=== PATIENT | female | born 1950 | race Caucasian/White ===

== ENCOUNTER → 2017-06-22 | Outpatient (CLI) | payer OTHER, BC ==
[~2017-06-22] MED LIST: ANT25 PO; ASPCH81X PO; ASPI81TA28 PO; ATOR10TA88 PO; KETO10TA PO; MAGN500T4 PO; MELA1TAB3 PO; NAPR1TAB9 PO; ONDA4TAB7 SL; OXYC-57 PO
[2017-06-22 16:55] LABS: BASO % 0.8 %; BASO ABS # 0.07 K/uL (0-0.2); COMPLETE YES; EOS % 3.4 %; HEMATOCRIT 37.1 % (37-47); IG% 0.1 %; LYMPH % 28.2 %; LYMPH ABS # 2.44 K/uL (1.2-3.4); MEAN CELL VOLUME 88.8 fL (80-100); MEAN CORPUSCULAR HEMOGLOBIN 30.6 pg (25-34); MEAN CORPUSCULAR HGB CONC 34.5 g/dl (32-36); MEAN PLATELET VOLUME 9.3 fL (7.4-10.4); MONO % 6.3 %; NEUT % 61.2 %; PLATELET COUNT 327 K/uL (130-400); RED BLOOD COUNT 4.18 M/uL (4.2-5.4); WHITE BLOOD COUNT 8.64 K/uL (4.8-10.8)
[2017-06-22 17:23] LABS: BLOOD UREA NITROGEN 11 mg/dl (7-18); BUN/CREATININE RATIO 17.1 (10-20); CALCIUM 9.5 mg/dl (8.5-10.1); CARBON DIOXIDE 26 mmol/L (21-32); CHLORIDE 107 mmol/L (98-107); CREATININE 0.62 mg/dl (0.60-1.20); GLUCOSE 87 mg/dl (70-99); POTASSIUM 3.4 mmol/L (3.5-5.1); SODIUM 141 mmol/L (136-145)
== END | disposition home or self-care (01) ==
LOC: C.LAB 15:42
PROVIDERS: ATTEND Orthopaedic Surgery
DX: M75.121 Complete rotator cuff tear or rupture of right shoulder, not specified as traumatic (principal); Z01.812 Encounter for preprocedural laboratory examination; Z01.810 Encounter for preprocedural cardiovascular examination

== ENCOUNTER → 2017-07-02 | Day surgery (SDC) | payer OTHER, BC ==
[2017-06-23 13:37] VITALS: Ht 160 cm; Wt 67.7 kg
[~2017-07-02] VITALS: Ht 160 cm; Wt 67.7 kg
[~2017-07-02] MED LIST changes: -ANT25 PO; -ASPCH81X PO; +ATROPINE SULFATE 0.1 MG/ML 5ML SYR IV PRN; +BUPIVACAINE/EPINEPHRINE 0.25% 1:200,000 30 ML VIAL ONE; +BUPIVACAINE/EPINEPHRINE 0.5% MPF 1:200,000 10 ML VIAL ONE; +CEFAZOLIN 2000 MG/60 ML D5W IV SCH; +DEXAMETHASONE SOD INJ 4 MG/ML VIAL ONE; +EpHEDrine SULFATE INJ 50 MG/ML AMP IV PRN; +EpINEphrine INJ 1MG/ML AMP 1 MG/ML AMP ONE; +FENTANYL CITRATE INJ 50 MCG/1 ML 2 ML VIAL IV PRN; +FENTANYL CITRATE INJ 50 MCG/1 ML 2 ML VIAL ONE; +LACTATED RINGER'S 1000ML 1,000 ML IV SCH; +LIDOCAINE HCL 2% 2 ML VIAL (20MG/ML) ONE; -MAGN500T4 PO; -MELA1TAB3 PO; +MIDAZOLAM HCL 1 MG/ML 2ML VIAL ONE; -ONDA4TAB7 SL; +ONDANSETRON INJ 2 MG/ML 2 ML VIAL IV PRN; +OXYCODONE/ACETAMINOPHEN 5-325 TAB PO PRN; +PROMETHAZINE HCL INJ 6.25 MG in SODIUM CHLORIDE 0.9% 50ML 50 ML IV PRN; +PROPOFOL IV EMULSION 10 MG/ML 20 ML VIAL IV ONE; +SODIUM CHLORIDE 0.9% 1000ML 1,000 ML IV SCH
--- NOTE | 2017-07-02 06:51 | History & Physical Bridge Note ---
H&P Re-Evaluation Bridge Note: I have examined the patient, reviewed the History & Physical and in the interval since the performance of the History & Physical I have noted the following changes of clinical significance: No changes noted
[2017-07-02 12:25] VITALS: BP 126/54; PULSE 86; TEMP 36.9; O2SAT 97
--- NOTE | 2017-07-02 12:29 | Discharge Instructions-SurgCtr ---
Discharge Instructions Date of Service Jul 02, 2017. Visit Reason for Visit: Full Thickness Rotator Cuff Tear Discharge Discharge Diagnosis / Problem: SAME ABOVE Discharge Goals Goal(s): Decrease discomfort, Improve function Medications Stopped Medications Name(s): aleve and asa stopped. last dose last thu on 06/24 Restart Stopped Medication(s): MAY RESTART ASA 07/03/2017 DO NOT TAKE ANY ANTI INFLAMMATORIES WHILE TAKING TORADOL TAKE TORADOL EVERY 8 HOURS WITH FOOD Activity Recommendations Activity Limitations: as noted below Lifting Limitations: until after follow-up appointment Exercise/Sports Limitations: until after follow-up appointment Shower/Bathe: tomorrow Anesthesia . Post Anesthesia Instructions: If you have had General Anesthesia or IV Sedation: * Do not drive today. * Resume driving when surgeon permits. * Do not make important decisions or sign legal documents today. * Call surgeon for: 1. Temperature elevations greater than 101 degrees F. 2. Uncontrollable pain. 3. Excessive bleeding. 4. Persistent nausea and vomiting. 5. Medication intolerance (nausea, vomiting or rash). * For nausea and vomiting use only clear liquids such as: tea, soda, bouillon until nausea subsides, then gradually increase diet as tolerated. * If you have any concerns or questions, call your surgeon's office. If physician is unavailable and it is an emergency, call 911 or go to the nearest emergency room. . Instructions / Follow-Up Instructions / Follow-Up MEDICATIONS: * Resume previous medications unless instructed otherwise by your surgeon. * Always take pain medication on a full stomach or with food to avoid upset stomach. * Do not drink alcohol or drive while taking narcotics. * Ibuprofen or Tylenol may be taken if narcotic not needed. SPECIAL CARE INSTRUCTIONS: __ None _X_ Keep extremity elevated and iced x 48 hours; apply ice 20-30 minutes 8-10 times/day. May remove at night. __ Sling __24 hrs/day __ Remove at night _X_ Shoulder Immobilizer _X_ 24 hrs/day __ Remove at night _X_ Dressing __ Maintain until seen in office, may shower with plastic over site _X_ Remove dressings in 24-48 hours and then may shower _X_ Cover incisions with band-aids after showering __ Do not remove steri-strips Call physician if chills or temperature rises above 102 degrees or pain unrelieved by prescribed pain medications at . . Diet Recommendations Home Diet: no limitations Fluid Restriction: None Procedures Procedures Performed: Right Shoulder Arthroscopy, Small Rotator Cuff Repair, Acromioplasty, Biceps Tenodesis, Removal Loose Body Pending Studies Studies pending at discharge: no Work Instructions Return To Work: after follow-up Lifting Limitations: NO LIFTING WITH RIGHT ARM Medical Emergencies . Who to Call and When: Medical Emergencies: If at any time you feel your situation is an emergency, please call 911 immediately. . Non-Emergent Contact Non-Emergency issues call your: Primary Care Provider Call Non-Emergent contact if: you have a fever, temperature is above 101.5 . . "Provider Documentation" section prepared by Otto Dunlap. .
--- NOTE | 2017-07-02 12:31 | OPERATIVE REPORT ---
DATE OF OPERATION: 07/02/2017 PREOPERATIVE DIAGNOSES: Severe external impingement, small rotator cuff tear and biceps tendinopathy of the right shoulder. 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 PROCEDURES: Right shoulder diagnostic arthroscopy with removal of loose body, limited debridement, acromioplasty, small rotator cuff repair and arthroscopic biceps tenodesis. SURGEON: Dr. Demarcus Harris. SOLAR SALES CONSULTANT: Min Dunlap PA-C, whose assistance was necessary for positioning the arm and helping with instrumentation. ANESTHESIA: Sedation with a right interscalene nerve block. COMPLICATIONS: None. CONDITION: Stable to PACU. INDICATIONS: Nena is a pleasant 67-year-old female who has been complaining of chronic right shoulder pain. MRI and clinical examination were diagnostic for severe external impingement and small rotator cuff tear. After failing extensive conservative treatment, she elected to undergo arthroscopy. DESCRIPTION OF PROCEDURE: On 07/02/2017, she arrived at [facility] for the above procedure. She was seen in the preoperative holding area and the operative extremity was identified and signed. She was given a preoperative antibiotic and a right interscalene nerve block. She was taken back to the operating room, laid on the table in supine position and put under basic sedation. The right shoulder was then prepped and draped in the sterile fashion. Time-out was done and the patient and operative extremity was properly identified. A scope was introduced in the posterior portal. Diagnostic arthroscopy showed no cartilage damage on the glenoid, but there was about a 2-cm circular area of complete chondral loss in the middle of the humeral head. There was also a large chondral loose body within the joint. There was a lot of fraying of the anterior labrum. There was significant fraying of the biceps tendon. There was a tear of the far anterior supraspinatus. The infraspinatus, teres minor and subscapularis were all checked and intact. An anterior portal was made. A shaver was used to do a limited debridement of the intraarticular structures. The biceps tendon was arthroscopically tenotomized for later tenodesis and loose body was removed. The scope was then put into the subacromial space. A lateral portal was made. A shaver was used to do a complete subacromial and subdeltoid bursectomy. An ablator was used to tease the coracoacromial ligament off the undersurface of the acromion and a 5-0 bruna was used to complete an acromioplasty of a very large Bigliani type 3 acromion. A shaver was used to remove any excess debris and attention was turned to the rotator cuff. There was a small far anterior rotator cuff tear. An additional anterolateral portal was made and Izabella cannula was placed in the lateral portal. The greater tuberosity was prepared with a ring curette. The rotator cuff was then fixed with an Arthrex modified SpeedBridge configuration with a single medial-sided 4.75 mm BioComposite SwiveLock suture anchor and FiberTape was passed through the tendon separately and brought down to a single lateral row SwiveLock suture anchor. This gave a nice knotless SpeedBridge repair. An Arthrex FiberLink was used to capture the biceps tendon and it was incorporated into the lateral anchor. This gave good fixation. Multiple pictures were taken. The scope was placed back into the glenohumeral joint and the articular margin of the rotator cuff had been restored. Pictures were taken. Arthroscopic instruments were removed from the shoulder. Portal sites were closed with 3-0 nylon. She was then placed in a soft dressing and abduction arm sling. She was then extubated, transferred to a litter and taken to the postanesthesia care unit in stable condition. She tolerated the procedure well. I attest to the content of the Intraoperative Record and any orders documented therein. Any exception s are noted below.
--- NOTE | 2017-07-02 12:46 | [facility] Post Operative Brief Note ---
Immediate Operative Summary Operative Date Jul 02, 2017. Pre-Operative Diagnosis Small Rotator Cuff tear, Right Shoulder Post-Operative Diagnosis same as preop Procedure(s) Performed Right Shoulder Arthroscopy, Small Rotator Cuff Repair, Acromioplasty, Biceps Tenodesis, Removal Loose Body Surgeon Dr. Harris Forder Operator Surgeon(s) AILYN Babcock Estimated Blood Loss 5CC Findings as above Specimens none per surgeon. Complication(s) None Disposition Recovery Room / PACU
--- NOTE | 2017-07-02 13:22 | Anesthesia Progress Nt - [facility] ---
Anesthesia Post Op Note Date & Time Jul 02, 2017 at 13:22 Vital Signs Pain Intensity: 5 Vital Signs Past 12 Hours Date Time Temp Pulse Resp B/P (MAP) Pulse Ox O2 Delivery O2 Flow Rate FiO2 07/02/17 12:25 36.9 86 16 126/54 (78) 97 Room Air 07/02/17 11:17 96 27 99 07/02/17 11:17 98 07/02/17 11:16 100 07/02/17 11:16 98 20 99 07/02/17 11:15 139/85 07/02/17 11:11 96 35 100 07/02/17 11:11 99 07/02/17 11:10 146/79 07/02/17 11:06 88 07/02/17 11:06 87 22 99 07/02/17 11:05 141/81 07/02/17 11:04 79 07/02/17 11:04 78 21 99 07/02/17 11:00 135/78 07/02/17 10:59 76 07/02/17 10:59 76 0 99 07/02/17 10:56 161/98 07/02/17 10:54 90 0 174/95 07/02/17 10:49 87 0 07/02/17 10:44 87 0 07/02/17 10:39 89 0 07/02/17 10:34 88 0 07/02/17 10:29 90 0 07/02/17 10:24 85 0 07/02/17 10:19 86 0 07/02/17 10:14 82 0 07/02/17 10:09 86 0 07/02/17 09:45 37.0 91 22 165/88 (113) 97 Room Air 181/103 (129) Notes Mental Status: alert / awake / arousable, participated in evaluation Pt Amnestic to Procedure: Yes Nausea / Vomiting: adequately controlled Pain: adequately controlled Airway Patency, RR, SpO2: stable & adequate BP & HR: stable & adequate Hydration State: stable & adequate Anesthetic Complications: no major complications apparent Block working well in pacu
== END | disposition home or self-care (01) ==
LOC: X.SURG 09:36
PROVIDERS: ATTEND Orthopaedic Surgery
DX: M25.811 Other specified joint disorders, right shoulder (principal); M75.101 Unspecified rotator cuff tear or rupture of right shoulder, not specified as traumatic; M75.91 Shoulder lesion, unspecified, right shoulder; E78.00 Pure hypercholesterolemia, unspecified; I34.1 Nonrheumatic mitral (valve) prolapse; Z79.899 Other long term (current) drug therapy

== ENCOUNTER 2019-06-24 04:42 | Inpatient (IN) ==
[2019-06-24] MEDS ORDERED: fentaNYL citrate 100 MCG/2 ML VIAL IV STA (04:51)
[2019-06-24] MEDS ORDERED: ONDANSETRON INJ 2 MG/ML 2 ML VIAL IV STA (04:51)
[2019-06-24] MEDS ORDERED: SODIUM CHLORIDE 0.9% 1000ML 500 ML IV ONE (04:51)
[2019-06-24 05:09] LABS: Basophils # (auto) 0.07 K/uL (0-0.2); Basophils % (auto) 0.5 %; Eosinophils # (auto) 0.44 K/uL (0-0.5); Eosinophils % (auto) 3.3 %; Hematocrit (blood only) 33.5 % (37-47); Immature Granulocytes # (auto) 0.02 K/uL (0.00-0.02); Immature Granulocytes % (auto) 0.2 %; Lymphocytes # (auto) 3.46 K/uL (1.2-3.4); Lymphocytes % (auto) 26.3 %; Mean Corpuscular Hgb Conc 35.8 g/dL (32-36); Mean Corpuscular Volume 86.6 fL (80-100); Monocytes # (auto) 1.23 K/uL (0.11-0.59); Monocytes % (auto) 9.3 %; Neutrophils # (auto) 7.96 K/uL (1.4-6.5); Neutrophils % (auto) 60.4 %; Platelet Count 320 K/uL (130-400); RDW Coefficient of Variation 13.2 % (11.5-14.5); RDW Standard Deviation 42.1 fL (36.4-46.3); Red Blood Count 3.87 M/uL (4.2-5.4); White Blood Count 13.18 K/uL (4.8-10.8)
[2019-06-24 05:13] LABS: iSTAT Creatinine 0.7 mg/dl (0.6-1.3); iSTAT Hemoglobin 11.6 g/dl (12.0-16.0); iSTAT Ionized Calcium 1.18 mmol/l (1.12-1.32); iSTAT Potassium 3.2 mEq/L (3.3-5.0)
[2019-06-24] MEDS ORDERED: SODIUM CHLORIDE 0.9% 1000ML 1,000 ML IV ONE (05:20)
[2019-06-24] MEDS ORDERED: OPTIRAY 320 125ml IV PRN (05:21)
[2019-06-24 05:26] LABS: Alanine Aminotransferase 18 U/L (12-78); Albumin Level 3.7 gm/dl (3.4-5.0); Aspartate Aminotransferase 26 U/L (15-37); BUN Creatinine Ratio 14.8 (10-20); Blood Urea Nitrogen 12 mg/dl (7-18); Calcium 8.7 mg/dl (8.5-10.1); Carbon Dioxide 22 mmol/L (21-32); Chloride 108 mmol/L (98-107); Est GFR (African American) 82.8; Est GFR (Non-African American) 71.4; Glucose 141 mg/dl (70-99); Potassium 3.3 mmol/L (3.5-5.1); Sodium 141 mmol/L (136-145)
[2019-06-24 05:31] LABS: Albumin Globulin Ratio 1.2 (0.9-2); Alkaline Phosphatase 74 U/L (45-117); Bilirubin,Total 0.6 mg/dl (0.2-1); Globulin 3.2 gm/dl (2.5-4.0); Total Protein 6.9 gm/dl (6.4-8.2); Troponin I < 0.015 ng/ml (0-0.045)
[2019-06-24] MEDS ORDERED: SODIUM CHLORIDE 0.9% 250 ML IV PRN ×4 (05:36→22:12)
[2019-06-24] MEDS ORDERED: NOREPINEPHRINE (Adult STAT Only) 4 MG in D5W 250 ML IV STA (05:45)
[2019-06-24] MEDS ORDERED: NOREPINEPHRINE BIT INJ 8 MG in DEXTROSE 5% 500 ML IV SCH (05:45)
--- NOTE | 2019-06-24 05:45 | CT Scan Report ---
CT ANGIOGRAPHY OF THE CHEST WITHOUT AND WITH CONTRAST CLINICAL HISTORY: Severe chest pain radiating to the back. Possible aortic dissection. COMPARISON STUDY: No previous studies for comparison. TECHNIQUE: Unenhanced images were obtained through the chest. Following the IV administration of 118 mL of Optiray-320, CT angiography of the thorax was performed from the thoracic inlet to the lung bas es. MIP images were acquired. Images are reviewed in the axial, sagittal, and coronal planes. IV cont rast was administered without complication. A dose lowering technique was utilized adhering to the p rinciples of ALARA. CT DOSE: FINDINGS: Thyroid: Imaged portions of the thyroid gland are normal in appearance. Thoracic aorta: Noncontrast images reveal no evidence of acute aortic hematoma. Postcontrast images r eveal no evidence of acute aortic dissection. The ascending thoracic aorta measures 31 mm. Pulmonary vasculature: The pulmonary trunk is normal in caliber. There are no central filling defects identified to suggest pulmonary embolus. Note that this examination was not protocoled for the evalu ation of pulmonary emboli. HEART: The heart is normal in size and configuration, without pericardial effusion. Lungs and pleural spaces: There are no pleural effusions. There is mild dependent atelectasis. There are no areas of focal pulmonary consolidation to indicate pneumonia. There is a 3 mm right upper lobe calcified granuloma Mediastinum: There is no mediastinal lymphadenopathy. Becky: There is no evidence pathologic hilar lymphadenopathy Axilla: There is no evidence of pathologic axillary lymphadenopathy Upper abdomen: There is acute hemorrhage into a 10 cm upper pole left renal mass, likely representin g an angiomyolipoma. There is evidence for active hemorrhagic extravasation. With a 10 cm perinephric hematoma. Skeletal structures: There are no lytic or blastic osseous lesions. IMPRESSION: 1. No evidence of thoracic aortic aneurysm or dissection 2. Acute hemorrhage into a 10 cm upper pole left renal mass, likely representing an angiomyolipoma. T here is evidence for active hemorrhage, with a large perinephric hematoma. Electronically signed by: Corky Hurt M.D. 06/24/2019 5:43 AM
[2019-06-24] MEDS ORDERED: fentaNYL citrate 100 MCG/2 ML VIAL IV PRN (05:48)
--- NOTE | 2019-06-24 05:59 | CT Scan Report ---
CT angio abd pelvis wo/w con CT DOSE: 1011.66 mGy.cm CLINICAL HISTORY: Severe chest and abdominal pain. Possible dissection. TECHNIQUE: Unenhanced images were obtained through the abdomen. CT angiography of the abdomen and pel vis was then performed a dynamic helical fashion during intravenous administration of 118 cc of Optir ay 320. MIP imaging was acquired. A dose lowering technique was utilized adhering to the principles of ALARA. COMPARISON STUDY: None. FINDINGS: Visualized portions of the lung bases are unremarkable. There is a 4 mm left lobe hepatic hypodensity, likely representing a cyst. No gallbladder abnormalities are visualized. No splenic masses are visualized. No intrinsic pancreatic masses are visualized. The pancreas is anterior displaced due to a large retr operitoneal hemorrhage. No abnormalities of the right adrenal gland are visualized. The left adrenal gland is obscured due to the large retroperitoneal hemorrhage. There is a 10.5 cm upper pole left renal mass. This contains areas of fat and therefore likely repres ents an angiomyolipoma. The mass appears to have ruptured, and there is evidence for active hemorrhag e with active bleeding extending superior to the left kidney into the retroperitoneum. There is a lar ge retroperitoneal hemorrhage. The component superior to the kidney measures 11.7 cm. The craniocauda d extent of the hemorrhage measures 21 cm. No right renal masses are visualized. No renal, ureteral, or bladder calculi are visualized. There are no transition zones indicate bowel obstruction. There is no evidence of acute diverticuliti s. There is no evidence of acute appendicitis. There is no evidence for abdominal aortic aneurysm or dissection. 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 There is a slight J-shaped configuration. While this could be secondary to median arcuate ligament syndrome, it is possible the stenosis is accentuated due to the retroperit sim hemorrhage. There is no evidence for pathologic adenopathy. There is no free air. There is no ascites. No destructive skeletal lesions are visualized. IMPRESSION: 1. Large left-sided retroperitoneal hemorrhage measuring in excess of 20 cm in craniocaudad dimension . There is evidence for active hemorrhage, with visualized contrast extravasation. 2. The etiology of the hemorrhage, is likely secondary to a ruptured 10.5 cm upper pole left renal an giomyolipoma 3. No evidence of aortic aneurysm or dissection 4. 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 This cou ld indicate median arcuate ligament syndrome. It is also possible the stenosis is exaggerated due to the retroperitoneal hemorrhage. If indicated, reevaluation following resolution of the current acute process might be considered. 5. The pertinent scan findings were discussed with the emergency room attending. Electronically signed by: Corky Hurt M.D. 06/24/2019 5:56 AM
[2019-06-24 06:04] LABS: Hematocrit (blood only) 14.5 % (37-47); Hemoglobin 5.1 g/dL (12.0-16.0)
[2019-06-24 06:14] LABS: Partial Thromboplastin Ratio 0.8; Prothrombin Time 10.3 Seconds (9.0-12.0)
[2019-06-24] MEDS ORDERED: LIDOCAINE HCL 2% 2 ML VIAL/AMP(20MG/ML) INFIL ONE (06:19)
[2019-06-24] MEDS ORDERED: fentaNYL citrate 100 MCG/2 ML VIAL ONE (06:19)
[2019-06-24] MEDS ORDERED: ETOMIDATE 2 MG/ML 20 ML VIAL IV ONE (06:19)
--- NOTE | 2019-06-24 06:30 | Anesthesiology Consultation ---
Date of Service June 24, 2019 Assessment & Plan (1) Encounter for pre-operative examination: Chart Review Chart Review: Acceptable Risk for Surgery Consults Requested none ASA [id number] Proposed Anesthesia Anesthesia Type: General Anesthesia Line Insertion: Arterial line Risk / Benefits Reviewed With: PT / POA / Parent / Guardian, Accepts Plan and Informed Consent Obtained History Surgery Operation Date: 06/24/19 07:00 Proposed Procedures p Exploratory Laparotomy - Fran Goff MD Height/Weight Height: 5 ft 3 in Weight: 70.6 kg Allergies Allergy/AdvReac Type Severity Reaction Status Date / Time No Known Allergies Allergy Unverified 06/24/19 05:38 Medications Home Medications Medication Instructions Recorded Confirmed Last Taken aspirin 81 mg PO DAILY 06/24/19 06/24/19 Unknown atorvastatin 20 mg PO DAILY 06/24/19 06/24/19 Unknown calcium carbonate-vitamin D3 2 tab PO DAILY 06/24/19 06/24/19 Unknown [Calcium 500 With D] cholecalciferol (vitamin D3) 2,000 unit PO DAILY 06/24/19 06/24/19 Unknown [Vitamin D3] cyanocobalamin (vitamin B-12) 1,000 mcg PO DAILY 06/24/19 06/24/19 Unknown magnesium oxide 500 mg PO DAILY 06/24/19 06/24/19 Unknown naproxen sodium 440 mg PO DAILY 06/24/19 06/24/19 Unknown Active Medications Generic Name Dose Route Start Last Admin Trade Name Freq PRN Reason Stop Dose Admin Fentanyl Citrate 50 mcg 06/24/19 05:48 06/24/19 06:05 Fentanyl Citrate IV 07/08/19 05:47 50 mcg Q15M PRN Administration Pain Norepinephrine Bitartrate 8 mg 508 mls @ 0 mls/hr 06/24/19 05:45 06/24/19 06:10 / Dextrose IV 07/24/19 05:44 0.02 mcg/kg/min .Q0M CHRIS 5.4 mls/hr Administration Per Protocol Ioversol 125 ml 06/24/19 05:21 06/24/19 05:21 Optiray 320 125ml IV 06/28/19 05:20 118 ml ONCE PRN Administration Interaction Checking Past Medical History Medical History Hypercholesteremia Exercise / Class Metabolic Activity II 4-5 Yardwork/Stairs/Walk up hill Past Surgical History Surgical History S/P hernia repair Past Anesthesia History No Hx of Anesthesia Complications and No Family Hx of Anesthesia Complications History of PONV No Hx of PONV and No Hx of Motion Sickness Social History Smoking Status: Never smoker Physical Exam Vital Signs Last Vital Signs Temp 96.3 F L 06/24/19 05:28 Pulse 62 06/24/19 06:10 Resp 20 06/24/19 06:10 BP 115/56 L 06/24/19 06:10 Pulse Ox 100 06/24/19 06:10 ENMT Mouth: no dentition abnormality Thyromental Distance: > or= 3.5 Finger Breadths Mallampati Class: II Neck normal visual inspection Respiratory normal respiratory effort Auscultation: lungs clear to auscultation bilaterally Cardiovascular Rate/Rhythm: regular rate and regular rhythm Testing Laboratory Results 06/24/19 05:55 06/24/19 04:59 PT 10.3 Seconds (9.0-12.0) 06/24/19 04:59 INR 1.0 (0.9-1.1) 06/24/19 04:59 APTT 22.0 Seconds (21.0-31.0) 06/24/19 04:59 Blood Type Cancelled 06/24/19 05:31 Antibody Screen Cancelled 06/24/19 05:31 06/24/19 05:00 POC Glucose (other) 144 H Electrocardiogram Date: 06/24/19 Normal sinus rhythm, rate 69 bpm Prolonged QT Abnormal ECG When compared with ECG of 22-JUN-2017 16:12, QT has lengthened Other Testing CT abd 06/24/19 IMPRESSION: 1. Large left-sided retroperitoneal hemorrhage measuring in excess of 20 cm in craniocaudad dimension. There is evidence for active hemorrhage, with visualized contrast extravasation. 2. 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 No evidence of aortic aneurysm or dissection 4. 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 This could indicate median arcuate ligament syndrome. It is also possible the stenosis is exaggerated due to the retroperitoneal hemorrhage. If indicated, reevaluation following resolution of the current acute process might be considered. 5. The pertinent scan findings were discussed with the emergency room attending.
--- NOTE | 2019-06-24 07:01 | Emergency Department Note ---
History of Present Illness General Chief complaint: Abdominal Pain Stated complaint: L SIDE ABD PAIN Time Seen by Provider: 06/24/19 04:50 History of Present Illness Maximum Pain Intensity: 10 This 69-year-old presents to the ER complaining of severe left upper abdominal pain Location: Left upper abdomen Quality: Severe Severity: Severe Duration: This morning at 2 AM Timing: Patient woke up like normal and developed severe abdominal pain Context: Pain persisted and patient came in Modifying factors: better with nothing; worse with activity Patient states she felt fine when she went to bed last night. She states she normally wakes up early had a couple sips of coffee and developed severe abdominal pain. The pain persisted and patient came in. Patient complains of feeling nauseous with vomiting diaphoresis and feeling weak. Patient states she is healthy with no real active medical problems. Patient had a colonoscopy last year that was negative. She has had a hernia surgery when she was young. Patient denies chest pain, dyspnea, fever, chills. She had a normal bowel movement yesterday. No injury to the area. Home Medications Home Medications Medication Instructions Recorded Confirmed Type aspirin 81 mg PO DAILY 06/24/19 06/24/19 History atorvastatin 20 mg PO DAILY 06/24/19 06/24/19 History calcium carbonate-vitamin D3 2 tab PO DAILY 06/24/19 06/24/19 History [Calcium 500 With D] cholecalciferol (vitamin D3) 2,000 unit PO DAILY 06/24/19 06/24/19 History [Vitamin D3] cyanocobalamin (vitamin B-12) 1,000 mcg PO DAILY 06/24/19 06/24/19 History magnesium oxide 500 mg PO DAILY 06/24/19 06/24/19 History naproxen sodium 440 mg PO DAILY 06/24/19 06/24/19 History Allergies Allergy/AdvReac Type Severity Reaction Status Date / Time No Known Allergies Allergy Unverified 06/24/19 05:38 Past Med/Surg History Medical History Mitral valve prolapse Hypercholesteremia Surgical History S/P hernia repair Social History Communication Ability Comment: Intubated/sedated Current Living Situation Comment: unknown Feels Safe at Home: Yes Smoking Status: Unknown if ever smoked Review of Systems All systems reviewed & are unremarkable except as noted in HPI & below Physical Exam Vital Signs Vital Signs - 24 hr 06/24/19 04:48 06/24/19 05:00 06/24/19 05:20 Temperature Temperature Source Rectal Temperature - Source 2 Sepsis Recent Fever Within 48 Hours Sepsis Action Taken by Nursing Arterial BP Systolic Arterial BP Diastolic Arterial BP Mean Arterial Pulse Rate End-Tidal CO2 Pulse Oximetry Post Tiitration Pulse Rate 76 72 66 Pulse Rate [Left Finger] Pulse Rate from SpO2 Sensor 76 72 66 Pulse Rhythm [Left Finger] Pulse Strength [Left Finger] Respiratory Rate 18 23 20 Respiratory Effort / Characteristics Respiratory Depth Respiratory Pattern Blood Pressure 101/50 L 113/69 166/79 H Blood Pressure [Right Arm] Blood Pressure Mean 67 83 108 Blood Pressure Mean [Right Arm] Blood Pressure Position [Right Arm] Pulse Oximetry 98 97 93 Oxygen Delivery Method Oxygen Flow Rate Fraction of Inspired Oxygen 06/24/19 05:28 06/24/19 05:31 06/24/19 05:35 Temperature 35.7 C L Temperature Source Rectal Rectal Temperature - Source 2 Sepsis Recent Fever Within 48 Hours No Sepsis Action Taken by Nursing No Action Required Arterial BP Systolic Arterial BP Diastolic Arterial BP Mean Arterial Pulse Rate End-Tidal CO2 Pulse Oximetry Post Tiitration 99 Pulse Rate 64 63 61 Pulse Rate [Left Finger] Pulse Rate from SpO2 Sensor 63 61 Pulse Rhythm [Left Finger] Pulse Strength [Left Finger] Respiratory Rate 18 21 19 Respiratory Effort / Characteristics Respiratory Depth Respiratory Pattern Blood Pressure 90/46 L 90/46 L 89/52 L Blood Pressure [Right Arm] Blood Pressure Mean 60 60 64 Blood Pressure Mean [Right Arm] Blood Pressure Position [Right Arm] Pulse Oximetry 99 96 96 Oxygen Delivery Method Room Air Oxygen Flow Rate Fraction of Inspired Oxygen 06/24/19 05:44 06/24/19 05:45 06/24/19 05:50 Temperature Temperature Source Rectal Temperature - Source 2 Sepsis Recent Fever Within 48 Hours Sepsis Action Taken by Nursing Arterial BP Systolic Arterial BP Diastolic Arterial BP Mean Arterial Pulse Rate End-Tidal CO2 Pulse Oximetry Post Tiitration Pulse Rate 69 64 64 Pulse Rate [Left Finger] Pulse Rate from SpO2 Sensor 69 64 65 Pulse Rhythm [Left Finger] Pulse Strength [Left Finger] Respiratory Rate 18 22 23 Respiratory Effort / Characteristics Respiratory Depth Respiratory Pattern Blood Pressure 119/50 L 105/50 L 99/53 L Blood Pressure [Right Arm] Blood Pressure Mean 73 68 68 Blood Pressure Mean [Right Arm] Blood Pressure Position [Right Arm] Pulse Oximetry 100 98 98 Oxygen Delivery Method Oxygen Flow Rate Fraction of Inspired Oxygen 06/24/19 05:51 06/24/19 05:52 06/24/19 05:55 Temperature Temperature Source Rectal Temperature - Source 2 Sepsis Recent Fever Within 48 Hours Sepsis Action Taken by Nursing Arterial BP Systolic Arterial BP Diastolic Arterial BP Mean Arterial Pulse Rate End-Tidal CO2 Pulse Oximetry Post Tiitration Pulse Rate 63 63 62 Pulse Rate [Left Finger] Pulse Rate from SpO2 Sensor 64 Pulse Rhythm [Left Finger] Pulse Strength [Left Finger] Respiratory Rate 22 18 27 H Respiratory Effort / Characteristics Respiratory Depth Respiratory Pattern Blood Pressure 106/51 L 107/49 L Blood Pressure [Right Arm] Blood Pressure Mean 69 68 Blood Pressure Mean [Right Arm] Blood Pressure Position [Right Arm] Pulse Oximetry 99 98 96 Oxygen Delivery Method Oxygen Flow Rate Fraction of Inspired Oxygen 06/24/19 05:59 06/24/19 06:00 06/24/19 06:05 Temperature Temperature Source Rectal Temperature - Source 2 34.9 C L Sepsis Recent Fever Within 48 Hours Sepsis Action Taken by Nursing Arterial BP Systolic Arterial BP Diastolic Arterial BP Mean Arterial Pulse Rate End-Tidal CO2 Pulse Oximetry Post Tiitration Pulse Rate 65 67 62 Pulse Rate [Left Finger] Pulse Rate from SpO2 Sensor 64 Pulse Rhythm [Left Finger] Pulse Strength [Left Finger] Respiratory Rate 18 22 19 Respiratory Effort / Characteristics Respiratory Depth Respiratory Pattern Blood Pressure 118/66 121/63 86/48 L Blood Pressure [Right Arm] Blood Pressure Mean 83 82 60 Blood Pressure Mean [Right Arm] Blood Pressure Position [Right Arm] Pulse Oximetry 98 100 Oxygen Delivery Method Oxygen Flow Rate Fraction of Inspired Oxygen 06/24/19 06:08 06/24/19 06:10 06/24/19 07:47 Temperature 35.9 C L Temperature Source Axillary Rectal Temperature - Source 2 34.9 C L 34.9 C L Sepsis Recent Fever Within 48 Hours Sepsis Action Taken by Nursing Arterial BP Systolic Arterial BP Diastolic Arterial BP Mean Arterial Pulse Rate End-Tidal CO2 Pulse Oximetry Post Tiitration Pulse Rate 62 62 Pulse Rate [Left Finger] 64 Pulse Rate from SpO2 Sensor 61 62 Pulse Rhythm [Left Finger] Regular Pulse Strength [Left Finger] Normal Respiratory Rate 19 20 20 Respiratory Effort / Characteristics Non-Labored Spontaneous Respiratory Depth Normal Respiratory Pattern Regular Blood Pressure 113/55 L 115/56 L Blood Pressure [Right Arm] 115/74 Blood Pressure Mean 74 75 Blood Pressure Mean [Right Arm] 87 Blood Pressure Position [Right Arm] Sitting Pulse Oximetry 100 100 100 Oxygen Delivery Method Non-rebreather Oxygen Flow Rate 15 Fraction of Inspired Oxygen 06/24/19 09:07 06/24/19 09:30 06/24/19 09:33 Temperature 33.4 C L 33.4 C L Temperature Source Rectal Rectal Rectal Temperature - Source 2 Sepsis Recent Fever Within 48 Hours Sepsis Action Taken by Nursing Arterial BP Systolic Arterial BP Diastolic Arterial BP Mean Arterial Pulse Rate End-Tidal CO2 26 Pulse Oximetry Post Tiitration Pulse Rate 96 H Pulse Rate [Left Finger] 61 105 H Pulse Rate from SpO2 Sensor 99 H Pulse Rhythm [Left Finger] Pulse Strength [Left Finger] Respiratory Rate 16 Respiratory Effort / Characteristics Mechanically Ventilated Mechanically Ventilated Respiratory Depth Normal Respiratory Pattern Blood Pressure 215/170 H Blood Pressure [Right Arm] 241/144 H Blood Pressure Mean 185 Blood Pressure Mean [Right Arm] 176 Blood Pressure Position [Right Arm] Lying Pulse Oximetry 100 100 Oxygen Delivery Method Mechanical Vent Mechanical Vent Oxygen Flow Rate 40 Fraction of Inspired Oxygen 40 06/24/19 09:35 06/24/19 09:40 06/24/19 09:44 Temperature Temperature Source Rectal Temperature - Source 2 Sepsis Recent Fever Within 48 Hours Sepsis Action Taken by Nursing Arterial BP Systolic 253 207 Arterial BP Diastolic 131 95 Arterial BP Mean 187 143 Arterial Pulse Rate 105 H 98 H End-Tidal CO2 23 25 23 Pulse Oximetry Post Tiitration Pulse Rate 106 H 86 66 Pulse Rate [Left Finger] Pulse Rate from SpO2 Sensor 106 H 86 Pulse Rhythm [Left Finger] Pulse Strength [Left Finger] Respiratory Rate 16 Respiratory Effort / Characteristics Respiratory Depth Respiratory Pattern Blood Pressure 241/144 H Blood Pressure [Right Arm] Blood Pressure Mean 176 Blood Pressure Mean [Right Arm] Blood Pressure Position [Right Arm] Pulse Oximetry 100 100 100 Oxygen Delivery Method Oxygen Flow Rate Fraction of Inspired Oxygen 40 06/24/19 09:45 06/24/19 09:46 06/24/19 09:50 Temperature Temperature Source Rectal Temperature - Source 2 33.4 C L 33.4 C L 33.4 C L Sepsis Recent Fever Within 48 Hours Sepsis Action Taken by Nursing Arterial BP Systolic 189 176 169 Arterial BP Diastolic 101 93 74 Arterial BP Mean 136 126 115 Arterial Pulse Rate 78 76 134 H End-Tidal CO2 24 24 23 Pulse Oximetry Post Tiitration Pulse Rate 77 77 73 Pulse Rate [Left Finger] Pulse Rate from SpO2 Sensor 77 76 72 Pulse Rhythm [Left Finger] Pulse Strength [Left Finger] Respiratory Rate Respiratory Effort / Characteristics Respiratory Depth Respiratory Pattern Blood Pressure 162/105 H Blood Pressure [Right Arm] Blood Pressure Mean 124 Blood Pressure Mean [Right Arm] Blood Pressure Position [Right Arm] Pulse Oximetry 100 100 100 Oxygen Delivery Method Oxygen Flow Rate Fraction of Inspired Oxygen VITALS: Vitals are noted on the nurse's note and reviewed by myself. Vital sig ns hypotensive. GENERAL: White female diaphoretic pale in acute distress. SKIN: Patient is extremely diaphoretic, the skin was without rashes, erythema, edema, or bruising. There is no tenting of the skin. Capillary reflex less than 2 seconds. HEAD: Normocephalic atraumatic. EARS: External auditory canals clear, tympanic membranes pearly colvin without erythema or effusion bilaterally. EYES: Pupils equal round and reactive to light and accommodation. Conjunctivae without injection, sclerae without icterus. Extraocular movements intact. NOSE: Patent, turbinates without inflammation or discharge. MOUTH: Mucous membranes mildly dry. Pharynx without erythema or exudate. Uvula midline. Airway patent. Tongue does not deviate. NECK: Supple without nuchal rigidity. No lymphadenopathy. No thyromegaly. Cervical spine is nontender. No JVD. HEART: Regular rate and rhythm LUNGS: Clear to auscultation bilaterally without wheezes, rales or rhonchi. No retractions or accessory muscle use. ABDOMEN: Positive bowel sounds x 4. Normal tympanic percussion. Rigid, diffusely tender,+ guarding + rebound tenderness. Patient has an acute abdomen. + B CVA tenderness MUSCULOSKELETAL: No muscle atrophy, erythema, or edema noted. NEURO: Patient was alert and oriented to person place and time. Normal sensation to light and sharp touch. No focal neurological deficits. Course Administered Medications Fentanyl Citrate (Fentanyl Citrate) 100 mcg IV Q2H PRN PRN Reason: Severe Pain (7,8,9,10) Stop: 07/08/19 09:48 Last Admin: 06/25/19 00:12 Dose: 100 mcg Documented by: [id number] Admin: 06/24/19 17:45 Dose: 100 mcg Documented by: [id number] Admin: 06/24/19 14:50 Dose: 100 mcg Documented by: [id number] Admin: 06/24/19 12:44 Dose: 100 mcg Documented by: [id number] Parenteral Electrolytes (Normosol-R) 1,000 mls @ 75 mls/hr IV .[id number] CHRIS Stop: 07/24/19 09:48 Last Admin: 06/24/19 19:42 Dose: 75 mls/hr Documented by: [id number] Infusion: 06/24/19 19:42 Dose: 100 mls/hr Documented by: [id number] Admin: 06/24/19 11:37 Dose: 100 mls/hr Documented by: [id number] Oxycodone HCl (Roxicodone Immediate Rel) 10 mg PO Q6H PRN PRN Reason: Severe Pain (7,8,9,10) Stop: 07/08/19 18:59 Last Admin: 06/25/19 01:53 Dose: 10 mg Documented by: [id number] Admin: 06/24/19 19:42 Dose: 10 mg Documented by: [id number] Discontinued Medications Fentanyl Citrate (Fentanyl Citrate) 50 mcg IV NOW STA Stop: 06/24/19 04:52 Last Admin: 06/24/19 04:58 Dose: 50 mcg Documented by: [id number] Fentanyl Citrate (Fentanyl Citrate) 50 mcg IV Q15M PRN PRN Reason: Pain Stop: 07/08/19 05:47 Last Admin: 06/24/19 06:05 Dose: 50 mcg Documented by: [id number] Heparin Sodium (Porcine) (Heparin Iv Bolus (Director Of Reimbursement Use Only)) Confirm Administered Dose 30,000 units .ROUTE .STK-MED ONE Stop: 06/24/19 07:25 Last Admin: 06/24/19 11:44 Dose: Not Given Documented by: [id number] Heparin Sodium/Sodium Chloride (Heparin/Nss 1000 Unit/500ml Flush Bag) Confirm Administered Dose 2,000 units IV .STK-MED ONE Stop: 06/24/19 07:33 Last Admin: 06/24/19 09:19 Dose: Not Given Documented by: [id number] Heparin Sodium/Sodium Chloride (Heparin/Nss 1000 Unit/500ml Flush Bag) Confirm Administered Dose 2,000 units IV .STK-MED ONE Stop: 06/24/19 07:52 Last Admin: 06/24/19 09:12 Dose: 2,000 units Documented by: [id number] Sodium Chloride (Nss 1000ml) 500 mls @ 999 mls/hr IV .Q31M ONE Stop: 06/24/19 05:21 Last Admin: 06/24/19 05:14 Dose: 999 mls/hr Documented by: [id number] Sodium Chloride (Nss 1000ml) 1,000 mls @ 999 mls/hr IV .Q1H1M ONE Stop: 06/24/19 06:20 Last Admin: 06/24/19 05:27 Dose: 999 mls/hr Documented by: [id number] Norepinephrine Bitartrate 8 mg (/ Dextrose) 508 mls @ 0 mls/hr IV .Q0M CHRIS Stop: 07/24/19 05:44 Last Admin: 06/24/19 06:10 Dose: 0.02 mcg/kg/min, 5.4 mls/hr Documented by: [id number] Cosigned by: [id number] Tranexamic Acid 1,000 mg/ (Sodium Chloride) 510 mls @ 63.75 mls/hr IV ONE ONE Stop: 06/24/19 15:59 Last Admin: 06/24/19 11:45 Dose: Not Given Documented by: [id number] Tranexamic Acid 1,000 mg/ (Sodium Chloride) 110 mls @ 660 mls/hr IV NOW STA Stop: 06/24/19 07:45 Last Admin: 06/24/19 11:45 Dose: Not Given Documented by: [id number] Cefazolin Sodium (Ancef 2000mg) 2,000 mg in 15 mls @ 3.75 mls/min IV ONCE ONE Stop: 06/24/19 07:52 Last Admin: 06/24/19 07:48 Dose: 3.75 mls/min Documented by: [id number] Propofol (Diprivan) 1,000 mg in 100 mls @ 2.118 mls/hr IV .Q24H CHRIS; Protocol Stop: 06/27/19 09:48 Last Titration: 06/24/19 13:00 Dose: 0 mcg/kg/min, 0 mls/hr Documented by: [id number] Admin: 06/24/19 11:36 Dose: 39.66 mcg/kg/min, 16.8 mls/hr Documented by: [id number] Cosigned by: [id number] Famotidine 20 mg/ Syringe 5 mls @ 2.5 mls/min IV Q12H CHRIS Stop: 07/24/19 10:59 Last Admin: 06/24/19 11:37 Dose: 2.5 mls/min Documented by: [id number] Magnesium Sulfate/Dextrose (Magnesium Sulfate / D5w) 1 gm in 100 mls @ 100 mls/ hr IV ONE ONE Stop: 06/24/19 14:00 Last Infusion: 06/24/19 14:45 Dose: 0 mls/hr Documented by: [id number] Admin: 06/24/19 13:42 Dose: 100 mls/hr Documented by: [id number] Acetaminophen (Ofirmev) 1,000 mg in 100 mls @ 400 mls/hr IV NOW STA Stop: 06/24/19 14:05 Last Infusion: 06/24/19 14:25 Dose: 0 mls/hr Documented by: [id number] Admin: 06/24/19 14:10 Dose: 400 mls/hr Documented by: [id number] Lorazepam (Ativan) 0.25 mg in 0.5 mls @ 0.25 mls/min IV Q4H ONE Stop: 06/24/19 14:56 Last Admin: 06/24/19 16:14 Dose: 0.25 mls/min Documented by: [id number] Iodixanol (Visipaque) 300 ml IV ONCE PRN PRN Reason: Radiology Use Stop: 06/28/19 08:09 Last Admin: 06/24/19 09:11 Dose: 47 ml Documented by: [id number] Ioversol (Optiray 320 125ml) 125 ml IV ONCE PRN PRN Reason: Interaction Checking Stop: 06/28/19 05:20 Last Admin: 06/24/19 05:21 Dose: 118 ml Documented by: [id number] Ondansetron HCl (Zofran) 4 mg IV NOW STA Stop: 06/24/19 04:52 Last Admin: 06/24/19 04:58 Dose: 4 mg Documented by: [id number] Propofol (Diprivan) Confirm Administered Dose 1,000 mg IV .STK-MED ONE Stop: 06/24/19 09:38 Last Admin: 06/24/19 11:43 Dose: Not Given Documented by: [id number] Medical Decision Making Medical Records Attestation: I reviewed the patient's medical records. Home Medications Current Medication List: was personally reviewed by me Laboratory Data Attestation: I reviewed the patient's lab results. Result diagrams: 06/24/19 21:43 06/24/19 16:07 Lab Results 06/24/19 06/24/19 06/24/19 Range/Units 04:56 04:59 04:59 WBC 13.18 H (4.8-10.8) K/uL RBC 3.87 L (4.2-5.4) M/uL Hgb 12.0 (12.0-16.0) g/dL POC Hgb (12.0-16.0) g/dl Hct 33.5 L (37-47) % POC Hct (37-47) % MCV 86.6 (80-100) fL MCH 31.0 (25-34) pg MCHC 35.8 (32-36) g/dL RDW Std Deviation 42.1 (36.4-46.3) fL RDW Coeff of Fifi 13.2 (11.5-14.5) % Plt Count 320 (130-400) K/uL MPV 9.0 (7.4-10.4) fL Immature Gran % (Auto) 0.2 % Neut % (Auto) 60.4 % Lymph % (Auto) 26.3 % [place] % (Auto) 9.3 % Eos % (Auto) 3.3 % Baso % (Auto) 0.5 % Immature Gran # (Auto) 0.02 (0.00-0.02) K/uL Neut # (Auto) 7.96 H (1.4-6.5) K/uL Lymph # (Auto) 3.46 H (1.2-3.4) K/uL [place] # (Auto) 1.23 H (0.11-0.59) K/uL Eos # (Auto) 0.44 (0-0.5) K/uL Baso # (Auto) 0.07 (0-0.2) K/uL PT (9.0-12.0) Seconds INR (0.9-1.1) APTT (21.0-31.0) Seconds PTT Ratio POC pH (7.35-7.45) POC pCO2 (35-46) mmHg POC pO2 (80-95) mmHg POC HCO3 (19-24) cathy/L POC Base Excess (-9-1.8) cathy/L POC ABG O2 Sat (90-95) % POC Sodium (135-144) mEq/L Sodium 141 (136-145) mmol/L POC Potassium (3.3-5.0) mEq/L Potassium 3.3 L (3.5-5.1) mmol/L POC Chloride (101-112) mEq/L Chloride 108 H (98-107) mmol/L Carbon Dioxide 22 (21-32) mmol/L POC Total CO2 (24-31) mEq/l Anion Gap 11.0 (3-11) POC Anion Gap (16-25) mmol/L POC BUN (7-18) mg/dl BUN 12 (7-18) mg/dl Creatinine 0.83 (0.6-1.2) mg/dl POC Creatinine (0.6-1.3) mg/dl Est Cr Clr Drug Dosing Not Reportable Est GFR ( Amer) 82.8 Est GFR (Non-Af Amer) 71.4 BUN/Creatinine Ratio 14.8 (10-20) Glucose 141 H (70-99) mg/dl POC Glucose (other) (70-99) mg/dl POC Lactic Acid Tae 3.21 H (0.90-1.70) mmol/L Calcium 8.7 (8.5-10.1) mg/dl POC Ioniz Calcium [place] (1.12-1.32) mmol/l Total Bilirubin 0.6 (0.2-1) mg/dl AST 26 (15-37) U/L ALT 18 (12-78) U/L Alkaline Phosphatase 74 (45-117) U/L POC Troponin I (0-0.045) ng/ml Troponin I < 0.015 (0-0.045) ng/ml Total Protein 6.9 (6.4-8.2) gm/dl Albumin 3.7 (3.4-5.0) gm/dl Globulin 3.2 (2.5-4.0) gm/dl Albumin/Globulin Ratio 1.2 (0.9-2) Lipase 180 (73-393) U/L Nasal Screen MRSA (PCR) (Negative) Blood Type Blood Type Recheck Antibody Screen Crossmatch [id number] 06/24/19 Range/Units 04:59 05:00 05:31 WBC (4.8-10.8) K/uL RBC (4.2-5.4) M/uL Hgb (12.0-16.0) g/dL POC Hgb 11.6 L (12.0-16.0) g/dl Hct (37-47) % POC Hct 34 L (37-47) % MCV (80-100) fL MCH (25-34) pg MCHC (32-36) g/dL RDW Std Deviation (36.4-46.3) fL RDW Coeff of Fifi (11.5-14.5) % Plt Count (130-400) K/uL MPV (7.4-10.4) fL Immature Gran % (Auto) % Neut % (Auto) % Lymph % (Auto) % [place] % (Auto) % Eos % (Auto) % Baso % (Auto) % Immature Gran # (Auto) (0.00-0.02) K/uL Neut # (Auto) (1.4-6.5) K/uL Lymph # (Auto) (1.2-3.4) K/uL [place] # (Auto) (0.11-0.59) K/uL Eos # (Auto) (0-0.5) K/uL Baso # (Auto) (0-0.2) K/uL PT 10.3 (9.0-12.0) Seconds INR 1.0 (0.9-1.1) APTT 22.0 (21.0-31.0) Seconds PTT Ratio 0.8 POC pH (7.35-7.45) POC pCO2 (35-46) mmHg POC pO2 (80-95) mmHg POC HCO3 (19-24) cathy/L POC Base Excess (-9-1.8) cathy/L POC ABG O2 Sat (90-95) % POC Sodium 140 (135-144) mEq/L Sodium (136-145) mmol/L POC Potassium 3.2 L (3.3-5.0) mEq/L Potassium (3.5-5.1) mmol/L POC Chloride 105 (101-112) mEq/L Chloride (98-107) mmol/L Carbon Dioxide (21-32) mmol/L POC Total CO2 21 L (24-31) mEq/l Anion Gap (3-11) POC Anion Gap 19.0 (16-25) mmol/L POC BUN 10 (7-18) mg/dl BUN (7-18) mg/dl Creatinine (0.6-1.2) mg/dl POC Creatinine 0.7 (0.6-1.3) mg/dl Est Cr Clr Drug Dosing Est GFR ( Amer) Est GFR (Non-Af Amer) BUN/Creatinine Ratio (10-20) Glucose (70-99) mg/dl POC Glucose (other) 144 H (70-99) mg/dl POC Lactic Acid Tae (0.90-1.70) mmol/L Calcium (8.5-10.1) mg/dl POC Ioniz Calcium [place] 1.18 (1.12-1.32) mmol/l Total Bilirubin (0.2-1) mg/dl AST (15-37) U/L ALT (12-78) U/L Alkaline Phosphatase (45-117) U/L POC Troponin I (0-0.045) ng/ml Troponin I (0-0.045) ng/ml Total Protein (6.4-8.2) gm/dl Albumin (3.4-5.0) gm/dl Globulin (2.5-4.0) gm/dl Albumin/Globulin Ratio (0.9-2) Lipase (73-393) U/L Nasal Screen MRSA (PCR) (Negative) Blood Type Cancelled Blood Type Recheck Antibody Screen Cancelled Crossmatch 06/24/19 06/24/19 06/24/19 Range/Units 05:32 05:37 05:37 WBC (4.8-10.8) K/uL RBC (4.2-5.4) M/uL Hgb (12.0-16.0) g/dL POC Hgb (12.0-16.0) g/dl Hct (37-47) % POC Hct (37-47) % MCV (80-100) fL MCH (25-34) pg MCHC (32-36) g/dL RDW Std Deviation (36.4-46.3) fL RDW Coeff of Fifi (11.5-14.5) % Plt Count (130-400) K/uL MPV (7.4-10.4) fL Immature Gran % (Auto) % Neut % (Auto) % Lymph % (Auto) % [place] % (Auto) % Eos % (Auto) % Baso % (Auto) % Immature Gran # (Auto) (0.00-0.02) K/uL Neut # (Auto) (1.4-6.5) K/uL Lymph # (Auto) (1.2-3.4) K/uL [place] # (Auto) (0.11-0.59) K/uL Eos # (Auto) (0-0.5) K/uL Baso # (Auto) (0-0.2) K/uL PT (9.0-12.0) Seconds INR (0.9-1.1) APTT (21.0-31.0) Seconds PTT Ratio POC pH (7.35-7.45) POC pCO2 (35-46) mmHg POC pO2 (80-95) mmHg POC HCO3 (19-24) cathy/L POC Base Excess (-9-1.8) cathy/L POC ABG O2 Sat (90-95) % POC Sodium (135-144) mEq/L Sodium (136-145) mmol/L POC Potassium (3.3-5.0) mEq/L Potassium (3.5-5.1) mmol/L POC Chloride (101-112) mEq/L Chloride (98-107) mmol/L Carbon Dioxide (21-32) mmol/L POC Total CO2 (24-31) mEq/l Anion Gap (3-11) POC Anion Gap (16-25) mmol/L POC BUN (7-18) mg/dl BUN (7-18) mg/dl Creatinine (0.6-1.2) mg/dl POC Creatinine (0.6-1.3) mg/dl Est Cr Clr Drug Dosing Est GFR ( Amer) Est GFR (Non-Af Amer) BUN/Creatinine Ratio (10-20) Glucose (70-99) mg/dl POC Glucose (other) (70-99) mg/dl POC Lactic Acid Tae (0.90-1.70) mmol/L Calcium (8.5-10.1) mg/dl POC Ioniz Calcium [place] (1.12-1.32) mmol/l Total Bilirubin (0.2-1) mg/dl AST (15-37) U/L ALT (12-78) U/L Alkaline Phosphatase (45-117) U/L POC Troponin I < 0.03 (0-0.045) ng/ml Troponin I (0-0.045) ng/ml Total Protein (6.4-8.2) gm/dl Albumin (3.4-5.0) gm/dl Globulin (2.5-4.0) gm/dl Albumin/Globulin Ratio (0.9-2) Lipase (73-393) U/L Nasal Screen MRSA (PCR) (Negative) Blood Type A Positive Blood Type Recheck A Positive Antibody Screen NEGATIVE Crossmatch See Detail 06/24/19 06/24/19 06/24/19 Range/Units 05:49 05:55 07:29 WBC (4.8-10.8) K/uL RBC (4.2-5.4) M/uL Hgb 5.1 L* D (12.0-16.0) g/dL POC Hgb TNP (12.0-16.0) g/dl Hct 14.5 L* (37-47) % POC Hct < 15 L* (37-47) % MCV (80-100) fL MCH (25-34) pg MCHC (32-36) g/dL RDW Std Deviation (36.4-46.3) fL RDW Coeff of Fifi (11.5-14.5) % Plt Count (130-400) K/uL MPV (7.4-10.4) fL Immature Gran % (Auto) % Neut % (Auto) % Lymph % (Auto) % [place] % (Auto) % Eos % (Auto) % Baso % (Auto) % Immature Gran # (Auto) (0.00-0.02) K/uL Neut # (Auto) (1.4-6.5) K/uL Lymph # (Auto) (1.2-3.4) K/uL [place] # (Auto) (0.11-0.59) K/uL Eos # (Auto) (0-0.5) K/uL Baso # (Auto) (0-0.2) K/uL PT (9.0-12.0) Seconds INR (0.9-1.1) APTT (21.0-31.0) Seconds PTT Ratio POC pH 7.23 L (7.35-7.45) POC pCO2 41 (35-46) mmHg POC pO2 592 H (80-95) mmHg POC HCO3 17 L (19-24) cathy/L POC Base Excess -10.0 L (-9-1.8) cathy/L POC ABG O2 Sat 100.0 H (90-95) % POC Sodium 141 (135-144) mEq/L Sodium (136-145) mmol/L POC Potassium 4.7 (3.3-5.0) mEq/L Potassium (3.5-5.1) mmol/L POC Chloride 112 (101-112) mEq/L Chloride (98-107) mmol/L Carbon Dioxide (21-32) mmol/L POC Total CO2 19 L 19 L (24-31) mEq/l Anion Gap (3-11) POC Anion Gap 16.0 (16-25) mmol/L POC BUN 10 (7-18) mg/dl BUN (7-18) mg/dl Creatinine (0.6-1.2) mg/dl POC Creatinine 0.4 L (0.6-1.3) mg/dl Est Cr Clr Drug Dosing Est GFR ( Amer) Est GFR (Non-Af Amer) BUN/Creatinine Ratio (10-20) Glucose (70-99) mg/dl POC Glucose (other) 128 H (70-99) mg/dl POC Lactic Acid Tae (0.90-1.70) mmol/L Calcium (8.5-10.1) mg/dl POC Ioniz Calcium [place] 0.94 L (1.12-1.32) mmol/l Total Bilirubin (0.2-1) mg/dl AST (15-37) U/L ALT (12-78) U/L Alkaline Phosphatase (45-117) U/L POC Troponin I (0-0.045) ng/ml Troponin I (0-0.045) ng/ml Total Protein (6.4-8.2) gm/dl Albumin (3.4-5.0) gm/dl Globulin (2.5-4.0) gm/dl Albumin/Globulin Ratio (0.9-2) Lipase (73-393) U/L Nasal Screen MRSA (PCR) (Negative) Blood Type Blood Type Recheck Antibody Screen Crossmatch 06/24/19 06/24/19 06/24/19 Range/Units 07:35 08:17 08:22 WBC (4.8-10.8) K/uL RBC (4.2-5.4) M/uL Hgb (12.0-16.0) g/dL POC Hgb 8.8 L 7.1 L (12.0-16.0) g/dl Hct (37-47) % POC Hct 26 L 21 L (37-47) % MCV (80-100) fL MCH (25-34) pg MCHC (32-36) g/dL RDW Std Deviation (36.4-46.3) fL RDW Coeff of Fifi (11.5-14.5) % Plt Count (130-400) K/uL MPV (7.4-10.4) fL Immature Gran % (Auto) % Neut % (Auto) % Lymph % (Auto) % [place] % (Auto) % Eos % (Auto) % Baso % (Auto) % Immature Gran # (Auto) (0.00-0.02) K/uL Neut # (Auto) (1.4-6.5) K/uL Lymph # (Auto) (1.2-3.4) K/uL Alexandria # (Auto) (0.11-0.59) K/uL Eos # (Auto) (0-0.5) K/uL Baso # (Auto) (0-0.2) K/uL PT (9.0-12.0) Seconds INR (0.9-1.1) APTT (21.0-31.0) Seconds PTT Ratio POC pH 7.34 L (7.35-7.45) POC pCO2 38 (35-46) mmHg POC pO2 > 420 H (80-95) mmHg POC HCO3 21 (19-24) cathy/L POC Base Excess -5.0 (-9-1.8) cathy/L POC ABG O2 Sat 100.0 H (90-95) % POC Sodium 142 143 (135-144) mEq/L Sodium (136-145) mmol/L POC Potassium 3.9 3.6 (3.3-5.0) mEq/L Potassium (3.5-5.1) mmol/L POC Chloride 112 111 (101-112) mEq/L Chloride (98-107) mmol/L Carbon Dioxide (21-32) mmol/L POC Total CO2 18 L 22 L 22 L (24-31) mEq/l Anion Gap (3-11) POC Anion Gap 16.0 15.0 L (16-25) mmol/L POC BUN 9 8 (7-18) mg/dl BUN (7-18) mg/dl Creatinine (0.6-1.2) mg/dl POC Creatinine < 0.2 L 0.2 L (0.6-1.3) mg/dl Est Cr Clr Drug Dosing Est GFR ( Amer) Est GFR (Non-Af Amer) BUN/Creatinine Ratio (10-20) Glucose (70-99) mg/dl POC Glucose (other) 238 H 220 H (70-99) mg/dl POC Lactic Acid Tae (0.90-1.70) mmol/L Calcium (8.5-10.1) mg/dl POC Ioniz Calcium Sowmya 0.84 L 1.49 H (1.12-1.32) mmol/l Total Bilirubin (0.2-1) mg/dl AST (15-37) U/L ALT (12-78) U/L Alkaline Phosphatase (45-117) U/L POC Troponin I (0-0.045) ng/ml Troponin I (0-0.045) ng/ml Total Protein (6.4-8.2) gm/dl Albumin (3.4-5.0) gm/dl Globulin (2.5-4.0) gm/dl Albumin/Globulin Ratio (0.9-2) Lipase (73-393) U/L Nasal Screen MRSA (PCR) (Negative) Blood Type Blood Type Recheck Antibody Screen Crossmatch 06/24/19 06/24/19 Range/Units 08:25 09:35 WBC (4.8-10.8) K/uL RBC (4.2-5.4) M/uL Hgb 8.5 L D (12.0-16.0) g/dL POC Hgb (12.0-16.0) g/dl Hct 24.6 L (37-47) % POC Hct (37-47) % MCV (80-100) fL MCH (25-34) pg MCHC (32-36) g/dL RDW Std Deviation (36.4-46.3) fL RDW Coeff of Fifi (11.5-14.5) % Plt Count (130-400) K/uL MPV (7.4-10.4) fL Immature Gran % (Auto) % Neut % (Auto) % Lymph % (Auto) % [place] % (Auto) % Eos % (Auto) % Baso % (Auto) % Immature Gran # (Auto) (0.00-0.02) K/uL Neut # (Auto) (1.4-6.5) K/uL Lymph # (Auto) (1.2-3.4) K/uL [place] # (Auto) (0.11-0.59) K/uL Eos # (Auto) (0-0.5) K/uL Baso # (Auto) (0-0.2) K/uL PT (9.0-12.0) Seconds INR (0.9-1.1) APTT (21.0-31.0) Seconds PTT Ratio POC pH (7.35-7.45) POC pCO2 (35-46) mmHg POC pO2 (80-95) mmHg POC HCO3 (19-24) cathy/L POC Base Excess (-9-1.8) cathy/L POC ABG O2 Sat (90-95) % POC Sodium (135-144) mEq/L Sodium (136-145) mmol/L POC Potassium (3.3-5.0) mEq/L Potassium (3.5-5.1) mmol/L POC Chloride (101-112) mEq/L Chloride (98-107) mmol/L Carbon Dioxide (21-32) mmol/L POC Total CO2 (24-31) mEq/l Anion Gap (3-11) POC Anion Gap (16-25) mmol/L POC BUN (7-18) mg/dl BUN (7-18) mg/dl Creatinine (0.6-1.2) mg/dl POC Creatinine (0.6-1.3) mg/dl Est Cr Clr Drug Dosing Est GFR ( Amer) Est GFR (Non-Af Amer) BUN/Creatinine Ratio (10-20) Glucose (70-99) mg/dl POC Glucose (other) (70-99) mg/dl POC Lactic Acid Tae (0.90-1.70) mmol/L Calcium (8.5-10.1) mg/dl POC Ioniz Calcium Sowmya (1.12-1.32) mmol/l Total Bilirubin (0.2-1) mg/dl AST (15-37) U/L ALT (12-78) U/L Alkaline Phosphatase (45-117) U/L POC Troponin I (0-0.045) ng/ml Troponin I (0-0.045) ng/ml Total Protein (6.4-8.2) gm/dl Albumin (3.4-5.0) gm/dl Globulin (2.5-4.0) gm/dl Albumin/Globulin Ratio (0.9-2) Lipase (73-393) U/L Nasal Screen MRSA (PCR) Negative (Negative) Blood Type Blood Type Recheck Antibody Screen Crossmatch Imaging Data Attestation: I personally reviewed and interpreted this imaging study as follows: MDM Narrative Prior records/ancillary studies reviewed. Triage Nursing notes reviewed. Additional history obtained from family. The patient's history was concerning for abdominal pain who is pale diaphoretic and unstable. Differential diagnosis: Etiologies such as aortic rupture/dissection, intra-abdominal, cardiac, appendicitis, diverticulitis, PUD, biliary pathology, UTI, pancreatitis, obstruction, mesenteric ischemia, aortic pathology, infections, inflammatory bowel disease, renal colic, as well as others were entertained. Physical examination findings: As above. ER treatment provided: 3 lines were immediately placed, patient was typed and transfused immediately as she was unstable, she was given uncrossed blood, IV fluids were infused, Levophed was hung I did a bedside fast and patient was positive. My attending was in a code. When she returned she immediately was at the bedside. She was well aware of this patient. She contacted surgery and urology immediately. She called [facility] as there is a possible concern for aortic rupture/dissection as patient had a positive fast scan. Patient was consented to blood. The daughter did sign. On reassessment the patient felt no better. Diagnostics interpreted by me: EKG ordered for severe epigastric pain and an unstable patient ECG: Normal sinus, normal intervals, no acute ST-T wave changes. Impression normal sinus rhythm interpreted by myself I think arrhythmia is unlikely. EKG shows normal sinus rhythm with no interval abnormalities such as QT prolongation or WPW. There are no findings to suggest Brugada syndrome. Cardiac monitoring in the emergency department reveals no tachycardic or bradycardic dysrhythmia. Hypertrophic cardiomyopathy was considered but there are no clear historical elements pointing toward this. EKG is not suggestive. The QRS voltage is not extremely large and there are no suggestive Q waves. The labs revealed i-STAT H&H was reviewed and first set of labs had an H&H of 11 and 30 4 repeat 1 hour later was 5 and 14 Patient had an elevated lactic acid. Imaging studies: Chest x-ray with no acute consolidation, pneumothorax or free air per my interpretation Our radiologist was contacted immediately to emergently read the CTA. Surgery was consulted prior as patient had free fluid. CT angio abd pelvis wo/w con CT DOSE: 1011.66 mGy.cm CLINICAL HISTORY: Severe chest and abdominal pain. Possible dissection. TECHNIQUE: Unenhanced images were obtained through the abdomen. CT angiography of the abdomen and pelvis was then performed a dynamic helical fashion during intravenous administration of 118 cc of Optiray 320. MIP imaging was acquired. A dose lowering technique was utilized adhering to the principles of ALARA. COMPARISON STUDY: None. FINDINGS: Visualized portions of the lung bases are unremarkable. There is a 4 mm left lobe hepatic hypodensity, likely representing a cyst. No gallbladder abnormalities are visualized. No splenic masses are visualized. No intrinsic pancreatic masses are visualized. The pancreas is anterior displaced due to a large retroperitoneal hemorrhage. No abnormalities of the right adrenal gland are visualized. The left adrenal gland is obscured due to the large retroperitoneal hemorrhage. There is a 10.5 cm upper pole left renal mass. This contains areas of fat and therefore likely represents an angiomyolipoma. The mass appears to have ruptured, and there is evidence for active hemorrhage with active bleeding extending superior to the left kidney into the retroperitoneum. There is a large retroperitoneal hemorrhage. The component superior to the kidney measures 11.7 cm. The craniocaudad extent of the hemorrhage measures 21 cm. No right renal masses are visualized. No renal, ureteral, or bladder calculi are visualized. There are no transition zones indicate bowel obstruction. There is no evidence of acute diverticulitis. There is no evidence of acute appendicitis. There is no evidence for abdominal aortic aneurysm or dissection. 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 There is a slight J-shaped configuration. While this could be secondary to median arcuate ligament syndrome, it is possible the stenosis is accentuated due to the retroperitoneal hemorrhage. There is no evidence for pathologic adenopathy. There is no free air. There is no ascites. No destructive skeletal lesions are visualized. IMPRESSION: 1. Large left-sided retroperitoneal hemorrhage measuring in excess of 20 cm in craniocaudad dimension. There is evidence for active hemorrhage, with visualized contrast extravasation. 2. The etiology of the hemorrhage, is likely secondary to a ruptured 10.5 cm upp er pole left renal angiomyolipoma 3. No evidence of aortic aneurysm or dissection 4. 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 This could indicate median arcuate ligament syndrome. It is also possible the stenosis is exaggerated due to the retroperitoneal hemorrhage. If indicated, reevaluation following resolution of the current acute process might be considered. 5. The pertinent scan findings were discussed with the emergency room attending. Electronically signed by: Corky Hurt M.D. 06/24/2019 5:56 AM Dictated: 06/24/19 0543 Transcribed: 06/24/[address] ANGIOGRAPHY OF THE CHEST WITHOUT AND WITH CONTRAST CLINICAL HISTORY: Severe chest pain radiating to the back. Possible aortic dissection. COMPARISON STUDY: No previous studies for comparison. TECHNIQUE: Unenhanced images were obtained through the chest. Following the IV administration of 118 mL of Optiray-320, CT angiography of the thorax was performed from the thoracic inlet to the lung bases. MIP images were acquired. Images are reviewed in the axial, sagittal, and coronal planes. IV contrast was administered without complication. A dose lowering technique was utilized adhering to the principles of ALARA. CT DOSE: FINDINGS: Thyroid: Imaged portions of the thyroid gland are normal in appearance. Thoracic aorta: Noncontrast images reveal no evidence of acute aortic hematoma. Postcontrast images reveal no evidence of acute aortic dissection. The ascending thoracic aorta measures 31 mm. Pulmonary vasculature: The pulmonary trunk is normal in caliber. There are no central filling defects identified to suggest pulmonary embolus. Note that this examination was not protocoled for the evaluation of pulmonary emboli. HEART: The heart is normal in size and configuration, without pericardial effusion. Lungs and pleural spaces: There are no pleural effusions. There is mild dependent atelectasis. There are no areas of focal pulmonary consolidation to indicate pneumonia. There is a 3 mm right upper lobe calcified granuloma Mediastinum: There is no mediastinal lymphadenopathy. Becky: There is no evidence pathologic hilar lymphadenopathy Axilla: There is no evidence of pathologic axillary lymphadenopathy Upper abdomen: There is acute hemorrhage into a 10 cm upper pole left renal mass, likely representing an angiomyolipoma. There is evidence for active hemorrhagic extravasation. With a 10 cm perinephric hematoma. Skeletal structures: There are no lytic or blastic osseous lesions. IMPRESSION: 1. No evidence of thoracic aortic aneurysm or dissection 2. Acute hemorrhage into a 10 cm upper pole left renal mass, likely representing an angiomyolipoma. There is evidence for active hemorrhage, with a large perinephric hematoma. Electronically signed by: Corky Hurt M.D. 06/24/2019 5:43 AM Consultation: A consultation was placed with the radiologist who emergently read the CAT scans. Dr. Goff and Dr. Nguyen were then consulted by my attending as I was bedside with the patient. They were informed of the CAT scan findings by my attending and emergently came into the ER. The case was discussed and diagnostics were reviewed. The patient was evaluated in the ER for further treatment. Exam and history seem consistent with large left-sided retroperitoneal hemorrhage most likely from a ruptured angiomyolipoma. The mass transition protocol was implemented. Patient was given 4 units of uncrossed blood pending the mass transfusion protocol being delivered. Rojas was placed. Patient became hypotensive and Levophed was hung. Patient's temperature dropped and a bear hugger was placed. A rectal probe temperature was placed. Patient had 3 lines and IV fluids were being infused in. Repeat vital signs did improve. Patient also had a pericardial effusion noted on my bedside ultrasound. There appeared to be no constriction of her heart. Repeat ultrasound showed increasing amounts of fluid in the patient's abdomen. Repeat H&H was extremely low. [facility] was unable to fly the patient. They were contacted twice. Dr. Goff and Dr. Nguyen took the patient to the OR. The patient and family were made aware of how critical the situation was. The patient is a full code. By the evaluation outlined above emergent etiologies such as appendicitis, diverticulitis, PUD, biliary pathology, UTI, pancreatitis, obstruction, mesenteric ischemia, aortic pathology, inflammatory bowel disease, renal colic, as well as others were deemed relatively unlikely. The pt informed about the findings as listed above. All questions were answered and pleased with the treatment. Case reviewed with my attending The chart was completed utilizing [employer] Speech voice recognition software. Grammatical errors, random word insertions, pronoun errors, and incomplete sentences are an occassional consequence of this system due to software limitations, ambient noise, and hardware issues. Any formal questions or concerns about the content, text, or information contained within the body of this dictation should be directly addressed to the physician neurology physician assistant for clarification. Impression & Plan Retroperitoneal bleed, Angiomyolipoma of left kidney, Shock, Anemia Discharge Plan Visit Data *Final* Discharge Date/Time: 06/24/19 06:31 Chief Complaint: Abdominal Pain Stated Complaint: L SIDE ABD PAIN ED Provider: Agatha Ponce ED Midlevel Provider: Leigh Ann El Discharge Problem: Retroperitoneal bleed, Angiomyolipoma of left kidney, Shock, Anemia Patient Disposition: Admitted As Inpatient Condition: Critical Discharge Instructions Interventions: ED Discharge Assessment Last Done: 06/24/19 06:31
--- NOTE | 2019-06-24 07:04 | Emergency Department Note ---
ED Visit Note This is a 69-year-old female patient who presents to the emergency department with a sudden onset of acute abdominal pain. Upon presentation to the emergency department, the patient was pale and diaphoretic. The patient was immediately evaluated and IV locks are established. Patient was extremely pale and diaphoretic and there was concern for aortic dissection or aortic rupture as a cause of her abdominal pain. FAST exam was done at the bedside which showed free fluid in the abdomen. [facility] was contacted to check whether for possible aeromedical evacuation to [place]. The patient went emergently for CT scanning of the chest, abdomen/pelvis to rule out dissection. This revealed a significant amount of intra-abdominal blood with pathology around the left kidney. The radiologist was consulted immediately for formal interpretation. Dr. Goff was contacted immediately and made aware of this patient and the fact that she was in extremis. The patient had a total of 3 IV lines initiated and received crystalloid, packed red blood cells, and the massive transfusion protocol. The patient was started on levophed for pressure support. I received the formal read from Dr. Hurt as an Angiomyolipoma of the left kidney which appears to have ruptured.. I immediately consulted Dr. Nguyen who said he would come to the hospital to assist Dr. Goff. The OR team was immediately called. The anesthesiologist presented to the bedside for preop evaluation. I kept the patient's significant other and daughter abreast of the situation. Dr. Goff arrived at the bedside and we discussed the case. He spoke with Dr. Nguyen by phone. They suggested that I call Dr. Shelby. I spoke with Dr. Jamaal Shelby from urology and he too agreed to come to care for this patient. The patient's abdomen was expanding on physical exam. She did receive multiple doses of IV fentanyl for pain when her blood pressure would allow it. Please see Pam Prasad PA-C note for further details. The patient went to the OR with Dr. Goff. I have personally spent greater than 120 minutes of critical care time in the direct management of this patient. This includes bedside care, interpretation of diagnostic studies, and testing, discussion with consultants, patient, and family members, and other required patient management activities. This 120 minutes is in excess of all separately billable procedures. .
--- NOTE | 2019-06-24 07:08 | XRay Report ---
SINGLE VIEW CHEST CLINICAL HISTORY: Atypical chest pain. FINDINGS: An AP, portable, upright chest radiograph is obtained. No prior studies are available for c omparison at the time of dictation. The examination is degraded by portable technique, apical lordoti c positioning, and patient rotation. The cardiomediastinal silhouette is unremarkable. There is biba silar atelectasis. The lungs and pleural spaces are otherwise clear. No pneumothorax is seen. The ske letal structures are osteopenic. The bony thorax is grossly intact. IMPRESSION: No active disease in the chest. Electronically signed by: Frank Erazo M.D. 06/24/2019 7:06 AM
[2019-06-24] MEDS ORDERED: HEPARIN (PORCINE) 1000 UNIT/ML 10 ML (CATH LAB USE ONLY) ONE (07:24)
[2019-06-24] MEDS ORDERED: ROCURONIUM BROMIDE 10 MG/ML 5 ML VIAL ONE ×2 (07:34→08:34)
[2019-06-24] MEDS ORDERED: MIDAZOLAM HCL 1 MG/ML 2ML VIAL ONE (07:35)
[2019-06-24] MEDS ORDERED: TRANEXAMIC ACID 1,000 MG in 0.9 % SODIUM CHLORIDE 100 ML IV STA (07:36)
[2019-06-24] MEDS ORDERED: CEFAZOLIN 250 MG/ML 1 GM VIAL ONE (07:48)
[2019-06-24] MEDS ORDERED: CEFAZOLIN 2000MG 2,000 MG/15 ML SYR IV ONE (07:49)
[2019-06-24] MEDS ORDERED: SODIUM BICARB 8.4% INJ 50 MEQ/50 ML SYR ONE (07:52)
[2019-06-24] MEDS ORDERED: TRANEXAMIC ACID 1,000 MG in 0.9 % SODIUM CHLORIDE 500 ML IV ONE (08:00)
[2019-06-24] MEDS ORDERED: VISIPAQUE IV PRN (08:10)
--- NOTE | 2019-06-24 08:53 | Urology Consultation ---
Date of Consultation June 24, 2019 Assessment & Plan (1) Retroperitoneal bleed: ABLA and critically ill. Transferred to OR for emergent endovascular intervention vs open exploratory lap with likely nephrectomy. Endovascular intervention was successful with embolization of left renal artery and apparent control of retroperitoneal bleed. Patient is transferring to ICU on vent. Will continue critical monitoring with frequent monitoring of H&H and coagulation and chemistry. Will monitor closely with potential need for further intervention or emergent transfer if other issue develop. I was present and actively participating in the critical care starting at approx 6:30am until 9:13am Will monitor for pain and discomfort with large retroperitoneal hematoma and postembolization. Discussion with family throughout case with assistance of Dr. Goff, South, and Patrick as well as critical care and anesthesia team. Patient once stable will need workup for likely kidney mass. This will be completed as outpatient with time for resolution of retroperitoneal hematoma. (2) Acute blood loss anemia: As above. Will monitor closely. History of Present Illness Attending Physician: Fran Goff MD History of Present Illness Emergency consultation for ABLA secondary to large bleeding mass at superior pole of left kidney with large blood in retroperitoneum. Patient was in critical condition with hypotension and tachycardia. Actively having mass transfusion protocol. Mechanism unknown. Patient acutely ill with family at bedside. Seen in concert with General Surgery. Due to weather, flight out for endovascular embolization was not available. Due to emergent nature and possible impending collapse, patient was emergently transferred to the OR where they had an Arterial line and central line. Large volume resuscitated. Refuse Collector also consulted and involved in care. Vascular surgery was able to assess and it was decided to proceed with attempt to selective vs total embolization of the left kidney. A total embolization of the left kidney was completed and bleed appeared to be c ontrolled. Patient is actively transferring to ICU for critical management and monitoring. Allergies Allergy/AdvReac Type Severity Reaction Status Date / Time No Known Allergies Allergy Unverified 06/24/19 05:38 Home Medications Home Medications Medication Instructions Recorded Confirmed Type aspirin 81 mg PO DAILY 06/24/19 06/24/19 History atorvastatin 20 mg PO DAILY 06/24/19 06/24/19 History calcium carbonate-vitamin D3 2 tab PO DAILY 06/24/19 06/24/19 History [Calcium 500 With D] cholecalciferol (vitamin D3) 2,000 unit PO DAILY 06/24/19 06/24/19 History [Vitamin D3] cyanocobalamin (vitamin B-12) 1,000 mcg PO DAILY 06/24/19 06/24/19 History magnesium oxide 500 mg PO DAILY 06/24/19 06/24/19 History naproxen sodium 440 mg PO DAILY 06/24/19 06/24/19 History Patient History Medical History Hypercholesteremia Surgical History S/P hernia repair Social History Feels Safe at Home: Yes Smoking Status: Never smoker Review of Systems Review of Systems: Unobtainable due to cognitive status, Unobtainable due to endotracheal tube, Unobtainable due to reduced consciousness and Other Critically ill and emergently under anesthesia for intervention. Physical Exam Constitutional: + acute distress, + ill appearing and + obese Eyes: no eyelid abnormality, no conjunctival abnormality and no corneal abnormality ENMT: Mouth: no dentition abnormality Mallampati Class: II Neck: normal visual inspection and trachea midline; no tracheal deviation Respiratory: normal respiratory effort; no respiratory distress and no labored breathing Cardiovascular: Rate/Rhythm: + tachycardic Gastrointestinal (Abdomen): Inspection/Auscultation: + abdomen distended Percussion/Palpation: + abdomen tender and + abdomen firm; no guarding Musculoskeletal: Head/Neck/Chest: full ROM of neck Skin: no rashes and no lesions Neurologic: CN's II-XI intact bilaterally; + not awake Motor/Sensory: no tremor Psychiatric: Orientation: alert Genitourinary: Rojas draining clear yellow. Results & Data Vital Signs (Past 12 Hours) Vital Signs Temp Pulse Pulse Resp BP BP Pulse Ox 06/24/19 07:47 35.9 C L 64 20 115/74 100 06/24/19 06:10 62 20 115/56 L 100 06/24/19 06:08 62 19 113/55 L 100 06/24/19 06:05 62 19 86/48 L 100 06/24/19 06:00 67 22 121/63 98 06/24/19 05:59 65 18 118/66 06/24/19 05:55 62 27 H 107/49 L 96 06/24/19 05:52 63 18 106/51 L 98 06/24/19 05:51 63 22 99 06/24/19 05:50 64 23 99/53 L 98 06/24/19 05:45 64 22 105/50 L 98 06/24/19 05:44 69 18 119/50 L 100 06/24/19 05:35 61 19 89/52 L 96 06/24/19 05:31 63 21 90/46 L 96 06/24/19 05:28 35.7 C L 64 18 90/46 L 99 06/24/19 05:20 66 20 166/79 H 93 06/24/19 05:00 72 23 113/69 97 06/24/19 04:48 76 18 101/50 L 98 PG Care Time/CCT Total # of Minutes Spent Total Time Spent with Patient: Total time spent is greater than 50% in coordination of care (as documented) at patient's floor/unit and/or counseling patient:
[2019-06-24 08:57] LABS: Hematocrit (blood only) 24.6 % (37-47); Hemoglobin 8.5 g/dL (12.0-16.0)
--- NOTE | 2019-06-24 09:16 | Critical Care Consultation ---
Date of Consultation June 24, 2019 Assessment & Plan (1) Retroperitoneal bleed: Reason Critically Ill: Acute blood loss anemia secondary to retroperitoneal hemorrhaging PLAN: Neuro: Pain control -Judicious opiates with bowel regimen Resp: Extubated this afternoon Fluids/Renal: Lactic acidosis resolving Renal mass -Urology aware, per discussions there is no additional intervention needed at the present moment ID: Anticipate patient having febrile reaction GI/Nutrition: Clear liquids this evening Heme: Acute blood loss anemia -Massive transfusion protocol completed -Every 6 hours H&H DVT prophylaxis: SCDs Endocrine: ICU hyperglycemia protocol Vascular access: Peripheral IV, arterial line Code Status: Full code I have personally spent 95 minutes of critical care time in the direct management of this patient. This is a life/limb threatening event. This includes time spent evaluating patient, direct bedside care, chart review, placing orders, interpretation of diagnostic studies, discussion with consultants, patient, and/or family members regarding treatment decisions, as well as other required patient management activities. This time is exclusive of all separately billable procedures, and teaching time and separate from and in addition to any other critical care service time. Present on Admission?: Yes (2) Acute blood loss anemia: Present on Admission?: Yes (3) Renal mass, left: Present on Admission?: Yes History of Present Illness Reason for Consultation: Acute blood loss anemia Requesting Physician: Kris Attending Physician: Kris History of Present Illness History is obtained from prior records as well as the emergency department provider. Patient presented to [facility] ED for left lower quadrant abdominal pain, fast scan was obtained which revealed a large amount of fluid in the abdomen. General surgery was consulted immediately and the patient was sent to CAT scan for further clarification of the bleeding, it was found that she had a retroperitoneal/renal mass of unclear etiology. Urology was emergently consulted and the patient was prepped for the operating room. I initially saw the patient in the operating room, during the work-up Dr. Meyer was consulted for possible embolization of the bleeding mass. This was felt to be more appropriate as open nephrectomy could lead to uncontrollable bleeding. Patient was started on a massive transfusion protocol, I started the patient on TXA. Patient's left kidney was ultimately embolized and she was transferred to the ICU for further evaluation and stabilization. While in the ICU she has maintained adequate urine output, her mental status improved she is able to follow complex commands on minimal vent settings and successfully extubated. Allergies Allergy/AdvReac Type Severity Reaction Status Date / Time No Known Allergies Allergy Unverified 06/24/19 05:38 Home Medications Home Medications Medication Instructions Recorded Confirmed Type aspirin 81 mg PO DAILY 06/24/19 06/24/19 History atorvastatin 20 mg PO DAILY 06/24/19 06/24/19 History calcium carbonate-vitamin D3 2 tab PO DAILY 06/24/19 06/24/19 History [Calcium 500 With D] cholecalciferol (vitamin D3) 2,000 unit PO DAILY 06/24/19 06/24/19 History [Vitamin D3] cyanocobalamin (vitamin B-12) 1,000 mcg PO DAILY 06/24/19 06/24/19 History magnesium oxide 500 mg PO DAILY 06/24/19 06/24/19 History naproxen sodium 440 mg PO DAILY 06/24/19 06/24/19 History Patient History Medical History Mitral valve prolapse Hypercholesteremia Surgical History S/P hernia repair Social History Communication Ability Comment: Intubated/sedated Current Living Situation Comment: unknown Feels Safe at Home: Yes Smoking Status: Unknown if ever smoked Review of Systems Review of Systems: Unobtainable due to endotracheal tube Physical Exam Physical Exam: General: Well-nourished female who appears younger than stated age I have reviewed the recorded vital signs Neurological: RASS score: -4, under the influence of neuromuscular blockade Psychological: 3 TP Eyes: Pupils are equal. Symmetrical lids. HENT: Oropharynx is obscured by endotracheal tube Cardiovascular: Normal peripheral perfusion. Distal pulses and capillary refill intact. No JVD. Gastrointestinal: Soft. Non-distended. Lymphatic: No cervical lymphadenopathy. Musculoskeletal: No deformity Skin: Pallor Exam was limited by urgency of medical condition Results & Data Vital Signs (Past 12 Hours) Vital Signs Temp Pulse Pulse Resp BP BP Pulse Ox 06/24/19 07:47 35.9 C L 64 20 115/74 100 06/24/19 06:10 62 20 115/56 L 100 06/24/19 06:08 62 19 113/55 L 100 06/24/19 06:05 62 19 86/48 L 100 06/24/19 06:00 67 22 121/63 98 06/24/19 05:59 65 18 118/66 06/24/19 05:55 62 27 H 107/49 L 96 06/24/19 05:52 63 18 106/51 L 98 06/24/19 05:51 63 22 99 06/24/19 05:50 64 23 99/53 L 98 06/24/19 05:45 64 22 105/50 L 98 06/24/19 05:44 69 18 119/50 L 100 06/24/19 05:35 61 19 89/52 L 96 06/24/19 05:31 63 21 90/46 L 96 06/24/19 05:28 35.7 C L 64 18 90/46 L 99 06/24/19 05:20 66 20 166/79 H 93 06/24/19 05:00 72 23 113/69 97 06/24/19 04:48 76 18 101/50 L 98 Laboratory Results 06/24/19 06/24/19 06/24/19 Range/Units 16:07 15:22 15:22 WBC (4.8-10.8) K/uL RBC (4.2-5.4) M/uL Hgb 9.4 L (12.0-16.0) g/dL POC Hgb (12.0-16.0) g/dl Hct 26.2 L (37-47) % POC Hct (37-47) % MCV (80-100) fL MCH (25-34) pg MCHC (32-36) g/dL RDW Std Deviation (36.4-46.3) fL RDW Coeff of Fifi (11.5-14.5) % Plt Count (130-400) K/uL MPV (7.4-10.4) fL Immature Gran % (Auto) % Neut % (Auto) % Lymph % (Auto) % [place] % (Auto) % Eos % (Auto) % Baso % (Auto) % Immature Gran # (Auto) (0.00-0.02) K/uL Neut # (Auto) (1.4-6.5) K/uL Lymph # (Auto) (1.2-3.4) K/uL [place] # (Auto) (0.11-0.59) K/uL Eos # (Auto) (0-0.5) K/uL Baso # (Auto) (0-0.2) K/uL Platelet Estimate (Normal) Echinocytes PT (9.0-12.0) Seconds INR (0.9-1.1) APTT (21.0-31.0) Seconds PTT Ratio Fibrinogen (184-400) mg/dl POC pH (7.35-7.45) POC pCO2 (35-46) mmHg POC pO2 (80-95) mmHg POC HCO3 (19-24) cathy/L POC Base Excess (-9-1.8) cathy/L ABG pH (7.35-7.45) ABG pCO2 (35-46) mmHg ABG pO2 (80-95) mm/Hg ABG HCO3 (19-24) mmol/L POC ABG O2 Sat (90-95) % ABG O2 Saturation (90-95) % ABG Base Excess (-9-1.8) mEq/L Yg Test (Pos) Barometric Pressure mm/Hg Oxygen Given POC Sodium (135-144) mEq/L Sodium 145 (136-145) mmol/L POC Potassium (3.3-5.0) mEq/L Potassium 3.9 (3.5-5.1) mmol/L POC Chloride (101-112) mEq/L Chloride 116 H (98-107) mmol/L Carbon Dioxide 21 (21-32) mmol/L POC Total CO2 (24-31) mEq/l Anion Gap 8.0 (3-11) POC Anion Gap (16-25) mmol/L POC BUN (7-18) mg/dl BUN 13 (7-18) mg/dl Creatinine 0.80 (0.6-1.2) mg/dl POC Creatinine (0.6-1.3) mg/dl Est Cr Clr Drug Dosing 64.3 Est GFR ( Amer) 86.6 Est GFR (Non-Af Amer) 74.7 BUN/Creatinine Ratio 16.3 (10-20) Glucose 112 H (70-99) mg/dl POC Glucose (other) (70-99) mg/dl POC Lactic Acid Tae (0.90-1.70) mmol/L Lactate (0.4-2.0) mmol/L Calcium 7.9 L (8.5-10.1) mg/dl POC Ioniz Calcium [place] (1.12-1.32) mmol/l Ionized Calcium (1.12-1.32) mmol/L Phosphorus (2.5-4.9) mg/dl Magnesium (1.8-2.4) mg/dl Total Bilirubin (0.2-1) mg/dl Direct Bilirubin (0-0.2) mg/dl AST (15-37) U/L ALT (12-78) U/L Alkaline Phosphatase (45-117) U/L POC Troponin I (0-0.045) ng/ml Troponin I (0-0.045) ng/ml Total Protein (6.4-8.2) gm/dl Albumin (3.4-5.0) gm/dl Globulin (2.5-4.0) gm/dl Albumin/Globulin Ratio (0.9-2) Lipase (73-393) U/L Nasal Screen MRSA (PCR) (Negative) Blood Type Blood Type Recheck Antibody Screen Crossmatch 06/24/19 06/24/19 06/24/19 Range/Units 10:11 10:11 10:11 WBC (4.8-10.8) K/uL RBC (4.2-5.4) M/uL Hgb (12.0-16.0) g/dL POC Hgb (12.0-16.0) g/dl Hct (37-47) % POC Hct (37-47) % MCV (80-100) fL MCH (25-34) pg MCHC (32-36) g/dL RDW Std Deviation (36.4-46.3) fL RDW Coeff of Fifi (11.5-14.5) % Plt Count (130-400) K/uL MPV (7.4-10.4) fL Immature Gran % (Auto) % Neut % (Auto) % Lymph % (Auto) % [place] % (Auto) % Eos % (Auto) % Baso % (Auto) % Immature Gran # (Auto) (0.00-0.02) K/uL Neut # (Auto) (1.4-6.5) K/uL Lymph # (Auto) (1.2-3.4) K/uL [place] # (Auto) (0.11-0.59) K/uL Eos # (Auto) (0-0.5) K/uL Baso # (Auto) (0-0.2) K/uL Platelet Estimate (Normal) Echinocytes PT (9.0-12.0) Seconds INR (0.9-1.1) APTT 27.9 (21.0-31.0) Seconds PTT Ratio 1.0 Fibrinogen 140 L (184-400) mg/dl POC pH (7.35-7.45) POC pCO2 (35-46) mmHg POC pO2 (80-95) mmHg POC HCO3 (19-24) cathy/L POC Base Excess (-9-1.8) cathy/L ABG pH (7.35-7.45) ABG pCO2 (35-46) mmHg ABG pO2 (80-95) mm/Hg ABG HCO3 (19-24) mmol/L POC ABG O2 Sat (90-95) % ABG O2 Saturation (90-95) % ABG Base Excess (-9-1.8) mEq/L Yg Test (Pos) Barometric Pressure mm/Hg Oxygen Given POC Sodium (135-144) mEq/L Sodium 146 H (136-145) mmol/L POC Potassium (3.3-5.0) mEq/L Potassium 3.8 D (3.5-5.1) mmol/L POC Chloride (101-112) mEq/L Chloride 119 H (98-107) mmol/L Carbon Dioxide 16 L (21-32) mmol/L POC Total CO2 (24-31) mEq/l Anion Gap 12.0 H (3-11) POC Anion Gap (16-25) mmol/L POC BUN (7-18) mg/dl BUN 11 (7-18) mg/dl Creatinine 0.81 (0.6-1.2) mg/dl POC Creatinine (0.6-1.3) mg/dl Est Cr Clr Drug Dosing 63.5 Est GFR ( Amer) 85.3 Est GFR (Non-Af Amer) 73.6 BUN/Creatinine Ratio 14.1 (10-20) Glucose 186 H (70-99) mg/dl POC Glucose (other) (70-99) mg/dl POC Lactic Acid Tae (0.90-1.70) mmol/L Lactate (0.4-2.0) mmol/L Calcium 8.3 L (8.5-10.1) mg/dl POC Ioniz Calcium [place] (1.12-1.32) mmol/l Ionized Calcium 1.22 (1.12-1.32) mmol/L Phosphorus 4.1 (2.5-4.9) mg/dl Magnesium 1.7 L (1.8-2.4) mg/dl Total Bilirubin 0.9 (0.2-1) mg/dl Direct Bilirubin 0.2 (0-0.2) mg/dl AST 33 (15-37) U/L ALT 21 (12-78) U/L Alkaline Phosphatase 50 (45-117) U/L POC Troponin I (0-0.045) ng/ml Troponin I (0-0.045) ng/ml Total Protein 5.2 L D (6.4-8.2) gm/dl Albumin 2.8 L (3.4-5.0) gm/dl Globulin (2.5-4.0) gm/dl Albumin/Globulin Ratio (0.9-2) Lipase (73-393) U/L Nasal Screen MRSA (PCR) (Negative) Blood Type Blood Type Recheck Antibody Screen Crossmatch 06/24/19 06/24/19 06/24/19 Range/Units 10:10 10:10 10:10 WBC 11.33 H (4.8-10.8) K/uL RBC 3.61 L (4.2-5.4) M/uL Hgb 11.0 L (12.0-16.0) g/dL POC Hgb (12.0-16.0) g/dl Hct 30.9 L (37-47) % POC Hct (37-47) % MCV 85.6 (80-100) fL MCH 30.5 (25-34) pg MCHC 35.6 (32-36) g/dL RDW Std Deviation 41.7 (36.4-46.3) fL RDW Coeff of Fifi 13.3 (11.5-14.5) % Plt Count 87 L D (130-400) K/uL MPV 9.2 (7.4-10.4) fL Immature Gran % (Auto) 0.4 % Neut % (Auto) 83.3 % Lymph % (Auto) 10.5 % [place] % (Auto) 5.3 % Eos % (Auto) 0.3 % Baso % (Auto) 0.2 % Immature Gran # (Auto) 0.04 H (0.00-0.02) K/uL Neut # (Auto) 9.45 H (1.4-6.5) K/uL Lymph # (Auto) 1.19 L (1.2-3.4) K/uL [place] # (Auto) 0.60 H (0.11-0.59) K/uL Eos # (Auto) 0.03 (0-0.5) K/uL Baso # (Auto) 0.02 (0-0.2) K/uL Platelet Estimate Decreased L (Normal) Echinocytes 1+ PT (9.0-12.0) Seconds INR (0.9-1.1) APTT (21.0-31.0) Seconds PTT Ratio Fibrinogen (184-400) mg/dl POC pH (7.35-7.45) POC pCO2 (35-46) mmHg POC pO2 (80-95) mmHg POC HCO3 (19-24) cathy/L POC Base Excess (-9-1.8) cathy/L ABG pH 7.39 (7.35-7.45) ABG pCO2 26 L (35-46) mmHg ABG pO2 201 H (80-95) mm/Hg ABG HCO3 15 L (19-24) mmol/L POC ABG O2 Sat (90-95) % ABG O2 Saturation 99.6 H (90-95) % ABG Base Excess -8.6 (-9-1.8) mEq/L Yg Test Pos (Pos) Barometric Pressure 732.2 mm/Hg Oxygen Given 40% FiO2 POC Sodium (135-144) mEq/L Sodium (136-145) mmol/L POC Potassium (3.3-5.0) mEq/L Potassium (3.5-5.1) mmol/L POC Chloride (101-112) mEq/L Chloride (98-107) mmol/L Carbon Dioxide (21-32) mmol/L POC Total CO2 (24-31) mEq/l Anion Gap (3-11) POC Anion Gap (16-25) mmol/L POC BUN (7-18) mg/dl BUN (7-18) mg/dl Creatinine (0.6-1.2) mg/dl POC Creatinine (0.6-1.3) mg/dl Est Cr Clr Drug Dosing Est GFR ( Amer) Est GFR (Non-Af Amer) BUN/Creatinine Ratio (10-20) Glucose (70-99) mg/dl POC Glucose (other) (70-99) mg/dl POC Lactic Acid Tae (0.90-1.70) mmol/L Lactate 5.3 H* (0.4-2.0) mmol/L Calcium (8.5-10.1) mg/dl POC Ioniz Calcium [place] (1.12-1.32) mmol/l Ionized Calcium (1.12-1.32) mmol/L Phosphorus (2.5-4.9) mg/dl Magnesium (1.8-2.4) mg/dl Total Bilirubin (0.2-1) mg/dl Direct Bilirubin (0-0.2) mg/dl AST (15-37) U/L ALT (12-78) U/L Alkaline Phosphatase (45-117) U/L POC Troponin I (0-0.045) ng/ml Troponin I (0-0.045) ng/ml Total Protein (6.4-8.2) gm/dl Albumin (3.4-5.0) gm/dl Globulin (2.5-4.0) gm/dl Albumin/Globulin Ratio (0.9-2) Lipase (73-393) U/L Nasal Screen MRSA (PCR) (Negative) Blood Type Blood Type Recheck Antibody Screen Crossmatch 06/24/19 06/24/19 06/24/19 Range/Units 09:35 08:25 08:22 WBC (4.8-10.8) K/uL RBC (4.2-5.4) M/uL Hgb 8.5 L D (12.0-16.0) g/dL POC Hgb 7.1 L (12.0-16.0) g/dl Hct 24.6 L (37-47) % POC Hct 21 L (37-47) % MCV (80-100) fL MCH (25-34) pg MCHC (32-36) g/dL RDW Std Deviation (36.4-46.3) fL RDW Coeff of Fifi (11.5-14.5) % Plt Count (130-400) K/uL MPV (7.4-10.4) fL Immature Gran % (Auto) % Neut % (Auto) % Lymph % (Auto) % [place] % (Auto) % Eos % (Auto) % Baso % (Auto) % Immature Gran # (Auto) (0.00-0.02) K/uL Neut # (Auto) (1.4-6.5) K/uL Lymph # (Auto) (1.2-3.4) K/uL [place] # (Auto) (0.11-0.59) K/uL Eos # (Auto) (0-0.5) K/uL Baso # (Auto) (0-0.2) K/uL Platelet Estimate (Normal) Echinocytes PT (9.0-12.0) Seconds INR (0.9-1.1) APTT (21.0-31.0) Seconds PTT Ratio Fibrinogen (184-400) mg/dl POC pH (7.35-7.45) POC pCO2 (35-46) mmHg POC pO2 (80-95) mmHg POC HCO3 (19-24) cathy/L POC Base Excess (-9-1.8) cathy/L ABG pH (7.35-7.45) ABG pCO2 (35-46) mmHg ABG pO2 (80-95) mm/Hg ABG HCO3 (19-24) mmol/L POC ABG O2 Sat (90-95) % ABG O2 Saturation (90-95) % ABG Base Excess (-9-1.8) mEq/L Yg Test (Pos) Barometric Pressure mm/Hg Oxygen Given POC Sodium 143 (135-144) mEq/L Sodium (136-145) mmol/L POC Potassium 3.6 (3.3-5.0) mEq/L Potassium (3.5-5.1) mmol/L POC Chloride 111 (101-112) mEq/L Chloride (98-107) mmol/L Carbon Dioxide (21-32) mmol/L POC Total CO2 22 L (24-31) mEq/l Anion Gap (3-11) POC Anion Gap 15.0 L (16-25) mmol/L POC BUN 8 (7-18) mg/dl BUN (7-18) mg/dl Creatinine (0.6-1.2) mg/dl POC Creatinine 0.2 L (0.6-1.3) mg/dl Est Cr Clr Drug Dosing Est GFR ( Amer) Est GFR (Non-Af Amer) BUN/Creatinine Ratio (10-20) Glucose (70-99) mg/dl POC Glucose (other) 220 H (70-99) mg/dl POC Lactic Acid Tae (0.90-1.70) mmol/L Lactate (0.4-2.0) mmol/L Calcium (8.5-10.1) mg/dl POC Ioniz Calcium [place] 1.49 H (1.12-1.32) mmol/l Ionized Calcium (1.12-1.32) mmol/L Phosphorus (2.5-4.9) mg/dl Magnesium (1.8-2.4) mg/dl Total Bilirubin (0.2-1) mg/dl Direct Bilirubin (0-0.2) mg/dl AST (15-37) U/L ALT (12-78) U/L Alkaline Phosphatase (45-117) U/L POC Troponin I (0-0.045) ng/ml Troponin I (0-0.045) ng/ml Total Protein (6.4-8.2) gm/dl Albumin (3.4-5.0) gm/dl Globulin (2.5-4.0) gm/dl Albumin/Globulin Ratio (0.9-2) Lipase (73-393) U/L Nasal Screen MRSA (PCR) Negative (Negative) Blood Type Blood Type Recheck Antibody Screen Crossmatch 06/24/19 06/24/19 06/24/19 Range/Units 08:17 07:35 07:29 WBC (4.8-10.8) K/uL RBC (4.2-5.4) M/uL Hgb (12.0-16.0) g/dL POC Hgb 8.8 L (12.0-16.0) g/dl Hct (37-47) % POC Hct 26 L (37-47) % MCV (80-100) fL MCH (25-34) pg MCHC (32-36) g/dL RDW Std Deviation (36.4-46.3) fL RDW Coeff of Fifi (11.5-14.5) % Plt Count (130-400) K/uL MPV (7.4-10.4) fL Immature Gran % (Auto) % Neut % (Auto) % Lymph % (Auto) % [place] % (Auto) % Eos % (Auto) % Baso % (Auto) % Immature Gran # (Auto) (0.00-0.02) K/uL Neut # (Auto) (1.4-6.5) K/uL Lymph # (Auto) (1.2-3.4) K/uL [place] # (Auto) (0.11-0.59) K/uL Eos # (Auto) (0-0.5) K/uL Baso # (Auto) (0-0.2) K/uL Platelet Estimate (Normal) Echinocytes PT (9.0-12.0) Seconds INR (0.9-1.1) APTT (21.0-31.0) Seconds PTT Ratio Fibrinogen (184-400) mg/dl POC pH 7.34 L 7.23 L (7.35-7.45) POC pCO2 38 41 (35-46) mmHg POC pO2 > 420 H 592 H (80-95) mmHg POC HCO3 21 17 L (19-24) cathy/L POC Base Excess -5.0 -10.0 L (-9-1.8) cathy/L ABG pH (7.35-7.45) ABG pCO2 (35-46) mmHg ABG pO2 (80-95) mm/Hg ABG HCO3 (19-24) mmol/L POC ABG O2 Sat 100.0 H 100.0 H (90-95) % ABG O2 Saturation (90-95) % ABG Base Excess (-9-1.8) mEq/L Yg Test (Pos) Barometric Pressure mm/Hg Oxygen Given POC Sodium 142 (135-144) mEq/L Sodium (136-145) mmol/L POC Potassium 3.9 (3.3-5.0) mEq/L Potassium (3.5-5.1) mmol/L POC Chloride 112 (101-112) mEq/L Chloride (98-107) mmol/L Carbon Dioxide (21-32) mmol/L POC Total CO2 22 L 18 L 19 L (24-31) mEq/l Anion Gap (3-11) POC Anion Gap 16.0 (16-25) mmol/L POC BUN 9 (7-18) mg/dl BUN (7-18) mg/dl Creatinine (0.6-1.2) mg/dl POC Creatinine < 0.2 L (0.6-1.3) mg/dl Est Cr Clr Drug Dosing Est GFR ( Amer) Est GFR (Non-Af Amer) BUN/Creatinine Ratio (10-20) Glucose (70-99) mg/dl POC Glucose (other) 238 H (70-99) mg/dl POC Lactic Acid Tae (0.90-1.70) mmol/L Lactate (0.4-2.0) mmol/L Calcium (8.5-10.1) mg/dl POC Ioniz Calcium [place] 0.84 L (1.12-1.32) mmol/l Ionized Calcium (1.12-1.32) mmol/L Phosphorus (2.5-4.9) mg/dl Magnesium (1.8-2.4) mg/dl Total Bilirubin (0.2-1) mg/dl Direct Bilirubin (0-0.2) mg/dl AST (15-37) U/L ALT (12-78) U/L Alkaline Phosphatase (45-117) U/L POC Troponin I (0-0.045) ng/ml Troponin I (0-0.045) ng/ml Total Protein (6.4-8.2) gm/dl Albumin (3.4-5.0) gm/dl Globulin (2.5-4.0) gm/dl Albumin/Globulin Ratio (0.9-2) Lipase (73-393) U/L Nasal Screen MRSA (PCR) (Negative) Blood Type Blood Type Recheck Antibody Screen Crossmatch 06/24/19 06/24/19 06/24/19 Range/Units 05:55 05:49 05:37 WBC (4.8-10.8) K/uL RBC (4.2-5.4) M/uL Hgb 5.1 L* D (12.0-16.0) g/dL POC Hgb TNP (12.0-16.0) g/dl Hct 14.5 L* (37-47) % POC Hct < 15 L* (37-47) % MCV (80-100) fL MCH (25-34) pg MCHC (32-36) g/dL RDW Std Deviation (36.4-46.3) fL RDW Coeff of Fifi (11.5-14.5) % Plt Count (130-400) K/uL MPV (7.4-10.4) fL Immature Gran % (Auto) % Neut % (Auto) % Lymph % (Auto) % [place] % (Auto) % Eos % (Auto) % Baso % (Auto) % Immature Gran # (Auto) (0.00-0.02) K/uL Neut # (Auto) (1.4-6.5) K/uL Lymph # (Auto) (1.2-3.4) K/uL [place] # (Auto) (0.11-0.59) K/uL Eos # (Auto) (0-0.5) K/uL Baso # (Auto) (0-0.2) K/uL Platelet Estimate (Normal) Echinocytes PT (9.0-12.0) Seconds INR (0.9-1.1) APTT (21.0-31.0) Seconds PTT Ratio Fibrinogen (184-400) mg/dl POC pH (7.35-7.45) POC pCO2 (35-46) mmHg POC pO2 (80-95) mmHg POC HCO3 (19-24) cathy/L POC Base Excess (-9-1.8) cathy/L ABG pH (7.35-7.45) ABG pCO2 (35-46) mmHg ABG pO2 (80-95) mm/Hg ABG HCO3 (19-24) mmol/L POC ABG O2 Sat (90-95) % ABG O2 Saturation (90-95) % ABG Base Excess (-9-1.8) mEq/L Yg Test (Pos) Barometric Pressure mm/Hg Oxygen Given POC Sodium 141 (135-144) mEq/L Sodium (136-145) mmol/L POC Potassium 4.7 (3.3-5.0) mEq/L Potassium (3.5-5.1) mmol/L POC Chloride 112 (101-112) mEq/L Chloride (98-107) mmol/L Carbon Dioxide (21-32) mmol/L POC Total CO2 19 L (24-31) mEq/l Anion Gap (3-11) POC Anion Gap 16.0 (16-25) mmol/L POC BUN 10 (7-18) mg/dl BUN (7-18) mg/dl Creatinine (0.6-1.2) mg/dl POC Creatinine 0.4 L (0.6-1.3) mg/dl Est Cr Clr Drug Dosing Est GFR ( Amer) Est GFR (Non-Af Amer) BUN/Creatinine Ratio (10-20) Glucose (70-99) mg/dl POC Glucose (other) 128 H (70-99) mg/dl POC Lactic Acid Tae (0.90-1.70) mmol/L Lactate (0.4-2.0) mmol/L Calcium (8.5-10.1) mg/dl POC Ioniz Calcium [place] 0.94 L (1.12-1.32) mmol/l Ionized Calcium (1.12-1.32) mmol/L Phosphorus (2.5-4.9) mg/dl Magnesium (1.8-2.4) mg/dl Total Bilirubin (0.2-1) mg/dl Direct Bilirubin (0-0.2) mg/dl AST (15-37) U/L ALT (12-78) U/L Alkaline Phosphatase (45-117) U/L POC Troponin I (0-0.045) ng/ml Troponin I (0-0.045) ng/ml Total Protein (6.4-8.2) gm/dl Albumin (3.4-5.0) gm/dl Globulin (2.5-4.0) gm/dl Albumin/Globulin Ratio (0.9-2) Lipase (73-393) U/L Nasal Screen MRSA (PCR) (Negative) Blood Type Blood Type Recheck A Positive Antibody Screen Crossmatch 06/24/19 06/24/19 06/24/19 Range/Units 05:37 05:32 05:31 WBC (4.8-10.8) K/uL RBC (4.2-5.4) M/uL Hgb (12.0-16.0) g/dL POC Hgb (12.0-16.0) g/dl Hct (37-47) % POC Hct (37-47) % MCV (80-100) fL MCH (25-34) pg MCHC (32-36) g/dL RDW Std Deviation (36.4-46.3) fL RDW Coeff of Fifi (11.5-14.5) % Plt Count (130-400) K/uL MPV (7.4-10.4) fL Immature Gran % (Auto) % Neut % (Auto) % Lymph % (Auto) % [place] % (Auto) % Eos % (Auto) % Baso % (Auto) % Immature Gran # (Auto) (0.00-0.02) K/uL Neut # (Auto) (1.4-6.5) K/uL Lymph # (Auto) (1.2-3.4) K/uL [place] # (Auto) (0.11-0.59) K/uL Eos # (Auto) (0-0.5) K/uL Baso # (Auto) (0-0.2) K/uL Platelet Estimate (Normal) Echinocytes PT (9.0-12.0) Seconds INR (0.9-1.1) APTT (21.0-31.0) Seconds PTT Ratio Fibrinogen (184-400) mg/dl POC pH (7.35-7.45) POC pCO2 (35-46) mmHg POC pO2 (80-95) mmHg POC HCO3 (19-24) cathy/L POC Base Excess (-9-1.8) cathy/L ABG pH (7.35-7.45) ABG pCO2 (35-46) mmHg ABG pO2 (80-95) mm/Hg ABG HCO3 (19-24) mmol/L POC ABG O2 Sat (90-95) % ABG O2 Saturation (90-95) % ABG Base Excess (-9-1.8) mEq/L Yg Test (Pos) Barometric Pressure mm/Hg Oxygen Given POC Sodium (135-144) mEq/L Sodium (136-145) mmol/L POC Potassium (3.3-5.0) mEq/L Potassium (3.5-5.1) mmol/L POC Chloride (101-112) mEq/L Chloride (98-107) mmol/L Carbon Dioxide (21-32) mmol/L POC Total CO2 (24-31) mEq/l Anion Gap (3-11) POC Anion Gap (16-25) mmol/L POC BUN (7-18) mg/dl BUN (7-18) mg/dl Creatinine (0.6-1.2) mg/dl POC Creatinine (0.6-1.3) mg/dl Est Cr Clr Drug Dosing Est GFR ( Amer) Est GFR (Non-Af Amer) BUN/Creatinine Ratio (10-20) Glucose (70-99) mg/dl POC Glucose (other) (70-99) mg/dl POC Lactic Acid Tae (0.90-1.70) mmol/L Lactate (0.4-2.0) mmol/L Calcium (8.5-10.1) mg/dl POC Ioniz Calcium [place] (1.12-1.32) mmol/l Ionized Calcium (1.12-1.32) mmol/L Phosphorus (2.5-4.9) mg/dl Magnesium (1.8-2.4) mg/dl Total Bilirubin (0.2-1) mg/dl Direct Bilirubin (0-0.2) mg/dl AST (15-37) U/L ALT (12-78) U/L Alkaline Phosphatase (45-117) U/L POC Troponin I < 0.03 (0-0.045) ng/ml Troponin I (0-0.045) ng/ml Total Protein (6.4-8.2) gm/dl Albumin (3.4-5.0) gm/dl Globulin (2.5-4.0) gm/dl Albumin/Globulin Ratio (0.9-2) Lipase (73-393) U/L Nasal Screen MRSA (PCR) (Negative) Blood Type A Positive Cancelled Blood Type Recheck Antibody Screen NEGATIVE Cancelled Crossmatch See Detail 06/24/19 06/24/19 06/24/19 Range/Units 05:00 04:59 04:59 WBC (4.8-10.8) K/uL RBC (4.2-5.4) M/uL Hgb (12.0-16.0) g/dL POC Hgb 11.6 L (12.0-16.0) g/dl Hct (37-47) % POC Hct 34 L (37-47) % MCV (80-100) fL MCH (25-34) pg MCHC (32-36) g/dL RDW Std Deviation (36.4-46.3) fL RDW Coeff of Fifi (11.5-14.5) % Plt Count (130-400) K/uL MPV (7.4-10.4) fL Immature Gran % (Auto) % Neut % (Auto) % Lymph % (Auto) % [place] % (Auto) % Eos % (Auto) % Baso % (Auto) % Immature Gran # (Auto) (0.00-0.02) K/uL Neut # (Auto) (1.4-6.5) K/uL Lymph # (Auto) (1.2-3.4) K/uL [place] # (Auto) (0.11-0.59) K/uL Eos # (Auto) (0-0.5) K/uL Baso # (Auto) (0-0.2) K/uL Platelet Estimate (Normal) Echinocytes PT 10.3 (9.0-12.0) Seconds INR 1.0 (0.9-1.1) APTT 22.0 (21.0-31.0) Seconds PTT Ratio 0.8 Fibrinogen (184-400) mg/dl POC pH (7.35-7.45) POC pCO2 (35-46) mmHg POC pO2 (80-95) mmHg POC HCO3 (19-24) cathy/L POC Base Excess (-9-1.8) cathy/L ABG pH (7.35-7.45) ABG pCO2 (35-46) mmHg ABG pO2 (80-95) mm/Hg ABG HCO3 (19-24) mmol/L POC ABG O2 Sat (90-95) % ABG O2 Saturation (90-95) % ABG Base Excess (-9-1.8) mEq/L Yg Test (Pos) Barometric Pressure mm/Hg Oxygen Given POC Sodium 140 (135-144) mEq/L Sodium 141 (136-145) mmol/L POC Potassium 3.2 L (3.3-5.0) mEq/L Potassium 3.3 L (3.5-5.1) mmol/L POC Chloride 105 (101-112) mEq/L Chloride 108 H (98-107) mmol/L Carbon Dioxide 22 (21-32) mmol/L POC Total CO2 21 L (24-31) mEq/l Anion Gap 11.0 (3-11) POC Anion Gap 19.0 (16-25) mmol/L POC BUN 10 (7-18) mg/dl BUN 12 (7-18) mg/dl Creatinine 0.83 (0.6-1.2) mg/dl POC Creatinine 0.7 (0.6-1.3) mg/dl Est Cr Clr Drug Dosing Not Reportable Est GFR ( Amer) 82.8 Est GFR (Non-Af Amer) 71.4 BUN/Creatinine Ratio 14.8 (10-20) Glucose 141 H (70-99) mg/dl POC Glucose (other) 144 H (70-99) mg/dl POC Lactic Acid Tae (0.90-1.70) mmol/L Lactate (0.4-2.0) mmol/L Calcium 8.7 (8.5-10.1) mg/dl POC Ioniz Calcium [place] 1.18 (1.12-1.32) mmol/l Ionized Calcium (1.12-1.32) mmol/L Phosphorus (2.5-4.9) mg/dl Magnesium (1.8-2.4) mg/dl Total Bilirubin 0.6 (0.2-1) mg/dl Direct Bilirubin (0-0.2) mg/dl AST 26 (15-37) U/L ALT 18 (12-78) U/L Alkaline Phosphatase 74 (45-117) U/L POC Troponin I (0-0.045) ng/ml Troponin I < 0.015 (0-0.045) ng/ml Total Protein 6.9 (6.4-8.2) gm/dl Albumin 3.7 (3.4-5.0) gm/dl Globulin 3.2 (2.5-4.0) gm/dl Albumin/Globulin Ratio 1.2 (0.9-2) Lipase 180 (73-393) U/L Nasal Screen MRSA (PCR) (Negative) Blood Type Blood Type Recheck Antibody Screen Crossmatch 06/24/19 06/24/19 Range/Units 04:59 04:56 WBC 13.18 H (4.8-10.8) K/uL RBC 3.87 L (4.2-5.4) M/uL Hgb 12.0 (12.0-16.0) g/dL POC Hgb (12.0-16.0) g/dl Hct 33.5 L (37-47) % POC Hct (37-47) % MCV 86.6 (80-100) fL MCH 31.0 (25-34) pg MCHC 35.8 (32-36) g/dL RDW Std Deviation 42.1 (36.4-46.3) fL RDW Coeff of Fifi 13.2 (11.5-14.5) % Plt Count 320 (130-400) K/uL MPV 9.0 (7.4-10.4) fL Immature Gran % (Auto) 0.2 % Neut % (Auto) 60.4 % Lymph % (Auto) 26.3 % [place] % (Auto) 9.3 % Eos % (Auto) 3.3 % Baso % (Auto) 0.5 % Immature Gran # (Auto) 0.02 (0.00-0.02) K/uL Neut # (Auto) 7.96 H (1.4-6.5) K/uL Lymph # (Auto) 3.46 H (1.2-3.4) K/uL [place] # (Auto) 1.23 H (0.11-0.59) K/uL Eos # (Auto) 0.44 (0-0.5) K/uL Baso # (Auto) 0.07 (0-0.2) K/uL Platelet Estimate (Normal) Echinocytes PT (9.0-12.0) Seconds INR (0.9-1.1) APTT (21.0-31.0) Seconds PTT Ratio Fibrinogen (184-400) mg/dl POC pH (7.35-7.45) POC pCO2 (35-46) mmHg POC pO2 (80-95) mmHg POC HCO3 (19-24) cathy/L POC Base Excess (-9-1.8) cathy/L ABG pH (7.35-7.45) ABG pCO2 (35-46) mmHg ABG pO2 (80-95) mm/Hg ABG HCO3 (19-24) mmol/L POC ABG O2 Sat (90-95) % ABG O2 Saturation (90-95) % ABG Base Excess (-9-1.8) mEq/L Yg Test (Pos) Barometric Pressure mm/Hg Oxygen Given POC Sodium (135-144) mEq/L Sodium (136-145) mmol/L POC Potassium (3.3-5.0) mEq/L Potassium (3.5-5.1) mmol/L POC Chloride (101-112) mEq/L Chloride (98-107) mmol/L Carbon Dioxide (21-32) mmol/L POC Total CO2 (24-31) mEq/l Anion Gap (3-11) POC Anion Gap (16-25) mmol/L POC BUN (7-18) mg/dl BUN (7-18) mg/dl Creatinine (0.6-1.2) mg/dl POC Creatinine (0.6-1.3) mg/dl Est Cr Clr Drug Dosing Est GFR ( Amer) Est GFR (Non-Af Amer) BUN/Creatinine Ratio (10-20) Glucose (70-99) mg/dl POC Glucose (other) (70-99) mg/dl POC Lactic Acid Tae 3.21 H (0.90-1.70) mmol/L Lactate (0.4-2.0) mmol/L Calcium (8.5-10.1) mg/dl POC Ioniz Calcium [place] (1.12-1.32) mmol/l Ionized Calcium (1.12-1.32) mmol/L Phosphorus (2.5-4.9) mg/dl Magnesium (1.8-2.4) mg/dl Total Bilirubin (0.2-1) mg/dl Direct Bilirubin (0-0.2) mg/dl AST (15-37) U/L ALT (12-78) U/L Alkaline Phosphatase (45-117) U/L POC Troponin I (0-0.045) ng/ml Troponin I (0-0.045) ng/ml Total Protein (6.4-8.2) gm/dl Albumin (3.4-5.0) gm/dl Globulin (2.5-4.0) gm/dl Albumin/Globulin Ratio (0.9-2) Lipase (73-393) U/L Nasal Screen MRSA (PCR) (Negative) Blood Type Blood Type Recheck Antibody Screen Crossmatch PG Care Time/CCT Total # of Minutes Spent Total Time Spent with Patient: Total time spent is greater than 50% in coordination of care (as documented) at patient's floor/unit and/or counseling patient: Critical Care Time: Yes Total Critical Care Time: 95
--- NOTE | 2019-06-24 09:19 | Procedure Note ---
Angiogram Post Procedure Fluoroscopy Time (minutes): 33.2 Conscious Sedation Time (minutes): 0 Radiation (mGy): 688 Contrast: 47 Post Operative Report Pre & Post Diagnosis Operation Date: 06/24/19 07:00 Pre-Op Diagnosis: Acute blood loss anemia, retroperitoneal bleed Post-Op Diagnosis: Acute blood loss anemia, retroperitoneal bleed Procedure Operation Date: 06/24/19 07:00 Actual Procedures Cannulation of the aorta Selective left renal arteriogram Embolization of the left renal artery with 6 mm coils Mechanical closure right femoral artery Surgeon Stefan Meyer MD Math Teacher None Estimated Blood Loss 30 Findings Consistent with Post-Op Diagnosis Specimens None Anesthesia Type General Complications none Indications This is a 69-year-old female who I was consulted on while she was in the operating room preparing for left nephrectomy. She had a large hemorrhage into her left kidney and retroperitoneum. There was a question of being able to embolize the renal artery to avoid surgery. This was discussed with the family and they agreed to go ahead with this approach. They understood the risks, benefits, and options. They agreed to go ahead with this procedure. Description of Procedure The patient was transported from room 8 to room 12 in the operating room while under general anesthesia. The groins were then prepped in the usual fashion. A timeout was performed and the patient was identified. A percutaneous puncture was then made of the right common femoral artery an 8 [place] sheath inserted. Using an RDC catheter and an RDC glide cath the left renal artery was cannulated. Selective arteriographyof the left renal artery showed bleeding from the upper pole with a question of bleeding from the lower branch of the renal artery. It was decided to try and cannulate the branch that had the significant bleeding. This was attempted with multiple catheters. We were able to cannulate the left renal with the STRONG II and advanced it down to the bifurcation. The RDC was pushed up slightly into the aorta for some support. We could not selectively cannulate the upper branches. We decided to embolize the branch we were in and then either attempt the upper branch again or embolize the main renal artery if needed. We then placed coils into the lower branch of the renal artery. Three 6 mm coils were placed. Bleeding was somewhat less but still persisted. We then pulled the angled glide catheter back slightly. This had been switched out for the STRONG II and 2 more coils were then placed in the main renal artery just at the bifurcation. The glide catheter was then pulled back. Hand-injection performed showed no further bleeding. We then remove the angled glide catheter and the [facility] guide cath and placed a pigtail. Arteriogram done at that point showed the no further bleeding was noted in the renal artery of the left kidney. Successful embolization was noted. The puncture site was then imaged. This was seen to be anterior in the common femoral artery. Puncture site was closed using a Star closure device without difficulty.The patient left the operation room in satisfactory condition and tolerated the procedure well. All needle and sponge counts were correct at the end of the procedure. I attest to the content of the Intraoperative Record and any orders documented therein. Any exceptions are noted below.
--- NOTE | 2019-06-24 09:21 | Consultation ---
Date of Consultation June 24, 2019 Assessment & Plan (1) Retroperitoneal bleed: And attempted coil embolization of the left renal artery will be made. This was discussed with the family members and they agreed to go ahead with this procedure. They understood all the risks options and benefits. Thank you very much for letting us participate in the care of this patient. History of Present Illness Reason for Consultation: Retroperitoneal hematoma and left renal hematoma. Attending Physician: Fran Goff MD History of Present Illness I was asked to see this patient while she was anesthetized in the operating room for a large retroperitoneal hematoma and bleeding into her left kidney. Her CT angiogram was reviewed. An attempt at embolization would be feasible looking at the anatomy. This was discussed with the family and they agreed to go ahead with this approach. Allergies Allergy/AdvReac Type Severity Reaction Status Date / Time No Known Allergies Allergy Unverified 06/24/19 05:38 Home Medications Home Medications Medication Instructions Recorded Confirmed Type aspirin 81 mg PO DAILY 06/24/19 06/24/19 History atorvastatin 20 mg PO DAILY 06/24/19 06/24/19 History calcium carbonate-vitamin D3 2 tab PO DAILY 06/24/19 06/24/19 History [Calcium 500 With D] cholecalciferol (vitamin D3) 2,000 unit PO DAILY 06/24/19 06/24/19 History [Vitamin D3] cyanocobalamin (vitamin B-12) 1,000 mcg PO DAILY 06/24/19 06/24/19 History magnesium oxide 500 mg PO DAILY 06/24/19 06/24/19 History naproxen sodium 440 mg PO DAILY 06/24/19 06/24/19 History Patient History Medical History Hypercholesteremia Surgical History S/P hernia repair Social History Feels Safe at Home: Yes Smoking Status: Never smoker Review of Systems Review of Systems: Unobtainable due to patient being under general anesthesia. Physical Exam Physical Exam: Time seen this patient she was under general anesthesia in the operating room table in room 8. Her blood pressure was slightly low but stable. Results & Data Vital Signs (Past 12 Hours) Vital Signs Temp Pulse Pulse Resp BP BP Pulse Ox 06/24/19 07:47 35.9 C L 64 20 115/74 100 06/24/19 06:10 62 20 115/56 L 100 06/24/19 06:08 62 19 113/55 L 100 06/24/19 06:05 62 19 86/48 L 100 06/24/19 06:00 67 22 121/63 98 06/24/19 05:59 65 18 118/66 06/24/19 05:55 62 27 H 107/49 L 96 06/24/19 05:52 63 18 106/51 L 98 06/24/19 05:51 63 22 99 06/24/19 05:50 64 23 99/53 L 98 06/24/19 05:45 64 22 105/50 L 98 06/24/19 05:44 69 18 119/50 L 100 06/24/19 05:35 61 19 89/52 L 96 06/24/19 05:31 63 21 90/46 L 96 06/24/19 05:28 35.7 C L 64 18 90/46 L 99 06/24/19 05:20 66 20 166/79 H 93 06/24/19 05:00 72 23 113/69 97 06/24/19 04:48 76 18 101/50 L 98
[2019-06-24 09:33] LABS: iSTAT Blood Urea Nitrogen 10 mg/dl (7-18); iSTAT Carbon Dioxide 19 mEq/l (24-31); iSTAT Chloride 112 mEq/L (101-112); iSTAT Creatinine 0.4 mg/dl (0.6-1.3); iSTAT Glucose 128 mg/dl (70-99); iSTAT Hematocrit < 15 % (37-47); iSTAT Ionized Calcium 0.94 mmol/l (1.12-1.32); iSTAT Potassium 4.7 mEq/L (3.3-5.0); iSTAT Sodium 141 mEq/L (135-144)
[2019-06-24] MEDS ORDERED: PROPOFOL IV EMULSION 10 MG/ML 100 ML VIAL IV ONE (09:37)
[2019-06-24] MEDS ORDERED: IPRATROPIUM BROMIDE NEB SOLN 0.02% 2.5 ML VIAL INH PRN (09:49)
[2019-06-24] MEDS ORDERED: TRANEXAMIC ACID 1,000 MG in 0.9 % SODIUM CHLORIDE 100 ML IV SCH (09:49)
[2019-06-24] MEDS ORDERED: PROPOFOL 1,000 MG/100 ML VIAL IV SCH ×2 (09:49→10:30)
[2019-06-24] MEDS ORDERED: ICU PROTOCOL FOR HYPERGLYCEMIA PRN (09:49)
[2019-06-24 09:53] LABS: iSTAT Arterial Blood Gas HCO3 21 meg/L (19-24); iSTAT Arterial Blood Gas pCO2 38 mmHg (35-46); iSTAT Arterial Blood Gas pH 7.34 (7.35-7.45); iSTAT Carbon Dioxide 22 mEq/l (24-31)
[2019-06-24 09:53] LABS: iSTAT Creatinine 0.2 mg/dl (0.6-1.3); iSTAT Hemoglobin 7.1 g/dl (12.0-16.0); iSTAT Ionized Calcium 1.49 mmol/l (1.12-1.32); iSTAT Potassium 3.6 mEq/L (3.3-5.0)
[2019-06-24 09:55] LABS: iSTAT Blood Urea Nitrogen 9 mg/dl (7-18); iSTAT Carbon Dioxide 18 mEq/l (24-31); iSTAT Chloride 112 mEq/L (101-112); iSTAT Creatinine < 0.2 mg/dl (0.6-1.3); iSTAT Glucose 238 mg/dl (70-99); iSTAT Hematocrit 26 % (37-47); iSTAT Hemoglobin 8.8 g/dl (12.0-16.0); iSTAT Ionized Calcium 0.84 mmol/l (1.12-1.32); iSTAT Potassium 3.9 mEq/L (3.3-5.0); iSTAT Sodium 142 mEq/L (135-144)
[2019-06-24 10:00] LABS: iSTAT Arterial Blood Gas pCO2 41 mmHg (35-46); iSTAT Arterial Blood Gas pH 7.23 (7.35-7.45)
[2019-06-24 10:01] LABS: iSTAT Arterial Blood Gas HCO3 17 meg/L (19-24); iSTAT Carbon Dioxide 19 mEq/l (24-31)
--- NOTE | 2019-06-24 10:14 | Anesthesiology Progress Note ---
Date of Service /patient is s/p coil embolization to left renal artery for hemorrhage and retroperitoneal bleed.Pt has been resuscitated ,which is //ongoing, and remains intubated and transported to ICU and placed on a mechanical ventilator. I have given report to Dr Bunn and he will place orders and manage the ventilator and ongoing critical care. June 24, 2019 Physical Exam Vital Signs: Last Vital Signs Temp 35.9 C L 06/24/19 07:47 Pulse 66 06/24/19 09:44 Resp 16 06/24/19 09:44 BP 115/74 06/24/19 07:47 Pulse Ox 100 06/24/19 09:44
[2019-06-24 10:24] LABS: Base Excess ABG -8.6 mEq/L (-9-1.8); HCO3 ABG 15 mmol/L (19-24); Oxygen Saturation ABG 99.6 % (90-95); PCO2 ABG 26 mmHg (35-46); PO2 ABG 201 mm/Hg (80-95); pH ABG 7.39 (7.35-7.45)
[2019-06-24 10:26] LABS: Allen Test Pos (Pos)
[2019-06-24 10:30] LABS: Fibrinogen 140 mg/dl (184-400); Partial Thromboplastin Time 27.9 Seconds (21.0-31.0)
[2019-06-24 10:37] LABS: Albumin Level 2.8 gm/dl (3.4-5.0); BUN Creatinine Ratio 14.1 (10-20); Bilirubin Direct 0.2 mg/dl (0-0.2); Calcium 8.3 mg/dl (8.5-10.1); Creatinine Clr Calc Pharmacy 63.5 ml/min; Est GFR (African American) 85.3; Est GFR (Non-African American) 73.6; Magnesium 1.7 mg/dl (1.8-2.4); Potassium 3.8 mmol/L (3.5-5.1)
[2019-06-24 10:41] LABS: Basophils # (auto) 0.02 K/uL (0-0.2); Basophils % (auto) 0.2 %; Echinocytes 1+; Eosinophils # (auto) 0.03 K/uL (0-0.5); Eosinophils % (auto) 0.3 %; Hematocrit (blood only) 30.9 % (37-47); Immature Granulocytes # (auto) 0.04 K/uL (0.00-0.02); Immature Granulocytes % (auto) 0.4 %; Lymphocytes # (auto) 1.19 K/uL (1.2-3.4); Lymphocytes % (auto) 10.5 %; Mean Corpuscular Hgb Conc 35.6 g/dL (32-36); Mean Corpuscular Volume 85.6 fL (80-100); Mean Platelet Volume 9.2 fL (7.4-10.4); Monocytes % (auto) 5.3 %; Neutrophils # (auto) 9.45 K/uL (1.4-6.5); Neutrophils % (auto) 83.3 %; Platelet Count 87 K/uL (130-400); Platelet Estimate Decreased (Normal); RDW Coefficient of Variation 13.3 % (11.5-14.5); RDW Standard Deviation 41.7 fL (36.4-46.3); Red Blood Count 3.61 M/uL (4.2-5.4); White Blood Count 11.33 K/uL (4.8-10.8)
--- NOTE | 2019-06-24 10:42 | History & Physical Report ---
Date of Service June 24, 2019 Assessment & Plan (1) Retroperitoneal bleed: Secondary to acute hemorrhage into a 10 cm upper pole left renal mass, likely representing an angiomyolipoma. Associated with large left-sided retroperitoneal hemorrhage measuring in excess of 20 cm in craniocaudad dimension. 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 Urology consulted For further evaluation following stabilization of her current condition (2) Acute blood loss anemia: Secondary to acute to peritoneal hemorrhage 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 She received 6 units of PRBC, 3 units of FFP and 6 units of platelet Bleeding is controlled We will monitor H&H while in hospital (3) Hypercholesteremia: Hold any medications for that now (4) Mitral valve prolapse: Normal EKG and no other cardiac symptoms Hypothermia Multifactorial, including shock and blood loss following surgery Has been on keeping blood Monitored in the ICU Mechanical ventilation Management as per carbon sequestration plant manager CODE STATUS Full Review of the chart showed that the patient's daughter is aware about the current condition of the patient and she has been communicated throughout the process. DVT prophylaxis SCDs History of Present Illness She is 69 years old and not 16. Chief Complaint: Acute abdominal pain Primary Care Provider: Madeleine Domingo DO She is a 16 years old obese female with significant past medical history of hyperlipidemia and mitral valve prolapse with a history of hernia repair apparently presented to the ER with severe acute abdominal pain. She was very pale and diaphoretic at presentation. Management scan including CT of the chest and CT of the abdomen and pelvis revealed no intra-abdominal/retroperitoneal bleed around left kidney. She has started with intravenous Levophed and fluid resuscitation and appropriate special services including surgery, vascular surgery, urology and letter from carbon sequestration plant manager where consulted. Concerns of left sided angiomyolipoma of the kidney rupture was considered. Emergent cannulation of the aorta, selective renal renal artery angiogram and embolization of the left renal artery was performed with stoppage of the bleeding. During the process the patient received two 6 unit of packed red cell blood, 3 units FFP and 6 units of platelets including adequate crystalloid infusion. She was intubated and was transferred to ICU for continuation of care. Allergies Allergy/AdvReac Type Severity Reaction Status Date / Time No Known Allergies Allergy Unverified 06/24/19 05:38 Home Medications Home Medications Medication Instructions Recorded Confirmed Type aspirin 81 mg PO DAILY 06/24/19 06/24/19 History atorvastatin 20 mg PO DAILY 06/24/19 06/24/19 History calcium carbonate-vitamin D3 2 tab PO DAILY 06/24/19 06/24/19 History [Calcium 500 With D] cholecalciferol (vitamin D3) 2,000 unit PO DAILY 06/24/19 06/24/19 History [Vitamin D3] cyanocobalamin (vitamin B-12) 1,000 mcg PO DAILY 06/24/19 06/24/19 History magnesium oxide 500 mg PO DAILY 06/24/19 06/24/19 History naproxen sodium 440 mg PO DAILY 06/24/19 06/24/19 History Past Med/Surg History Medical History Mitral valve prolapse Hypercholesteremia Surgical History S/P hernia repair Social History Feels Safe at Home: Yes Smoking Status: Never smoker Review of Systems Review of Systems: Unobtainable due to endotracheal tube Physical Exam Physical Exam: Sedated on mechanical ventilation Eyes: Close ENMT: external ear and nose normal, oropharynx normal Neck: trachea midline, no thyromegaly Respiratory: On mechanical ventilator Cardiovascular: Rate/Rhythm: regular rate and regular rhythm Heart Sounds: + murmur (2/6 over precordium) Gastrointestinal (Abdomen): Inspection/Auscultation: + abdomen distended Percussion/Palpation: + abdomen rigid (Minimally received) Decreased bowel sounds Neurologic: Sedated on mechanical ventilator Lymphatic: no cervical or axillary lymphadenopathy Results & Data Vital Signs (Past 12 Hours) Vital Signs Temp Pulse Pulse Resp BP BP Pulse Ox 06/24/19 09:44 66 16 100 06/24/19 07:47 35.9 C L 64 20 115/74 100 06/24/19 06:10 62 20 115/56 L 100 06/24/19 06:08 62 19 113/55 L 100 06/24/19 06:05 62 19 86/48 L 100 06/24/19 06:00 67 22 121/63 98 06/24/19 05:59 65 18 118/66 06/24/19 05:55 62 27 H 107/49 L 96 06/24/19 05:52 63 18 106/51 L 98 06/24/19 05:51 63 22 99 06/24/19 05:50 64 23 99/53 L 98 06/24/19 05:45 64 22 105/50 L 98 06/24/19 05:44 69 18 119/50 L 100 06/24/19 05:35 61 19 89/52 L 96 06/24/19 05:31 63 21 90/46 L 96 06/24/19 05:28 35.7 C L 64 18 90/46 L 99 06/24/19 05:20 66 20 166/79 H 93 06/24/19 05:00 72 23 113/69 97 06/24/19 04:48 76 18 101/50 L 98 Laboratory Results Short CBC 06/24/19 06/24/19 06/24/19 Range/Units 04:59 05:55 08:25 WBC 13.18 H (4.8-10.8) K/uL Hgb 12.0 5.1 L* D 8.5 L D (12.0-16.0) g/dL Hct 33.5 L 14.5 L* 24.6 L (37-47) % Plt Count 320 (130-400) K/uL BMP 06/24/19 04:59 Sodium 141 Potassium 3.3 L Chloride 108 H Carbon Dioxide 22 BUN 12 Creatinine 0.83 Glucose 141 H Calcium 8.7 Cardiac Enzymes 06/24/19 Range/Units 04:59 Troponin I < 0.015 (0-0.045) ng/ml Liver Function 06/24/19 Range/Units 04:59 Total Bilirubin 0.6 (0.2-1) mg/dl AST 26 (15-37) U/L ALT 18 (12-78) U/L Alkaline Phosphatase 74 (45-117) U/L Albumin 3.7 (3.4-5.0) gm/dl Medications Administered Current Inpatient Medications Fentanyl Citrate (Fentanyl Citrate) 100 mcg IV Q2H PRN PRN Reason: Severe Pain (7,8,9,10) Stop: 07/08/19 09:48 Tranexamic Acid 1,000 mg/ (Sodium Chloride) 510 mls @ 63.75 mls/hr IV ONE ONE Stop: 06/24/19 15:59 Propofol (Diprivan) 1,000 mg in 100 mls @ 2.118 mls/hr IV .Q24H CHRIS; Protocol Stop: 06/27/19 09:48 Famotidine 20 mg/ Syringe 5 mls @ 2.5 mls/min IV Q12H CHRIS Stop: 07/24/19 10:59 Parenteral Electrolytes (Normosol-R) 1,000 mls @ 100 mls/hr IV .Q10H CHRIS Stop: 07/24/19 09:48 Ipratropium [place] (Atrovent 0.02% 0.5mg/2.5ml) 0.5 mg INH Q4H PRN PRN Reason: Dyspnea Stop: 07/24/19 09:48 Miscellaneous (Icu Protocol For Hyperglycemia) 1 ea N/A PRN PRN; Protocol PRN Reason: Hyperglycemia Protocol Stop: 06/26/19 09:48 Code Status & VTE Plan VTE Prophylaxis Plan VTE Prophylaxis will be ordered: Yes
[2019-06-24 10:44] LABS: Bilirubin,Total 0.9 mg/dl (0.2-1); Phosphorus 4.1 mg/dl (2.5-4.9); Total Protein 5.2 gm/dl (6.4-8.2)
[2019-06-24] MEDS ORDERED: FAMOTIDINE 20 MG in SYRINGE 3 ML IV SCH (11:00)
[2019-06-24] MEDS: NORMOSOL-R 1,000 ML IV SCH ×2 (11:37→19:42)
--- NOTE | 2019-06-24 12:05 | Critical Care Consultation ---
Date of Consultation June 24, 2019 History of Present Illness Attending Physician: Sonya Quintero MD History of Present Illness Mr. Chan is a 69-year-old female who presented to the emergency department with abdominal pain and was found to be pale and diaphoretic. FAST exam showed fluid in the abdomen. Was found to have a large left retroperitoneal bleed from a ruptured renal mass on CT abdomen. She was emergently taken to the OR and underwent a successful renal embolization with coil. She was severely anemic and received a total of patient now presents to the ICU intubated and sedated. Allergies Allergy/AdvReac Type Severity Reaction Status Date / Time No Known Allergies Allergy Unverified 06/24/19 05:38 Home Medications Home Medications Medication Instructions Recorded Confirmed Type aspirin 81 mg PO DAILY 06/24/19 06/24/19 History atorvastatin 20 mg PO DAILY 06/24/19 06/24/19 History calcium carbonate-vitamin D3 2 tab PO DAILY 06/24/19 06/24/19 History [Calcium 500 With D] cholecalciferol (vitamin D3) 2,000 unit PO DAILY 06/24/19 06/24/19 History [Vitamin D3] cyanocobalamin (vitamin B-12) 1,000 mcg PO DAILY 06/24/19 06/24/19 History magnesium oxide 500 mg PO DAILY 06/24/19 06/24/19 History naproxen sodium 440 mg PO DAILY 06/24/19 06/24/19 History Patient History Medical History Mitral valve prolapse Hypercholesteremia Surgical History S/P hernia repair Social History Feels Safe at Home: Yes Smoking Status: Never smoker Results & Data Vital Signs (Past 12 Hours) Vital Signs Temp Pulse Pulse Resp BP BP Pulse Ox 06/24/19 11:29 33.9 C L 62 16 108/64 100 06/24/19 10:30 65 100 06/24/19 10:15 66 100 06/24/19 10:01 68 141/76 H 100 06/24/19 10:00 69 100 06/24/19 09:55 71 100 06/24/19 09:50 73 100 06/24/19 09:46 77 162/105 H 100 06/24/19 09:45 77 100 06/24/19 09:44 66 16 100 06/24/19 09:40 86 100 06/24/19 09:35 106 H 241/144 H 100 06/24/19 09:33 96 H 215/170 H 100 06/24/19 09:07 33.4 C L 61 06/24/19 07:47 35.9 C L 64 20 115/74 100 06/24/19 06:10 62 20 115/56 L 100 06/24/19 06:08 62 19 113/55 L 100 06/24/19 06:05 62 19 86/48 L 100 06/24/19 06:00 67 22 121/63 98 06/24/19 05:59 65 18 118/66 06/24/19 05:55 62 27 H 107/49 L 96 06/24/19 05:52 63 18 106/51 L 98 06/24/19 05:51 63 22 99 06/24/19 05:50 64 23 99/53 L 98 06/24/19 05:45 64 22 105/50 L 98 06/24/19 05:44 69 18 119/50 L 100 06/24/19 05:35 61 19 89/52 L 96 06/24/19 05:31 63 21 90/46 L 96 06/24/19 05:28 35.7 C L 64 18 90/46 L 99 06/24/19 05:20 66 20 166/79 H 93 06/24/19 05:00 72 23 113/69 97 06/24/19 04:48 76 18 101/50 L 98 PG Care Time/CCT Total # of Minutes Spent Total Time Spent with Patient: Total time spent is greater than 50% in coordination of care (as documented) at patient's floor/unit and/or counseling patient:
[2019-06-24] MEDS: fentaNYL citrate 100 MCG/2 ML VIAL IV PRN ×3 (12:44→17:45)
[2019-06-24] MEDS ORDERED: MAGNESIUM SULFATE / D5W 1 GM/100 ML BAG IV ONE (13:01)
[2019-06-24] MEDS ORDERED: ACETAMINOPHEN 325 MG TAB PO PRN ×3 (13:47→19:00)
[2019-06-24] MEDS ORDERED: ACETAMINOPHEN 1,000 MG/100 ML VIAL IV STA (13:51)
[2019-06-24] MEDS ORDERED: LORazepam 0.25 MG/0.5 ML VIAL IV ONE (14:55)
[2019-06-24 15:36] LABS: Hematocrit (blood only) 26.2 % (37-47); Hemoglobin 9.4 g/dL (12.0-16.0)
[2019-06-24 15:58] LABS: BUN Creatinine Ratio 16.3 (10-20); Calcium 7.9 mg/dl (8.5-10.1); Creatinine Clr Calc Pharmacy 64.3 ml/min; Est GFR (African American) 86.6; Est GFR (Non-African American) 74.7
[2019-06-24] MEDS ORDERED: OXYCODONE HCL IR 5 MG TAB (IMMEDIATE RELEASE) PO PRN (19:00)
[2019-06-24] MEDS ORDERED: BISACODYL 5 MG TABEC PO PRN (19:00)
[2019-06-24] MEDS: OXYCODONE HCL IR 5 MG TAB (IMMEDIATE RELEASE) PO PRN (19:42)
[2019-06-24 21:52] LABS: Hemoglobin 8.6 g/dL (12.0-16.0)
[2019-06-25] MEDS: fentaNYL citrate 100 MCG/2 ML VIAL IV PRN ×3 (00:12→07:37)
[2019-06-25] MEDS: OXYCODONE HCL IR 5 MG TAB (IMMEDIATE RELEASE) PO PRN ×4 (01:53→19:34)
[2019-06-25 04:01] LABS: Hematocrit (blood only) 26.9 % (37-47); Hemoglobin 9.6 g/dL (12.0-16.0)
--- NOTE | 2019-06-25 07:47 | Anesthesiology Progress Note ---
Date of Service June 25, 2019 Anesthesia Post Procedure Vital Signs Vital Signs: Temp Pulse Pulse Resp BP BP Pulse Ox 06/25/19 06:00 143/81 H 90 06/25/19 05:30 96 H 25 H 171/88 H 92 06/25/19 05:00 96 H 22 182/78 H 92 06/25/19 04:30 96 H 24 156/80 H 91 06/25/19 04:00 98.6 F 84 15 170/74 H 95 06/25/19 03:30 95 H 16 163/78 H 95 06/25/19 03:00 87 17 155/82 H 94 06/25/19 02:30 86 16 159/88 H 95 06/25/19 02:05 83 19 178/85 H 95 06/25/19 02:00 85 21 95 06/25/19 01:30 96 H 24 162/124 H 94 06/25/19 01:16 102 H 25 H 138/101 H 93 06/25/19 01:00 100 H 23 168/74 H 96 06/25/19 00:42 98.4 F 96 H 17 174/97 H 95 06/25/19 00:30 98.4 F 88 14 175/94 H 96 06/25/19 00:15 98.4 F 91 H 24 174/110 H 96 06/25/19 00:00 98.4 F 84 178/94 H 97 06/24/19 23:55 98.8 F 84 184/89 H 96 06/24/19 23:45 98.6 F 91 H 172/87 H 96 06/24/19 23:30 98.4 F 89 186/88 H 97 06/24/19 23:15 98.4 F 88 178/96 H 97 06/24/19 23:00 98.2 F 90 173/94 H 97 06/24/19 22:45 98.1 F 96 H 176/96 H 98 06/24/19 22:39 98.2 F 92 H 22 166/84 H 98 06/24/19 22:15 87 97 06/24/19 20:36 91 H 99 06/24/19 18:00 86 130/81 99 06/24/19 17:00 85 160/96 H 100 06/24/19 16:00 92 H 151/94 H 100 08/16/19 15:00 89 138/70 99 06/24/19 14:30 82 159/82 H 99 06/24/19 14:15 90 155/76 H 99 06/24/19 14:06 93.0 F L 66 16 124/94 100 06/24/19 14:00 89 147/72 H 99 06/24/19 13:54 93.0 F L 66 16 124/94 100 06/24/19 13:45 86 147/84 H 100 06/24/19 13:30 84 148/81 H 100 06/24/19 13:15 80 157/139 H 99 06/24/19 13:00 93.2 F L 65 16 131/86 100 06/24/19 12:48 93.0 F L 70 16 133/95 100 06/24/19 12:30 67 100 06/24/19 12:15 65 100 06/24/19 12:00 65 131/84 100 06/24/19 11:45 63 100 06/24/19 11:35 93.0 F L 70 16 133/95 100 06/24/19 11:30 63 100 06/24/19 11:15 63 100 06/24/19 11:00 61 101/67 100 06/24/19 10:45 62 100 06/24/19 10:30 65 100 06/24/19 10:15 66 100 06/24/19 10:01 68 141/76 H 100 06/24/19 10:00 69 100 06/24/19 09:55 71 100 06/24/19 09:50 73 100 06/24/19 09:46 77 162/105 H 100 06/24/19 09:45 77 100 06/24/19 09:44 66 16 100 06/24/19 09:40 86 100 06/24/19 09:35 106 H 241/144 H 100 06/24/19 09:33 96 H 215/170 H 100 06/24/19 09:30 92.1 F L 105 H 16 241/144 H 100 06/24/19 09:07 92.1 F L 61 06/24/19 07:47 96.6 F L 64 20 115/74 100 Pain Intensity Right Abdomen: Pain Intensity: 7 Notes Mental Status: alert / awake / arousable and participated in evaluation Patient Amnestic to Procedure: Yes Nausea / Vomiting: adequately controlled Pain: improving with treatment Airway Patency, RR, SpO2: stable & adequate BP & HR: stable & adequate Hydration State: stable & adequate Anesthetic Complications: no major complications apparent and Pt Satisfied with anesthetic care Notes: Patient was extubated and is currently on nasal cannula. Patient stated having abdominal pain, but the pain was controlled with pain medication. The patient offered no other complaints. Family was also present.
[2019-06-25 08:18] LABS: Basophils # (auto) 0.02 K/uL (0-0.2); Basophils % (auto) 0.2 %; Eosinophils # (auto) 0.02 K/uL (0-0.5); Eosinophils % (auto) 0.2 %; Hematocrit (blood only) 26.4 % (37-47); Hemoglobin 9.4 g/dL (12.0-16.0); Immature Granulocytes # (auto) 0.02 K/uL (0.00-0.02); Immature Granulocytes % (auto) 0.2 %; Lymphocytes # (auto) 1.04 K/uL (1.2-3.4); Lymphocytes % (auto) 9.2 %; Mean Corpuscular Hgb Conc 35.6 g/dL (32-36); Mean Corpuscular Volume 83.8 fL (80-100); Mean Platelet Volume 8.7 fL (7.4-10.4); Monocytes # (auto) 0.79 K/uL (0.11-0.59); Neutrophils # (auto) 9.37 K/uL (1.4-6.5); Neutrophils % (auto) 83.2 %; Platelet Count 118 K/uL (130-400); RDW Coefficient of Variation 14.2 % (11.5-14.5); RDW Standard Deviation 43.9 fL (36.4-46.3); Red Blood Count 3.15 M/uL (4.2-5.4); White Blood Count 11.26 K/uL (4.8-10.8)
[2019-06-25 08:50] LABS: BUN Creatinine Ratio 13.3 (10-20); Creatinine Clr Calc Pharmacy 72.9 ml/min; Est GFR (Non-African American) 86.3; Magnesium 2.2 mg/dl (1.8-2.4); Potassium 3.7 mmol/L (3.5-5.1)
--- NOTE | 2019-06-25 08:53 | Critical Care Progress Note ---
Date of Service June 25, 2019 Assessment & Plan (1) Retroperitoneal bleed: Reason Critically Ill: Acute blood loss anemia secondary to retroperitoneal hemorrhaging PLAN: Neuro: Pain control -Judicious opiates with bowel regimen -2 tabs senna at night docusate twice daily -Tylenol mild pain, oxycodone 7.5 for moderate pain, oxycodone 12.5 for severe pain Resp: Incentive spirometry Fluids/Renal: Discontinuing additional IV fluids Renal mass -Urology aware, per discussions there is no additional intervention needed at the present moment GI/Nutrition: Full liquid diet monitor for ileus Heme: Acute blood loss anemia -Massive transfusion protocol completed -Checking additional H&H this afternoon -Iron with vitamin C DVT prophylaxis: SCDs -Received 1 unit of packed red blood cells overnight would continue holding chemical prophylaxis for 24 hours and encourage ambulation Endocrine: ICU hyperglycemia protocol Vascular access: Peripheral IV, Code Status: Full code Discussed with hospitalist service, stable for downgrade out of ICU (2) Acute blood loss anemia: (3) Renal mass, left: Subjective Complaints of significant pain to the left flank, passing gas, otherwise no significant complaints, no chest pain no shortness of breath Review of Systems Review of Systems: All systems reviewed & are unremarkable except as noted in HPI & below Physical Exam Physical Exam: General: Alert. nontoxic. Skin: Warm, dry, Head: Atraumatic Ears, nose, mouth and throat: airway patent Cardiovascular: Normal peripheral perfusion Respiratory: no respiratory distress Gastrointestinal: Mild distention, tenderness to left flank with palpation Musculoskeletal: No deformity Results & Data Vital Signs (Past 12 Hours) Vital Signs Temp Pulse Resp BP Pulse Ox 06/25/19 06:00 143/81 H 90 06/25/19 05:30 96 H 25 H 171/88 H 92 06/25/19 05:00 96 H 22 182/78 H 92 06/25/19 04:30 96 H 24 156/80 H 91 06/25/19 04:00 37 C 84 15 170/74 H 95 06/25/19 03:30 95 H 16 163/78 H 95 06/25/19 03:00 87 17 155/82 H 94 06/25/19 02:30 86 16 159/88 H 95 06/25/19 02:05 83 19 178/85 H 95 06/25/19 02:00 85 21 95 06/25/19 01:30 96 H 24 162/124 H 94 06/25/19 01:16 102 H 25 H 138/101 H 93 06/25/19 01:00 100 H 23 168/74 H 96 06/25/19 00:42 36.9 C 96 H 17 174/97 H 95 06/25/19 00:30 36.9 C 88 14 175/94 H 96 06/25/19 00:15 36.9 C 91 H 24 174/110 H 96 06/25/19 00:00 36.9 C 84 178/94 H 97 06/24/19 23:55 37.1 C 84 184/89 H 96 06/24/19 23:45 37 C 91 H 172/87 H 96 06/24/19 23:30 36.9 C 89 186/88 H 97 06/24/19 23:15 36.9 C 88 178/96 H 97 06/24/19 23:00 36.8 C 90 173/94 H 97 06/24/19 22:45 36.7 C 96 H 176/96 H 98 06/24/19 22:39 36.8 C 92 H 22 166/84 H 98 06/24/19 22:15 87 97 Laboratory Results 06/25/19 06/25/19 06/25/19 Range/Units 08:06 08:06 03:39 WBC 11.26 H (4.8-10.8) K/uL RBC 3.15 L (4.2-5.4) M/uL Hgb 9.4 L (12.0-16.0) g/dL POC Hgb Hct 26.4 L (37-47) % POC Hct (37-47) % MCV 83.8 (80-100) fL MCH 29.8 (25-34) pg MCHC 35.6 (32-36) g/dL RDW Std Deviation 43.9 (36.4-46.3) fL RDW Coeff of Fifi 14.2 (11.5-14.5) % Plt Count 118 L (130-400) K/uL MPV 8.7 (7.4-10.4) fL Immature Gran % (Auto) 0.2 % Neut % (Auto) 83.2 % Lymph % (Auto) 9.2 % [place] % (Auto) 7.0 % Eos % (Auto) 0.2 % Baso % (Auto) 0.2 % Immature Gran # (Auto) 0.02 (0.00-0.02) K/uL Neut # (Auto) 9.37 H (1.4-6.5) K/uL Lymph # (Auto) 1.04 L (1.2-3.4) K/uL [place] # (Auto) 0.79 H (0.11-0.59) K/uL Eos # (Auto) 0.02 (0-0.5) K/uL Baso # (Auto) 0.02 (0-0.2) K/uL Platelet Estimate (Normal) Echinocytes APTT (21.0-31.0) Seconds PTT Ratio Fibrinogen (184-400) mg/dl POC pH (7.35-7.45) POC pCO2 (35-46) mmHg POC pO2 (80-95) mmHg POC HCO3 (19-24) cathy/L POC Base Excess (-9-1.8) cathy/L ABG pH (7.35-7.45) ABG pCO2 (35-46) mmHg ABG pO2 (80-95) mm/Hg ABG HCO3 (19-24) mmol/L POC ABG O2 Sat (90-95) % ABG O2 Saturation (90-95) % ABG Base Excess (-9-1.8) mEq/L Yg Test (Pos) Barometric Pressure mm/Hg Oxygen Given POC Sodium (135-144) mEq/L Sodium 143 (136-145) mmol/L POC Potassium (3.3-5.0) mEq/L Potassium 3.7 (3.5-5.1) mmol/L POC Chloride (101-112) mEq/L Chloride 113 H (98-107) mmol/L Carbon Dioxide 26 (21-32) mmol/L POC Total CO2 (24-31) mEq/l Anion Gap 4.0 (3-11) POC Anion Gap (16-25) mmol/L POC BUN (7-18) mg/dl BUN 10 (7-18) mg/dl Creatinine 0.71 (0.6-1.2) mg/dl POC Creatinine (0.6-1.3) mg/dl Est Cr Clr Drug Dosing 72.9 ml/min Est GFR ( Amer) 100.0 Est GFR (Non-Af Amer) 86.3 BUN/Creatinine Ratio 13.3 (10-20) Glucose 119 H (70-99) mg/dl POC Glucose (70-99) POC Glucose (other) (70-99) mg/dl Lactate (0.4-2.0) mmol/L Calcium 8.0 L (8.5-10.1) mg/dl POC Ioniz Calcium [place] (1.12-1.32) mmol/l Ionized Calcium (1.12-1.32) mmol/L Phosphorus 3.4 (2.5-4.9) mg/dl Magnesium 2.2 (1.8-2.4) mg/dl Total Bilirubin (0.2-1) mg/dl Direct Bilirubin (0-0.2) mg/dl AST (15-37) U/L ALT (12-78) U/L Alkaline Phosphatase (45-117) U/L Total Protein (6.4-8.2) gm/dl Albumin (3.4-5.0) gm/dl Nasal Screen MRSA (PCR) (Negative) Blood Type Antibody Screen Crossmatch 06/25/19 06/24/19 06/24/19 Range/Units 03:39 21:49 21:43 WBC (4.8-10.8) K/uL RBC (4.2-5.4) M/uL Hgb 9.6 L 8.6 L (12.0-16.0) g/dL POC Hgb Hct 26.9 L 24.0 L (37-47) % POC Hct (37-47) % MCV (80-100) fL MCH (25-34) pg MCHC (32-36) g/dL RDW Std Deviation (36.4-46.3) fL RDW Coeff of Fifi (11.5-14.5) % Plt Count (130-400) K/uL MPV (7.4-10.4) fL Immature Gran % (Auto) % Neut % (Auto) % Lymph % (Auto) % [place] % (Auto) % Eos % (Auto) % Baso % (Auto) % Immature Gran # (Auto) (0.00-0.02) K/uL Neut # (Auto) (1.4-6.5) K/uL Lymph # (Auto) (1.2-3.4) K/uL [place] # (Auto) (0.11-0.59) K/uL Eos # (Auto) (0-0.5) K/uL Baso # (Auto) (0-0.2) K/uL Platelet Estimate (Normal) Echinocytes APTT (21.0-31.0) Seconds PTT Ratio Fibrinogen (184-400) mg/dl POC pH (7.35-7.45) POC pCO2 (35-46) mmHg POC pO2 (80-95) mmHg POC HCO3 (19-24) cathy/L POC Base Excess (-9-1.8) cathy/L ABG pH (7.35-7.45) ABG pCO2 (35-46) mmHg ABG pO2 (80-95) mm/Hg ABG HCO3 (19-24) mmol/L POC ABG O2 Sat (90-95) % ABG O2 Saturation (90-95) % ABG Base Excess (-9-1.8) mEq/L Yg Test (Pos) Barometric Pressure mm/Hg Oxygen Given POC Sodium (135-144) mEq/L Sodium (136-145) mmol/L POC Potassium (3.3-5.0) mEq/L Potassium (3.5-5.1) mmol/L POC Chloride (101-112) mEq/L Chloride (98-107) mmol/L Carbon Dioxide (21-32) mmol/L POC Total CO2 (24-31) mEq/l Anion Gap (3-11) POC Anion Gap (16-25) mmol/L POC BUN (7-18) mg/dl BUN (7-18) mg/dl Creatinine (0.6-1.2) mg/dl POC Creatinine (0.6-1.3) mg/dl Est Cr Clr Drug Dosing ml/min Est GFR ( Amer) Est GFR (Non-Af Amer) BUN/Creatinine Ratio (10-20) Glucose (70-99) mg/dl POC Glucose 132 H (70-99) POC Glucose (other) (70-99) mg/dl Lactate (0.4-2.0) mmol/L Calcium (8.5-10.1) mg/dl POC Ioniz Calcium [place] (1.12-1.32) mmol/l Ionized Calcium (1.12-1.32) mmol/L Phosphorus (2.5-4.9) mg/dl Magnesium (1.8-2.4) mg/dl Total Bilirubin (0.2-1) mg/dl Direct Bilirubin (0-0.2) mg/dl AST (15-37) U/L ALT (12-78) U/L Alkaline Phosphatase (45-117) U/L Total Protein (6.4-8.2) gm/dl Albumin (3.4-5.0) gm/dl Nasal Screen MRSA (PCR) (Negative) Blood Type Antibody Screen Crossmatch 06/24/19 06/24/19 06/24/19 Range/Units 16:07 15:22 15:22 WBC (4.8-10.8) K/uL RBC (4.2-5.4) M/uL Hgb 9.4 L (12.0-16.0) g/dL POC Hgb Hct 26.2 L (37-47) % POC Hct (37-47) % MCV (80-100) fL MCH (25-34) pg MCHC (32-36) g/dL RDW Std Deviation (36.4-46.3) fL RDW Coeff of Fifi (11.5-14.5) % Plt Count (130-400) K/uL MPV (7.4-10.4) fL Immature Gran % (Auto) % Neut % (Auto) % Lymph % (Auto) % [place] % (Auto) % Eos % (Auto) % Baso % (Auto) % Immature Gran # (Auto) (0.00-0.02) K/uL Neut # (Auto) (1.4-6.5) K/uL Lymph # (Auto) (1.2-3.4) K/uL [place] # (Auto) (0.11-0.59) K/uL Eos # (Auto) (0-0.5) K/uL Baso # (Auto) (0-0.2) K/uL Platelet Estimate (Normal) Echinocytes APTT (21.0-31.0) Seconds PTT Ratio Fibrinogen (184-400) mg/dl POC pH (7.35-7.45) POC pCO2 (35-46) mmHg POC pO2 (80-95) mmHg POC HCO3 (19-24) cathy/L POC Base Excess (-9-1.8) cathy/L ABG pH (7.35-7.45) ABG pCO2 (35-46) mmHg ABG pO2 (80-95) mm/Hg ABG HCO3 (19-24) mmol/L POC ABG O2 Sat (90-95) % ABG O2 Saturation (90-95) % ABG Base Excess (-9-1.8) mEq/L Yg Test (Pos) Barometric Pressure mm/Hg Oxygen Given POC Sodium (135-144) mEq/L Sodium 145 (136-145) mmol/L POC Potassium (3.3-5.0) mEq/L Potassium 3.9 (3.5-5.1) mmol/L POC Chloride (101-112) mEq/L Chloride 116 H (98-107) mmol/L Carbon Dioxide 21 (21-32) mmol/L POC Total CO2 (24-31) mEq/l Anion Gap 8.0 (3-11) POC Anion Gap (16-25) mmol/L POC BUN (7-18) mg/dl BUN 13 (7-18) mg/dl Creatinine 0.80 (0.6-1.2) mg/dl POC Creatinine (0.6-1.3) mg/dl Est Cr Clr Drug Dosing 64.3 ml/min Est GFR ( Amer) 86.6 Est GFR (Non-Af Amer) 74.7 BUN/Creatinine Ratio 16.3 (10-20) Glucose 112 H (70-99) mg/dl POC Glucose (70-99) POC Glucose (other) (70-99) mg/dl Lactate (0.4-2.0) mmol/L Calcium 7.9 L (8.5-10.1) mg/dl POC Ioniz Calcium [place] (1.12-1.32) mmol/l Ionized Calcium (1.12-1.32) mmol/L Phosphorus (2.5-4.9) mg/dl Magnesium (1.8-2.4) mg/dl Total Bilirubin (0.2-1) mg/dl Direct Bilirubin (0-0.2) mg/dl AST (15-37) U/L ALT (12-78) U/L Alkaline Phosphatase (45-117) U/L Total Protein (6.4-8.2) gm/dl Albumin (3.4-5.0) gm/dl Nasal Screen MRSA (PCR) (Negative) Blood Type Antibody Screen Crossmatch 06/24/19 06/24/19 06/24/19 Range/Units 10:11 10:11 10:11 WBC (4.8-10.8) K/uL RBC (4.2-5.4) M/uL Hgb (12.0-16.0) g/dL POC Hgb Hct (37-47) % POC Hct (37-47) % MCV (80-100) fL MCH (25-34) pg MCHC (32-36) g/dL RDW Std Deviation (36.4-46.3) fL RDW Coeff of Fifi (11.5-14.5) % Plt Count (130-400) K/uL MPV (7.4-10.4) fL Immature Gran % (Auto) % Neut % (Auto) % Lymph % (Auto) % [place] % (Auto) % Eos % (Auto) % Baso % (Auto) % Immature Gran # (Auto) (0.00-0.02) K/uL Neut # (Auto) (1.4-6.5) K/uL Lymph # (Auto) (1.2-3.4) K/uL [place] # (Auto) (0.11-0.59) K/uL Eos # (Auto) (0-0.5) K/uL Baso # (Auto) (0-0.2) K/uL Platelet Estimate (Normal) Echinocytes APTT 27.9 (21.0-31.0) Seconds PTT Ratio 1.0 Fibrinogen 140 L (184-400) mg/dl POC pH (7.35-7.45) POC pCO2 (35-46) mmHg POC pO2 (80-95) mmHg POC HCO3 (19-24) cathy/L POC Base Excess (-9-1.8) cathy/L ABG pH (7.35-7.45) ABG pCO2 (35-46) mmHg ABG pO2 (80-95) mm/Hg ABG HCO3 (19-24) mmol/L POC ABG O2 Sat (90-95) % ABG O2 Saturation (90-95) % ABG Base Excess (-9-1.8) mEq/L Yg Test (Pos) Barometric Pressure mm/Hg Oxygen Given POC Sodium (135-144) mEq/L Sodium 146 H (136-145) mmol/L POC Potassium (3.3-5.0) mEq/L Potassium 3.8 D (3.5-5.1) mmol/L POC Chloride (101-112) mEq/L Chloride 119 H (98-107) mmol/L Carbon Dioxide 16 L (21-32) mmol/L POC Total CO2 (24-31) mEq/l Anion Gap 12.0 H (3-11) POC Anion Gap (16-25) mmol/L POC BUN (7-18) mg/dl BUN 11 (7-18) mg/dl Creatinine 0.81 (0.6-1.2) mg/dl POC Creatinine (0.6-1.3) mg/dl Est Cr Clr Drug Dosing 63.5 ml/min Est GFR ( Amer) 85.3 Est GFR (Non-Af Amer) 73.6 BUN/Creatinine Ratio 14.1 (10-20) Glucose 186 H (70-99) mg/dl POC Glucose (70-99) POC Glucose (other) (70-99) mg/dl Lactate (0.4-2.0) mmol/L Calcium 8.3 L (8.5-10.1) mg/dl POC Ioniz Calcium [place] (1.12-1.32) mmol/l Ionized Calcium 1.22 (1.12-1.32) mmol/L Phosphorus 4.1 (2.5-4.9) mg/dl Magnesium 1.7 L (1.8-2.4) mg/dl Total Bilirubin 0.9 (0.2-1) mg/dl Direct Bilirubin 0.2 (0-0.2) mg/dl AST 33 (15-37) U/L ALT 21 (12-78) U/L Alkaline Phosphatase 50 (45-117) U/L Total Protein 5.2 L D (6.4-8.2) gm/dl Albumin 2.8 L (3.4-5.0) gm/dl Nasal Screen MRSA (PCR) (Negative) Blood Type Antibody Screen Crossmatch 06/24/19 06/24/19 06/24/19 Range/Units 10:10 10:10 10:10 WBC 11.33 H (4.8-10.8) K/uL RBC 3.61 L (4.2-5.4) M/uL Hgb 11.0 L (12.0-16.0) g/dL POC Hgb Hct 30.9 L (37-47) % POC Hct (37-47) % MCV 85.6 (80-100) fL MCH 30.5 (25-34) pg MCHC 35.6 (32-36) g/dL RDW Std Deviation 41.7 (36.4-46.3) fL RDW Coeff of Fifi 13.3 (11.5-14.5) % Plt Count 87 L D (130-400) K/uL MPV 9.2 (7.4-10.4) fL Immature Gran % (Auto) 0.4 % Neut % (Auto) 83.3 % Lymph % (Auto) 10.5 % [place] % (Auto) 5.3 % Eos % (Auto) 0.3 % Baso % (Auto) 0.2 % Immature Gran # (Auto) 0.04 H (0.00-0.02) K/uL Neut # (Auto) 9.45 H (1.4-6.5) K/uL Lymph # (Auto) 1.19 L (1.2-3.4) K/uL [place] # (Auto) 0.60 H (0.11-0.59) K/uL Eos # (Auto) 0.03 (0-0.5) K/uL Baso # (Auto) 0.02 (0-0.2) K/uL Platelet Estimate Decreased L (Normal) Echinocytes 1+ APTT (21.0-31.0) Seconds PTT Ratio Fibrinogen (184-400) mg/dl POC pH (7.35-7.45) POC pCO2 (35-46) mmHg POC pO2 (80-95) mmHg POC HCO3 (19-24) cathy/L POC Base Excess (-9-1.8) cathy/L ABG pH 7.39 (7.35-7.45) ABG pCO2 26 L (35-46) mmHg ABG pO2 201 H (80-95) mm/Hg ABG HCO3 15 L (19-24) mmol/L POC ABG O2 Sat (90-95) % ABG O2 Saturation 99.6 H (90-95) % ABG Base Excess -8.6 (-9-1.8) mEq/L Yg Test Pos (Pos) Barometric Pressure 732.2 mm/Hg Oxygen Given 40% FiO2 POC Sodium (135-144) mEq/L Sodium (136-145) mmol/L POC Potassium (3.3-5.0) mEq/L Potassium (3.5-5.1) mmol/L POC Chloride (101-112) mEq/L Chloride (98-107) mmol/L Carbon Dioxide (21-32) mmol/L POC Total CO2 (24-31) mEq/l Anion Gap (3-11) POC Anion Gap (16-25) mmol/L POC BUN (7-18) mg/dl BUN (7-18) mg/dl Creatinine (0.6-1.2) mg/dl POC Creatinine (0.6-1.3) mg/dl Est Cr Clr Drug Dosing ml/min Est GFR ( Amer) Est GFR (Non-Af Amer) BUN/Creatinine Ratio (10-20) Glucose (70-99) mg/dl POC Glucose (70-99) POC Glucose (other) (70-99) mg/dl Lactate 5.3 H* (0.4-2.0) mmol/L Calcium (8.5-10.1) mg/dl POC Ioniz Calcium [place] (1.12-1.32) mmol/l Ionized Calcium (1.12-1.32) mmol/L Phosphorus (2.5-4.9) mg/dl Magnesium (1.8-2.4) mg/dl Total Bilirubin (0.2-1) mg/dl Direct Bilirubin (0-0.2) mg/dl AST (15-37) U/L ALT (12-78) U/L Alkaline Phosphatase (45-117) U/L Total Protein (6.4-8.2) gm/dl Albumin (3.4-5.0) gm/dl Nasal Screen MRSA (PCR) (Negative) Blood Type Antibody Screen Crossmatch 06/24/19 06/24/19 06/24/19 Range/Units 09:35 08:22 08:17 WBC (4.8-10.8) K/uL RBC (4.2-5.4) M/uL Hgb (12.0-16.0) g/dL POC Hgb 7.1 L Hct (37-47) % POC Hct 21 L (37-47) % MCV (80-100) fL MCH (25-34) pg MCHC (32-36) g/dL RDW Std Deviation (36.4-46.3) fL RDW Coeff of Fifi (11.5-14.5) % Plt Count (130-400) K/uL MPV (7.4-10.4) fL Immature Gran % (Auto) % Neut % (Auto) % Lymph % (Auto) % [place] % (Auto) % Eos % (Auto) % Baso % (Auto) % Immature Gran # (Auto) (0.00-0.02) K/uL Neut # (Auto) (1.4-6.5) K/uL Lymph # (Auto) (1.2-3.4) K/uL [place] # (Auto) (0.11-0.59) K/uL Eos # (Auto) (0-0.5) K/uL Baso # (Auto) (0-0.2) K/uL Platelet Estimate (Normal) Echinocytes APTT (21.0-31.0) Seconds PTT Ratio Fibrinogen (184-400) mg/dl POC pH 7.34 L (7.35-7.45) POC pCO2 38 (35-46) mmHg POC pO2 > 420 H (80-95) mmHg POC HCO3 21 (19-24) cathy/L POC Base Excess -5.0 (-9-1.8) cathy/L ABG pH (7.35-7.45) ABG pCO2 (35-46) mmHg ABG pO2 (80-95) mm/Hg ABG HCO3 (19-24) mmol/L POC ABG O2 Sat 100.0 H (90-95) % ABG O2 Saturation (90-95) % ABG Base Excess (-9-1.8) mEq/L Yg Test (Pos) Barometric Pressure mm/Hg Oxygen Given POC Sodium 143 (135-144) mEq/L Sodium (136-145) mmol/L POC Potassium 3.6 (3.3-5.0) mEq/L Potassium (3.5-5.1) mmol/L POC Chloride 111 (101-112) mEq/L Chloride (98-107) mmol/L Carbon Dioxide (21-32) mmol/L POC Total CO2 22 L 22 L (24-31) mEq/l Anion Gap (3-11) POC Anion Gap 15.0 L (16-25) mmol/L POC BUN 8 (7-18) mg/dl BUN (7-18) mg/dl Creatinine (0.6-1.2) mg/dl POC Creatinine 0.2 L (0.6-1.3) mg/dl Est Cr Clr Drug Dosing ml/min Est GFR ( Amer) Est GFR (Non-Af Amer) BUN/Creatinine Ratio (10-20) Glucose (70-99) mg/dl POC Glucose (70-99) POC Glucose (other) 220 H (70-99) mg/dl Lactate (0.4-2.0) mmol/L Calcium (8.5-10.1) mg/dl POC Ioniz Calcium [place] 1.49 H (1.12-1.32) mmol/l Ionized Calcium (1.12-1.32) mmol/L Phosphorus (2.5-4.9) mg/dl Magnesium (1.8-2.4) mg/dl Total Bilirubin (0.2-1) mg/dl Direct Bilirubin (0-0.2) mg/dl AST (15-37) U/L ALT (12-78) U/L Alkaline Phosphatase (45-117) U/L Total Protein (6.4-8.2) gm/dl Albumin (3.4-5.0) gm/dl Nasal Screen MRSA (PCR) Negative (Negative) Blood Type Antibody Screen Crossmatch 06/24/19 06/24/19 06/24/19 Range/Units 07:35 07:29 05:49 WBC (4.8-10.8) K/uL RBC (4.2-5.4) M/uL Hgb (12.0-16.0) g/dL POC Hgb 8.8 L TNP Hct (37-47) % POC Hct 26 L < 15 L* (37-47) % MCV (80-100) fL MCH (25-34) pg MCHC (32-36) g/dL RDW Std Deviation (36.4-46.3) fL RDW Coeff of Fifi (11.5-14.5) % Plt Count (130-400) K/uL MPV (7.4-10.4) fL Immature Gran % (Auto) % Neut % (Auto) % Lymph % (Auto) % [place] % (Auto) % Eos % (Auto) % Baso % (Auto) % Immature Gran # (Auto) (0.00-0.02) K/uL Neut # (Auto) (1.4-6.5) K/uL Lymph # (Auto) (1.2-3.4) K/uL [place] # (Auto) (0.11-0.59) K/uL Eos # (Auto) (0-0.5) K/uL Baso # (Auto) (0-0.2) K/uL Platelet Estimate (Normal) Echinocytes APTT (21.0-31.0) Seconds PTT Ratio Fibrinogen (184-400) mg/dl POC pH 7.23 L (7.35-7.45) POC pCO2 41 (35-46) mmHg POC pO2 592 H (80-95) mmHg POC HCO3 17 L (19-24) cathy/L POC Base Excess -10.0 L (-9-1.8) cathy/L ABG pH (7.35-7.45) ABG pCO2 (35-46) mmHg ABG pO2 (80-95) mm/Hg ABG HCO3 (19-24) mmol/L POC ABG O2 Sat 100.0 H (90-95) % ABG O2 Saturation (90-95) % ABG Base Excess (-9-1.8) mEq/L Yg Test (Pos) Barometric Pressure mm/Hg Oxygen Given POC Sodium 142 141 (135-144) mEq/L Sodium (136-145) mmol/L POC Potassium 3.9 4.7 (3.3-5.0) mEq/L Potassium (3.5-5.1) mmol/L POC Chloride 112 112 (101-112) mEq/L Chloride (98-107) mmol/L Carbon Dioxide (21-32) mmol/L POC Total CO2 18 L 19 L 19 L (24-31) mEq/l Anion Gap (3-11) POC Anion Gap 16.0 16.0 (16-25) mmol/L POC BUN 9 10 (7-18) mg/dl BUN (7-18) mg/dl Creatinine (0.6-1.2) mg/dl POC Creatinine < 0.2 L 0.4 L (0.6-1.3) mg/dl Est Cr Clr Drug Dosing ml/min Est GFR ( Amer) Est GFR (Non-Af Amer) BUN/Creatinine Ratio (10-20) Glucose (70-99) mg/dl POC Glucose (70-99) POC Glucose (other) 238 H 128 H (70-99) mg/dl Lactate (0.4-2.0) mmol/L Calcium (8.5-10.1) mg/dl POC Ioniz Calcium [place] 0.84 L 0.94 L (1.12-1.32) mmol/l Ionized Calcium (1.12-1.32) mmol/L Phosphorus (2.5-4.9) mg/dl Magnesium (1.8-2.4) mg/dl Total Bilirubin (0.2-1) mg/dl Direct Bilirubin (0-0.2) mg/dl AST (15-37) U/L ALT (12-78) U/L Alkaline Phosphatase (45-117) U/L Total Protein (6.4-8.2) gm/dl Albumin (3.4-5.0) gm/dl Nasal Screen MRSA (PCR) (Negative) Blood Type Antibody Screen Crossmatch 06/24/19 Range/Units 05:37 WBC (4.8-10.8) K/uL RBC (4.2-5.4) M/uL Hgb (12.0-16.0) g/dL POC Hgb Hct (37-47) % POC Hct (37-47) % MCV (80-100) fL MCH (25-34) pg MCHC (32-36) g/dL RDW Std Deviation (36.4-46.3) fL RDW Coeff of Fifi (11.5-14.5) % Plt Count (130-400) K/uL MPV (7.4-10.4) fL Immature Gran % (Auto) % Neut % (Auto) % Lymph % (Auto) % [place] % (Auto) % Eos % (Auto) % Baso % (Auto) % Immature Gran # (Auto) (0.00-0.02) K/uL Neut # (Auto) (1.4-6.5) K/uL Lymph # (Auto) (1.2-3.4) K/uL [place] # (Auto) (0.11-0.59) K/uL Eos # (Auto) (0-0.5) K/uL Baso # (Auto) (0-0.2) K/uL Platelet Estimate (Normal) Echinocytes APTT (21.0-31.0) Seconds PTT Ratio Fibrinogen (184-400) mg/dl POC pH (7.35-7.45) POC pCO2 (35-46) mmHg POC pO2 (80-95) mmHg POC HCO3 (19-24) cathy/L POC Base Excess (-9-1.8) cathy/L ABG pH (7.35-7.45) ABG pCO2 (35-46) mmHg ABG pO2 (80-95) mm/Hg ABG HCO3 (19-24) mmol/L POC ABG O2 Sat (90-95) % ABG O2 Saturation (90-95) % ABG Base Excess (-9-1.8) mEq/L Yg Test (Pos) Barometric Pressure mm/Hg Oxygen Given POC Sodium (135-144) mEq/L Sodium (136-145) mmol/L POC Potassium (3.3-5.0) mEq/L Potassium (3.5-5.1) mmol/L POC Chloride (101-112) mEq/L Chloride (98-107) mmol/L Carbon Dioxide (21-32) mmol/L POC Total CO2 (24-31) mEq/l Anion Gap (3-11) POC Anion Gap (16-25) mmol/L POC BUN (7-18) mg/dl BUN (7-18) mg/dl Creatinine (0.6-1.2) mg/dl POC Creatinine (0.6-1.3) mg/dl Est Cr Clr Drug Dosing ml/min Est GFR ( Amer) Est GFR (Non-Af Amer) BUN/Creatinine Ratio (10-20) Glucose (70-99) mg/dl POC Glucose (70-99) POC Glucose (other) (70-99) mg/dl Lactate (0.4-2.0) mmol/L Calcium (8.5-10.1) mg/dl POC Ioniz Calcium [place] (1.12-1.32) mmol/l Ionized Calcium (1.12-1.32) mmol/L Phosphorus (2.5-4.9) mg/dl Magnesium (1.8-2.4) mg/dl Total Bilirubin (0.2-1) mg/dl Direct Bilirubin (0-0.2) mg/dl AST (15-37) U/L ALT (12-78) U/L Alkaline Phosphatase (45-117) U/L Total Protein (6.4-8.2) gm/dl Albumin (3.4-5.0) gm/dl Nasal Screen MRSA (PCR) (Negative) Blood Type A Positive Antibody Screen NEGATIVE Crossmatch See Detail PG Care Time/CCT Total # of Minutes Spent Total Time Spent with Patient: Total time spent is greater than 50% in coordination of care (as documented) at patient's floor/unit and/or counseling patient:
[2019-06-25] MEDS ORDERED: POLYETHYLENE (MIRALAX) 17 GM PACK PO SCH (09:00)
[2019-06-25] MEDS ORDERED: POLYETHYLENE (MIRALAX) 17 GM PACK PO PRN (09:08)
[2019-06-25] MEDS: ASCORBIC ACID 500 MG TAB PO SCH (11:07)
[2019-06-25] MEDS: DOCUSATE SODIUM 100 MG CAP PO SCH ×2 (11:07→19:37)
--- NOTE | 2019-06-25 13:53 | Urology Progress Note ---
Date of Service June 25, 2019 Assessment & Plan (1) Retroperitoneal bleed: Endovascular intervention was successful with embolization of left renal artery and control of retroperitoneal bleed. Will monitor for pain and discomfort with large retroperitoneal hematoma and postembolization. Currently doing better with pain management. Will need likely bed rest for at least next few days. Will need to monitor closely. Patient once stable will need workup for likely kidney mass. This will be completed as outpatient with time for resolution of retroperitoneal hematoma. Discussed HTN and control (2) Acute blood loss anemia: As above. Will monitor closely. Subjective S/p embolization for severe life threatening bleed of left kidney. Pain and discomfort in waves. Good urine output. Tolerating diet. No major drop in hemoglobin. NO severe issues. Renal function great Review of Systems Review of Systems: All systems reviewed & are unremarkable except as noted in HPI & below Physical Exam Constitutional: well developed and well nourished; no acute distress Eyes: no eyelid abnormality, no conjunctival abnormality and no corneal abnormality ENMT: Mouth: no dentition abnormality Mallampati Class: II Neck: normal visual inspection and trachea midline; no tracheal deviation Respiratory: normal respiratory effort; no respiratory distress and no labored breathing Auscultation: lungs clear to auscultation bilaterally Cardiovascular: Rate/Rhythm: not tachycardic Gastrointestinal (Abdomen): Inspection/Auscultation: + abdomen distended Percussion/Palpation: + abdomen tender (Mild diffusely) and abdomen soft Musculoskeletal: Head/Neck/Chest: full ROM of neck Skin: no rashes and no lesions Neurologic: normal touch/pain/proprioception and CN's II-XI intact bilaterally Psychiatric: Orientation: alert and oriented x 3 Genitourinary: Good urine out. Clear yellow. Lymphatic: no lymphadenopathy Results & Data Vital Signs (Past 12 Hours) Vital Signs Temp Pulse Resp BP Pulse Ox 06/25/19 10:30 91 H 17 93 06/25/19 10:00 94 H 20 178/86 H 95 06/25/19 09:30 88 17 95 06/25/19 09:00 97 H 28 H 175/82 H 95 06/25/19 08:30 98 H 25 H 95 06/25/19 08:00 96 H 24 163/75 H 96 06/25/19 07:30 37 C 98 H 26 H 180/81 H 95 06/25/19 07:00 90 17 163/79 H 92 06/25/19 06:00 143/81 H 90 06/25/19 05:30 96 H 25 H 171/88 H 92 06/25/19 05:00 96 H 22 182/78 H 92 06/25/19 04:30 96 H 24 156/80 H 91 06/25/19 04:00 37 C 84 15 170/74 H 95 06/25/19 03:30 95 H 16 163/78 H 95 06/25/19 03:00 87 17 155/82 H 94 06/25/19 02:30 86 16 159/88 H 95 06/25/19 02:05 83 19 178/85 H 95 06/25/19 02:00 85 21 95 PG Care Time/CCT Total # of Minutes Spent Total Time Spent with Patient: Total time spent is greater than 50% in coordination of care (as documented) at patient's floor/unit and/or counseling patient:
[2019-06-25 14:10] LABS: Hematocrit (blood only) 25.7 % (37-47); Hemoglobin 9.4 g/dL (12.0-16.0)
[2019-06-25] MEDS ORDERED: PROMETHAZINE HCL 12.5 MG in SODIUM CHLORIDE 0.9% 50 ML IV PRN (14:48)
--- NOTE | 2019-06-25 15:41 | Hospitalist Progress Note ---
Date of Service June 25, 2019 Assessment & Plan (1) Retroperitoneal bleed: per 's notes: Secondary to acute hemorrhage into a 10 cm upper pole left renal mass, likely representing an angiomyolipoma. Associated with large left-sided retroperitoneal hemorrhage measuring in excess of 20 cm in craniocaudad dimension. Status post cannulation of the aorta, selective retinal artery arteriogram with embolization of left renal artery She received 10 total of 6 units packed red blood cells, 3 units FFP and 6 units of platelet Hg 9.4 stable overall post op continue pain management will need outpatient work up for renal mass (2) Acute blood loss anemia: Secondary to acute to peritoneal hemorrhage 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 She received 6 units of PRBC, 3 units of FFP and 6 units of platelet Hg 9.4 monitor (3) Hypercholesteremia: hold Atorvastatin for now (4) Mitral valve prolapse: Normal EKG and no other cardiac symptoms Hypothermia Multifactorial, including shock and blood loss following surgery resolved CODE STATUS Full discussed with patient and her daughter they are agreeable and comfortable with the plan of care DVT prophylaxis SCDs Disposition pending Subjective ff up for retroperitoneal bleed, L kidney mass seen with daughter at bedside not in distress reports generalized abdominal discomfort no nausea/vomiting, (+) flatus no chest pain, dyspnea, palpiitations, dizziness no other symptoms Review of Systems Review of Systems: All systems reviewed & are unremarkable except as noted in HPI & below Physical Exam Physical Exam: General- oriented x 3, not in distress, speaks in sentences with no effort or accessory muscle use Head- atraumatic Eyes- PERRL, EOMI, anicteric ENT- oropharynx clear Neck- supple, no JVD, no adenopathy, no thyromegaly; carotids +2/2, no bruits appreciated Lungs- clear to auscultation bilaterally, no rales/wheezes Heart- normal rate, regular rhythm; no murmur, no gallop, no rub appreciated Abdomen- normal bowel sounds, nondistended, soft, nontender, no masses or hepatosplenomegaly Right groin- no bleeding, hematoma, edema Extremities- no pretibial edema, no calf tenderness; peripheral pulses intact Neuro- alert, oriented x 3; CN 2-12 grossly intact; motor 5/5 bilaterally;sensation 100% on all extremities; no other gross focal neurologic deficits Skin- warm & dry Skin- warm & dry Results & Data Vital Signs (Past 12 Hours) Vital Signs Temp Pulse Resp BP Pulse Ox 06/25/19 10:30 91 H 17 93 06/25/19 10:00 94 H 20 178/86 H 95 06/25/19 09:30 88 17 95 06/25/19 09:00 97 H 28 H 175/82 H 95 06/25/19 08:30 98 H 25 H 95 06/25/19 08:00 96 H 24 163/75 H 96 06/25/19 07:30 37 C 98 H 26 H 180/81 H 95 06/25/19 07:00 90 17 163/79 H 92 06/25/19 06:00 143/81 H 90 06/25/19 05:30 96 H 25 H 171/88 H 92 06/25/19 05:00 96 H 22 182/78 H 92 06/25/19 04:30 96 H 24 156/80 H 91 06/25/19 04:00 37 C 84 15 170/74 H 95
[2019-06-25] MEDS ORDERED: HYDROmorphone INJ 0.5 MG/0.5 ML SYR ONE (16:04)
[2019-06-25] MEDS ORDERED: HYDROmorphone INJ 0.5 MG/0.5 ML SYR IV STA (16:05)
[2019-06-25] MEDS ORDERED: FUROSEMIDE 20 MG in SYRINGE 0 ML IV STA (16:12)
[2019-06-25] MEDS ORDERED: FUROSEMIDE 40 MG/4 ML VIAL IV ONE (16:14)
--- NOTE | 2019-06-25 16:44 | XRay Report ---
XR chest 1V portable CLINICAL HISTORY: Atypical chest pain. Possible pleural effusion. COMPARISON STUDY: 06/24/2019 FINDINGS: Heart appears larger with elevation of interstitium. Congestive failure/fluid overload is s uspected. There are small bilateral pleural effusions. Basilar airspace opacities, likely represent c ompressive atelectatic change although an infectious/inflammatory processes could appear similar[ IMPRESSION: Cardiomegaly and radiographic evidence of mild congestive failure/fluid overload. Small b ilateral pleural effusions with associated basilar airspace opacities Electronically signed by: Corky Hurt M.D. 06/25/2019 4:43 PM
[2019-06-25] MEDS: cloNIDine HCl 0.1 MG TAB PO PRN (17:02)
[2019-06-25] MEDS: SENNA 8.6 MG TAB PO SCH (19:37)
[2019-06-25] MEDS: HYDROmorphone INJ 0.5 MG/0.5 ML SYR IV PRN (23:23)
[2019-06-25] MEDS ORDERED: XOPENEX/ATROVENT 1.25mg/0.5MG NEB COMBO NEB STA (23:47)
[2019-06-26] MEDS ORDERED: IPRATROPIUM BROMIDE NEB SOLN 0.02% 2.5 ML VIAL INH STA
[2019-06-26] MEDS ORDERED: LEVALBUTEROL 1.25MG/0.5ML NEB INH STA (00:01)
[2019-06-26] MEDS ORDERED: FUROSEMIDE 40 MG in SYRINGE 0 ML IV ONE ×2 (00:05→17:00)
[2019-06-26 00:10] LABS: Basophils # (auto) 0.02 K/uL (0-0.2); Basophils % (auto) 0.1 %; Eosinophils # (auto) 0.01 K/uL (0-0.5); Eosinophils % (auto) 0.1 %; Hematocrit (blood only) 25.5 % (37-47); Hemoglobin 8.9 g/dL (12.0-16.0); Immature Granulocytes # (auto) 0.06 K/uL (0.00-0.02); Immature Granulocytes % (auto) 0.3 %; Lymphocytes # (auto) 0.85 K/uL (1.2-3.4); Lymphocytes % (auto) 4.3 %; Mean Corpuscular Hgb Conc 34.9 g/dL (32-36); Mean Corpuscular Volume 85.9 fL (80-100); Mean Platelet Volume 9.5 fL (7.4-10.4); Monocytes # (auto) 1.33 K/uL (0.11-0.59); Monocytes % (auto) 6.8 %; Neutrophils # (auto) 17.36 K/uL (1.4-6.5); Neutrophils % (auto) 88.4 %; Platelet Count 119 K/uL (130-400); RDW Coefficient of Variation 14.3 % (11.5-14.5); RDW Standard Deviation 44.8 fL (36.4-46.3); Red Blood Count 2.97 M/uL (4.2-5.4); White Blood Count 19.63 K/uL (4.8-10.8)
[2019-06-26 00:22] LABS: HCO3 ABG 27 mmol/L (19-24); Oxygen Saturation ABG 92.8 % (90-95); PCO2 ABG 42 mmHg (35-46); PO2 ABG 75 mm/Hg (80-95); pH ABG 7.42 (7.35-7.45)
[2019-06-26 00:23] LABS: Allen Test Pos (Pos)
[2019-06-26 00:33] LABS: BUN Creatinine Ratio 12.3 (10-20); Creatinine Clr Calc Pharmacy 70.9 ml/min; Est GFR (African American) 96.7; Est GFR (Non-African American) 83.4; Magnesium 2.2 mg/dl (1.8-2.4); Potassium 3.6 mmol/L (3.5-5.1)
[2019-06-26 00:39] LABS: Phosphorus 2.4 mg/dl (2.5-4.9)
[2019-06-26 00:43] LABS: Partial Thromboplastin Time 27.9 Seconds (21.0-31.0)
[2019-06-26] MEDS ORDERED: POTASSIUM PHOS 3 MMOL/1 ML INFUSION IV STA (00:45)
[2019-06-26] MEDS ORDERED: POTASSIUM CHLORIDE 20 MEQ TABCR PO STA ×2 (00:45→05:35)
[2019-06-26] MEDS ORDERED: POTASSIUM PHOSPHATE 15 MMOL in SODIUM CHLORIDE 0.9% 250 ML IV ONE (01:00)
[2019-06-26 02:21] LABS: Appearance Urine Clear (Clear); Bacteria Urine Automated Negative (Negative); Bilirubin Urine Negative (Negative); Blood Urine 3+ (Negative); Color Urine Yellow; Epithelial Cell Urine Auto >30 /lpf (0-5); Glucose Urine UA Negative (Negative); Ketones Urine Trace (Negative); Leukocyte Esterase Urine Negative (Negative); Nitrite Urine Negative (Negative); Protein Urine 1+ (Negative); Urobilinogen Urine Negative (Negative)
[2019-06-26] MEDS: HYDROmorphone INJ 0.5 MG/0.5 ML SYR IV PRN ×4 (03:23→17:22)
[2019-06-26] MEDS ORDERED: METOPROLOL TARTRATE 25 MG TAB PO SCH ×2 (04:20→20:00)
--- NOTE | 2019-06-26 04:20 | Hospitalist Progress Note ---
Date of Service June 26, 2019 Subjective Patient noted to be short of breath, hypoxemic and tachycardic as per RN. SBP 1 50-1 80s. CR 110s No chest pain, no cough symptoms. Lasix given afternoon for pulmonary congestion on CXR. EKG as per my interpretation rate 110, sinus tachycardia, no ischemia AP Hypoxemic respiratory failure, hypertensive urgency secondary to fluid overload Supplemental O2 Baseline ABG Additional Lasix TTE in a.m. RE pulmonary congestion rule out CHF Initiate BB rx if BP, heart rate still elevated following diuretic Rx May need transfer to telemetry if without improvement. Will relay to AM provider. Results & Data Vital Signs (Past 12 Hours) Vital Signs Temp Pulse Resp BP Pulse Ox 06/26/19 04:10 37.0 C 108 H 20 154/75 H 91 06/26/19 01:00 95 06/26/19 00:34 109 H 20 95 06/25/19 22:57 36.8 C 113 H 20 162/76 H 06/25/19 19:30 111 H 20 162/78 H 93 06/25/19 18:40 36.4 C L 110 H 23 169/77 H 92 06/25/19 17:00 109 H 20 173/76 H 93
[2019-06-26] MEDS ORDERED: FUROSEMIDE 40 MG/4 ML VIAL IV STA (05:34)
[2019-06-26] MEDS: OXYCODONE HCL IR 5 MG TAB (IMMEDIATE RELEASE) PO PRN ×3 (05:41→20:39)
--- NOTE | 2019-06-26 06:27 | XRay Report ---
XR chest 1V portable CLINICAL HISTORY: low o2 hypoxia COMPARISON STUDY: 06/25/2019 FINDINGS: Moderate stable cardiomegaly. Other pleural effusions unchanged. Prominent pulmonary vascul ature unchanged. IMPRESSION: Stable components of congestive failure. Unchanging bilateral pleural effusions. The above report was generated using voice recognition software. It may contain grammatical, syntax or spelling errors. Electronically signed by: Fran Larsen M.D. 06/26/2019 6:26 AM
--- NOTE | 2019-06-26 07:51 | Hospitalist Progress Note ---
Date of Service June 26, 2019 Assessment & Plan (1) Retroperitoneal bleed: per 's notes: Secondary to acute hemorrhage into a 10 cm upper pole left renal mass, likely representing an angiomyolipoma. Associated with large left-sided retroperitoneal hemorrhage measuring in excess of 20 cm in craniocaudad dimension. Status post cannulation of the aorta, selective retinal artery arteriogram with embolization of left renal artery She received 10 total of 6 units packed red blood cells, 3 units FFP and 6 units of platelet Hg remained stable, 9.2 today Patient with shortness of breath, hypoxia likely secondary to pleural effusion, secondary to multiple blood transfusions Management noted below continue pain management will need outpatient work up for renal mass Urologist on board (2) Acute blood loss anemia: Secondary to acute to peritoneal hemorrhage 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 She received 6 units of PRBC, 3 units of FFP and 6 units of platelet Management noted above (3) Acute respiratory failure with hypoxia: Likely secondary to bilateral pleural effusions, likely secondary to multiple blood transfusions Lasix 40 mg IV given earlier this morning We will reassess in afternoon if additional Lasix as needed today Monitor input and output Wean off oxygen accordingly (4) Hypercholesteremia: hold Atorvastatin for now (5) Mitral valve prolapse: Normal EKG and no other cardiac symptoms Hypothermia Multifactorial, including shock and blood loss following surgery resolved CODE STATUS Full discussed with patient and her daughter they are agreeable and comfortable with the plan of care DVT prophylaxis SCDs Disposition pending Subjective ff up for retro-peritoneal hemorrhage, status post left renal artery embolization, left renal mass Overnight patient given additional Lasix for shortness of breath, volume overload Seen resting in bed, comfortable looking compared to yesterday not in distress, smiling She feels improved today compared to yesterday No active shortness of breath on 6 L of O2 via oxygen mask Denies cough, fevers or chills, chest pain, dizziness, palpitations Reports mostly left upper quadrant pain, dull, improved compared to yesterday but still significant, relieved by PRN analgesics Tolerating diet so far No BMs or flatus No other symptoms Review of Systems Review of Systems: All systems reviewed & are unremarkable except as noted in HPI & below Physical Exam Physical Exam: General- oriented x 3, not in distress, speaks in sentences with no effort or accessory muscle use Eyes- anicteric Neck- no JVD Lungs-mild rales at the bases, no wheezing, good air entry bilaterally Heart- normal rate, regular rhythm; no murmurs Abdomen- normal bowel sounds, nondistended, soft, nontender Extremities- no pretibial edema, no calf tenderness Neuro- alert, oriented x 3; no gross focal neurologic deficits Skin- warm & dry Results & Data Vital Signs (Past 12 Hours) Vital Signs Temp Pulse Resp BP Pulse Ox 06/26/19 04:10 37.0 C 108 H 20 154/75 H 91 06/26/19 01:00 95 06/26/19 00:34 109 H 20 95 06/25/19 22:57 36.8 C 113 H 20 162/76 H Laboratory Results Laboratory Results - last 24 hr 06/25/19 06/25/19 06/26/19 13:55 23:58 00:01 WBC 19.63 H RBC 2.97 L Hgb 9.4 L 8.9 L Hct 25.7 L 25.5 L MCV 85.9 MCH 30.0 MCHC 34.9 RDW Std Deviation 44.8 RDW Coeff of Fifi 14.3 Plt Count 119 L MPV 9.5 Immature Gran % (Auto) 0.3 Neut % (Auto) 88.4 Lymph % (Auto) 4.3 [place] % (Auto) 6.8 Eos % (Auto) 0.1 Baso % (Auto) 0.1 Immature Gran # (Auto) 0.06 H Neut # (Auto) 17.36 H Lymph # (Auto) 0.85 L [place] # (Auto) 1.33 H Eos # (Auto) 0.01 Baso # (Auto) 0.02 APTT PTT Ratio ABG pH 7.42 ABG pCO2 42 ABG pO2 75 L ABG HCO3 27 H ABG O2 Saturation 92.8 ABG Base Excess 2.0 H Yg Test Pos Barometric Pressure 731.8 Oxygen Given 9L Sodium Potassium Chloride Carbon Dioxide Anion Gap BUN Creatinine Est Cr Clr Drug Dosing Est GFR ( Amer) Est GFR (Non-Af Amer) BUN/Creatinine Ratio Glucose Lactate Calcium Phosphorus Magnesium Albumin Procalcitonin TSH Urine Color Urine Appearance Urine pH Ur Specific [place] Urine Protein Urine Glucose (UA) Urine Ketones Urine Blood Urine Nitrite Urine Bilirubin Urine Urobilinogen Ur Leukocyte Esterase Urine WBC (Auto) Urine RBC (Auto) U Hyaline Cast (Auto) U Epithel Cells (Auto) Urine Bacteria (Auto) 06/26/19 06/26/19 06/26/19 00:01 00:10 02:05 WBC RBC Hgb Hct MCV MCH MCHC RDW Std Deviation RDW Coeff of Fifi Plt Count MPV Immature Gran % (Auto) Neut % (Auto) Lymph % (Auto) [place] % (Auto) Eos % (Auto) Baso % (Auto) Immature Gran # (Auto) Neut # (Auto) Lymph # (Auto) [place] # (Auto) Eos # (Auto) Baso # (Auto) APTT 27.9 PTT Ratio 1.0 ABG pH ABG pCO2 ABG pO2 ABG HCO3 ABG O2 Saturation ABG Base Excess Yg Test Barometric Pressure Oxygen Given Sodium 140 Potassium 3.6 Chloride 106 Carbon Dioxide 28 Anion Gap 6.0 BUN 9 Creatinine 0.73 Est Cr Clr Drug Dosing 70.9 Est GFR ( Amer) 96.7 Est GFR (Non-Af Amer) 83.4 BUN/Creatinine Ratio 12.3 Glucose 122 H Lactate Calcium 8.0 L Phosphorus 2.4 L D Magnesium 2.2 Albumin Procalcitonin TSH 0.397 Urine Color Yellow Urine Appearance Clear Urine pH 5.0 Ur Specific [place] 1.020 Urine Protein 1+ H Urine Glucose (UA) Negative Urine Ketones Trace H Urine Blood 3+ H Urine Nitrite Negative Urine Bilirubin Negative Urine Urobilinogen Negative Ur Leukocyte Esterase Negative Urine WBC (Auto) 1-5 Urine RBC (Auto) 5-10 H U Hyaline Cast (Auto) 10-30 H U Epithel Cells (Auto) >30 H Urine Bacteria (Auto) Negative 06/26/19 06/26/19 06/26/19 07:52 08:21 08:21 WBC 24.15 H RBC 3.01 L Hgb 9.2 L Hct 25.7 L MCV 85.4 MCH 30.6 MCHC 35.8 RDW Std Deviation 44.1 RDW Coeff of Fifi 14.1 Plt Count 133 MPV 8.9 Immature Gran % (Auto) 0.4 Neut % (Auto) 89.3 Lymph % (Auto) 4.2 [place] % (Auto) 6.1 Eos % (Auto) 0.0 Baso % (Auto) 0.0 Immature Gran # (Auto) 0.09 H Neut # (Auto) 21.55 H Lymph # (Auto) 1.01 L [place] # (Auto) 1.48 H Eos # (Auto) 0.01 Baso # (Auto) 0.01 APTT PTT Ratio ABG pH ABG pCO2 ABG pO2 ABG HCO3 ABG O2 Saturation ABG Base Excess Yg Test Barometric Pressure Oxygen Given Sodium 139 Potassium 3.9 Chloride 102 Carbon Dioxide 30 Anion Gap 7.0 BUN 10 Creatinine 0.86 Est Cr Clr Drug Dosing 61.6 Est GFR ( Amer) 79.3 Est GFR (Non-Af Amer) 68.4 BUN/Creatinine Ratio 11.3 Glucose 121 H Lactate Calcium 8.6 Phosphorus 2.5 Magnesium Albumin 3.1 L Procalcitonin 0.45 TSH Urine Color Urine Appearance Urine pH Ur Specific [place] Urine Protein Urine Glucose (UA) Urine Ketones Urine Blood Urine Nitrite Urine Bilirubin Urine Urobilinogen Ur Leukocyte Esterase Urine WBC (Auto) Urine RBC (Auto) U Hyaline Cast (Auto) U Epithel Cells (Auto) Urine Bacteria (Auto) 06/26/19 08:21 WBC RBC Hgb Hct MCV MCH MCHC RDW Std Deviation RDW Coeff of Fifi Plt Count MPV Immature Gran % (Auto) Neut % (Auto) Lymph % (Auto) [place] % (Auto) Eos % (Auto) Baso % (Auto) Immature Gran # (Auto) Neut # (Auto) Lymph # (Auto) [place] # (Auto) Eos # (Auto) Baso # (Auto) APTT PTT Ratio ABG pH ABG pCO2 ABG pO2 ABG HCO3 ABG O2 Saturation ABG Base Excess Yg Test Barometric Pressure Oxygen Given Sodium Potassium Chloride Carbon Dioxide Anion Gap BUN Creatinine Est Cr Clr Drug Dosing Est GFR ( Amer) Est GFR (Non-Af Amer) BUN/Creatinine Ratio Glucose Lactate 1.0 Calcium Phosphorus Magnesium Albumin Procalcitonin TSH Urine Color Urine Appearance Urine pH Ur Specific [place] Urine Protein Urine Glucose (UA) Urine Ketones Urine Blood Urine Nitrite Urine Bilirubin Urine Urobilinogen Ur Leukocyte Esterase Urine WBC (Auto) Urine RBC (Auto) U Hyaline Cast (Auto) U Epithel Cells (Auto) Urine Bacteria (Auto)
[2019-06-26 08:36] LABS: Hematocrit (blood only) 25.7 % (37-47); Hemoglobin 9.2 g/dL (12.0-16.0); Mean Corpuscular Hgb Conc 35.8 g/dL (32-36); Mean Corpuscular Volume 85.4 fL (80-100); Mean Platelet Volume 8.9 fL (7.4-10.4); Platelet Count 133 K/uL (130-400); RDW Coefficient of Variation 14.1 % (11.5-14.5); RDW Standard Deviation 44.1 fL (36.4-46.3); Red Blood Count 3.01 M/uL (4.2-5.4); White Blood Count 24.15 K/uL (4.8-10.8)
[2019-06-26] MEDS: ASCORBIC ACID 500 MG TAB PO SCH (08:37)
[2019-06-26] MEDS: POT PHOSPHATE MONOBASIC W/ SOD TAB PO SCH ×4 (08:37→20:35)
[2019-06-26] MEDS: FERROUS SULFATE 325 MG TAB PO SCH (08:38)
[2019-06-26 09:01] LABS: Basophils # (auto) 0.01 K/uL (0-0.2); Eosinophils # (auto) 0.01 K/uL (0-0.5); Immature Granulocytes # (auto) 0.09 K/uL (0.00-0.02); Immature Granulocytes % (auto) 0.4 %; Lymphocytes # (auto) 1.01 K/uL (1.2-3.4); Lymphocytes % (auto) 4.2 %; Monocytes # (auto) 1.48 K/uL (0.11-0.59); Monocytes % (auto) 6.1 %; Neutrophils # (auto) 21.55 K/uL (1.4-6.5); Neutrophils % (auto) 89.3 %
[2019-06-26 09:10] LABS: Albumin Level 3.1 gm/dl (3.4-5.0); BUN Creatinine Ratio 11.3 (10-20); Calcium 8.6 mg/dl (8.5-10.1); Creatinine Clr Calc Pharmacy 61.6 ml/min; Est GFR (African American) 79.3; Est GFR (Non-African American) 68.4; Phosphorus 2.5 mg/dl (2.5-4.9); Potassium 3.9 mmol/L (3.5-5.1)
[2019-06-26] MEDS: DOCUSATE SODIUM 100 MG CAP PO SCH ×2 (10:10→20:35)
--- NOTE | 2019-06-26 15:28 | XRay Report ---
XR chest 1V portable CLINICAL HISTORY: ff up pleural effusion pleural effusion COMPARISON STUDY: 06/26/2019 FINDINGS: Mild stable cardiomegaly. Bilateral pleural effusions unchanged. Mild prominence of the pul monary vasculature. IMPRESSION: Stable bilateral pleural effusions. Mild prominence of pulmonary vasculature. The above report was generated using voice recognition software. It may contain grammatical, syntax or spelling errors. Electronically signed by: Fran Larsen M.D. 06/26/2019 3:26 PM
[2019-06-26] MEDS ORDERED: MAGNESIUM HYDROXIDE SUSP 30 ML UDC PO ONE (15:51)
[2019-06-26] MEDS ORDERED: POLYETHYLENE (MIRALAX) 17 GM PACK PO PRN (15:52)
[2019-06-26] MEDS ORDERED: AMLODIPINE BESYLATE 5 MG TAB PO ONE (16:00)
--- NOTE | 2019-06-26 20:00 | Urology Progress Note ---
Date of Service June 26, 2019 Assessment & Plan (1) Retroperitoneal bleed: Endovascular intervention was successful with embolization of left renal artery and control of retroperitoneal bleed. Will monitor for pain and discomfort with large retroperitoneal hematoma and postembolization. Currently doing better with pain management. Will need likely bed rest for at least next few days. Will need to monitor closely. BP issues likely multifactorial. Will continue to monitor. Other considerations if not improving with management of fluid and pain issues would be issues related to embolization as well as compression of embolized kidney and/or issues related to solitary kidney such as renal artery issues. Most likely scenario is issues related to acute episode with large volume during transfusion. Will monitor. Plan to remove peterson today. Good urine production and good renal function. Will monitor. (2) Acute blood loss anemia: As above. Will monitor closely. Subjective Patient pain better controlled. Tolerating diet. Having increased BP issues. Assumed fluid overload and medicine attempting management. Kidney function continues to be stable. Peterson to be removed this afternoon. NO major complaints. Review of Systems Review of Systems: All systems reviewed & are unremarkable except as noted in HPI & below Physical Exam Constitutional: well developed and well nourished; no acute distress and not ill appearing Eyes: no eyelid abnormality, no conjunctival abnormality and no corneal abnormality ENMT: Mouth: no dentition abnormality Mallampati Class: II Neck: normal visual inspection and trachea midline; no tracheal deviation Respiratory: normal respiratory effort; no respiratory distress and no labored breathing Auscultation: lungs clear to auscultation bilaterally Cardiovascular: Rate/Rhythm: not tachycardic Gastrointestinal (Abdomen): Inspection/Auscultation: + abdomen distended Percussion/Palpation: + abdomen tender (Mild diffusely) and abdomen soft; no guarding Musculoskeletal: Head/Neck/Chest: full ROM of neck Skin: no rashes and no lesions Neurologic: normal touch/pain/proprioception and CN's II-XI intact bilaterally; + not awake Motor/Sensory: no tremor Psychiatric: Orientation: alert and oriented x 3 Lymphatic: no lymphadenopathy Results & Data Vital Signs (Past 12 Hours) Vital Signs Temp Pulse Resp BP Pulse Ox 06/26/19 19:30 36.8 C 106 H 18 146/77 H 91 06/26/19 14:59 37.2 C 107 H 18 169/85 H 90 06/26/19 10:09 94 PG Care Time/CCT Total # of Minutes Spent Total Time Spent with Patient: Total time spent is greater than 50% in coordination of care (as documented) at patient's floor/unit and/or counseling patient:
[2019-06-26] MEDS: SENNA 8.6 MG TAB PO SCH (20:35)
[2019-06-27] MEDS: FERROUS SULFATE 325 MG TAB PO SCH (07:27)
[2019-06-27] MEDS: ASCORBIC ACID 500 MG TAB PO SCH (07:27)
[2019-06-27] MEDS: POT PHOSPHATE MONOBASIC W/ SOD TAB PO SCH ×4 (07:27→20:41)
[2019-06-27] MEDS: METOPROLOL TARTRATE 25 MG TAB PO SCH ×2 (07:27→20:41)
[2019-06-27] MEDS: DOCUSATE SODIUM 100 MG CAP PO SCH (07:28)
[2019-06-27] MEDS: OXYCODONE HCL IR 5 MG TAB (IMMEDIATE RELEASE) PO PRN ×3 (07:36→23:07)
--- NOTE | 2019-06-27 08:19 | Anesthesiology Progress Note ---
Date of Service June 27, 2019 Anesthesia Post Procedure Vital Signs Vital Signs: Temp Pulse Resp BP BP Pulse Ox 06/27/19 08:14 37.0 C 110 H 36 H 175/94 H 89 L 06/27/19 03:14 37 C 101 H 18 163/76 H 92 06/26/19 23:30 37.0 C 97 H 16 168/80 H 92 06/26/19 20:35 109 H 170/80 H 06/26/19 19:30 36.8 C 106 H 18 146/77 H 91 06/26/19 14:59 37.2 C 107 H 18 169/85 H 90 06/26/19 10:09 94 Notes Mental Status: alert / awake / arousable Patient Amnestic to Procedure: Yes Nausea / Vomiting: adequately controlled Pain: adequately controlled Airway Patency, RR, SpO2: stable & adequate BP & HR: stable & adequate Hydration State: stable & adequate Anesthetic Complications: no major complications apparent and Pt Satisfied with anesthetic care
[2019-06-27 09:58] LABS: Hematocrit (blood only) 26.6 % (37-47); Hemoglobin 9.2 g/dL (12.0-16.0); Mean Corpuscular Hgb Conc 34.6 g/dL (32-36); Mean Corpuscular Volume 88.4 fL (80-100); Mean Platelet Volume 9.2 fL (7.4-10.4); Platelet Count 187 K/uL (130-400); RDW Coefficient of Variation 14.2 % (11.5-14.5); RDW Standard Deviation 45.3 fL (36.4-46.3); Red Blood Count 3.01 M/uL (4.2-5.4); White Blood Count 23.07 K/uL (4.8-10.8)
--- NOTE | 2019-06-27 09:58 | Urology Progress Note ---
Date of Service June 27, 2019 Assessment & Plan (1) Renal mass, left: 69 YO female with renal mass, retroperitoneal bleed POD #3 s/p embolization, anemia. Patient feeling well today. Voiding spontaneously without bother. H&H stable. Will continue to follow. (2) Acute blood loss anemia: (3) Retroperitoneal bleed: Subjective 69 YO female with renal mass, retroperitoneal bleed POD #3 s/p embolization, anemia. Reports feeling well today +some fatigue. Pain is well controlled. Voiding spontaneously without bother. No hematuria. No fevers/chills. No nausea/vomiting. BP remains elevated. H&H stable. Review of Systems Review of Systems: All systems reviewed & are unremarkable except as noted in HPI & below Physical Exam Physical Exam: NAD. Resp effort normal. No JVD. Abd soft, nontender. A&Ox3, appropriate affect. Results & Data Vital Signs (Past 12 Hours) Vital Signs Temp Pulse Resp BP BP Pulse Ox 06/27/19 08:14 37.0 C 110 H 36 H 175/94 H 89 L 06/27/19 03:14 37 C 101 H 18 163/76 H 92 06/26/19 23:30 37.0 C 97 H 16 168/80 H 92
[2019-06-27] MEDS ORDERED: AMLODIPINE BESYLATE 5 MG TAB PO ONE ×2 (10:10→15:59)
[2019-06-27 10:16] LABS: BUN Creatinine Ratio 17.6 (10-20); Calcium 8.8 mg/dl (8.5-10.1); Creatinine Clr Calc Pharmacy 62.3 ml/min; Est GFR (African American) 80.5; Est GFR (Non-African American) 69.4; Potassium 3.6 mmol/L (3.5-5.1)
[2019-06-27 10:19] LABS: Basophils # (auto) 0.01 K/uL (0-0.2); Eosinophils # (auto) 0.03 K/uL (0-0.5); Eosinophils % (auto) 0.1 %; Immature Granulocytes % (auto) 0.4 %; Lymphocytes # (auto) 0.86 K/uL (1.2-3.4); Lymphocytes % (auto) 3.7 %; Monocytes # (auto) 1.11 K/uL (0.11-0.59); Monocytes % (auto) 4.8 %; Neutrophils # (auto) 20.96 K/uL (1.4-6.5)
[2019-06-27] MEDS ORDERED: FUROSEMIDE 40 MG/4 ML VIAL IV STA (10:40)
[2019-06-27] MEDS ORDERED: DOCUSATE SODIUM/SENNA 50/8.6MG TAB PO ONE (10:45)
[2019-06-27] MEDS ORDERED: MAGNESIUM HYDROXIDE SUSP 30 ML UDC PO PRN (16:28)
--- NOTE | 2019-06-27 16:39 | Hospitalist Progress Note ---
Date of Service June 27, 2019 Assessment & Plan (1) Retroperitoneal bleed: per 's notes: Secondary to acute hemorrhage into a 10 cm upper pole left renal mass, likely representing an angiomyolipoma. Associated with large left-sided retroperitoneal hemorrhage measuring in excess of 20 cm in craniocaudad dimension. 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 She received 6 units of PRBC, 3 units of FFP and 6 units of platelet Management noted above (3) Acute respiratory failure with hypoxia: Likely secondary to bilateral pleural effusions, likely secondary to multiple blood transfusions Lasix 40mg IV q12h Monitor input and output Wean off oxygen accordingly (4) Hypercholesteremia: hold Atorvastatin for now (5) Hemorrhagic shock: Hemorrhagic shock treated and resolved with massive transfusions and IV Norepinephrine support (6) Mitral valve prolapse: Normal EKG and no other cardiac symptoms Hypothermia Multifactorial, including shock and blood loss following surgery resolved CODE STATUS Full DVT prophylaxis SCDs Disposition pending Subjective ff up for retroperitoneal hemorrhage seen resting in bed, comfortable sleeping but easily awakened on 6 L O2 via NC states she feels ok overall today no active dyspnea while on NC abdominal pain improving no nausea tolerating diet well no BM yet, but (+) flatus denies other symptoms Review of Systems Review of Systems: All systems reviewed & are unremarkable except as noted in HPI & below Physical Exam Physical Exam: General- oriented x 3, not in distress, speaks in sentences with no effort or accessory muscle use Eyes- anicteric Neck- no JVD Lungs- decreased breath sounds at the bases no wheezing good air entry BL Heart- normal rate, regular rhythm; no murmurs Abdomen- normal bowel sounds, nondistended, soft, nontender Extremities- no pretibial edema, no calf tenderness Neuro- alert, oriented x 3; no gross focal neurologic deficits Skin- warm & dry Results & Data Vital Signs (Past 12 Hours) Vital Signs Temp Pulse Resp BP Pulse Ox 06/27/19 15:57 37.2 C 111 H 22 173/77 H 91 06/27/19 12:07 36.8 C 106 H 34 H 184/97 H 90 06/27/19 10:28 36.8 C 89 30 H 163/89 H 94 06/27/19 08:14 37.0 C 110 H 36 H 175/94 H 89 L
[2019-06-27] MEDS: FUROSEMIDE 40 MG in SYRINGE 0 ML IV SCH (18:05)
[2019-06-27] MEDS ORDERED: SODIUM CHLORIDE 0.65% NA SOLN 45 ML (OCEAN) PRN (18:39)
[2019-06-27] MEDS: cloNIDine HCl 0.1 MG TAB PO PRN (23:23)
[2019-06-28] MEDS: FUROSEMIDE 40 MG in SYRINGE 0 ML IV SCH (05:40)
--- NOTE | 2019-06-28 07:02 | XRay Report ---
XR chest 1V portable HISTORY: 69 years-old Female ff up pleural effusion follow-up study in a patient with pleural effusi ons COMPARISON: Chest radiograph 06/26/2019 TECHNIQUE: Portable AP view of the chest FINDINGS: Cardiac silhouette is enlarged, unchanged. Pulmonary vascular congestion persists. Unchanged bilatera l pleural effusions with bibasilar opacities. No pneumothorax. Degenerative changes of the shoulders and spine. IMPRESSION: 1. Cardiomegaly with pulmonary vascular congestion. 2. Unchanged bilateral pleural effusions with bibasilar opacities. The above report was generated using voice recognition software. It may contain grammatical, syntax o r spelling errors. Electronically signed by: Kvng Garcia M.D. 06/28/2019 7:01 AM
[2019-06-28 07:25] LABS: Basophils # (auto) 0.02 K/uL (0-0.2); Basophils % (auto) 0.1 %; Eosinophils # (auto) 0.15 K/uL (0-0.5); Eosinophils % (auto) 0.8 %; Hematocrit (blood only) 29.3 % (37-47); Immature Granulocytes # (auto) 0.06 K/uL (0.00-0.02); Immature Granulocytes % (auto) 0.3 %; Lymphocytes # (auto) 1.31 K/uL (1.2-3.4); Lymphocytes % (auto) 6.8 %; Mean Corpuscular Hgb Conc 34.1 g/dL (32-36); Mean Corpuscular Volume 89.3 fL (80-100); Mean Platelet Volume 9.6 fL (7.4-10.4); Monocytes # (auto) 1.37 K/uL (0.11-0.59); Monocytes % (auto) 7.1 %; Neutrophils # (auto) 16.37 K/uL (1.4-6.5); Neutrophils % (auto) 84.9 %; Platelet Count 270 K/uL (130-400); RDW Coefficient of Variation 14.2 % (11.5-14.5); RDW Standard Deviation 46.1 fL (36.4-46.3); Red Blood Count 3.28 M/uL (4.2-5.4); White Blood Count 19.28 K/uL (4.8-10.8)
[2019-06-28] MEDS: FERROUS SULFATE 325 MG TAB PO SCH (07:47)
[2019-06-28] MEDS: METOPROLOL TARTRATE 25 MG TAB PO SCH ×2 (07:47→21:17)
[2019-06-28] MEDS: ASCORBIC ACID 500 MG TAB PO SCH (07:48)
[2019-06-28] MEDS: DOCUSATE SODIUM/SENNA 50/8.6MG TAB PO SCH (07:48)
[2019-06-28] MEDS: POT PHOSPHATE MONOBASIC W/ SOD TAB PO SCH ×3 (07:48→16:06)
[2019-06-28] MEDS: OXYCODONE HCL IR 5 MG TAB (IMMEDIATE RELEASE) PO PRN ×2 (07:48→14:02)
[2019-06-28 08:01] LABS: BUN Creatinine Ratio 23.9 (10-20); Calcium 8.9 mg/dl (8.5-10.1); Creatinine Clr Calc Pharmacy 49.9 ml/min; Est GFR (African American) 64.5; Est GFR (Non-African American) 55.7; Potassium 2.8 mmol/L (3.5-5.1)
[2019-06-28] MEDS ORDERED: AMLODIPINE BESYLATE 5 MG TAB PO SCH (09:00)
[2019-06-28] MEDS ORDERED: POTASSIUM CHLORIDE 10 MEQ TABCR PO STA (13:50)
--- NOTE | 2019-06-28 17:31 | Hospitalist Progress Note ---
Date of Service June 28, 2019 Assessment & Plan (1) Retroperitoneal bleed: per 's notes: Secondary to acute hemorrhage into a 10 cm upper pole left renal mass, likely representing an angiomyolipoma. Associated with large left-sided retroperitoneal hemorrhage measuring in excess of 20 cm in craniocaudad dimension. 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 She received 6 units of PRBC, 3 units of FFP and 6 units of platelet Management noted above (3) Acute respiratory failure with hypoxia: Likely secondary to bilateral pleural effusions, likely secondary to multiple blood transfusions Echo: diastolic dysfunction Lasix 40mg IV q12h has been ordered since the weekend with good response Patient negative balance Repeat chest x-ray this morning: Bilateral pleural pleural effusion unchanged Patient however was able to be weaned off from 7 L to 4 L of oxygen by nasal cannula Creatinine from 0.7 now 1.02 while on Lasix IV Consult pulmonary service regarding possible thoracentesis to prevent acute renal failure from IV Lasix given recent left renal artery embolization Wean off oxygen accordingly Monitor renal function closely (4) Hypertension: Likely secondary to pain, dyspnea Metoprolol and amlodipine started Continue to monitor and titrate accordingly (5) Hypercholesteremia: hold Atorvastatin for now (6) Hemorrhagic shock: Hemorrhagic shock treated and resolved with massive transfusions and IV Norepinephrine support (7) Mitral valve prolapse: Normal EKG and no other cardiac symptoms Hypothermia Multifactorial, including shock and blood loss following surgery resolved CODE STATUS Full DVT prophylaxis SCDs Disposition pending PT/ OT evaluation ordered Subjective ff up for retroperitoneal hemorrhage seen resting in bed, comfortable on 4 L NC states she feels improved today compared to yesterday less dyspnea no cough, fever/chills no chest pain, headache, palpitations abdominal pain continues to improve, (+) BMs, no nausea/vomiting, tolerating diet well denies other symptoms Review of Systems Review of Systems: All systems reviewed & are unremarkable except as noted in HPI & below Physical Exam Physical Exam: General- oriented x 3, not in distress, speaks in sentences with no effort or accessory muscle use Eyes- anicteric Neck- no JVD Lungs- decreased breath sounds bilateral bases- improved no wheezing Heart- normal rate, regular rhythm; no murmurs Abdomen- normal bowel sounds, nondistended, soft, nontender Extremities- no pretibial edema, no calf tenderness Neuro- alert, oriented x 3; no gross focal neurologic deficits Skin- warm & dry Results & Data Vital Signs (Past 12 Hours) Vital Signs Temp Pulse Pulse Resp BP BP Pulse Ox 06/28/19 15:03 36.6 C 94 H 18 149/73 H 98 06/28/19 07:26 37.0 C 99 H 20 157/82 H 97
[2019-06-28] MEDS ORDERED: POTASSIUM CHLORIDE 10 MEQ TABCR PO SCH (21:00)
[2019-06-28] MEDS: HYDROmorphone INJ 0.5 MG/0.5 ML SYR IV PRN (21:28)
[2019-06-29] MEDS: OXYCODONE HCL IR 5 MG TAB (IMMEDIATE RELEASE) PO PRN ×4 (03:52→18:57)
[2019-06-29 07:21] LABS: Basophils # (auto) 0.01 K/uL (0-0.2); Basophils % (auto) 0.1 %; Eosinophils # (auto) 0.14 K/uL (0-0.5); Eosinophils % (auto) 0.9 %; Hemoglobin 9.5 g/dL (12.0-16.0); Immature Granulocytes # (auto) 0.09 K/uL (0.00-0.02); Immature Granulocytes % (auto) 0.6 %; Lymphocytes # (auto) 1.27 K/uL (1.2-3.4); Lymphocytes % (auto) 8.2 %; Mean Corpuscular Hgb Conc 33.9 g/dL (32-36); Mean Corpuscular Volume 89.2 fL (80-100); Monocytes # (auto) 1.28 K/uL (0.11-0.59); Monocytes % (auto) 8.2 %; Neutrophils # (auto) 12.74 K/uL (1.4-6.5); Platelet Count 305 K/uL (130-400); RDW Standard Deviation 45.9 fL (36.4-46.3); Red Blood Count 3.14 M/uL (4.2-5.4); White Blood Count 15.53 K/uL (4.8-10.8)
--- NOTE | 2019-06-29 07:40 | Nephrology Consultation ---
Date of Consultation June 29, 2019 Assessment & Plan (1) Volume overload: after massive transfusions w/ BL pleural effusions and L flank pain; paradoxically sob improves w/ lying down not sitting up; tachycardia noted- consider VQ scan; would not give more IV contrast lasix, spironolactone as below follow up pending labs >> increased K dose to 80 mEq po tid (07-23-21); will recheck level 1700 slight drop in hgb and marked / paradoxical flank pain > recheck hgb 1700 Present on Admission?: No (2) Hypertension: periprocedural; goal SBP 140-150s -on CCB 10 mg daily, on metoprolol 25 mg bid, on prn clonidine -lowered CCB to 5 mg daily to leave room for diuresis >> changed lasix to 40 mg IV bid17; added daily 12.5 mg spironolactone as well Present on Admission?: No (3) Renal mass, left: presume ruptured AML s/p 06/24 emergent embolization and presented same day w/ hemorrhagic shock; for OP work up once retroperitoneal bleed has stabilized; now essentially w/solitary kidney Present on Admission?: Yes History of Present Illness Reason for Consultation: diuretic mgt s/p L renal artery embolization Requesting Physician: Dr Melissa Attending Physician: Luke Melissa MD History of Present Illness 69 y/o F who was admitted 06/24 w/ large bleeding mass at superior pole of L kidney w/ large retroperitoneal bleed whom I'm asked to see for diuretic management in the wake of emergent L renal artery embolization 06/24. PMH includes HL only. Note no dx of HTN, cardiac issues; was taking as of 10/2018 daily aleve as well. She presented 06/24 w/ acute onset severe LLQ abdominal pain, diaphoresis, pallor w/ emergent imaging showed intraabdominal free fluid. Aeromedical evacuation was not available on presentation d/t weather. Emergent CT chest/abd/pelvis showed large amount intraabdominal blood and L renal pathology, w/ concern for ruptured L angiomyolipoma. Open nephrectomy versus embolization were considered; embolization chosen d/t risk of increased bleeding w/ former. Pt was moved to ICU, started on massive transfusion protocol. She hadd 9 units pRBC, 2 units pltatelets, 3 of FFPShe was quickly extubated after procedure, observed ON in ICU w/ few complications. Once stable, urology will do work up for presumptive kidney mass as OP once retroperitoneal hematoma has resolved. Pt remains on 02nc currently; labs from this am are pending but yesterday she had K 2.8. Her creatinine is 0.9 at baseline. Was 1.0 yesterday. She is currently getting lasix 40 mg iv bid; also rx'd metoprolol 25 mg po bid, amlodipine 10 mg daily; KCl 40 mEq po bid . She also has prn clonidine, has needed 2 doses, last one 06/27. I/O are not complete but do show -4.3 L fluid balance since admission. NO FH of CKD/ESRD Allergies Allergy/AdvReac Type Severity Reaction Status Date / Time chlorhexidine AdvReac Mild Hives Verified 06/28/19 21:11 Home Medications Home Medications Medication Instructions Recorded Confirmed Type aspirin 81 mg PO DAILY 06/24/19 06/24/19 History atorvastatin 20 mg PO DAILY 06/24/19 06/24/19 History calcium carbonate-vitamin D3 2 tab PO DAILY 06/24/19 06/24/19 History [Calcium 500 With D] cholecalciferol (vitamin D3) 2,000 unit PO DAILY 06/24/19 06/24/19 History [Vitamin D3] cyanocobalamin (vitamin B-12) 1,000 mcg PO DAILY 06/24/19 06/24/19 History magnesium oxide 500 mg PO DAILY 06/24/19 06/24/19 History naproxen sodium 440 mg PO DAILY 06/24/19 06/24/19 History Patient History Medical History Mitral valve prolapse Hypercholesteremia Surgical History S/P hernia repair Social History Communication Ability: Effective Communication Ability Comment: Intubated/sedated marital status: Current Living Situation Comment: unknown Feels Safe at Home: Yes Smoking Status: Unknown if ever smoked Review of Systems Review of Systems: All systems reviewed & are unremarkable except as noted in HPI & below Eyes: no worsening vision Ear, Nose, Mouth, Throat: + dry mouth Respiratory: + dyspnea and + dyspnea on exertion sob worse w/ sitting up, better lying flat Cardiovascular: + dyspnea on exertion; no orthopnea, no palpitations and no edema Gastrointestinal: no diarrhea/loose stools N; can't eat d/t L flank pain, also is better lying down + BM , + flatus Genitourinary: + urinary frequency; no dysuria and no difficulty urinating Musculoskeletal: + back pain (L flank pain) Integumentary: no rash Neurologic: + generalized weakness Hematologic / Lymphatic: no easy bleeding Physical Exam Constitutional: well developed, well nourished, + acute distress (mild distress from dypsnea, pain) and cooperative A& 0 x 3 Eyes: EOM intact bilaterally ENMT: Ears: no external ear abnormality Nose: no external nose abnormality Mouth: + dry oral mucous membranes Neck: no nuchal rigidity Respiratory: + labored breathing (slight) and able to speak in complete sentences Auscultation: + diminished lung sounds (BL bases diminished L>>R) and + crackles (scattered, fine) Gastrointestinal (Abdomen): Inspection/Auscultation: normal bowel sounds Percussion/Palpation: abdomen soft; abdomen nontender Musculoskeletal: Extremities: strength 5/5 throughout Skin: no rashes, warm and dry Neurologic: montalvo, fluent speech, no tremor Psychiatric: Orientation: alert and oriented x 3 Eye Contact: good eye contact Insight: good insight Judgement: good judgement Genitourinary: no peterson Results & Data Vital Signs (Past 12 Hours) Vital Signs Temp Pulse Pulse Resp BP Pulse Ox 06/28/19 22:47 36.7 C 89 17 139/74 94 06/28/19 21:16 105 H 141/80 H Laboratory Results Abnormal lab results 06/28/19 06/28/19 06/29/19 Range/Units 07:06 07:06 07:07 WBC 15.53 H (4.8-10.8) K/uL RBC 3.14 L (4.2-5.4) M/uL Hgb 9.5 L (12.0-16.0) g/dL Hct 28.0 L (37-47) % Immature Gran # (Auto) 0.09 H (0.00-0.02) K/uL Neut # (Auto) 12.74 H (1.4-6.5) K/uL [place] # (Auto) 1.28 H (0.11-0.59) K/uL Potassium 2.8 L D (3.5-5.1) mmol/L Chloride 94 L (98-107) mmol/L Carbon Dioxide 34 H (21-32) mmol/L BUN 24 H D (7-18) mg/dl BUN/Creatinine Ratio 23.9 H (10-20) Magnesium 2.5 H (1.8-2.4) mg/dl Diagnostic Findings cxr yest AM HISTORY: 69 years-old Female ff up pleural effusion follow-up study in a [facility] ient with pleural effusions COMPARISON: Chest radiograph 06/26/2019 TECHNIQUE: Portable AP view of the chest FINDINGS: Cardiac silhouette is enlarged, unchanged. Pulmonary vascular congestion persists. Unchanged bilateral pleural effusions with bibasilar opacities. No pneumothorax. Degenerative changes of the shoulders and spine. IMPRESSION: 1. Cardiomegaly with pulmonary vascular congestion. 2. Unchanged bilateral pleural effusions with bibasilar opacities. (1) Hypertension Hypertension type: unspecified Qualified Code(s): I10 - Essential (primary) hypertension (2) Volume overload Hypervolemia type: transfusion-associated Qualified Code(s): E87.71 - Transfusion associated circulatory overload
[2019-06-29 08:04] LABS: BUN Creatinine Ratio 29.2 (10-20); Calcium 8.9 mg/dl (8.5-10.1); Creatinine Clr Calc Pharmacy 48.5 ml/min; Est GFR (African American) 62.3; Est GFR (Non-African American) 53.8
[2019-06-29] MEDS: FUROSEMIDE 40 MG in SYRINGE 0 ML IV SCH ×2 (08:51→16:19)
[2019-06-29] MEDS: METOPROLOL TARTRATE 25 MG TAB PO SCH ×2 (08:51→20:47)
[2019-06-29] MEDS: AMLODIPINE BESYLATE 5 MG TAB PO SCH (08:51)
[2019-06-29] MEDS: POTASSIUM CHLORIDE PWD 20 MEQ PACK PO SCH ×3 (08:52→20:48)
[2019-06-29] MEDS: ASCORBIC ACID 500 MG TAB PO SCH (08:52)
[2019-06-29] MEDS: FERROUS SULFATE 325 MG TAB PO SCH (08:52)
[2019-06-29] MEDS: DOCUSATE SODIUM/SENNA 50/8.6MG TAB PO SCH (08:52)
[2019-06-29] MEDS: SPIRONOLACTONE 25 MG TAB PO SCH (08:53)
[2019-06-29] MEDS: POTASSIUM CHLORIDE / WTR 10 MEQ/100 ML PLCT IV SCH ×2 (10:10→11:38)
--- NOTE | 2019-06-29 12:54 | Nuclear Medicine Report ---
NUCLEAR PULMONARY VENTILATION/PERFUSION SCAN CLINICAL HISTORY: Dyspnea. COMPARISON STUDY: Chest x-ray dated 06/28/2019. CT of the chest dated 06/24/2019. TECHNIQUE: Initially, ventilation images of both lungs are obtained following the inhalation of 35 mC i of aerosolized technetium 99m DTPA. Subsequently, perfusion images of both lungs were obtained foll owing the IV administration of 6 mCi of technetium 99m MAA. Ventilation and perfusion images were acq uired in the anterior, posterior, and oblique projections. FINDINGS: A chest x-ray performed 06/28/2019 shows cardiomegaly with evidence of congestive failure as well as l ayering pleural effusions with bibasilar consolidation. The ventilation of both lungs is heterogeneous. Deposition of tracer within the central airways sugge sts obstructive physiology. Perfusion is slightly heterogeneous, with no segmental defects identified. IMPRESSION: Findings are considered low probably for pulmonary embolus. Electronically signed by: Frank Erazo M.D. 06/29/2019 12:53 PM
--- NOTE | 2019-06-29 13:29 | Ultrasound Report ---
ULTRASOUND BILATERAL LOWER EXTREMITY VENOUS CLINICAL HISTORY: Recent surgery. Immobilized patient. COMPARISON STUDY: No priors. TECHNIQUE: Real-time, grayscale, and color Doppler sonography of the deep veins of the right and left lower extremity was performed from the inguinal crease to the calf. Compression and augmentation wer e utilized. FINDINGS: There is no sonographic evidence of deep venous thrombosis identified in the right or left lower extremity. The right common femoral vein was not visualized due to overlying bandages. The left common femoral vein, as well as the superficial femoral and popliteal veins in both legs are patent and normally compressible. The greater saphenous vein and the profunda femoris vein at the junction w ith the common femoral vein are clear in both legs. The visualized calf veins are patent bilaterally. IMPRESSION: There is no sonographic evidence of deep venous thrombosis identified in the right or lef t lower extremity. Electronically signed by: Frank Erazo M.D. 06/29/2019 1:28 PM
--- NOTE | 2019-06-29 16:08 | Hospitalist Progress Note ---
Date of Service June 29, 2019 Assessment & Plan (1) Retroperitoneal bleed: Secondary to acute hemorrhage into a 10 cm upper pole left renal mass, likely representing an angiomyolipoma. Associated with large left-sided retroperitoneal hemorrhage measuring in excess of 20 cm in craniocaudad dimension. Status post cannulation of the aorta, selective retinal artery arteriogram with embolization of left renal artery She received a total of 6 units packed red blood cells, 3 units FFP and 6 units of platelet Hemoglobin remains stable for the last few days-9.5 on 06/29 Has minimal pain in the left flank without any guarding Will monitor H&H 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 Appreciate vascular surgery and urology input Will need to have outpatient urology appointment for further evaluation of left renal mass Fluid overload Likely has fluid overload due to multiple transfusion and ongoing infusion Has been getting Lasix as per instruction from senior policy associate Will monitor PRP Ongoing shortness of breath No DVT as per ultrasound of the legs VQ scan low probability for pulmonary embolism Shortness of breath is secondary to fluid overload with small bilateral pleural effusion (2) Acute blood loss anemia: Secondary to acute to peritoneal hemorrhage 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 She received 6 units of PRBC, 3 units of FFP and 6 units of platelet Seems to be no more blood loss Monitor H&H Management noted above (3) Acute respiratory failure with hypoxia: Likely secondary to bilateral pleural effusions, likely secondary to multiple blood transfusions Echo: diastolic dysfunction Lasix 40mg IV q12h has been ordered since the weekend with good response Repeat chest x-ray this morning: Bilateral pleural pleural effusion unchanged Appreciate pulmonary/community relations representative input and recommendation She has been weaned off high flow oxygen, now saturating well with 1 L/min via nasal cannula (4) Hypertension: Likely secondary to pain, dyspnea Metoprolol and amlodipine started Continue to monitor and titrate accordingly (5) Hypercholesteremia: hold Atorvastatin for now (6) Hemorrhagic shock: Hemorrhagic shock treated and resolved with massive transfusions and IV Norepinephrine support (7) Mitral valve prolapse: Normal EKG and no other cardiac symptoms Hypothermia Multifactorial, including shock and blood loss following surgery resolved CODE STATUS Full DVT prophylaxis SCDs Disposition pending PT/ OT evaluation ordered Subjective 06/29 The patient was seen and examined in the medical floor She was seen by me on the day of admission Complaints to have minimal shortness of breath at rest and minimal left flank pain Wants to eat Real food Review of Systems Review of Systems: All systems reviewed and are unremarkable except as noted below Constitutional: + weakness Respiratory: + cough and + dyspnea (Minimal dyspnea at rest) Cardiovascular: no chest pain Gastrointestinal: + bloating; no nausea and no vomiting Neurologic: Alert, awake and oriented x3 Physical Exam Physical Exam: Lying in bed with minimal discomfort due to shortness of breath Constitutional: + ill appearing; no acute distress Eyes: PERRL, conjunctivae normal, anicteric sclerae ENMT: external ear and nose normal, oropharynx normal Neck: trachea midline, no thyromegaly Respiratory: normal respiratory effort and + respiratory distress (Minimal distress at rest) Auscultation: + diminished lung sounds (Bilaterally at the bases) and + crackles (Minimal crackles at the bases) Cardiovascular: Rate/Rhythm: regular rate and regular rhythm Heart Sounds: + murmur (2/6 over precordium) Gastrointestinal (Abdomen): Inspection/Auscultation: + abdomen distended and normal bowel sounds Percussion/Palpation: abdomen soft Neurologic: moves all extremities Alert, awake and oriented x3 Lymphatic: no cervical or axillary lymphadenopathy Results & Data Vital Signs (Past 12 Hours) Vital Signs Temp Pulse Pulse Resp BP BP Pulse Ox 06/29/19 15:13 96 06/29/19 15:06 37.3 C 105 H 18 139/72 95 06/29/19 10:30 133/74 06/29/19 08:31 180/63 H 06/29/19 07:58 36.9 C 108 H 18 185/100 H 93 Laboratory Results Short CBC 06/29/19 Range/Units 07:07 WBC 15.53 H (4.8-10.8) K/uL Hgb 9.5 L (12.0-16.0) g/dL Hct 28.0 L (37-47) % Plt Count 305 (130-400) K/uL BMP 06/29/19 07:07 Sodium 138 Potassium 3.0 L Chloride 97 L Carbon Dioxide 36 H BUN 31 H Creatinine 1.05 Glucose 105 H Calcium 8.9 Medications Administered Current Inpatient Medications Acetaminophen (Tylenol) 650 mg PO Q4H PRN PRN Reason: Fever/Mild Pain (Pain 1,2,3) Stop: 07/24/19 18:59 Last Admin: 06/26/19 10:53 Dose: 650 mg Documented by: Amlodipine Besylate (Norvasc) 5 mg PO [facility] Stop: 07/29/19 08:59 Last Admin: 06/29/19 08:51 Dose: 5 mg Documented by: Ascorbic Acid (Vitamin C) [facility] [place] Stop: 07/25/19 09:14 Last Admin: 06/29/19 08:52 Dose: 500 mg Documented by: Clonidine HCl (Catapres) 0.1 mg PO Q6H PRN PRN Reason: systolic bp > 160 Stop: 07/25/19 15:41 Last Admin: 06/27/19 23:23 Dose: 0.1 mg Documented by: Ferrous Sulfate (Feosol) 325 mg PO [facility] Stop: 07/26/19 08:59 Last Admin: 06/29/19 08:52 Dose: 325 mg Documented by: Hydromorphone HCl (Dilaudid) 0.5 mg IV Q4H PRN PRN Reason: Pain Stop: 07/09/19 16:01 Last Admin: 06/28/19 21:28 Dose: 0.5 mg Documented by: Promethazine HCl 12.5 mg/ (Sodium Chloride) 50.5 mls @ 202 mls/hr IV Q6H PRN PRN Reason: Nausea And Vomiting Stop: 07/25/19 14:47 Last Infusion: 06/28/19 22:20 Dose: Infused Documented by: Furosemide 40 mg/ Syringe 4 mls @ 4 mls/min IV [id number] [facility] Stop: 07/29/19 08:59 Last Admin: 06/29/19 08:51 Dose: 4 mls/min Documented by: Ipratropium [place] (Atrovent 0.02% 0.5mg/2.5ml) 0.5 mg INH Q4H PRN PRN Reason: Dyspnea Stop: 07/24/19 09:48 Magnesium Hydroxide (Milk Of Magnesia) 30 ml PO Q6H PRN PRN Reason: Constipation Stop: 07/27/19 16:27 Metoprolol Tartrate (Lopressor) 25 mg PO BID [facility] Stop: 07/27/19 07:14 Last Admin: 06/29/19 08:51 Dose: 25 mg Documented by: Oxycodone HCl (Roxicodone Immediate Rel) 12.5 mg PO Q6H PRN PRN Reason: Severe Pain (7,8,9,10) Stop: 07/08/19 18:59 Last Admin: 06/29/19 14:32 Dose: 12.5 mg Documented by: Oxycodone HCl (Roxicodone Immediate Rel) 7.5 mg PO Q6H PRN PRN Reason: Moderate Pain (4,5,6) Stop: 07/08/19 18:59 Polyethylene Glycol (Miralax Powder Packet) 17 gm PO DAILY PRN PRN Reason: Constipation Stop: 07/26/19 15:51 Potassium Chloride (Klor-Con Pwd) 80 meq PO TID [facility] Stop: 07/29/19 08:59 Last Admin: 06/29/19 13:22 Dose: Not Given Documented by: Senna/Docusate Sodium (Senokot S) 1 [facility] [place] Stop: 07/28/19 08:59 Last Admin: 06/29/19 08:52 Dose: 1 tab Documented by: Sodium Chloride (Belt Nasal) 1 sprays NA PRN PRN PRN Reason: Dryness Stop: 07/27/19 18:38 Last Admin: 06/27/19 20:42 Dose: 1 sprays Documented by: Spironolactone (Aldactone) 12.5 mg [facility] [place] Stop: 07/29/19 08:59 Last Admin: 06/29/19 08:53 Dose: 12.5 mg Documented by: (1) Hypertension Hypertension type: unspecified Qualified Code(s): I10 - Essential (primary) hypertension
[2019-06-29 17:41] LABS: Potassium 3.1 mmol/L (3.5-5.1)
[2019-06-29 17:42] LABS: BUN Creatinine Ratio 29.1 (10-20); Calcium 9.3 mg/dl (8.5-10.1); Est GFR (African American) 61.6; Est GFR (Non-African American) 53.2
--- NOTE | 2019-06-29 20:41 | Pulmonary Consultation ---
Date of Consultation June 29, 2019 Assessment & Plan (1) Bilateral pleural effusion: Patient has no prior history of pulmonary disease or pleural effusions Bilateral pleural effusions are most likely secondary to massive transfusion protocol from left renal hemorrhage on admission. Patient received 9 packed red blood cells, 2 platelets, 3 FFP. 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 Patient currently has been weaned off of oxygen at rest and required minimal amounts of exertion Continue to diurese and follow oxygenation Wean supplemental O2 as tolerated Continue to ambulate in the halls as tolerated (3) Acute blood loss anemia: Secondary to ruptured left renal angiomyolipoma Received a total of 14 units of blood product including 9 units of packed red blood cells Hemoglobin appears to be stable since embolization of left kidney Is suspected this contributed to hypoxia Now improving Further management per primary team Thank you for including us in the care of this patient. Please refer to addendum of Dr. Oneill. We will continue to follow along with you for now. Supervising Physician Co-Signing Physician Notes Patient seen and examined with Frank ROBERTSON. Agree with note. Continue diuresis as recommended by nephrology. Patient has bilateral effusions seen on ultrasound today. The effusions appear to be free-flowing and are likely due to an overloaded state related to her blood transfusions and fluid resuscitation earlier this admission. She does not have any signs of sepsis and these effusions do not appear to be representing any form of a parapneumonic effusion or empyema. There is no clear indication for thoracentesis at this time. Continue weaning oxygen and encourage ambulation. I suspect that these effusions may linger to some degree for the next few days but with further ambulation and diuresis they should resolve. History of Present Illness Reason for Consultation: Evaluation of pleural effusions Requesting Physician: Dr. Luke Melissa Attending Physician: oSnya Quintero MD History of Present Illness This is a 69-year-old female that was in relatively good health until her admission when she had severe abdominal pain. She presented to the emergency department was found to have a hemorrhaging left kidney from a ruptured angiomyolipoma. She is emergently taken to the OR and vascular surgery was able to embolize the vessel. The patient subsequently had transfusion of blood products with reactive bilateral pleural effusions and hypoxia. Patient initially was being diuresed but developed acute kidney injury with a rising BUN and creatinine. Diuresis was discontinued and the pulmonary service was consulted for evaluation for possible thoracentesis to improve her oxygenation. Patient was seen at bedside and is noted to be weaned down to 1 L/min via nasal cannula. She was able to ambulate in the hallways today and desaturated to 87% on room air. She was placed back on supplemental oxygen at 2 L/min and rapidly improved her SaO2 to 98%. Bedside ultrasound was completed and shows bilateral pleural effusions with significant atelectasis bilaterally. Patient has no frothy sputum, hemoptysis, cough, or other sputum production. T-max was 37.6 centigrade on 06/27/2019. Since that time she has been afebrile. The patient has no current acute complaints other than fatigue and shortness of breath with exertion. Patient's past medical history includes hyperlipidemia for which she is treated with atorvastatin 20 mg p.o. daily. She has no cardiac, pulmonary, endocrine disease. Other medications include magnesium oxide, naproxen sodium as needed, vitamin B12, vitamin D3, calcium 500 with D, and aspirin 81 mg p.o. daily. Allergies Allergy/AdvReac Type Severity Reaction Status Date / Time chlorhexidine AdvReac Mild Hives Verified 06/28/19 21:11 Home Medications Home Medications Medication Instructions Recorded Confirmed Type aspirin 81 mg PO DAILY 06/24/19 06/24/19 History atorvastatin 20 mg PO DAILY 06/24/19 06/24/19 History calcium carbonate-vitamin D3 2 tab PO DAILY 06/24/19 06/24/19 History [Calcium 500 With D] cholecalciferol (vitamin D3) 2,000 unit PO DAILY 06/24/19 06/24/19 History [Vitamin D3] cyanocobalamin (vitamin B-12) 1,000 mcg PO DAILY 06/24/19 06/24/19 History magnesium oxide 500 mg PO DAILY 06/24/19 06/24/19 History naproxen sodium 440 mg PO DAILY 06/24/19 06/24/19 History Patient History Medical History Mitral valve prolapse Hypercholesteremia Surgical History S/P hernia repair Social History Communication Ability: Effective Communication Ability Comment: Intubated/sedated marital status: Current Living Situation Comment: unknown Feels Safe at Home: Yes Smoking Status: Unknown if ever smoked Review of Systems Review of Systems: All systems reviewed & are unremarkable except as noted in HPI & below Physical Exam Physical Exam: GENERAL : No acute distress. No use of accessory muscles. EYES: No icterus, gaze conjugate NOSE: No evidence of epistaxis MOUTH: No lesions or candidiasis NECK: Supple LUNGS: CTA B/L, no wheezes, rales or rhonchi. However, patient does have bilateral decrease at the lung bases. HEART: Regular, rate controlled ABDOMEN: Soft, NT, ND, BS Present EXTREMITIES: No LE edema, pedal pulses intact NEURO: A&OX3 Results & Data Vital Signs (Past 12 Hours) Vital Signs Temp Pulse Resp BP BP Pulse Ox 06/29/19 19:00 98 06/29/19 15:13 96 06/29/19 15:06 37.3 C 105 H 18 139/72 95 06/29/19 10:30 133/74 06/29/19 08:31 180/63 H Laboratory Results 06/29/19 16:55 06/29/19 16:55 PG Care Time/CCT Total # of Minutes Spent Total Time Spent with Patient: Total time spent is greater than 50% in radio communication coordinator rdination of care (as documented) at patient's floor/unit and/or counseling patient: 60
[2019-06-29] MEDS: HYDROmorphone INJ 0.5 MG/0.5 ML SYR IV PRN (23:15)
[2019-06-30] MEDS: HYDROmorphone INJ 0.5 MG/0.5 ML SYR IV PRN ×3 (04:14→21:59)
[2019-06-30] MEDS: OXYCODONE HCL IR 5 MG TAB (IMMEDIATE RELEASE) PO PRN ×3 (06:38→18:23)
[2019-06-30 07:25] LABS: Basophils # (auto) 0.02 K/uL (0-0.2); Basophils % (auto) 0.1 %; Eosinophils # (auto) 0.32 K/uL (0-0.5); Eosinophils % (auto) 1.9 %; Hematocrit (blood only) 28.6 % (37-47); Hemoglobin 9.9 g/dL (12.0-16.0); Immature Granulocytes # (auto) 0.19 K/uL (0.00-0.02); Immature Granulocytes % (auto) 1.1 %; Lymphocytes # (auto) 1.53 K/uL (1.2-3.4); Lymphocytes % (auto) 9.1 %; Mean Corpuscular Hgb Conc 34.6 g/dL (32-36); Mean Corpuscular Volume 88.5 fL (80-100); Mean Platelet Volume 8.9 fL (7.4-10.4); Monocytes # (auto) 1.79 K/uL (0.11-0.59); Monocytes % (auto) 10.6 %; Neutrophils # (auto) 12.98 K/uL (1.4-6.5); Neutrophils % (auto) 77.2 %; Platelet Count 360 K/uL (130-400); RDW Coefficient of Variation 13.9 % (11.5-14.5); RDW Standard Deviation 45.6 fL (36.4-46.3); Red Blood Count 3.23 M/uL (4.2-5.4); White Blood Count 16.83 K/uL (4.8-10.8)
[2019-06-30] MEDS: AMLODIPINE BESYLATE 5 MG TAB PO SCH (08:00)
[2019-06-30] MEDS: METOPROLOL TARTRATE 25 MG TAB PO SCH ×2 (08:00→21:10)
[2019-06-30] MEDS: POTASSIUM CHLORIDE PWD 20 MEQ PACK PO SCH ×2 (08:01→13:35)
[2019-06-30] MEDS: ASCORBIC ACID 500 MG TAB PO SCH (08:01)
[2019-06-30] MEDS: FERROUS SULFATE 325 MG TAB PO SCH (08:01)
[2019-06-30] MEDS: DOCUSATE SODIUM/SENNA 50/8.6MG TAB PO SCH (08:01)
[2019-06-30 08:06] LABS: BUN Creatinine Ratio 27.5 (10-20); Calcium 8.9 mg/dl (8.5-10.1); Creatinine Clr Calc Pharmacy 49.4 ml/min; Est GFR (African American) 63.8
[2019-06-30] MEDS: SPIRONOLACTONE 25 MG TAB PO SCH (08:12)
[2019-06-30] MEDS: POTASSIUM CHLORIDE / WTR 10 MEQ/100 ML PLCT IV SCH ×2 (10:29→11:46)
[2019-06-30] MEDS ORDERED: SODIUM CHLORIDE 0.9% 1000ML 1,000 ML IV SCH (13:15)
[2019-06-30 13:39] LABS: Platelet Count 414 K/uL (130-400)
[2019-06-30 14:07] LABS: BUN Creatinine Ratio 27.8 (10-20); Bilirubin Direct 1.1 mg/dl (0-0.2); Bilirubin,Total 3.5 mg/dl (0.2-1); Calcium 9.3 mg/dl (8.5-10.1); Creatinine Clr Calc Pharmacy 49.9 ml/min; Est GFR (African American) 64.5; Est GFR (Non-African American) 55.7; Total Protein 7.9 gm/dl (6.4-8.2)
[2019-06-30 15:02] LABS: Basophils # (auto) 0.03 K/uL (0-0.2); Basophils % (auto) 0.2 %; Eosinophils # (auto) 0.33 K/uL (0-0.5); Eosinophils % (auto) 1.7 %; Hematocrit (blood only) 29.8 % (37-47); Hemoglobin 10.5 g/dL (12.0-16.0); Immature Granulocytes # (auto) 0.18 K/uL (0.00-0.02); Immature Granulocytes % (auto) 0.9 %; Lymphocytes % (auto) 7.7 %; Mean Platelet Volume 9.4 fL (7.4-10.4); Monocytes # (auto) 1.74 K/uL (0.11-0.59); Neutrophils # (auto) 15.58 K/uL (1.4-6.5); Neutrophils % (auto) 80.5 %; RDW Coefficient of Variation 13.9 % (11.5-14.5); RDW Standard Deviation 45.5 fL (36.4-46.3); Red Blood Count 3.37 M/uL (4.2-5.4); Reticulocyte % 2.3 % (0.5-2.0); Reticulocytes # 0.08 10^6/uL (0.02-0.10); White Blood Count 19.36 K/uL (4.8-10.8)
[2019-06-30 15:55] LABS: Mean Corpuscular Hgb Conc 33.8 g/dL (32-36); Mean Corpuscular Volume 89.5 fL (80-100)
--- NOTE | 2019-06-30 16:39 | Nephrology Progress Note ---
Date of Service June 30, 2019 Assessment & Plan (1) Volume overload: after massive transfusions w/ BL pleural effusions and L flank pain; paradoxically sob improves w/ lying down not sitting up; tachycardia noted- had low prob VQ scan; would not give more IV contrast lasix, spironolactone as below >> had only spironolactone this am; lasix on hold; has not tolerated po K; had 20 mEq IV K >>>issue getting K on labs >> icterus +/- hemolysis (depending on specimen) limits lab >>>>>pt has has K in 2's, low 3's and has been getting aggressive repletion and aggressive diuresis >>>K being sent to [facility] along w/ other labs >>>>until we know what her K is, not safe to give her more diuretic unless she is worsening clinically >> lasix on hold; she is on RA for now though hypertensive again follow up pending labs >> increased K dose to 80 mEq po tid (07-23-21); will recheck level 1700 hgb recheck today holding steady (2) Hypertension: periprocedural; goal SBP 140-150s -on CCB now 10>5 mg daily, on metoprolol 25 mg bid, on prn clonidine - lasix 40 mg IV bid17; daily 12.5 mg spironolactone as well on hold for now pending labs -also getting NS now ? for K or other -- will d/w hospitalist (3) Renal mass, left: presume ruptured AML s/p 06/24 emergent embolization and presented same day w/ hemorrhagic shock; for OP work up once retroperitoneal bleed has stabilized; now essentially w/solitary kidney Subjective pt unable to tolerate po K in pretty much any form > granules/pill/ liquid d/t N. requests IV K; has had 2 x 10 mEQ today. ongoing severe abd pain worse w/ sitting up, eating. pulmonary saw her to evaluate vivian pl effusions >> these attributed to massive transfusion protocol, improving w/ lasix 40 iv bid and spironolactone; on RA this am. defer invasive tx and cont diuresis per pulm. denies voiding sx; cont to move bowels Review of Systems Review of Systems: All systems reviewed & are unremarkable except as noted in HPI & below Physical Exam Constitutional: well developed, well nourished, + acute distress (mild distress from pain) and cooperative Eyes: EOM intact bilaterally ENMT: Ears: no external ear abnormality Nose: no external nose abnormality Mouth: + dry oral mucous membranes Neck: no nuchal rigidity Respiratory: + labored breathing (slight and less today than yesterday) and able to speak in complete sentences Auscultation: + diminished lung sounds (BL bases diminished L>>R) Gastrointestinal (Abdomen): Inspection/Auscultation: normal bowel sounds Percussion/Palpation: abdomen soft; abdomen nontender Musculoskeletal: Extremities: strength 5/5 throughout Skin: no rashes, warm and dry Neurologic: montalvo, fluent speech, no tremor Psychiatric: Orientation: alert and oriented x 3 Eye Contact: good eye contact Insight: good insight Judgement: good judgement Results & Data Vital Signs (Past 12 Hours) Vital Signs Temp Pulse Pulse Pulse Resp BP BP 06/30/19 16:05 37.2 C 98 H 18 166/79 H 06/30/19 11:49 94 H 162/76 H 06/30/19 07:23 36.8 C 98 H 18 179/84 H Pulse Ox 06/30/19 16:05 95 06/30/19 11:49 97 06/30/19 07:23 95 Laboratory Results Abnormal lab results 06/29/19 06/29/19 06/30/19 Range/Units 16:55 16:55 07:09 WBC 16.83 H (4.8-10.8) K/uL RBC 3.23 L (4.2-5.4) M/uL Hgb 10.2 L 9.9 L (12.0-16.0) g/dL Hct 28.6 L (37-47) % Plt Count (130-400) K/uL Reticulocyte % (Auto) (0.5-2.0) % Immature Gran # (Auto) 0.19 H (0.00-0.02) K/uL Neut # (Auto) 12.98 H (1.4-6.5) K/uL [place] # (Auto) 1.79 H (0.11-0.59) K/uL Fibrin Degrad Products (<10) mcg/ml Sodium 134 L (136-145) mmol/L Potassium 3.1 L (3.5-5.1) mmol/L Chloride 93 L (98-107) mmol/L Carbon Dioxide 34 H (21-32) mmol/L BUN 31 H (7-18) mg/dl BUN/Creatinine Ratio 29.1 H (10-20) Glucose 116 H (70-99) mg/dl Total Bilirubin (0.2-1) mg/dl Direct Bilirubin (0-0.2) mg/dl Albumin (3.4-5.0) gm/dl 06/30/19 06/30/19 06/30/19 Range/Units 07:09 13:26 13:26 WBC 19.36 H (4.8-10.8) K/uL RBC 3.37 L (4.2-5.4) M/uL Hgb 10.5 L (12.0-16.0) g/dL Hct 29.8 L (37-47) % Plt Count 414 H (130-400) K/uL Reticulocyte % (Auto) 2.3 H (0.5-2.0) % Immature Gran # (Auto) 0.18 H (0.00-0.02) K/uL Neut # (Auto) 15.58 H (1.4-6.5) K/uL [place] # (Auto) 1.74 H (0.11-0.59) K/uL Fibrin Degrad Products >40 H (<10) mcg/ml Sodium 133 L (136-145) mmol/L Potassium (3.5-5.1) mmol/L Chloride 93 L (98-107) mmol/L Carbon Dioxide 33 H (21-32) mmol/L BUN 28 H (7-18) mg/dl BUN/Creatinine Ratio 27.5 H (10-20) Glucose 103 H (70-99) mg/dl Total Bilirubin (0.2-1) mg/dl Direct Bilirubin (0-0.2) mg/dl Albumin (3.4-5.0) gm/dl 06/30/19 Range/Units 13:26 WBC (4.8-10.8) K/uL RBC (4.2-5.4) M/uL Hgb (12.0-16.0) g/dL Hct (37-47) % Plt Count (130-400) K/uL Reticulocyte % (Auto) (0.5-2.0) % Immature Gran # (Auto) (0.00-0.02) K/uL Neut # (Auto) (1.4-6.5) K/uL [place] # (Auto) (0.11-0.59) K/uL Fibrin Degrad Products (<10) mcg/ml Sodium 135 L (136-145) mmol/L Potassium (3.5-5.1) mmol/L Chloride 94 L (98-107) mmol/L Carbon Dioxide (21-32) mmol/L BUN 28 H (7-18) mg/dl BUN/Creatinine Ratio 27.8 H (10-20) Glucose 118 H (70-99) mg/dl Total Bilirubin 3.5 H (0.2-1) mg/dl Direct Bilirubin 1.1 H (0-0.2) mg/dl Albumin 3.0 L (3.4-5.0) gm/dl (1) Volume overload Hypervolemia type: transfusion-associated Qualified Code(s): E87.71 - Transfusion associated circulatory overload (2) Hypertension Hypertension type: unspecified Qualified Code(s): I10 - Essential (primary) hypertension
--- NOTE | 2019-06-30 17:24 | Hospitalist Progress Note ---
Date of Service June 30, 2019 Assessment & Plan (1) Abnormal laboratory test: Reported from the lab that they could not get potassium level in our laboratory The blood was very colored like that of [employer] and the blood had to be sent to [place] for further testing and identification of any antigen as she received so many blood product transfusion Further testing revealed that she has high bilirubin with normal liver test, high FDP, borderline high reticulocyte count and no result for potassium Still pending haptoglobin and fibrinogen level Recent ultrasound of the legs did not show any blood clot and VQ scan of the lung showed low probability of clot She received a total of 9 units of PRBC, 1 unit cryo, 3 units of FFP and 2 units of platelets since admission Discussed with customer sales consultant-likely has delayed reaction due to blood transfusion and likely to improve within the next few days The patient was transferred to telemetry unit to monitor the heart We will check stat EKG,Discussed with the microbiology coordinator Present on Admission?: No (2) Retroperitoneal bleed: Secondary to acute hemorrhage into a 10 cm upper pole left renal mass, likely representing an angiomyolipoma. Associated with large left-sided retroperitoneal hemorrhage measuring in excess of 20 cm in craniocaudad dimension. Status post cannulation of the aorta, selective retinal artery arteriogram with embolization of left renal artery She received a total of 6 units packed red blood cells, 3 units FFP and 6 units of platelet Hemoglobin remains stable for the last few days-9.5 on 06/29 Has minimal pain in the left flank without any guarding Will monitor H&H 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 Appreciate vascular surgery and urology input Will need to have outpatient urology appointment for further evaluation of left renal mass Fluid overload Likely has fluid overload due to multiple transfusion and ongoing infusion Has been getting Lasix as per instruction from microbiology coordinator Will monitor PRP Ongoing shortness of breath No DVT as per ultrasound of the legs VQ scan low probability for pulmonary embolism Shortness of breath is secondary to fluid overload with small bilateral pleural effusion (3) Acute blood loss anemia: Secondary to acute to peritoneal hemorrhage 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 She received 6 units of PRBC, 3 units of FFP and 6 units of platelet Seems to be no more blood loss Monitor H&H Management noted above (4) Acute respiratory failure with hypoxia: Likely secondary to bilateral pleural effusions, likely secondary to multiple blood transfusions Echo: diastolic dysfunction Lasix 40mg IV q12h has been ordered since the weekend with good response Repeat chest x-ray this morning: Bilateral pleural pleural effusion unchanged Appreciate pulmonary/quarry supervisor dimension stone input and recommendation She has been weaned off high flow oxygen, now saturating well with 1 L/min via nasal cannula (5) Hypertension: Likely secondary to pain, dyspnea Metoprolol and amlodipine started Continue to monitor and titrate accordingly (6) Hypercholesteremia: hold Atorvastatin for now (7) Hemorrhagic shock: Hemorrhagic shock treated and resolved with massive transfusions and IV Norepinephrine support (8) Mitral valve prolapse: Normal EKG and no other cardiac symptoms Hypothermia Multifactorial, including shock and blood loss following surgery resolved CODE STATUS Full DVT prophylaxis SCDs Disposition pending PT/ OT evaluation ordered Subjective 06/29 The patient was seen and examined in the medical floor She was seen by me on the day of admission Complaints to have minimal shortness of breath at rest and minimal left flank pain Wants to eat Real food 06/30 The patient was seen and examined in medical floor She complains to have some abdominal bloating but denies any other symptoms She has been ambulating without any problem Review of Systems Review of Systems: All systems reviewed and are unremarkable except as noted below Constitutional: + weakness Respiratory: + cough and + dyspnea (Minimal dyspnea at rest) Gastrointestinal: + bloating; no nausea and no vomiting Neurologic: Alert, awake and oriented x3 Physical Exam Physical Exam: No apparent distress at rest Constitutional: + ill appearing; no acute distress Eyes: PERRL, conjunctivae normal, anicteric sclerae ENMT: external ear and nose normal, oropharynx normal Neck: trachea midline, no thyromegaly Respiratory: normal respiratory effort and + respiratory distress (Minimal distress at rest) Auscultation: + diminished lung sounds (Bilaterally at the bases) and + crackles (Minimal crackles at the bases) Cardiovascular: Rate/Rhythm: regular rate and regular rhythm Heart Sounds: + murmur (2/6 over precordium) Gastrointestinal (Abdomen): Inspection/Auscultation: + abdomen distended and normal bowel sounds Percussion/Palpation: abdomen soft Neurologic: moves all extremities; no focal motor deficits Lymphatic: no cervical or axillary lymphadenopathy Results & Data Vital Signs (Past 12 Hours) Vital Signs Temp Pulse Pulse Pulse Resp BP BP 06/30/19 16:05 37.2 C 98 H 18 166/79 H 06/30/19 11:49 94 H 162/76 H 06/30/19 07:23 36.8 C 98 H 18 179/84 H Pulse Ox 06/30/19 16:05 95 06/30/19 11:49 97 06/30/19 07:23 95 (1) Hypertension Hypertension type: unspecified Qualified Code(s): I10 - Essential (primary) hypertension
--- NOTE | 2019-06-30 20:05 | Pulmonology Progress Note ---
Date of Service Patient appears to be doing well on room air. She says she ambulated around the hallways. She denies any chest pain. She does have some abdominal bloating. June 30, 2019 Assessment & Plan (1) Bilateral pleural effusion: At this time there is no indication for thoracentesis. Continue ambulation and cautious diuresis. It appears that she is having some trouble with hypokalemia and her diuresis is being held today. At this time we will sign off as there does not appear to be any clear indication for thoracentesis. Thank you for allowing us to participate in the care of this patient. (2) Hypoxia: Resolving due to clearance of her atelectasis and bilateral effusions. (3) Acute blood loss anemia: Managed by the primary team. This is also likely contributing to her dyspnea Physical Exam Constitutional: well developed; not in distress Eyes: PERRL, conjunctivae normal, anicteric sclerae Respiratory: normal respiratory effort, lungs clear to auscultation normal respiratory effort Cardiovascular: RRR, no murmur, no edema Gastrointestinal (Abdomen): normal bowel sounds, soft, nontender, no hepatosplenomegaly Neurologic: CN's II-XI intact bilaterally Results & Data Vital Signs (Past 12 Hours) Vital Signs Temp Pulse Pulse Resp BP BP Pulse Ox 06/30/19 16:05 99.0 F 98 H 18 166/79 H 95 06/30/19 11:49 94 H 162/76 H 97 PG Care Time/CCT Total # of Minutes Spent Total Time Spent with Patient: Total time spent is greater than 50% in coordination of care (as documented) at patient's floor/unit and/or counseling patient:
[2019-07-01] MEDS: cloNIDine HCl 0.1 MG TAB PO PRN (04:27)
[2019-07-01] MEDS: OXYCODONE HCL IR 5 MG TAB (IMMEDIATE RELEASE) PO PRN ×3 (04:28→18:38)
[2019-07-01 06:37] LABS: Basophils # (auto) 0.04 K/uL (0-0.2); Basophils % (auto) 0.2 %; Eosinophils # (auto) 0.45 K/uL (0-0.5); Eosinophils % (auto) 2.8 %; Hematocrit (blood only) 27.3 % (37-47); Hemoglobin 9.4 g/dL (12.0-16.0); Immature Granulocytes % (auto) 1.2 %; Lymphocytes # (auto) 1.07 K/uL (1.2-3.4); Lymphocytes % (auto) 6.6 %; Mean Corpuscular Hgb Conc 34.4 g/dL (32-36); Mean Corpuscular Volume 88.9 fL (80-100); Mean Platelet Volume 9.2 fL (7.4-10.4); Monocytes # (auto) 1.61 K/uL (0.11-0.59); Monocytes % (auto) 9.9 %; Neutrophils # (auto) 12.91 K/uL (1.4-6.5); Neutrophils % (auto) 79.3 %; Platelet Count 373 K/uL (130-400); RDW Standard Deviation 45.8 fL (36.4-46.3); Red Blood Count 3.07 M/uL (4.2-5.4); White Blood Count 16.28 K/uL (4.8-10.8)
[2019-07-01 07:16] LABS: Albumin Globulin Ratio 0.6 (0.9-2); Albumin Level 2.6 gm/dl (3.4-5.0); BUN Creatinine Ratio 29.8 (10-20); Calcium 8.7 mg/dl (8.5-10.1); Est GFR (African American) 75.1; Est GFR (Non-African American) 64.8; Phosphorus 2.5 mg/dl (2.5-4.9); Total Protein 6.6 gm/dl (6.4-8.2)
[2019-07-01] MEDS: ASCORBIC ACID 500 MG TAB PO SCH (08:06)
[2019-07-01] MEDS: DOCUSATE SODIUM/SENNA 50/8.6MG TAB PO SCH (08:06)
[2019-07-01] MEDS: FERROUS SULFATE 325 MG TAB PO SCH (08:07)
[2019-07-01] MEDS: AMLODIPINE BESYLATE 5 MG TAB PO SCH (08:08)
[2019-07-01] MEDS: METOPROLOL TARTRATE 25 MG TAB PO SCH ×2 (08:08→21:47)
[2019-07-01] MEDS: FUROSEMIDE 20 MG in SYRINGE 0 ML IV SCH ×3 (08:39→16:35)
[2019-07-01] MEDS: SPIRONOLACTONE 25 MG TAB PO SCH ×2 (08:39→09:34)
[2019-07-01] MEDS: WATER IV SCH ×10 (08:46→20:24)
[2019-07-01] MEDS: STERILE IV SCH ×10 (08:46→20:24)
[2019-07-01] MEDS: POTASSIUM CHLORIDE IV SCH ×10 (08:46→20:24)
--- NOTE | 2019-07-01 15:51 | Hospitalist Progress Note ---
Date of Service July 01, 2019 Assessment & Plan (1) Abnormal laboratory test: Reported from the lab that they could not get potassium level in our laboratory The blood was very colored like that of [place] and the blood had to be sent to [place] for further testing and identification of any antigen as she received so many blood product transfusion Further testing revealed that she has high bilirubin with normal liver test, high FDP, borderline high reticulocyte count and no result for potassium Still pending haptoglobin and fibrinogen level Recent ultrasound of the legs did not show any blood clot and VQ scan of the lung showed low probability of clot She received a total of 9 units of PRBC, 1 unit cryo, 3 units of FFP and 2 units of platelets since admission Discussed with medical accountant-likely has delayed reaction due to blood transfusion and likely to improve within the next few days The patient was transferred to telemetry unit to monitor the heart We will check stat EKG,Discussed with the punchboard stuffer Clinically stable without any significant symptoms Monitor is not showing any arrhythmias and EKG did not show any hypokalemic features We will continue to monitor in the telemetry unit Discussed with the daughter and updated about her current medical condition as above (2) Retroperitoneal bleed: Secondary to acute hemorrhage into a 10 cm upper pole left renal mass, likely representing an angiomyolipoma. Associated with large left-sided retroperitoneal hemorrhage measuring in excess of 20 cm in craniocaudad dimension. 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 Appreciate vascular surgery and urology input Will need to have outpatient urology appointment for further evaluation of left renal mass Fluid overload Likely has fluid overload due to multiple transfusion and ongoing infusion Has been getting Lasix as per instruction from punchboard stuffer Will monitor PRP Ongoing shortness of breath No DVT as per ultrasound of the legs VQ scan low probability for pulmonary embolism Shortness of breath is secondary to fluid overload with small bilateral pleural effusion (3) Acute blood loss anemia: Secondary to acute to peritoneal hemorrhage 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 She received 6 units of PRBC, 3 units of FFP and 6 units of platelet Seems to be no more blood loss Monitor H&H Management noted above (4) Acute respiratory failure with hypoxia: Likely secondary to bilateral pleural effusions, likely secondary to multiple blood transfusions Echo: diastolic dysfunction Lasix 40mg IV q12h has been ordered since the weekend with good response Repeat chest x-ray this morning: Bilateral pleural pleural effusion unchanged Appreciate pulmonary/olericulturist input and recommendation She has been weaned off high flow oxygen, now saturating well with 1 L/min via nasal cannula (5) Hypertension: Likely secondary to pain, dyspnea Metoprolol and amlodipine started Continue to monitor and titrate accordingly (6) Hypercholesteremia: hold Atorvastatin for now (7) Hemorrhagic shock: Hemorrhagic shock treated and resolved with massive transfusions and IV Norepinephrine support (8) Mitral valve prolapse: Normal EKG and no other cardiac symptoms Hypothermia Multifactorial, including shock and blood loss following surgery resolved CODE STATUS Full DVT prophylaxis SCDs Disposition pending PT/ OT evaluation ordered Subjective 06/29 The patient was seen and examined in the medical floor She was seen by me on the day of admission Complaints to have minimal shortness of breath at rest and minimal left flank pain Wants to eat Real food 06/30 The patient was seen and examined in medical floor She complains to have some abdominal bloating but denies any other symptoms She has been ambulating without any problem 07/01 The patient was seen and examined in telemetry unit She denies to have any symptoms except some abdominal discomfort Denies any abdominal distention, any nausea and/or vomiting and her bowel has been moving Denies any other symptoms Review of Systems Review of Systems: All systems reviewed and are unremarkable except as noted below Constitutional: + weakness Respiratory: + cough and + dyspnea (Minimal dyspnea at rest) Gastrointestinal: + bloating; no nausea and no vomiting Neurologic: Alert, awake and oriented x3 Physical Exam Physical Exam: No apparent distress at rest Constitutional: + ill appearing; no acute distress Eyes: PERRL, conjunctivae normal, anicteric sclerae ENMT: external ear and nose normal, oropharynx normal Neck: trachea midline, no thyromegaly Respiratory: normal respiratory effort and + respiratory distress (Minimal distress at rest) Auscultation: + diminished lung sounds (Bilaterally at the bases) and + crackles (Minimal crackles at the bases) Cardiovascular: Rate/Rhythm: regular rate and regular rhythm Heart Sounds: + murmur (2/6 over precordium) Gastrointestinal (Abdomen): Inspection/Auscultation: + abdomen distended and normal bowel sounds Percussion/Palpation: abdomen soft Musculoskeletal: No acute arthritis in any joints Skin: no rashes, warm and dry Neurologic: moves all extremities; no focal motor deficits Alert, awake and oriented x3 Lymphatic: no cervical or axillary lymphadenopathy Results & Data Vital Signs (Past 12 Hours) Vital Signs Temp Pulse Pulse Pulse Resp BP BP 07/01/19 14:55 07/01/19 11:33 36.4 C L 94 H 20 167/84 H 07/01/19 07:35 36.4 C L 90 20 158/84 H 07/01/19 06:20 102 H 07/01/19 04:14 36.9 C 95 H 19 176/78 H 177/84 H Pulse Ox 07/01/19 14:55 92 07/01/19 11:33 96 07/01/19 07:35 93 07/01/19 06:20 07/01/19 04:14 95 Laboratory Results Short CBC 07/01/19 Range/Units 05:52 WBC 16.28 H (4.8-10.8) K/uL Hgb 9.4 L (12.0-16.0) g/dL Hct 27.3 L (37-47) % Plt Count 373 (130-400) K/uL BMP 07/01/19 05:52 Sodium 134 L Potassium Chloride 96 L Carbon Dioxide 31 BUN 27 H Creatinine 0.90 Glucose 94 Calcium 8.7 Liver Function 07/01/19 Range/Units 05:52 Total Bilirubin 3.0 H (0.2-1) mg/dl AST (15-37) U/L ALT 25 (12-78) U/L Alkaline Phosphatase 100 (45-117) U/L Albumin 2.6 L (3.4-5.0) gm/dl Medications Administered Current Inpatient Medications Acetaminophen (Tylenol) 650 mg PO Q4H PRN PRN Reason: Fever/Mild Pain (Pain 1,2,3) Stop: 07/24/19 18:59 Last Admin: 06/26/19 10:53 Dose: 650 mg Documented by: Amlodipine Besylate (Norvasc) 5 mg PO [facility] Stop: 07/29/19 08:59 Last Admin: 07/01/19 08:08 Dose: 5 mg Documented by: Ascorbic Acid (Vitamin C) [facility] [place] Stop: 07/25/19 09:14 Last Admin: 07/01/19 08:06 Dose: 500 mg Documented by: Clonidine HCl (Catapres) 0.1 mg PO Q6H PRN PRN Reason: systolic bp > 160 Stop: 07/25/19 15:41 Last Admin: 07/01/19 04:27 Dose: 0.1 mg Documented by: Ferrous Sulfate (Feosol) 325 mg PO QAM [facility] Stop: 07/26/19 08:59 Last Admin: 07/01/19 08:07 Dose: 325 mg Documented by: Hydromorphone HCl (Dilaudid) 0.5 mg IV Q4H PRN PRN Reason: Pain Stop: 07/09/19 16:01 Last Admin: 06/30/19 21:59 Dose: 0.5 mg Documented by: Promethazine HCl 12.5 mg/ (Sodium Chloride) 50.5 mls @ 202 mls/hr IV Q6H PRN PRN Reason: Nausea And Vomiting Stop: 07/25/19 14:47 Last Infusion: 06/28/19 22:20 Dose: Infused Documented by: Furosemide 20 mg/ Syringe 2 mls @ 4 mls/min IV BID17 [facility] Stop: 07/31/19 08:59 Last Admin: 07/01/19 09:34 Dose: 4 mls/min Documented by: Ipratropium [place] (Atrovent 0.02% 0.5mg/2.5ml) 0.5 mg INH Q4H PRN PRN Reason: Dyspnea Stop: 07/24/19 09:48 Magnesium Hydroxide (Milk Of Magnesia) 30 ml PO Q6H PRN PRN Reason: Constipation Stop: 07/27/19 16:27 Metoprolol Tartrate (Lopressor) 25 mg PO BID [facility] Stop: 07/27/19 07:14 Last Admin: 07/01/19 08:08 Dose: 25 mg Documented by: Oxycodone HCl (Roxicodone Immediate Rel) 12.5 mg PO Q6H PRN PRN Reason: Severe Pain (7,8,9,10) Stop: 07/08/19 18:59 Last Admin: 07/01/19 04:28 Dose: 12.5 mg Documented by: Oxycodone HCl (Roxicodone Immediate Rel) 7.5 mg PO Q6H PRN PRN Reason: Moderate Pain (4,5,6) Stop: 07/08/19 18:59 Last Admin: 07/01/19 12:28 Dose: 7.5 mg Documented by: Polyethylene Glycol (Miralax Powder Packet) 17 gm PO DAILY PRN PRN Reason: Constipation Stop: 07/26/19 15:51 Potassium Chloride (Klor-Con Pwd) 80 meq PO TID [facility] Stop: 07/29/19 08:59 Last Admin: 06/30/19 13:35 Dose: Not Given Documented by: Senna/Docusate Sodium (Senokot S) [facility] [place] Stop: 07/28/19 08:59 Last Admin: 07/01/19 08:06 Dose: 1 tab Documented by: Sodium Chloride ([place] Nasal) 1 sprays NA PRN PRN PRN Reason: Dryness Stop: 07/27/19 18:38 Last Admin: 06/27/19 20:42 Dose: 1 sprays Documented by: Spironolactone (Aldactone) 12.5 mg PO QAM [facility] Stop: 07/29/19 08:59 Last Admin: 07/01/19 09:34 Dose: 12.5 mg Documented by: (1) Hypertension Hypertension type: unspecified Qualified Code(s): I10 - Essential (primary) hypertension
--- NOTE | 2019-07-01 16:35 | Nephrology Progress Note ---
Date of Service July 01, 2019 Assessment & Plan (1) Volume overload: after massive transfusions w/ BL pleural effusions and L flank pain; paradoxically sob improves w/ lying down not sitting up; tachycardia noted but improving - had low prob VQ scan; would not give more IV contrast lasix, spironolactone as below >> has not tolerated po K; had 20 mEq IV K >>>issue getting K on labs >> icterus +/- hemolysis (depending on specimen) limits lab >>>>>pt has has K in 2's, low 3's and has been getting aggressive repletion and aggressive diuresis >>>K being sent to [facility] along w/ other labs -this am gave pt 60 mEQ K IV; K 3.3 this am and will have 2 lasix doses today >> will give another 40 mEq K now IV -will repeat bmp now and in am -cont lasix 20 iv bid 17 and spironolactone 12.5 mg daily hgb recheck today holding steady (2) Hypertension: periprocedural; goal SBP 140-150s -on CCB now 10>5 mg daily, on metoprolol 25 mg bid, on prn clonidine > will put ccb back up to 10 mg daily - lasix 20 mg IV bid17; daily 12.5 mg spironolactone (3) Renal mass, left: presume ruptured AML s/p 06/24 emergent embolization and presented same day w/ hemorrhagic shock; for OP work up once retroperitoneal bleed has stabilized; now essentially w/solitary kidney Subjective seen on rounds at 0750; abdominal bloating/ dry heave, N after breakfast/pills; some mild exertional sob; + bm; + uop; no fasciculations or unanticipated mm weakness. Review of Systems Review of Systems: All systems reviewed & are unremarkable except as noted in HPI & below Physical Exam Constitutional: well developed, well nourished, + acute distress (mild distress from dry heaves) and cooperative on 02nc Eyes: EOM intact bilaterally ENMT: Ears: no external ear abnormality Nose: no external nose abnormality Mouth: + dry oral mucous membranes Neck: no nuchal rigidity Respiratory: + labored breathing (slight and less today than yesterday) and able to speak in complete sentences Auscultation: + diminished lung sounds (BL bases) Cardiovascular: RRR, no murmur, no edema Gastrointestinal (Abdomen): Inspection/Auscultation: + abdomen distended and normal bowel sounds Percussion/Palpation: + abdomen tender and abdomen soft Musculoskeletal: Extremities: strength 5/5 throughout Skin: no rashes, warm and dry Neurologic: montalvo fluent speech no tremor Psychiatric: Orientation: alert and oriented x 3 Eye Contact: good eye contact Insight: good insight Judgement: good judgement Results & Data Vital Signs (Past 12 Hours) Vital Signs Temp Pulse Pulse Pulse Resp BP Pulse Ox 07/01/19 16:00 36.5 C 90 18 172/83 H 90 07/01/19 14:55 92 07/01/19 11:33 36.4 C L 94 H 20 167/84 H 96 07/01/19 07:35 36.4 C L 90 20 158/84 H 93 07/01/19 06:20 102 H Laboratory Results Abnormal lab results 07/01/19 07/01/19 Range/Units 05:52 05:52 WBC 16.28 H (4.8-10.8) K/uL RBC 3.07 L (4.2-5.4) M/uL Hgb 9.4 L (12.0-16.0) g/dL Hct 27.3 L (37-47) % Immature Gran # (Auto) 0.20 H (0.00-0.02) K/uL Neut # (Auto) 12.91 H (1.4-6.5) K/uL Lymph # (Auto) 1.07 L (1.2-3.4) K/uL [place] # (Auto) 1.61 H (0.11-0.59) K/uL Sodium 134 L (136-145) mmol/L Chloride 96 L (98-107) mmol/L BUN 27 H (7-18) mg/dl BUN/Creatinine Ratio 29.8 H (10-20) Total Bilirubin 3.0 H (0.2-1) mg/dl Albumin 2.6 L (3.4-5.0) gm/dl Albumin/Globulin Ratio 0.6 L (0.9-2) (1) Volume overload Hypervolemia type: transfusion-associated Qualified Code(s): E87.71 - Transfusion associated circulatory overload (2) Hypertension Hypertension type: unspecified Qualified Code(s): I10 - Essential (primary) hypertension
[2019-07-01] MEDS: HYDROmorphone INJ 0.5 MG/0.5 ML SYR IV PRN (16:37)
[2019-07-01] MEDS ORDERED: POTASSIUM CHLORIDE / WTR 10 MEQ/100 ML PLCT IV STA (16:43)
[2019-07-01] MEDS ORDERED: AMLODIPINE BESYLATE 5 MG TAB PO ONE (16:43)
[2019-07-01 17:29] LABS: BUN Creatinine Ratio 30.6 (10-20); Calcium 8.8 mg/dl (8.5-10.1); Creatinine Clr Calc Pharmacy 52.6 ml/min; Est GFR (African American) 71.2; Est GFR (Non-African American) 61.5
[2019-07-01 18:43] LABS: Partial Thromboplastin Ratio 0.9; Partial Thromboplastin Time 24.7 Seconds (21.0-31.0); Prothrombin Time 10.7 Seconds (9.0-12.0)
[2019-07-02] MEDS: OXYCODONE HCL IR 5 MG TAB (IMMEDIATE RELEASE) PO PRN ×4 (03:05→20:17)
[2019-07-02 08:14] LABS: Basophils # (auto) 0.05 K/uL (0-0.2); Basophils % (auto) 0.3 %; Eosinophils % (auto) 3.4 %; Hematocrit (blood only) 29.2 % (37-47); Hemoglobin 10.1 g/dL (12.0-16.0); Immature Granulocytes # (auto) 0.23 K/uL (0.00-0.02); Immature Granulocytes % (auto) 1.5 %; Lymphocytes # (auto) 1.41 K/uL (1.2-3.4); Lymphocytes % (auto) 9.5 %; Mean Corpuscular Hgb Conc 34.6 g/dL (32-36); Mean Corpuscular Volume 89.6 fL (80-100); Mean Platelet Volume 9.4 fL (7.4-10.4); Monocytes # (auto) 1.56 K/uL (0.11-0.59); Monocytes % (auto) 10.5 %; Neutrophils # (auto) 11.11 K/uL (1.4-6.5); Neutrophils % (auto) 74.8 %; Platelet Count 401 K/uL (130-400); RDW Coefficient of Variation 14.2 % (11.5-14.5); RDW Standard Deviation 46.5 fL (36.4-46.3); Red Blood Count 3.26 M/uL (4.2-5.4); White Blood Count 14.86 K/uL (4.8-10.8)
[2019-07-02] MEDS: AMLODIPINE BESYLATE 5 MG TAB PO SCH (08:41)
[2019-07-02] MEDS: METOPROLOL TARTRATE 25 MG TAB PO SCH ×2 (08:41→20:15)
[2019-07-02] MEDS: ASCORBIC ACID 500 MG TAB PO SCH (08:43)
[2019-07-02] MEDS: FERROUS SULFATE 325 MG TAB PO SCH (08:43)
[2019-07-02] MEDS: DOCUSATE SODIUM/SENNA 50/8.6MG TAB PO SCH (08:46)
[2019-07-02] MEDS: SPIRONOLACTONE 25 MG TAB PO SCH (08:46)
[2019-07-02] MEDS: FUROSEMIDE 20 MG in SYRINGE 0 ML IV SCH ×2 (08:51→17:15)
[2019-07-02 08:58] LABS: Albumin Globulin Ratio 0.7 (0.9-2); Albumin Level 2.8 gm/dl (3.4-5.0); BUN Creatinine Ratio 26.4 (10-20); Bilirubin,Total 3.7 mg/dl (0.2-1); Creatinine Clr Calc Pharmacy 49.7 ml/min; Est GFR (African American) 66.9; Est GFR (Non-African American) 57.7; Phosphorus 2.2 mg/dl (2.5-4.9); Total Protein 6.8 gm/dl (6.4-8.2)
--- NOTE | 2019-07-02 14:21 | Hospitalist Progress Note ---
Date of Service July 02, 2019 Assessment & Plan (1) Abnormal laboratory test: Reported from the lab that they could not get potassium level in our laboratory The blood was very colored like that of [place] and the blood had to be sent to [place] for further testing and identification of any antigen as she received so many blood product transfusion Further testing revealed that she has high bilirubin with normal liver test, high FDP, borderline high reticulocyte count and no result for potassium Still pending haptoglobin and fibrinogen level Recent ultrasound of the legs did not show any blood clot and VQ scan of the lung showed low probability of clot She received a total of 9 units of PRBC, 1 unit cryo, 3 units of FFP and 2 units of platelets since admission Discussed with fleet sales associate-likely has delayed reaction due to blood transfusion and likely to improve within the next few days The patient was transferred to telemetry unit to monitor the heart We will check stat EKG,Discussed with the loft worker pile driving Clinically stable without any significant symptoms Monitor is not showing any arrhythmias and EKG did not show any hypokalemic features We will continue to monitor in the telemetry unit Discussed with the daughter and updated about her current medical condition The abnormal lab could be secondary to organization of the massive hematoma around left kidney Will monitor in telemetry unit (2) Retroperitoneal bleed: Secondary to acute hemorrhage into a 10 cm upper pole left renal mass, likely representing an angiomyolipoma. Associated with large left-sided retroperitoneal hemorrhage measuring in excess of 20 cm in craniocaudad dimension. Status post cannulation of the aorta, selective retinal artery arteriogram with embolization of left renal artery She received a total of 6 units packed red blood cells, 3 units FFP and 6 units of platelet Hemoglobin remains stable for the last few days-9.5 on 06/29 Has minimal pain in the left flank without any guarding Will monitor H&H-hemoglobin remains stable at 9.4 today 07/01, Complains of increasing pain in the left renal angle and left flank likely secondary to organization of hematoma Locally tender and if the symptoms increases will get CT of the abdomen Her current abnormal lab findings could be secondary to ongoing hemolysis locally at the retroperitoneal bleeding site and may not be due to any transfusion related reaction We will discuss with fleet sales associate 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 Appreciate vascular surgery and urology input Will need to have outpatient urology appointment for further evaluation of left renal mass Fluid overload Likely has fluid overload due to multiple transfusion and ongoing infusion Has been getting Lasix as per instruction from loft worker pile driving Will monitor PRP Ongoing shortness of breath No DVT as per ultrasound of the legs VQ scan low probability for pulmonary embolism Shortness of breath is secondary to fluid overload with small bilateral pleural effusion (3) Acute blood loss anemia: Secondary to acute to peritoneal hemorrhage 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 She received 6 units of PRBC, 3 units of FFP and 6 units of platelet Seems to be no more blood loss Monitor H&H Management noted above (4) Acute respiratory failure with hypoxia: Likely secondary to bilateral pleural effusions, likely secondary to multiple blood transfusions Echo: diastolic dysfunction Lasix 40mg IV q12h has been ordered since the weekend with good response Repeat chest x-ray this morning: Bilateral pleural pleural effusion unchanged Appreciate pulmonary/print finisher input and recommendation She has been weaned off high flow oxygen, now saturating well with 1 L/min via nasal cannula Denies any shortness of breath at rest or on ambulation (5) Hypertension: Likely secondary to pain, dyspnea Metoprolol and amlodipine started Continue to monitor and titrate accordingly (6) Hypercholesteremia: hold Atorvastatin for now (7) Hemorrhagic shock: Hemorrhagic shock treated and resolved with massive transfusions and IV Norepinephrine support (8) Mitral valve prolapse: Normal EKG and no other cardiac symptoms Hypothermia Multifactorial, including shock and blood loss following surgery resolved CODE STATUS Full DVT prophylaxis SCDs Disposition pending PT/ OT evaluation ordered Subjective 06/29 The patient was seen and examined in the medical floor She was seen by me on the day of admission Complaints to have minimal shortness of breath at rest and minimal left flank pain Wants to eat Real food 06/30 The patient was seen and examined in medical floor She complains to have some abdominal bloating but denies any other symptoms She has been ambulating without any problem 07/01 The patient was seen and examined in telemetry unit She denies to have any symptoms except some abdominal discomfort Denies any abdominal distention, any nausea and/or vomiting and her bowel has been moving Denies any other symptoms 07/02 The patient was seen and examined in the telemetry unit in presence of the daughter She has been complaining of some pain at the left flank and left loin Denies any other symptoms of chest pain, shortness of breath, palpitation, nausea and/or vomiting Review of Systems Review of Systems: All systems reviewed and are unremarkable except as noted below Constitutional: + weakness Gastrointestinal: no nausea and no vomiting Musculoskeletal: + back pain (Tenderness in left renal angle) Neurologic: Alert, awake and oriented x3 Physical Exam Physical Exam: Lying in bed comfortably and looks lethargic Constitutional: well nourished and + ill appearing; no acute distress Eyes: PERRL, conjunctivae normal, anicteric sclerae ENMT: external ear and nose normal, oropharynx normal Neck: trachea midline, no thyromegaly Respiratory: normal respiratory effort Auscultation: + diminished lung sounds (Bilaterally at the bases) and + crackles (Minimal crackles at the bases) Cardiovascular: Rate/Rhythm: regular rate and regular rhythm Heart Sounds: + murmur (2/6 over precordium) Gastrointestinal (Abdomen): Inspection/Auscultation: + abdomen distended and normal bowel sounds Percussion/Palpation: + abdomen tender (Left renal angle) and abdomen soft Skin: no rashes, warm and dry Neurologic: moves all extremities; no focal motor deficits Lymphatic: no cervical or axillary lymphadenopathy Results & Data Vital Signs (Past 12 Hours) Vital Signs Temp Pulse Pulse Pulse Resp BP BP 07/02/19 11:36 36.9 C 83 18 131/80 07/02/19 09:50 88 07/02/19 07:52 36.7 C 98 H 22 176/80 H 07/02/19 03:45 160/84 H 07/02/19 03:18 36.7 C 90 21 171/77 H Pulse Ox 07/02/19 11:36 91 07/02/19 09:50 07/02/19 07:52 93 07/02/19 03:45 07/02/19 03:18 92 Laboratory Results Short CBC 07/02/19 Range/Units 07:40 WBC 14.86 H (4.8-10.8) K/uL Hgb 10.1 L (12.0-16.0) g/dL Hct 29.2 L (37-47) % Plt Count 401 H (130-400) K/uL BMP 07/01/19 07/02/19 16:50 07:40 Sodium 134 L 133 L Potassium Chloride 96 L 97 L Carbon Dioxide 30 30 BUN 29 H 26 H Creatinine 0.94 0.99 Glucose 88 84 Calcium 8.8 9.0 Liver Function 07/02/19 Range/Units 07:40 Total Bilirubin 3.7 H (0.2-1) mg/dl AST (15-37) U/L ALT 29 (12-78) U/L Alkaline Phosphatase 119 H (45-117) U/L Albumin 2.8 L (3.4-5.0) gm/dl Medications Administered Current Inpatient Medications Acetaminophen (Tylenol) 650 mg PO Q4H PRN PRN Reason: Fever/Mild Pain (Pain 1,2,3) Stop: 07/24/19 18:59 Last Admin: 06/26/19 10:53 Dose: 650 mg Documented by: Amlodipine Besylate (Norvasc) 10 mg PO [facility] Stop: 08/01/19 08:59 Last Admin: 07/02/19 08:41 Dose: 10 mg Documented by: Ascorbic Acid (Vitamin C) 500 mg PO [facility] Stop: 07/25/19 09:14 Last Admin: 07/02/19 08:43 Dose: 500 mg Documented by: Clonidine HCl (Catapres) 0.1 mg PO Q6H PRN PRN Reason: systolic bp > 160 Stop: 07/25/19 15:41 Last Admin: 07/01/19 04:27 Dose: 0.1 mg Documented by: Ferrous Sulfate (Feosol) 325 mg PO [facility] Stop: 07/26/19 08:59 Last Admin: 07/02/19 08:43 Dose: 325 mg Documented by: Hydromorphone HCl (Dilaudid) 0.5 mg IV Q4H PRN PRN Reason: Pain Stop: 07/09/19 16:01 Last Admin: 07/01/19 16:37 Dose: 0.5 mg Documented by: Promethazine HCl 12.5 mg/ (Sodium Chloride) 50.5 mls @ 202 mls/hr IV Q6H PRN PRN Reason: Nausea And Vomiting Stop: 07/25/19 14:47 Last Infusion: 06/28/19 22:20 Dose: Infused Documented by: Furosemide 20 mg/ Syringe 2 mls [facility] Stop: 07/31/19 08:59 Last Admin: 07/02/19 08:51 Dose: 4 mls/min Documented by: Ipratropium [place] (Atrovent 0.02% 0.5mg/2.5ml) 0.5 mg INH Q4H PRN PRN Reason: Dyspnea Stop: 07/24/19 09:48 Magnesium Hydroxide (Milk Of Magnesia) 30 ml PO Q6H PRN PRN Reason: Constipation Stop: 07/27/19 16:27 Metoprolol Tartrate (Lopressor) 25 mg PO BID [facility] Stop: 07/27/19 07:14 Last Admin: 07/02/19 08:41 Dose: 25 mg Documented by: Oxycodone HCl (Roxicodone Immediate Rel) 12.5 mg PO Q6H PRN PRN Reason: Severe Pain (7,8,9,10) Stop: 07/08/19 18:59 Last Admin: 07/02/19 03:05 Dose: 12.5 mg Documented by: Oxycodone HCl (Roxicodone Immediate Rel) 7.5 mg PO Q6H PRN PRN Reason: Moderate Pain (4,5,6) Stop: 07/08/19 18:59 Last Admin: 07/02/19 08:40 Dose: 7.5 mg Documented by: Polyethylene Glycol (Miralax Powder Packet) 17 gm PO DAILY PRN PRN Reason: Constipation Stop: 07/26/19 15:51 Potassium Chloride (Klor-Con Pwd) 80 meq PO TID [facility] Stop: 07/29/19 08:59 Last Admin: 06/30/19 13:35 Dose: Not Given Documented by: Senna/Docusate Sodium (Senokot S) [facility] Stop: 07/28/19 08:59 Last Admin: 07/02/19 08:46 Dose: Not Given Documented by: Sodium Chloride ([place] Nasal) 1 sprays NA PRN PRN PRN Reason: Dryness Stop: 07/27/19 18:38 Last Admin: 06/27/19 20:42 Dose: 1 sprays Documented by: Spironolactone (Aldactone) 12.5 mg PO QAM [facility] Stop: 07/29/19 08:59 Last Admin: 07/02/19 08:46 Dose: 12.5 mg Documented by: (1) Hypertension Hypertension type: unspecified Qualified Code(s): I10 - Essential (primary) hypertension
[2019-07-03] MEDS: OXYCODONE HCL IR 5 MG TAB (IMMEDIATE RELEASE) PO PRN ×3 (07:22→23:11)
[2019-07-03 08:11] LABS: Basophils # (auto) 0.04 K/uL (0-0.2); Basophils % (auto) 0.3 %; Eosinophils # (auto) 0.48 K/uL (0-0.5); Eosinophils % (auto) 3.4 %; Hematocrit (blood only) 31.9 % (37-47); Hemoglobin 11.1 g/dL (12.0-16.0); Immature Granulocytes # (auto) 0.22 K/uL (0.00-0.02); Immature Granulocytes % (auto) 1.6 %; Lymphocytes # (auto) 1.55 K/uL (1.2-3.4); Lymphocytes % (auto) 10.9 %; Mean Corpuscular Hgb Conc 34.8 g/dL (32-36); Mean Corpuscular Volume 89.6 fL (80-100); Monocytes # (auto) 1.26 K/uL (0.11-0.59); Monocytes % (auto) 8.9 %; Neutrophils # (auto) 10.63 K/uL (1.4-6.5); Neutrophils % (auto) 74.9 %; Platelet Count 459 K/uL (130-400); RDW Coefficient of Variation 14.4 % (11.5-14.5); RDW Standard Deviation 47.4 fL (36.4-46.3); Red Blood Count 3.56 M/uL (4.2-5.4); White Blood Count 14.18 K/uL (4.8-10.8)
[2019-07-03 08:50] LABS: Albumin Globulin Ratio 0.7 (0.9-2); Albumin Level 3.1 gm/dl (3.4-5.0); BUN Creatinine Ratio 22.5 (10-20); Calcium 9.3 mg/dl (8.5-10.1); Creatinine Clr Calc Pharmacy 48.3 ml/min; Est GFR (African American) 64.5; Est GFR (Non-African American) 55.7; Globulin 4.5 gm/dl (2.5-4.0); Phosphorus 2.9 mg/dl (2.5-4.9); Total Protein 7.6 gm/dl (6.4-8.2)
[2019-07-03] MEDS: AMLODIPINE BESYLATE 5 MG TAB PO SCH (09:10)
[2019-07-03] MEDS: METOPROLOL TARTRATE 25 MG TAB PO SCH ×2 (09:10→21:02)
[2019-07-03] MEDS: SPIRONOLACTONE 25 MG TAB PO SCH (09:10)
[2019-07-03] MEDS: FUROSEMIDE 20 MG in SYRINGE 0 ML IV SCH ×2 (09:10→16:59)
[2019-07-03] MEDS: ASCORBIC ACID 500 MG TAB PO SCH (09:11)
[2019-07-03] MEDS: FERROUS SULFATE 325 MG TAB PO SCH (09:11)
[2019-07-03] MEDS: DOCUSATE SODIUM/SENNA 50/8.6MG TAB PO SCH (09:13)
--- NOTE | 2019-07-03 12:34 | CT Scan Report ---
ABDOMEN AND PELVIS CT WITHOUT CONTRAST CT DOSE: 352.62 mGy.cm HISTORY: Follow up study in a patient with retroperitoneal hemorrhage Retroperitonial bleeding TECHNIQUE: Multiaxial CT images of the abdomen and pelvis were performed without contrast. A dose lo wering technique was utilized adhering to the principles of ALARA. COMPARISON STUDY: CT abdomen and pelvis 06/24/2019 FINDINGS: Interval development of trace right and small left pleural effusions with dependent bibasilar consoli dation. No pneumatosis or pneumoperitoneum. Imaged inferior cardiac chambers are mildly enlarged with trace pericardial effusion. 7 mm right epicardial lymph node. Limited evaluation of the solid abdomi nal organs without the use of IV contrast. Liver appears unremarkable. Hyperdense material within the gallbladder lumen is suggestive of vicarious excretion of contrast versus sludge. The pancreas and s pleen are again noted to be displaced from the large intraperitoneal hemorrhage as described below. R ight adrenal gland is unremarkable. The left adrenal gland is not well seen. Unremarkable right kidney. Partially decompressed bladder with mild wall thickening and trace air wit hin the nondependent lumen. Uterus and adnexa are unremarkable. Mild calcified plaque of the aorta wi thout aneurysm. Postoperative changes from interval embolization within the region of the left renal artery. 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 Hemorrhage now extends into the dependent pelvis which is new from prior. The overall size of the hematoma appears mildly decreased from comparison. More hyperdense area of hematomas noted along its superior and late ral portions. Anterior component of the hematoma on image 23 series 3 previously measured 9.8 x 3.6 c m and now measures 6.3 x 2.2 cm. Hematoma measures up to approximate 17 cm in cranial, dimension. Hem orrhage tracks along the greater curvature of the stomach with a hematoma measuring up to 5.6 x 3.5 c m on image 205 series 3. Layering hemorrhage is also noted about the inferior aspects of the bilatera l pericolic gutters. Mild nonspecific wall thickening of the transverse colon. No bowel obstruction. Appendix not definiti vely seen. Breast parenchyma and soft tissues are unremarkable. Bones appear to be intact. IMPRESSION: 1. Hemorrhagic left-sided angiomyolipoma with large left-sided retroperitoneal hemorrhage is redemons trated. The large hematoma surrounding the left kidney has slightly decreased in size. Layering hemor rhage adjacent to the greater curvature of the stomach, inferior pericolic gutters and dependent pelv is is new from prior and is likely secondary to hematoma evolution rather than hematoma progression. Correlation with clinical symptoms and hemoglobin analysis is needed. 2. Status post embolization of the left kidney. 3. Interval development of trace right and small left pleural effusions with bibasilar opacities favo ring atelectasis. Pneumonitis considered less likely. 4. Trace air within the urinary bladder lumen may be secondary to to instrumentation versus gas formi ng organism. Correlate with urinalysis. 5. Additional findings as above. Electronically signed by: Kvng Garcia M.D. 07/03/2019 12:32 PM
[2019-07-03] MEDS ORDERED: POTASSIUM CHLORIDE / WTR 20 MEQ/100 ML PLCT IV STA (13:24)
[2019-07-03] MEDS ORDERED: POTASSIUM CHLORIDE 20 MEQ TABCR PO STA (13:29)
--- NOTE | 2019-07-03 14:28 | Hospitalist Progress Note ---
Date of Service July 03, 2019 Assessment & Plan (1) Abnormal laboratory test: Reported from the lab that they could not get potassium level in our laboratory The blood was very colored like that of [place] and the blood had to be sent to [facility] for further testing and identification of any antigen as she received so many blood product transfusion Further testing revealed that she has high bilirubin with normal liver test, high FDP, borderline high reticulocyte count and no result for potassium Still pending haptoglobin and fibrinogen level Recent ultrasound of the legs did not show any blood clot and VQ scan of the lung showed low probability of clot She received a total of 9 units of PRBC, 1 unit cryo, 3 units of FFP and 2 units of platelets since admission Discussed with collar starcher-likely has delayed reaction due to blood transfusion and likely to improve within the next few days The patient was transferred to telemetry unit to monitor the heart We will check stat EKG,Discussed with the upper extremity surgeon Clinically stable without any significant symptoms Monitor is not showing any arrhythmias and EKG did not show any hypokalemic features We will continue to monitor in the telemetry unit Discussed with the daughter and updated about her current medical condition The abnormal lab could be secondary to organization of the massive hematoma around left kidney Will monitor in telemetry unit Potassium reported to be 3.1-we will supplement (2) Retroperitoneal bleed: Secondary to acute hemorrhage into a 10 cm upper pole left renal mass, likely representing an angiomyolipoma. Associated with large left-sided retroperitoneal hemorrhage measuring in excess of 20 cm in craniocaudad dimension. Status post cannulation of the aorta, selective retinal artery arteriogram with embolization of left renal artery She received a total of 6 units packed red blood cells, 3 units FFP and 6 units of platelet Hemoglobin remains stable for the last few days-9.5 on 06/29 Has minimal pain in the left flank without any guarding Will monitor H&H-hemoglobin remains stable at 9.4 today 07/01, Complains of increasing pain in the left renal angle and left flank likely secondary to organization of hematoma Locally tender and if the symptoms increases will get CT of the abdomen Her current abnormal lab findings could be secondary to ongoing hemolysis locally at the retroperitoneal bleeding site and may not be due to any transfusion related reaction We will discuss with collar starcher Repeat CT scan of the abdomen and pelvis showed decreasing size of the original hematoma but increasing fluid around the greater curvature of the stomach and lower pelvic region suggestive of organizing hematoma Clinically stable 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 Appreciate vascular surgery and urology input Will need to have outpatient urology appointment for further evaluation of left renal mass Fluid overload Likely has fluid overload due to multiple transfusion and ongoing infusion Has been getting Lasix as per instruction from upper extremity surgeon Will monitor PRP Ongoing shortness of breath No DVT as per ultrasound of the legs VQ scan low probability for pulmonary embolism Shortness of breath is secondary to fluid overload with small bilateral pleural effusion (3) Acute blood loss anemia: Secondary to acute to peritoneal hemorrhage 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 She received 6 units of PRBC, 3 units of FFP and 6 units of platelet Seems to be no more blood loss Monitor H&H Management noted above (4) Acute respiratory failure with hypoxia: Likely secondary to bilateral pleural effusions, likely secondary to multiple blood transfusions Echo: diastolic dysfunction Lasix 40mg IV q12h has been ordered since the weekend with good response Repeat chest x-ray this morning: Bilateral pleural pleural effusion unchanged Appreciate pulmonary/property and equipment clerk input and recommendation She has been weaned off high flow oxygen, now saturating well with 1 L/min via nasal cannula Denies any shortness of breath at rest or on ambulation (5) Hypertension: Likely secondary to pain, dyspnea Metoprolol and amlodipine started Continue to monitor and titrate accordingly (6) Hypercholesteremia: hold Atorvastatin for now (7) Hemorrhagic shock: Hemorrhagic shock treated and resolved with massive transfusions and IV Norepinephrine support (8) Mitral valve prolapse: Normal EKG and no other cardiac symptoms Hypothermia Multifactorial, including shock and blood loss following surgery resolved CODE STATUS Full DVT prophylaxis SCDs Disposition pending PT/ OT evaluation ordered Subjective 06/29 The patient was seen and examined in the medical floor She was seen by me on the day of admission Complaints to have minimal shortness of breath at rest and minimal left flank pain Wants to eat Real food 06/30 The patient was seen and examined in medical floor She complains to have some abdominal bloating but denies any other symptoms She has been ambulating without any problem 07/01 The patient was seen and examined in telemetry unit She denies to have any symptoms except some abdominal discomfort Denies any abdominal distention, any nausea and/or vomiting and her bowel has been moving Denies any other symptoms 07/02 The patient was seen and examined in the telemetry unit in presence of the daughter She has been complaining of some pain at the left flank and left loin Denies any other symptoms of chest pain, shortness of breath, palpitation, nausea and/or vomiting 07/03 The patient was seen and examined in telemetry unit Has been complaining of more pain in the left renal angle area Denies any other symptoms of shortness of breath, chest pain, palpitation, any nausea and/or vomiting Review of Systems Review of Systems: All systems reviewed and are unremarkable except as noted below Constitutional: + weakness Respiratory: + cough and + dyspnea (Minimal dyspnea at rest) Musculoskeletal: + back pain (Tenderness in left renal angle) Neurologic: Alert, awake and oriented x3 Physical Exam Constitutional: well nourished and + ill appearing; no acute distress Eyes: PERRL, conjunctivae normal, anicteric sclerae ENMT: external ear and nose normal, oropharynx normal Neck: trachea midline, no thyromegaly Respiratory: normal respiratory effort Auscultation: + diminished lung sounds (Bilaterally at the bases) and + crackles (Minimal crackles at the bases) Cardiovascular: Rate/Rhythm: regular rate and regular rhythm Heart Sounds: + murmur (2/6 over precordium) Gastrointestinal (Abdomen): Inspection/Auscultation: + abdomen distended and normal bowel sounds Percussion/Palpation: + abdomen tender (Left renal angle) and abdomen soft; no guarding Skin: no rashes, warm and dry Neurologic: moves all extremities; no focal motor deficits Lymphatic: no cervical or axillary lymphadenopathy Results & Data Vital Signs (Past 12 Hours) Vital Signs Temp Pulse Pulse Resp BP BP Pulse Ox 07/03/19 11:40 36.7 C 88 18 148/77 H 93 07/03/19 07:44 37.1 C 98 H 20 129/76 96 07/03/19 03:56 36.7 C 92 H 19 153/83 H 93 Laboratory Results Short CBC 07/03/19 Range/Units 07:59 WBC 14.18 H (4.8-10.8) K/uL Hgb 11.1 L (12.0-16.0) g/dL Hct 31.9 L (37-47) % Plt Count 459 H (130-400) K/uL BMP 07/03/19 07:59 Sodium 134 L Potassium Chloride 96 L Carbon Dioxide 31 BUN 23 H Creatinine 1.02 Glucose 92 Calcium 9.3 Liver Function 07/03/19 Range/Units 07:59 Total Bilirubin 3.0 H (0.2-1) mg/dl AST (15-37) U/L ALT 33 (12-78) U/L Alkaline Phosphatase 149 H (45-117) U/L Albumin 3.1 L (3.4-5.0) gm/dl Medications Administered Current Inpatient Medications Acetaminophen (Tylenol) 650 mg PO Q4H PRN PRN Reason: Fever/Mild Pain (Pain 1,2,3) Stop: 07/24/19 18:59 Last Admin: 06/26/19 10:53 Dose: 650 mg Documented by: Amlodipine Besylate (Norvasc) 10 mg PO [facility] Stop: 08/01/19 08:59 Last Admin: 07/03/19 09:10 Dose: 10 mg Documented by: Ascorbic Acid (Vitamin C) 500 mg PO [facility] Stop: 07/25/19 09:14 Last Admin: 07/03/19 09:11 Dose: 500 mg Documented by: Clonidine HCl (Catapres) 0.1 mg PO Q6H PRN PRN Reason: systolic bp > 160 Stop: 07/25/19 15:41 Last Admin: 07/01/19 04:27 Dose: 0.1 mg Documented by: Ferrous Sulfate (Feosol) 325 mg PO [facility] Stop: 07/26/19 08:59 Last Admin: 07/03/19 09:11 Dose: 325 mg Documented by: Hydromorphone HCl (Dilaudid) 0.5 mg IV Q4H PRN PRN Reason: Pain Stop: 07/09/19 16:01 Last Admin: 07/01/19 16:37 Dose: 0.5 mg Documented by: Promethazine HCl 12.5 mg/ (Sodium Chloride) 50.5 mls @ 202 mls/hr IV Q6H PRN PRN Reason: Nausea And Vomiting Stop: 07/25/19 14:47 Last Infusion: 06/28/19 22:20 Dose: Infused Documented by: Furosemide 20 mg/ Syringe 2 mls @ 4 mls[facility] Stop: 07/31/19 08:59 Last Admin: 07/03/19 09:10 Dose: 4 mls/min Documented by: Ipratropium [place] (Atrovent 0.02% 0.5mg/2.5ml) 0.5 mg INH Q4H PRN PRN Reason: Dyspnea Stop: 07/24/19 09:48 Magnesium Hydroxide (Milk Of Magnesia) 30 ml PO Q6H PRN PRN Reason: Constipation Stop: 07/27/19 16:27 Metoprolol Tartrate (Lopressor) 25 mg PO BID [facility] Stop: 07/27/19 07:14 Last Admin: 07/03/19 09:10 Dose: 25 mg Documented by: Oxycodone HCl (Roxicodone Immediate Rel) 12.5 mg PO Q6H PRN PRN Reason: Severe Pain (7,8,9,10) Stop: 07/08/19 18:59 Last Admin: 07/03/19 07:22 Dose: 12.5 mg Documented by: Oxycodone HCl (Roxicodone Immediate Rel) 7.5 mg PO Q6H PRN PRN Reason: Moderate Pain (4,5,6) Stop: 07/08/19 18:59 Last Admin: 07/02/19 08:40 Dose: 7.5 mg Documented by: Polyethylene Glycol (Miralax Powder Packet) 17 gm PO DAILY PRN PRN Reason: Constipation Stop: 07/26/19 15:51 Potassium Chloride (Klor-Con Pwd) 80 meq PO TID [facility] Stop: 07/29/19 08:59 Last Admin: 06/30/19 13:35 Dose: Not Given Documented by: Senna/Docusate Sodium (Senokot S) 1 tab [facility] Stop: 07/28/19 08:59 Last Admin: 07/03/19 09:13 Dose: 1 tab Documented by: Sodium Chloride (Lane Nasal) 1 sprays NA PRN PRN PRN Reason: Dryness Stop: 07/27/19 18:38 Last Admin: 06/27/19 20:42 Dose: 1 sprays Documented by: Spironolactone (Aldactone) 12.5 mg PO QAM [facility] Stop: 07/29/19 08:59 Last Admin: 07/03/19 09:10 Dose: 12.5 mg Documented by: (1) Hypertension Hypertension type: unspecified Qualified Code(s): I10 - Essential (primary) hypertension
--- NOTE | 2019-07-03 14:44 | Progress Note ---
DATE: 07/03/2019 SUBJECTIVE: The patient is feeling better. She does not have pain. Hematuria is getting better. She had a CT scan done earlier today, which shows decreasing size of the hematoma. Potassium is still somewhat low at 3.5 this morning and she is getting oral supplementation. No new issues. OBJECTIVE: VITAL SIGNS: Blood pressure 148/77, pulse rate 88, respiratory rate 18 per minute, temperature 36.7, 93% on room air. HEENT: Mucous membrane is moist. NECK: Supple. No jugular venous distention. CHEST: Bilateral clear to auscultation. CARDIOVASCULAR: S1, S2, regular. ABDOMEN: Soft, nontender. EXTREMITIES: Shows no edema. Urine output was about 2000 mL for the last few days with Lasix 20 IV b.i.d. LABORATORY TESTS: From this morning was reviewed. Potassium was 3.5, hemoglobin 11.1 and it is in the increasing trend. Sodium 134, potassium 3.5, chloride 96, BUN 23, creatinine 1.02. CT scan done was reviewed. ASSESSMENT AND PLAN: A 69-year-old female who presented with severe bleeding of angiomyolipoma status post emergent embolization on 06/24/2019 with hemorrhagic shock. 1. Volume overload. We will continue with Lasix 20 IV b.i.d., with that it is much better. She required massive transfusion at the time of presentation. 2. Hypokalemia. Potassium is better now at 3.5. 3. Left renal mass rupture, status post emergent embolization. Even with that, creatinine is actually holding pretty good and is normal. Continue current management. MTDD
[2019-07-04 07:57] LABS: Basophils # (auto) 0.06 K/uL (0-0.2); Basophils % (auto) 0.4 %; Eosinophils # (auto) 0.37 K/uL (0-0.5); Eosinophils % (auto) 2.5 %; Hematocrit (blood only) 30.7 % (37-47); Hemoglobin 10.6 g/dL (12.0-16.0); Immature Granulocytes % (auto) 1.4 %; Lymphocytes % (auto) 11.7 %; Mean Corpuscular Hgb Conc 34.5 g/dL (32-36); Mean Platelet Volume 9.1 fL (7.4-10.4); Monocytes # (auto) 1.12 K/uL (0.11-0.59); Monocytes % (auto) 7.7 %; Neutrophils % (auto) 76.3 %; Platelet Count 472 K/uL (130-400); RDW Coefficient of Variation 14.5 % (11.5-14.5); RDW Standard Deviation 48.2 fL (36.4-46.3); Red Blood Count 3.41 M/uL (4.2-5.4); White Blood Count 14.55 K/uL (4.8-10.8)
[2019-07-04 08:16] LABS: BUN Creatinine Ratio 24.8 (10-20); Calcium 9.1 mg/dl (8.5-10.1); Creatinine Clr Calc Pharmacy 44.9 ml/min; Est GFR (African American) 60.9; Est GFR (Non-African American) 52.6
[2019-07-04] MEDS: ASCORBIC ACID 500 MG TAB PO SCH (08:29)
[2019-07-04] MEDS: FERROUS SULFATE 325 MG TAB PO SCH (08:29)
[2019-07-04] MEDS: METOPROLOL TARTRATE 25 MG TAB PO SCH (08:29)
[2019-07-04] MEDS: AMLODIPINE BESYLATE 5 MG TAB PO SCH (08:29)
[2019-07-04] MEDS: SPIRONOLACTONE 25 MG TAB PO SCH (08:30)
[2019-07-04] MEDS: FUROSEMIDE 20 MG in SYRINGE 0 ML IV SCH (08:31)
--- NOTE | 2019-07-04 09:41 | Urology Progress Note ---
Date of Service July 04, 2019 Assessment & Plan (1) Hemorrhagic shock: 69 YO female with suspected renal mass vs AML, s/p severe retroperitoneal bleed POD #10 s/p embolization, ABLA We are very pleased with her progress thus far. She understands that we will arrange for outpatient follow up in 2-3 weeks time once she has stabilized to discuss outpatient management with Dr. Shelby. Nothing further to do from standpoint at this time. Thank you for allowing us to participate in the acute care of Ms. Sinha. Please reconsult with additional questions, concerns or changes in patient status. Subjective 69 YO female with suspected renal mass vs AML, s/p severe retroperitoneal bleed POD #10 s/p embolization, ABLA Pt continues to progress well, stating she feels good today. She has not required pain control since last evening and reports pain to still be well controlled this AM. Her appetite is beginning to improve. She has been able to ambulate lightly. Voiding without difficulty and also had BM without pain. No hematuria. No fevers/chills. No nausea/vomiting. BP has improved. H&H stable. Review of Systems Review of Systems: All systems reviewed & are unremarkable except as noted in HPI & below Physical Exam Constitutional: no acute distress and not ill appearing Eyes: no nystagmus ENMT: Ears: no hearing impairment Neck: trachea midline Respiratory: no respiratory distress and no cough Cardiovascular: Vessels: no JVD Chest (Breasts): Chest: normal inspection of chest Gastrointestinal (Abdomen): Inspection/Auscultation: abdomen not distended and no abdominal edema Percussion/Palpation: abdomen soft; abdomen nontender Musculoskeletal: Head/Neck/Chest: normocephalic and head atraumatic Skin: no rashes, warm and dry Neurologic: awake; not confused and not obtunded Psychiatric: Orientation: alert and oriented x 3 Eye Contact: good eye contact Affect: no depressed affect Lymphatic: no lymphadenopathy and no lymphedema Results & Data Vital Signs (Past 12 Hours) Vital Signs Temp Pulse Pulse Resp BP Pulse Ox 07/04/19 07:54 37.1 C 93 H 17 134/77 94 07/04/19 03:57 36.6 C 90 20 132/76 97 07/03/19 22:54 36.4 C L 89 18 129/74 94
--- NOTE | 2019-07-04 10:52 | Nephrology Progress Note ---
Date of Service July 04, 2019 Assessment & Plan (1) Volume overload: after massive transfusions w/ BL pleural effusions and L flank pain; paradoxically sob improves w/ lying down not sitting up; tachycardia noted but improving - had low prob VQ scan; would not give more IV contrast -Stop iv lasix. Will change to po lasix 40mg daily. Can be discharged on the same. She will need BMP (2) Hypertension: periprocedural; goal SBP 140-150s -on CCB now 10>5 mg daily, on metoprolol 25 mg bid, on prn clonidine > will put ccb back up to 10 mg daily (3) Renal mass, left: presume ruptured AML s/p 06/24 emergent embolization and presented same day w/ hemorrhagic shock; for OP work up once retroperitoneal bleed has stabilized; now essentially w/solitary kidney. She will need renal follow up outpatient in 1-2 weeks. Subjective Patient seen in f/u for retroperitoneal bleed, ZACKERY and volume overload. She denies any SOB. No leg swelling. She was negative 2 litres yesterday.BP is controlled. Sitting up in chair and eating breakfast Review of Systems Review of Systems: All systems reviewed & are unremarkable except as noted in HPI & below Physical Exam Physical Exam: General exam: Appears comfortable, no acute distress HEENT: Pupils are equal and reactive to light Neck: No JVD, neck is supple trachea is midline Respiratory system: Clear breath sounds bilaterally. Gastrointestinal: Abdomen is soft, non distended, non tender, bowel sounds are present. No renal angle tenderness CVS: Regular rate and rhythm. No murmurs, rubs or gallops Musculoskeletal: No joint or muscle tenderness Extremities: Non tender, no edema, peripheral pulses are present Neuro: Oriented, no tremors, no focal neurological deficits Skin: No rashes Results & Data Vital Signs (Past 12 Hours) Vital Signs Temp Pulse Pulse Resp BP Pulse Ox 07/04/19 07:54 37.1 C 93 H 17 134/77 94 07/04/19 03:57 36.6 C 90 20 132/76 97 07/03/19 22:54 36.4 C L 89 18 129/74 94 Laboratory Results Laboratory Results - last 24 hr 07/01/19 07/02/19 07/03/19 16:50 07:40 07:59 WBC RBC Hgb Hct MCV MCH MCHC RDW Std Deviation RDW Coeff of Fifi Plt Count MPV Immature Gran % (Auto) Neut % (Auto) Lymph % (Auto) [place] % (Auto) Eos % (Auto) Baso % (Auto) Immature Gran # (Auto) Neut # (Auto) Lymph # (Auto) [place] # (Auto) Eos # (Auto) Baso # (Auto) Sodium Potassium Chloride Carbon Dioxide Anion Gap BUN Creatinine Est Cr Clr Drug Dosing Est GFR ( Amer) Est GFR (Non-Af Amer) BUN/Creatinine Ratio Glucose Calcium Magnesium Ref Lab Test Result 07/04/19 07/04/19 07/04/19 07:18 07:18 07:18 WBC 14.55 H RBC 3.41 L Hgb 10.6 L Hct 30.7 L MCV 90.0 MCH 31.1 MCHC 34.5 RDW Std Deviation 48.2 H RDW Coeff of Fifi 14.5 Plt Count 472 H MPV 9.1 Immature Gran % (Auto) 1.4 Neut % (Auto) 76.3 Lymph % (Auto) 11.7 [place] % (Auto) 7.7 Eos % (Auto) 2.5 Baso % (Auto) 0.4 Immature Gran # (Auto) 0.20 H Neut # (Auto) 11.10 H Lymph # (Auto) 1.70 [place] # (Auto) 1.12 H Eos # (Auto) 0.37 Baso # (Auto) 0.06 Sodium 134 L Potassium Chloride 98 Carbon Dioxide 30 Anion Gap 7.0 BUN 27 H Creatinine 1.07 Est Cr Clr Drug Dosing 44.9 Est GFR ( Amer) 60.9 Est GFR (Non-Af Amer) 52.6 BUN/Creatinine Ratio 24.8 H Glucose 87 Calcium 9.1 Magnesium Ref Lab Test Result Pending (1) Volume overload Hypervolemia type: transfusion-associated Qualified Code(s): E87.71 - Transfusion associated circulatory overload (2) Hypertension Hypertension type: unspecified Qualified Code(s): I10 - Essential (primary) hypertension
[2019-07-04] MEDS ORDERED: POTASSIUM CHLORIDE 20 MEQ TABCR PO SCH (11:00)
[2019-07-04] MEDS: DOCUSATE SODIUM/SENNA 50/8.6MG TAB PO SCH (11:33)
--- NOTE | 2019-07-04 12:10 | Hospitalist Progress Note ---
Date of Service July 04, 2019 Assessment & Plan (1) Abnormal laboratory test: Reported from the lab that they could not get potassium level in our laboratory The blood was very colored like that of [place] and the blood had to be sent to [place] for further testing and identification of any antigen as she received so many blood product transfusion Further testing revealed that she has high bilirubin with normal liver test, high FDP, borderline high reticulocyte count and no result for potassium Still pending haptoglobin and fibrinogen level Recent ultrasound of the legs did not show any blood clot and VQ scan of the lung showed low probability of clot She received a total of 9 units of PRBC, 1 unit cryo, 3 units of FFP and 2 units of platelets since admission Discussed with branch account executive-likely has delayed reaction due to blood transfusion and likely to improve within the next few days The patient was transferred to telemetry unit to monitor the heart We will check stat EKG,Discussed with the sheet metal layout worker Clinically stable without any significant symptoms Monitor is not showing any arrhythmias and EKG did not show any hypokalemic features We will continue to monitor in the telemetry unit Discussed with the daughter and updated about her current medical condition The abnormal lab could be secondary to organization of the massive hematoma around left kidney Clinically asymptomatic and has been ambulating without difficulty Discussed with the branch account executive-abnormal blood test will take at least 2 to 3 weeks before it gets better-did not have have any follow-up with hematology Still awaiting CT of the blood test to exclude any transfusion reaction (2) Retroperitoneal bleed: Secondary to acute hemorrhage into a 10 cm upper pole left renal mass, likely representing an angiomyolipoma. Associated with large left-sided retroperitoneal hemorrhage measuring in excess of 20 cm in craniocaudad dimension. Status post cannulation of the aorta, selective retinal artery arteriogram with embolization of left renal artery She received a total of 6 units packed red blood cells, 3 units FFP and 6 units of platelet Hemoglobin remains stable for the last few days-9.5 on 06/29 Has minimal pain in the left flank without any guarding Will monitor H&H-hemoglobin remains stable at 9.4 today 07/01, Complains of increasing pain in the left renal angle and left flank likely secondary to organization of hematoma Locally tender and if the symptoms increases will get CT of the abdomen Her current abnormal lab findings could be secondary to ongoing hemolysis locally at the retroperitoneal bleeding site and may not be due to any transfusion related reaction We will discuss with branch account executive Repeat CT scan of the abdomen and pelvis showed decreasing size of the original hematoma but increasing fluid around the greater curvature of the stomach and lower pelvic region suggestive of organizing hematoma Clinically stable and will be discharged home to 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 Appreciate vascular surgery and urology input Will need to have outpatient urology appointment for further evaluation of left renal mass Fluid overload Likely has fluid overload due to multiple transfusion and ongoing infusion Has been getting Lasix as per instruction from sheet metal layout worker Will monitor PRP Ongoing shortness of breath No DVT as per ultrasound of the legs VQ scan low probability for pulmonary embolism Shortness of breath is secondary to fluid overload with small bilateral pleural effusion (3) Acute blood loss anemia: Secondary to acute to peritoneal hemorrhage 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 She received 6 units of PRBC, 3 units of FFP and 6 units of platelet Seems to be no more blood loss Monitor H&H Management noted above (4) Acute respiratory failure with hypoxia: Likely secondary to bilateral pleural effusions, likely secondary to multiple blood transfusions Echo: diastolic dysfunction Lasix 40mg IV q12h has been ordered since the weekend with good response Repeat chest x-ray this morning: Bilateral pleural pleural effusion unchanged Appreciate pulmonary/machine shop instructor input and recommendation She has been weaned off high flow oxygen, now saturating well with 1 L/min via nasal cannula Denies any shortness of breath at rest or on ambulation Desaturation at rest and/or with ambulation (5) Hypertension: Likely secondary to pain, dyspnea Metoprolol and amlodipine started Continue to monitor and titrate accordingly Blood pressure is controlled (6) Hypercholesteremia: hold Atorvastatin for now (7) Hemorrhagic shock: Hemorrhagic shock treated and resolved with massive transfusions and IV Norepinephrine support (8) Mitral valve prolapse: Normal EKG and no other cardiac symptoms Hypothermia Multifactorial, including shock and blood loss following surgery resolved CODE STATUS Full DVT prophylaxis SCDs Disposition We will discuss with daughter and will be discharged this afternoon PT/ OT evaluation ordered Subjective 06/29 The patient was seen and examined in the medical floor She was seen by me on the day of admission Complaints to have minimal shortness of breath at rest and minimal left flank pain Wants to eat Real food 06/30 The patient was seen and examined in medical floor She complains to have some abdominal bloating but denies any other symptoms She has been ambulating without any problem 07/01 The patient was seen and examined in telemetry unit She denies to have any symptoms except some abdominal discomfort Denies any abdominal distention, any nausea and/or vomiting and her bowel has been moving Denies any other symptoms 07/02 The patient was seen and examined in the telemetry unit in presence of the daughter She has been complaining of some pain at the left flank and left loin Denies any other symptoms of chest pain, shortness of breath, palpitation, nausea and/or vomiting 07/03 The patient was seen and examined in telemetry unit Has been complaining of more pain in the left renal angle area Denies any other symptoms of shortness of breath, chest pain, palpitation, any nausea and/or vomiting 07/04 The patient was seen and examined in the telemetry unit She does not have any complaints as of today and her left flank and back pain has improved Denies any nausea or vomiting, any shortness of breath and or palpitation Has been ambulating without any Review of Systems Review of Systems: All systems reviewed and are unremarkable except as noted below Constitutional: + weakness Musculoskeletal: + back pain (Tenderness in left renal angle) Neurologic: Alert, awake and oriented x3 Physical Exam Physical Exam: No apparent distress at rest Constitutional: well nourished and + ill appearing; no acute distress Eyes: PERRL, conjunctivae normal, anicteric sclerae ENMT: external ear and nose normal, oropharynx normal Neck: trachea midline, no thyromegaly Respiratory: normal respiratory effort Auscultation: + diminished lung sounds (Bilaterally at the bases) and + crackles (Minimal crackles at the bases) Cardiovascular: Rate/Rhythm: regular rate and regular rhythm Heart Sounds: + murmur (2/6 over precordium) Gastrointestinal (Abdomen): Inspection/Auscultation: normal bowel sounds Percussion/Palpation: + abdomen tender (Mildly tender left renal angle and adjoining area) and abdomen soft; no guarding Skin: no rashes, warm and dry Neurologic: moves all extremities; no focal motor deficits Lymphatic: no cervical or axillary lymphadenopathy Results & Data Vital Signs (Past 12 Hours) Vital Signs Temp Pulse Pulse Resp BP BP Pulse Ox 07/04/19 11:36 36.6 C 88 17 138/76 96 07/04/19 07:54 37.1 C 93 H 17 134/77 94 07/04/19 03:57 36.6 C 90 20 132/76 97 Laboratory Results Short CBC 07/04/19 Range/Units 07:18 WBC 14.55 H (4.8-10.8) K/uL Hgb 10.6 L (12.0-16.0) g/dL Hct 30.7 L (37-47) % Plt Count 472 H (130-400) K/uL BMP 07/04/19 07:18 Sodium 134 L Potassium Chloride 98 Carbon Dioxide 30 BUN 27 H Creatinine 1.07 Glucose 87 Calcium 9.1 Medications Administered Current Inpatient Medications Acetaminophen (Tylenol) 650 mg PO Q4H PRN PRN Reason: Fever/Mild Pain (Pain 1,2,3) Stop: 07/24/19 18:59 Last Admin: 06/26/19 10:53 Dose: 650 mg Documented by: Amlodipine Besylate (Norvasc) 10 mg PO [facility] Stop: 08/01/19 08:59 Last Admin: 07/04/19 08:29 Dose: 10 mg Documented by: Ascorbic Acid (Vitamin C) 500 mg PO [facility] Stop: 07/25/19 09:14 Last Admin: 07/04/19 08:29 Dose: 500 mg Documented by: Clonidine HCl (Catapres) 0.1 mg PO Q6H PRN PRN Reason: systolic bp > 160 Stop: 07/25/19 15:41 Last Admin: 07/01/19 04:27 Dose: 0.1 mg Documented by: Ferrous Sulfate (Feosol) 325 mg PO [facility] Stop: 07/26/19 08:59 Last Admin: 07/04/19 08:29 Dose: 325 mg Documented by: Furosemide (Lasix) 40 mg PO DAILY [facility] Stop: 08/04/19 08:59 Hydromorphone HCl (Dilaudid) 0.5 mg IV Q4H PRN PRN Reason: Pain Stop: 07/09/19 16:01 Last Admin: 07/01/19 16:37 Dose: 0.5 mg Documented by: Promethazine HCl 12.5 mg/ (Sodium Chloride) 50.5 mls @ 202 mls/hr IV Q6H PRN PRN Reason: Nausea And Vomiting Stop: 07/25/19 14:47 Last Infusion: 06/28/19 22:20 Dose: Infused Documented by: Ipratropium [place] (Atrovent 0.02% 0.5mg/2.5ml) 0.5 mg INH Q4H PRN PRN Reason: Dyspnea Stop: 07/24/19 09:48 Magnesium Hydroxide (Milk Of Magnesia) 30 ml PO Q6H PRN PRN Reason: Constipation Stop: 07/27/19 16:27 Metoprolol Tartrate (Lopressor) 25 mg PO BID [facility] Stop: 07/27/19 07:14 Last Admin: 07/04/19 08:29 Dose: 25 mg Documented by: Oxycodone HCl (Roxicodone Immediate Rel) 12.5 mg PO Q6H PRN PRN Reason: Severe Pain (7,8,9,10) Stop: 07/08/19 18:59 Last Admin: 07/03/19 23:11 Dose: 12.5 mg Documented by: Oxycodone HCl (Roxicodone Immediate Rel) 7.5 mg PO Q6H PRN PRN Reason: Moderate Pain (4,5,6) Stop: 07/08/19 18:59 Last Admin: 07/02/19 08:40 Dose: 7.5 mg Documented by: Polyethylene Glycol (Miralax Powder Packet) 17 gm PO DAILY PRN PRN Reason: Constipation Stop: 07/26/19 15:51 Potassium Chloride (Klor-Con Pwd) 80 meq PO TID [facility] Stop: 07/29/19 08:59 Last Admin: 06/30/19 13:35 Dose: Not Given Documented by: Potassium Chloride (Klor-Con M20) 20 meq PO QAM [facility] Stop: 08/03/19 10:59 Last Admin: 07/04/19 11:33 Dose: 20 meq Documented by: Senna/Docusate Sodium (Senokot S) 1 tab PO QAM [facility] Stop: 07/28/19 08:59 Last Admin: 07/04/19 11:33 Dose: Not Given Documented by: Sodium Chloride ([place] Nasal) 1 sprays NA PRN PRN PRN Reason: Dryness Stop: 07/27/19 18:38 Last Admin: 06/27/19 20:42 Dose: 1 sprays Documented by: (1) Hypertension Hypertension type: unspecified Qualified Code(s): I10 - Essential (primary) hypertension
[2019-07-04] MEDS ORDERED: FUROSEMIDE 40 MG TAB PO SCH (17:00)
--- NOTE | 2019-07-05 08:04 | Discharge Summary ---
Date of Service July 05, 2019 Admission HPI Per Admitting Provider She is a 16 years old obese female with significant past medical history of hyperlipidemia and mitral valve prolapse with a history of hernia repair apparently presented to the ER with severe acute abdominal pain. She was very pale and diaphoretic at presentation. Management scan including CT of the chest and CT of the abdomen and pelvis revealed no intra-abdominal/retroperitoneal bleed around left kidney. She has started with intravenous Levophed and fluid resuscitation and appropriate special services including surgery, vascular surgery, urology and letter from electrical hardware engineer where consulted. Concerns of left sided angiomyolipoma of the kidney rupture was considered. Emergent cannulation of the aorta, selective renal renal artery angiogram and embolization of the left renal artery was performed with stoppage of the bleeding. During the process the patient received two 6 unit of packed red cell blood, 3 units FFP and 6 units of platelets including adequate crystalloid infusion. She was intubated and was transferred to ICU for continuation of care. Admission Exam Per Admitting Provider Physical Exam: Sedated on mechanical ventilation Eyes: Close ENMT: external ear and nose normal, oropharynx normal Neck: trachea midline, no thyromegaly Respiratory: On mechanical ventilator Cardiovascular: Rate/Rhythm: regular rate and regular rhythm Heart Sounds: + murmur (2/6 over precordium) Gastrointestinal (Abdomen): Inspection/Auscultation: + abdomen distended Percussion/Palpation: + abdomen rigid (Minimally received) Decreased bowel sounds Neurologic: Sedated on mechanical ventilator Lymphatic: no cervical or axillary lymphadenopathy Principal Diagnosis Acute massive retroperitoneal bleed, status post a total of 15 units of blood and blood products transfusion, abnormal blood test likely secondary to hemolysis of the hematoma, left renal angiomyolipoma status post successful embolization of the left renal artery. Discharge Exam Constitutional well nourished and + ill appearing; no acute distress Eyes PERRL, conjunctivae normal, anicteric sclerae ENMT external ear and nose normal, oropharynx normal Neck trachea midline, no thyromegaly Respiratory normal respiratory effort Auscultation: + diminished lung sounds (Bilaterally at the bases) and + crackles (Minimal crackles at the bases) Cardiovascular Rate/Rhythm: regular rate and regular rhythm Heart Sounds: + murmur (2/6 over precordium) Gastrointestinal (Abdomen) Inspection/Auscultation: normal bowel sounds Percussion/Palpation: + abdomen tender (Mildly tender left renal angle and adjoining area) and abdomen soft; no guarding Skin no rashes, warm and dry Neurologic moves all extremities; no focal motor deficits Lymphatic no cervical or axillary lymphadenopathy Discharge Data Allergies Allergy/AdvReac Type Severity Reaction Status Date / Time chlorhexidine AdvReac Mild Hives Verified 06/28/19 21:11 Consultations 06/24/19 09:49 Consult Case Management - Discharge Planning Routine Consult Urology Stat Consult Vascular Surgery Stat 06/24/19 09:53 Consult System Administration Manager Routine 06/28/19 13:51 Consult Pulmonology Routine 06/28/19 18:58 Consult Nephrology Routine 07/04/19 09:49 Consult Case Management - Discharge Planning Routine Procedures Performed Operation Date: 06/24/19 07:00 Actual Procedures p Cannulation of Aorta, Selective Left Renal Artery Arteriogram, Embolization of Left Renal Artery, Mechanical Closure of Right Femoral Artery. (Not Applicable) - Stefan Meyer MD Ordered Studies 06/24/19 05:01 CT angio abd pelvis wo/w con Stat CT angio chest dissec wo/w con Stat 06/24/19 07:44 EV angio renal BI Stat 06/29/19 09:40 US venous doppler LE BI Routine 07/03/19 09:41 CT abd pelvis wo con Routine Hospital Course (1) Abnormal laboratory test: Reported from the lab that they could not get potassium level in our laboratory The blood was very colored like that of [place] and the blood had to be sent to [place] for further testing and identification of any antigen as she received so many blood product transfusion Further testing revealed that she has high bilirubin with normal liver test, high FDP, borderline high reticulocyte count and no result for potassium Still pending haptoglobin and fibrinogen level Recent ultrasound of the legs did not show any blood clot and VQ scan of the lung showed low probability of clot She received a total of 9 units of PRBC, 1 unit cryo, 3 units of FFP and 2 units of platelets since admission Discussed with nursing secretary-likely has delayed reaction due to blood transfusion and likely to improve within the next few days The patient was transferred to telemetry unit to monitor the heart We will check stat EKG,Discussed with the bill board poster Clinically stable without any significant symptoms Monitor is not showing any arrhythmias and EKG did not show any hypokalemic features We will continue to monitor in the telemetry unit Discussed with the daughter and updated about her current medical condition The abnormal lab could be secondary to organization of the massive hematoma around left kidney Clinically asymptomatic and has been ambulating without difficulty Discussed with the nursing secretary-abnormal blood test will take at least 2 to 3 weeks before it gets better-did not have have any follow-up with hematology Still awaiting CT of the blood test to exclude any transfusion reaction (2) Retroperitoneal bleed: Secondary to acute hemorrhage into a 10 cm upper pole left renal mass, likely representing an angiomyolipoma. Associated with large left-sided retroperitoneal hemorrhage measuring in excess of 20 cm in craniocaudad dimension. Status post cannulation of the aorta, selective retinal artery arteriogram with embolization of left renal artery She received a total of 6 units packed red blood cells, 3 units FFP and 6 units of platelet Hemoglobin remains stable for the last few days-9.5 on 06/29 Has minimal pain in the left flank without any guarding Will monitor H&H-hemoglobin remains stable at 9.4 today 07/01, Complains of increasing pain in the left renal angle and left flank likely secondary to organization of hematoma Locally tender and if the symptoms increases will get CT of the abdomen Her current abnormal lab findings could be secondary to ongoing hemolysis locally at the retroperitoneal bleeding site and may not be due to any transfusion related reaction We will discuss with nursing secretary Repeat CT scan of the abdomen and pelvis showed decreasing size of the original hematoma but increasing fluid around the greater curvature of the stomach and lower pelvic region suggestive of organizing hematoma Clinically stable and will be discharged home to 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 Appreciate vascular surgery and urology input Will need to have outpatient urology appointment for further evaluation of left renal mass Fluid overload Likely has fluid overload due to multiple transfusion and ongoing infusion Has been getting Lasix as per instruction from bill board poster Will monitor PRP Ongoing shortness of breath No DVT as per ultrasound of the legs VQ scan low probability for pulmonary embolism Shortness of breath is secondary to fluid overload with small bilateral pleural effusion (3) Acute blood loss anemia: Secondary to acute to peritoneal hemorrhage 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 She received 6 units of PRBC, 3 units of FFP and 6 units of platelet Seems to be no more blood loss Monitor H&H Management noted above (4) Acute respiratory failure with hypoxia: Likely secondary to bilateral pleural effusions, likely secondary to multiple blood transfusions Echo: diastolic dysfunction Lasix 40mg IV q12h has been ordered since the weekend with good response Repeat chest x-ray this morning: Bilateral pleural pleural effusion unchanged Appreciate pulmonary/electrical hardware engineer input and recommendation She has been weaned off high flow oxygen, now saturating well with 1 L/min via nasal cannula Denies any shortness of breath at rest or on ambulation Desaturation at rest and/or with ambulation (5) Hypertension: Likely secondary to pain, dyspnea Metoprolol and amlodipine started Continue to monitor and titrate accordingly Blood pressure is controlled (6) Hypercholesteremia: hold Atorvastatin for now (7) Hemorrhagic shock: Hemorrhagic shock treated and resolved with massive transfusions and IV Norepinephrine support (8) Mitral valve prolapse: Normal EKG and no other cardiac symptoms Hypothermia Multifactorial, including shock and blood loss following surgery resolved CODE STATUS Full DVT prophylaxis SCDs Disposition We will discuss with daughter and will be discharged this afternoon PT/ OT evaluation ordered Total Time Total Time Spent Total Time Spent (In Minutes): 40 minutes Total Time Includes: Examination of the Patient, Discharge Planning, Medication Reconciliation and Communication With Other Providers Discharge Plan Discharge Items Patient Disposition: Home - Home Health Services Reason For Visit: ACUTE BLOOD LOSS ANEMIA Discharge Diagnosis: Acute massive retroperitoneal bleed, status post a total of 15 units of blood and blood products transfusion, abnormal blood test likely secondary to hemolysis of the hematoma, left renal angiomyolipoma status post successful embolization of the left renal artery. Condition: Fair Discharge Goals: Decrease discomfort, Improve function and Increase independence Activity: Resume your previous activity Non-emergency contact: Primary Care Provider Call non-emergency contact if: you have any medication questions and your symptoms worsen Follow-up/Referrals: Jamaal Shelby II, DO [Physician] - (Doctor's office will call you with an appointment in 2 to 3 weeks) Courtney Benitez MD, PhD [Physician] - 07/22/19 11:20 am Madeleine Domingo DO [Primary Care Provider] - 07/08/19 11:05 am (Your appointment is with Dr. Gil) Stefan Meyer MD [Physician] - Diet: Regular Addtl Provider Instructions: Please take precaution to avoid falls New medications: Amlodipine-10 mg daily Ascorbic acid-500 mg daily Ferrous sulfate-325 mg daily Furosemide-40 mg daily Metoprolol tartrate-25 mg twice daily Potassium chloride-20 mg daily and MiraLAX Try to take more potassium containing fluids like banana 1 or 2 a day Medications discontinued: Aspirin and NSAIDs Have your renal function and electrolytes check on and reported to the bill board poster Prescriptions: New furosemide 40 mg Tablet 40 mg PO DAILY 30 Days Qty: 30 RF: 0 polyethylene glycol 3350 [Miralax] 17 gram Powder In Packet 17 g PO DAILY 30 Days Qty: 30 RF: 0 amlodipine [Norvasc] 5 mg Tablet 10 mg PO QAM 30 Days Qty: 60 RF: 0 potassium chloride [Klor-Con M20] 20 mEq Tablet,Er Particles/Crystals 20 meq PO QAM Qty: 30 RF: 0 ascorbic acid (vitamin C) [Vitamin C] 500 mg Tablet 500 mg PO QAM 30 Days Qty: 30 RF: 0 ferrous sulfate 325 mg (65 mg iron) Tablet,Delayed Release (Dr/Ec) 325 mg PO QAM 30 Days Qty: 30 RF: 0 metoprolol tartrate 25 mg Tablet 25 mg PO BID 30 Days Qty: 60 RF: 0 oxycodone 5 mg capsule 5 mg PO Q6HWA PRN (Reason: pain) Qty: 14 RF: 0 Continued atorvastatin 20 mg tablet 20 mg PO DAILY RF: 0 magnesium oxide 500 mg Tablet 500 mg PO DAILY RF: 0 calcium carbonate-vitamin D3 [Calcium 500 With D] 500 mg(1,250mg) -400 unit Tablet 2 tab PO DAILY RF: 0 cholecalciferol (vitamin D3) [Vitamin D3] 2,000 unit Tablet 2,000 unit PO DAILY RF: 0 cyanocobalamin (vitamin B-12) 1,000 mcg Capsule 1,000 mcg PO DAILY RF: 0 Discontinued aspirin 81 mg Tablet,Delayed Release (Dr/Ec) 81 mg PO DAILY RF: 0 naproxen sodium 220 mg Tablet 440 mg PO DAILY RF: 0 Stand-Alone Forms: Call Back Authorization, [facility] Discharge Orders: Discharge Order (Routine); Ordered 07/04/19 Ordered By: Sonya Quintero Admission Data Admit Date/Time: 06/24/19 09:53 Attending Provider: Sonya Quintero Admit Provider: Sonya Quintero Primary Care Provider: Madeleine Domingo Other Providers: Sonya Quintero ; Luke Melissa ; Jamaal Shelby II ; Stefan Meyer ; Demarcus Bunn ; Srinath Oneill ; Courtney Benitez Service: Telemetry Other Interventions: Discharge Summary Assessment (RN) Last Done: 07/04/19 12:54 DC Date/Time DO NOT enter until pt leaves facility: 07/04/19 13:44
[2019-07-05] MEDS ORDERED: FUROSEMIDE 40 MG TAB PO SCH (09:00)
== END 2019-07-04 13:44 | disposition home health service (06) | DRG 673 ==
LOC: ED 04:42 → OR 06:30 → 1E 06:31 → SUATTDRO 09:53 → 1E 09:53 → 3N 06-25 11:37 → 2S 06-30 16:48
DX: D17.71 Benign lipomatous neoplasm of kidney; R58 Hemorrhage, not elsewhere classified; R57.8 Other shock; T68.XXXA Hypothermia, initial encounter; D62 Acute posthemorrhagic anemia; I34.1 Nonrheumatic mitral (valve) prolapse; E78.00 Pure hypercholesterolemia, unspecified; I10 Essential (primary) hypertension; J96.00 Acute respiratory failure, unspecified whether with hypoxia or hypercapnia; T80.92XA Unspecified transfusion reaction, initial encounter; Z79.82 Long term (current) use of aspirin

== ENCOUNTER 2021-02-27 18:35 | Observation (INO) ==
[2021-02-27] MEDS ORDERED: SODIUM CHLORIDE 0.9% 1000ML 1,000 ML IV STA (19:25)
[2021-02-27] MEDS ORDERED: SODIUM CHLORIDE 0.9% 500 ML IV STA (19:25)
[2021-02-27] MEDS ORDERED: ONDANSETRON INJ 2 MG/ML 2 ML VIAL ONE (19:45)
[2021-02-27] MEDS ORDERED: ONDANSETRON INJ 2 MG/ML 2 ML VIAL IV STA (19:57)
[2021-02-27 20:17] LABS: Basophils # (auto) 0.03 K/uL (0-0.2); Basophils % (auto) 0.2 %; Eosinophils # (auto) 0.09 K/uL (0-0.5); Eosinophils % (auto) 0.7 %; Hematocrit (blood only) 35.4 % (37-47); Hemoglobin 12.4 g/dL (12.0-16.0); Immature Granulocytes # (auto) 0.02 K/uL (0.00-0.02); Immature Granulocytes % (auto) 0.1 %; Lymphocytes # (auto) 1.13 K/uL (1.2-3.4); Lymphocytes % (auto) 8.3 %; Mean Corpuscular Hemoglobin 32.2 pg (25-34); Mean Corpuscular Volume 91.9 fL (80-100); Mean Platelet Volume 9.5 fL (7.4-10.4); Monocytes % (auto) 5.1 %; Neutrophils # (auto) 11.63 K/uL (1.4-6.5); Neutrophils % (auto) 85.6 %; Platelet Count 288 K/uL (130-400); RDW Coefficient of Variation 12.7 % (11.5-14.5); RDW Standard Deviation 43.1 fL (36.4-46.3); Red Blood Count 3.85 M/uL (4.2-5.4)
[2021-02-27] MEDS: HYDROmorphone INJ 0.5 MG/0.5 ML SYR IV PRN ×2 (20:20→23:49)
[2021-02-27 20:36] LABS: Albumin Level 4.2 gm/dl (3.4-5.0); Calcium 9.5 mg/dl (8.5-10.1); Creatinine Clr Calc Pharmacy 42.2 ml/min; Est GFR (African American) 60.8; Est GFR (Non-African American) 52.4; Potassium 3.8 mmol/L (3.5-5.1)
[2021-02-27 20:39] LABS: Albumin Globulin Ratio 1.1 (0.9-2); Bilirubin,Total 0.9 mg/dl (0.2-1); Globulin 3.9 gm/dl (2.5-4.0); Total Protein 8.1 gm/dl (6.4-8.2)
--- NOTE | 2021-02-27 20:39 | Emergency Department Note ---
Impression & Plan Abdominal pain, acute, right upper quadrant ED Provider Note INFORMANT: Patient ED PROVIDER(S): Marco Antonio Arcos MD CHIEF COMPLAINT: Abdominal pain PLAN: Disposition: Admitted Condition: Good Outpatient prescription management: none Referral: None MEDICAL DECISION MAKING: Patient presented because of abdominal pain. She was concerned about pancreatitis as she has history of the same. This was postprandial tonight. She had an IV established. She was treated with IV Zofran and Dilaudid. The patient underwent blood work which did reveal an elevated white blood cell count and slight elevation of her LFTs. Lipase was normal. She had a normal EKG. The patient underwent ultrasound imaging. I did review her prior records and CT scan from today showed cholelithiasis. Ultrasound imaging was concerning as she had ductal dilatation and stones. With the white blood cell count elevation, elevated LFTs and abnormal ultrasound the patient was given a dose of IV Mefoxin. [facility] Patient and family were educated. Evaluated patient in the ER for further management. Triage Nursing notes reviewed and agree them. Vital Signs: reviewed and remarkable for no significant abnormalities Differential diagnosis: pancreatitis, biliary pathology, Appendicitis, oinfections, diverticulitis, UTI, obstruction, mesenteric ischemia, aortic pathology, inflammatory bowel disease, renal colic, PUD, hernia, volvulus, constipation, as well as other pathologies. Diagnostics interpreted by me: ECG: Rate: 80 Rhythm:Normal sinus [place]:Normal QRS:Normal ST segements:No elevation or depression Other:No PACs or PVCs Cardiac Monitoring:Cardiac monitoring ordered by me: The patient was placed on continuous cardiac monitoring and observed. It revealed a normal sinus rhythm at 88 beats per minute without ectopy or evidence of dysrhythmia. Imaging studies: Gallbladder ultrasound as noted above. I refer you to the EMR for further details. HPI: The patient is a 69 year old female who presents to the Emergency Room with complaints of upper abdominal pain that radiates to her back. This started this afternoon around 1500 hrs. and is worsening. The patient also notes the following associated symptoms, nausea and vomiting. The patient has found no relieving factors. Current pain is rated as 7/10. Patient has history of pancreatitis and this feels the same. She had a CT scan done today for evaluation of a renal mass but was asymptomatic at the time of the scan. Pt denies LOC, headache, fevers, chills, diaphoresis, visual changes, neck pain, chest pain, breathing difficulties, melena, hematochezia, urinary symptoms, numbness, weakness, lymphadenopathy, rash, or other complaints. ROS: See above HPI for pertinent positives & negatives. A total of 10 systems reviewed and were otherwise negative. PAST MEDICAL HISTORY:See Below , pancreatitis PAST SURGICAL HISTORY:See Below, coiling of left renal angiomyolipoma FAMILY HISTORY:See Below SOCIAL HISTORY:See Below, no tobacco HOME MEDICATIONS:See Below ALLERGIES:See Below VITALS:See Below PHYSICAL EXAMINATION: GENERAL: Awake, alert, uncomfortable-appearing, in no distress HENT: Normocephalic, atraumatic. Oropharynx unremarkable. EYES: Normal conjunctiva. Sclera non-icteric. NECK: Inspection normal. Non-tender. Supple. No nuchal rigidity. FROM. No masses. RESPIRATORY: Clear to auscultation. No wheezes. No rales. Normal respiratory effort. CARDIAC: Normal rate. Normal rhythm. Systolic ejection murmur. No rubs. Extremities warm and well perfused. Pulses equal. No JVD. GI: Soft, non-distended. Right upper tenderness to palpation. No rebound or guarding. No masses. RECTAL: Deferred. MUSCULOSKELETAL: Atraumatic. Chest examination reveals no tenderness. The back is symmetrical on inspection without obvious abnormality. There is no CVA tenderness to palpation. No joint edema. LOWER EXTREMITIES: Calves are equal size bilaterally and non-tender. No edema. No discoloration. NEURO: Normal sensorium. No sensory or motor deficits noted. SKIN: No rash or jaundice noted. Marco Antonio Arcos MD Past Med/Surg History Medical History (Updated 02/27/21 @ 20:37 by Marco Antonio Arcos MD) Hypercholesteremia Mitral valve prolapse Surgical History S/P hernia repair Social History Smoking Status: Never smoker Communication Ability: Effective marital status: Current Living Situation Comment: unknown Feels Safe at Home: Yes Assistive Devices: None Allergies Allergies Allergy/AdvReac Type Severity Reaction Status Date / Time chlorhexidine AdvReac Mild Hives Verified 02/27/21 19:25 Home Meds Home Medications Medication Instructions Recorded Confirmed amlodipine 10 mg PO DAILY 05/15/20 02/27/21 atorvastatin 20 mg PO DAILY 05/15/20 02/27/21 lisinopril 10 mg PO DAILY 05/15/20 02/27/21 metoprolol tartrate 25 mg PO BID 05/15/20 02/27/21 Previous Rx's Medication Instructions Recorded ondansetron 4 mg PO Q6 PRN #14 tab 05/15/20 Results & Data (ED) Vital Signs Vital Signs - 24 hr 02/27/21 18:40 02/27/21 19:25 02/27/21 20:19 Temperature 36.8 C Temperature Source Temporal Artery Scan Pulse Rate 85 88 82 Pulse Rate [Right] Pulse Rate from SpO2 Sensor Pulse Rhythm Regular Pulse Rhythm [Right] Pulse Strength Normal Pulse Strength [Right] Respiratory Rate 20 18 19 Respiratory Effort / Characteristics Non-Labored Spontaneous Respiratory Depth Normal Respiratory Pattern Regular Blood Pressure 114/54 L 143/70 H Blood Pressure [Right Arm] Blood Pressure Mean 74 94 Blood Pressure Mean [Right Arm] Blood Pressure Position Sitting Blood Pressure Position [Right Arm] Pulse Oximetry 97 97 Oxygen Delivery Method Room Air Room Air Sepsis Recent Fever Within 48 Hours No Sepsis New/Unexplained Change in Mental Status N/A Sepsis Action Taken by Nursing No Action Required 02/27/21 20:38 02/27/21 20:40 02/27/21 20:50 Temperature Temperature Source Pulse Rate 86 84 85 Pulse Rate [Right] Pulse Rate from SpO2 Sensor Pulse Rhythm Pulse Rhythm [Right] Pulse Strength Pulse Strength [Right] Respiratory Rate 18 26 H 20 Respiratory Effort / Characteristics Respiratory Depth Respiratory Pattern Blood Pressure Blood Pressure [Right Arm] Blood Pressure Mean Blood Pressure Mean [Right Arm] Blood Pressure Position Blood Pressure Position [Right Arm] Pulse Oximetry Oxygen Delivery Method Sepsis Recent Fever Within 48 Hours Sepsis New/Unexplained Change in Mental Status Sepsis Action Taken by Nursing 02/27/21 21:00 02/27/21 21:10 02/27/21 21:20 Temperature Temperature Source Pulse Rate 85 84 84 Pulse Rate [Right] Pulse Rate from SpO2 Sensor Pulse Rhythm Pulse Rhythm [Right] Pulse Strength Pulse Strength [Right] Respiratory Rate 19 26 H 20 Respiratory Effort / Characteristics Respiratory Depth Respiratory Pattern Blood Pressure Blood Pressure [Right Arm] Blood Pressure Mean Blood Pressure Mean [Right Arm] Blood Pressure Position Blood Pressure Position [Right Arm] Pulse Oximetry Oxygen Delivery Method Sepsis Recent Fever Within 48 Hours Sepsis New/Unexplained Change in Mental Status Sepsis Action Taken by Nursing 02/27/21 21:59 02/27/21 22:01 02/27/21 22:10 Temperature Temperature Source Pulse Rate 86 85 80 Pulse Rate [Right] Pulse Rate from SpO2 Sensor 87 85 81 Pulse Rhythm Pulse Rhythm [Right] Pulse Strength Pulse Strength [Right] Respiratory Rate 17 23 15 Respiratory Effort / Characteristics Respiratory Depth Respiratory Pattern Blood Pressure 123/95 Blood Pressure [Right Arm] Blood Pressure Mean 104 Blood Pressure Mean [Right Arm] Blood Pressure Position Blood Pressure Position [Right Arm] Pulse Oximetry 99 98 97 Oxygen Delivery Method Sepsis Recent Fever Within 48 Hours Sepsis New/Unexplained Change in Mental Status Sepsis Action Taken by Nursing 02/27/21 22:20 02/27/21 22:30 02/27/21 23:14 Temperature Temperature Source Pulse Rate 83 84 Pulse Rate [Right] 88 Pulse Rate from SpO2 Sensor 82 84 Pulse Rhythm Pulse Rhythm [Right] Regular Pulse Strength Pulse Strength [Right] Normal Respiratory Rate 18 20 16 Respiratory Effort / Characteristics Non-Labored Spontaneous Respiratory Depth Normal Respiratory Pattern Blood Pressure Blood Pressure [Right Arm] 123/84 Blood Pressure Mean Blood Pressure Mean [Right Arm] 97 Blood Pressure Position Blood Pressure Position [Right Arm] Lying Pulse Oximetry 95 96 97 Oxygen Delivery Method Room Air Sepsis Recent Fever Within 48 Hours Sepsis New/Unexplained Change in Mental Status Sepsis Action Taken by Nursing 02/27/21 23:54 Temperature Temperature Source Pulse Rate Pulse Rate [Right] 88 Pulse Rate from SpO2 Sensor Pulse Rhythm Pulse Rhythm [Right] Regular Pulse Strength Pulse Strength [Right] Normal Respiratory Rate 16 Respiratory Effort / Characteristics Non-Labored Spontaneous Respiratory Depth Normal Respiratory Pattern Blood Pressure Blood Pressure [Right Arm] 148/76 H Blood Pressure Mean Blood Pressure Mean [Right Arm] 100 Blood Pressure Position Blood Pressure Position [Right Arm] Sitting Pulse Oximetry 95 Oxygen Delivery Method Room Air Sepsis Recent Fever Within 48 Hours Sepsis New/Unexplained Change in Mental Status Sepsis Action Taken by Nursing Laboratory Data Result diagrams: 02/27/21 20:05 02/27/21 20:05 Lab Results 02/27/21 02/27/21 02/27/21 Range/Units 20:05 20:05 20:05 WBC 13.60 H (4.8-10.8) K/uL RBC 3.85 L (4.2-5.4) M/uL Hgb 12.4 (12.0-16.0) g/dL Hct 35.4 L (37-47) % MCV 91.9 (80-100) fL MCH 32.2 (25-34) pg MCHC 35.0 (32-36) g/dL RDW Std Deviation 43.1 (36.4-46.3) fL RDW Coeff of Fifi 12.7 (11.5-14.5) % Plt Count 288 (130-400) K/uL MPV 9.5 (7.4-10.4) fL Immature Gran % (Auto) 0.1 % Neut % (Auto) 85.6 % Lymph % (Auto) 8.3 % [place] % (Auto) 5.1 % Eos % (Auto) 0.7 % Baso % (Auto) 0.2 % Neut # (Auto) 11.63 H (1.4-6.5) K/uL Lymph # (Auto) 1.13 L (1.2-3.4) K/uL [place] # (Auto) 0.70 H (0.11-0.59) K/uL Eos # (Auto) 0.09 (0-0.5) K/uL Baso # (Auto) 0.03 (0-0.2) K/uL Immature Gran # (Auto) 0.02 (0.00-0.02) K/uL Sodium 139 (136-145) mmol/L Potassium 3.8 (3.5-5.1) mmol/L Chloride 107 (98-107) mmol/L Carbon Dioxide 25 (21-32) mmol/L Anion Gap 7.0 (3-11) BUN 22 H (7-18) mg/dl Creatinine 1.06 (0.6-1.2) mg/dl Est Cr Clr Drug Dosing 42.2 ml/min Est GFR ( Amer) 60.8 Est GFR (Non-Af Amer) 52.4 BUN/Creatinine Ratio 21.0 H (10-20) Glucose 115 H (70-99) mg/dl Calcium 9.5 (8.5-10.1) mg/dl Magnesium 2.1 (1.8-2.4) mg/dl Total Bilirubin 0.9 (0.2-1) mg/dl AST 170 H (15-37) U/L ALT 102 H (12-78) U/L Alkaline Phosphatase 96 (45-117) U/L Total Protein 8.1 (6.4-8.2) gm/dl Albumin 4.2 (3.4-5.0) gm/dl Globulin 3.9 (2.5-4.0) gm/dl Albumin/Globulin Ratio 1.1 (0.9-2) Lipase 291 (73-393) U/L Urine Color Urine Appearance (Clear) Urine pH (4.5-7.5) Ur Specific [place] (1.000-1.030) Urine Protein (Negative) Urine Glucose (UA) (Negative) Urine Ketones (Negative) Urine Blood (Negative) Urine Nitrite (Negative) Urine Bilirubin (Negative) Urine Urobilinogen (Negative) Ur Leukocyte Esterase (Negative) Urine WBC (Auto) (0-5) /hpf Urine RBC (Auto) (0-4) /hpf U Hyaline Cast (Auto) (0-5) /lpf U Epithel Cells (Auto) (0-5) /lpf Urine Bacteria (Auto) (Negative) COVID-19 Eval Order SARS-CoV-2 (PCR) (Negative) Influenza Type A (PCR) (Neg) Influenza Type B (PCR) (Neg) RSV (RT-PCR) (Neg) 02/27/21 02/27/21 02/27/21 Range/Units 22:45 22:55 22:55 WBC (4.8-10.8) K/uL RBC (4.2-5.4) M/uL Hgb (12.0-16.0) g/dL Hct (37-47) % MCV (80-100) fL MCH (25-34) pg MCHC (32-36) g/dL RDW Std Deviation (36.4-46.3) fL RDW Coeff of Fifi (11.5-14.5) % Plt Count (130-400) K/uL MPV (7.4-10.4) fL Immature Gran % (Auto) % Neut % (Auto) % Lymph % (Auto) % [place] % (Auto) % Eos % (Auto) % Baso % (Auto) % Neut # (Auto) (1.4-6.5) K/uL Lymph # (Auto) (1.2-3.4) K/uL [place] # (Auto) (0.11-0.59) K/uL Eos # (Auto) (0-0.5) K/uL Baso # (Auto) (0-0.2) K/uL Immature Gran # (Auto) (0.00-0.02) K/uL Sodium (136-145) mmol/L Potassium (3.5-5.1) mmol/L Chloride (98-107) mmol/L Carbon Dioxide (21-32) mmol/L Anion Gap (3-11) BUN (7-18) mg/dl Creatinine (0.6-1.2) mg/dl Est Cr Clr Drug Dosing ml/min Est GFR ( Amer) Est GFR (Non-Af Amer) BUN/Creatinine Ratio (10-20) Glucose (70-99) mg/dl Calcium (8.5-10.1) mg/dl Magnesium (1.8-2.4) mg/dl Total Bilirubin (0.2-1) mg/dl AST (15-37) U/L ALT (12-78) U/L Alkaline Phosphatase (45-117) U/L Total Protein (6.4-8.2) gm/dl Albumin (3.4-5.0) gm/dl Globulin (2.5-4.0) gm/dl Albumin/Globulin Ratio (0.9-2) Lipase (73-393) U/L Urine Color Yellow Urine Appearance Clear (Clear) Urine pH 5.0 (4.5-7.5) Ur Specific [place] 1.022 (1.000-1.030) Urine Protein Trace H (Negative) Urine Glucose (UA) Negative (Negative) Urine Ketones Trace H (Negative) Urine Blood 1+ H (Negative) Urine Nitrite Negative (Negative) Urine Bilirubin Negative (Negative) Urine Urobilinogen Negative (Negative) Ur Leukocyte Esterase Negative (Negative) Urine WBC (Auto) 1-5 (0-5) /hpf Urine RBC (Auto) 0-4 (0-4) /hpf U Hyaline Cast (Auto) 1-5 (0-5) /lpf U Epithel Cells (Auto) 0-5 (0-5) /lpf Urine Bacteria (Auto) Negative (Negative) COVID-19 Eval Order [facility]Rsv at [facility] SARS-CoV-2 (PCR) NEGATIVE (Negative) Influenza Type A (PCR) Negative (Neg) Influenza Type B (PCR) Negative (Neg) RSV (RT-PCR) Negative (Neg) Administered Medications Hydromorphone HCl (Hydromorphone Inj 0.5 Mg/0.5 Ml Syr) 0.5 mg IV Q15M PRN PRN Reason: Pain Stop: 03/13/21 19:56 Last Admin: 02/27/21 23:49 Dose: 0.5 mg Documented by: [id number] Admin: 02/27/21 20:20 Dose: 0.5 mg Documented by: [id number] Sodium Chloride (Nss 1000ml) 1,000 mls @ 125 mls/hr IV .Q8H STA Stop: 02/28/21 03:24 Last Admin: 02/27/21 20:34 Dose: 125 mls/hr Documented by: [id number] Discontinued Medications Sodium Chloride (Nss) 500 mls @ 999 mls/hr IV .Q31M STA Stop: 02/27/21 19:55 Last Infusion: 02/27/21 20:30 Dose: 0 mls/hr Documented by: [id number] Admin: 02/27/21 20:20 Dose: 999 mls/hr Documented by: [id number] Cefoxitin Sodium (Mefoxin) 2,000 mg in 60 mls @ 100 mls/hr IV NOW STA Stop: 02/27/21 23:59 Last Infusion: 02/28/21 00:24 Dose: 0 mls/hr Documented by: [id number] Admin: 02/27/21 23:48 Dose: 100 mls/hr Documented by: [id number] Ondansetron HCl (Ondansetron Inj 2 Mg/Ml 2 Ml Vial) Confirm Administered Dose 4 mg .ROUTE .STK-MED ONE Stop: 02/27/21 19:46 Last Admin: 02/27/21 20:20 Dose: 4 mg Documented by: [id number] Ondansetron HCl (Ondansetron Inj 2 Mg/Ml 2 Ml Vial) 4 mg IV NOW STA Stop: 02/27/21 19:58 Last Admin: 02/27/21 21:00 Dose: 4 mg Documented by: [id number] Discharge Plan Visit Data Chief Complaint: Abdominal Pain Stated Complaint: ABDOMINAL PAIN ED Provider: Maciejczyk,Marco Antonio F Discharge Problem: Abdominal pain, acute, right upper quadrant Forms Stand Alone Forms: [facility] Prescriptions Prescriptions: No Action atorvastatin 20 mg tablet 20 mg PO DAILY RF: 0 amlodipine 10 mg tablet 10 mg PO DAILY RF: 0 lisinopril 10 mg tablet 10 mg PO DAILY RF: 0 metoprolol tartrate 25 mg tablet 25 mg PO BID RF: 0 ondansetron 4 mg tablet,disintegrating 4 mg PO Q6 PRN (Reason: nausea and vomiting) Qty: 14 RF: 0
[2021-02-27 23:05] LABS: Magnesium 2.1 mg/dl (1.8-2.4)
[2021-02-27 23:08] LABS: Appearance Urine Clear (Clear); Bacteria Urine Automated Negative (Negative); Bilirubin Urine Negative (Negative); Blood Urine 1+ (Negative); Color Urine Yellow; Epithelial Cell Urine Auto 0-5 /lpf (0-5); Glucose Urine UA Negative (Negative); Ketones Urine Trace (Negative); Leukocyte Esterase Urine Negative (Negative); Nitrite Urine Negative (Negative); Protein Urine Trace (Negative); RBC Urine Automated 0-4 /hpf (0-4); Specific Gravity Urine 1.022 (1.000-1.030); Urobilinogen Urine Negative (Negative)
[2021-02-27] MEDS ORDERED: cefOXitin 2,000 MG/60 ML BAG IV STA (23:24)
[2021-02-27 23:45] LABS: Influenza A virus by PCR Negative (Neg); Influenza B virus by PCR Negative (Neg); RSV by PCR Negative (Neg); SARS CoV2 RNA(COVID-19) InHosp NEGATIVE (Negative)
--- NOTE | 2021-02-28 00:16 | History & Physical Report ---
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 until patient seen by GI in a.m. in anticipation of procedure Check hemoglobin A1c DVT prophylaxis. SCDs Re: History catastrophic bleed from renal angiomyolipoma Full code Patient partner requesting updates from providers. Mr. Eliseo Kruse, contact #[phone]. Text document was generated using Joyus voice recognition software. It may contain grammatical or spelling errors. Kindly contact undersigned for clarification of any documentation item in question. History of Present Illness Chief Complaint: Abdominal pain Primary Care Provider: Olinda Gil, History obtained from patient, family, and records. 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 Last confinement June 2019 for retroperitoneal bleed secondary to bleeding left renal angiomyolipoma status post embolization. Yesterday afternoon, patient noted epigastric achy discomfort noted after eating a greasy meal. No fever, no chills. No chest pain, no S OB. Similar episode about a year ago. Patient brought to the ER by family. Given Mefoxin for possible cholecystitis. 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 Allergies Allergy/AdvReac Type Severity Reaction Status Date / Time chlorhexidine AdvReac Mild Hives Verified 02/27/21 19:25 Home Medications Medication Instructions Recorded Confirmed Type amlodipine 10 mg PO DAILY 05/15/20 02/27/21 History atorvastatin 20 mg PO DAILY 05/15/20 02/27/21 History lisinopril 10 mg PO DAILY 05/15/20 02/27/21 History metoprolol tartrate 25 mg PO BID 05/15/20 02/27/21 History ondansetron 4 mg PO Q6 PRN #14 tab 05/15/20 02/27/21 Rx Past Med/Surg History Medical History Hypercholesteremia Mitral valve prolapse Surgical History S/P hernia repair Social History Smoking Status: Never smoker Hx Alcohol Use: No Hx Substance Use: No Preferred Language: Indian Communication Ability: Effective Rabbit Dresser Required: No Beliefs That Will Affect Care: None marital status: Current Living Situation: Significant Other Current Living Situation Comment: unknown Other Information That Helps Us Care for You: No Feels Safe at Home: Yes Safety Concerns: Feels Safe At This Time Assistive Devices: None Review of Systems Review of Systems: As per HPI, all 10 systems reviewed, all other ROS negative Physical Exam Physical Exam: GENERAL: Comfortable, slightly anxious, looks younger for stated age, no respiratory distress SKIN: Normal color, warm HEENT: [place] palpebral conjunctivae, no ptosis, dry buccal mucosa NECK : Supple, no tenderness CHEST : CTA, no tenderness HEART : RRR, no obvious murmurs ABDOMEN: Some distention, epigastric tenderness EXTREMITIES : No LE swelling/tenderness, no other conspicuous deformities noted NEUROLOGIC : Coherent, no facial asymmetry, no other gross focality Results & Data Results & Data ([facility]) Vital Signs (Past 12 Hours) Vital Signs Temp Pulse Pulse Resp BP BP Pulse Ox 02/27/21 23:54 88 16 148/76 H 95 02/27/21 23:14 88 16 123/84 97 02/27/21 22:30 84 20 96 02/27/21 22:20 83 18 95 02/27/21 22:10 80 15 97 02/27/21 22:01 85 23 98 02/27/21 21:59 86 17 123/95 99 02/27/21 21:20 84 20 02/27/21 21:10 84 26 H 02/27/21 21:00 85 19 02/27/21 20:50 85 20 02/27/21 20:40 84 26 H 02/27/21 20:38 86 18 02/27/21 20:19 82 19 143/70 H 02/27/21 19:25 88 18 97 02/27/21 18:40 36.8 C 85 20 114/54 L 97 Laboratory Results Laboratory Results WBC 13.60 K/uL (4.8-10.8) H 02/27/21 20:05 RBC 3.85 M/uL (4.2-5.4) L 02/27/21 20:05 Hgb 12.4 g/dL (12.0-16.0) 02/27/21 20:05 Hct 35.4 % (37-47) L 02/27/21 20:05 MCV 91.9 fL (80-100) 02/27/21 20:05 MCH 32.2 pg (25-34) 02/27/21 20:05 MCHC 35.0 g/dL (32-36) 02/27/21 20:05 RDW Std Deviation 43.1 fL (36.4-46.3) 02/27/21 20:05 RDW Coeff of Fifi 12.7 % (11.5-14.5) 02/27/21 20:05 Plt Count 288 K/uL (130-400) 02/27/21 20:05 MPV 9.5 fL (7.4-10.4) 02/27/21 20:05 Immature Gran % (Auto) 0.1 % 02/27/21 20:05 Neut % (Auto) 85.6 % 02/27/21 20:05 Lymph % (Auto) 8.3 % 02/27/21 20:05 [place] % (Auto) 5.1 % 02/27/21 20:05 Eos % (Auto) 0.7 % 02/27/21 20:05 Baso % (Auto) 0.2 % 02/27/21 20:05 Neut # (Auto) 11.63 K/uL (1.4-6.5) H 02/27/21 20:05 Lymph # (Auto) 1.13 K/uL (1.2-3.4) L 02/27/21 20:05 [place] # (Auto) 0.70 K/uL (0.11-0.59) H 02/27/21 20:05 Eos # (Auto) 0.09 K/uL (0-0.5) 02/27/21 20:05 Baso # (Auto) 0.03 K/uL (0-0.2) 02/27/21 20:05 Immature Gran # (Auto) 0.02 K/uL (0.00-0.02) 02/27/21 20:05 Sodium 139 mmol/L (136-145) 02/27/21 20:05 Potassium 3.8 mmol/L (3.5-5.1) 02/27/21 20:05 Chloride 107 mmol/L (98-107) 02/27/21 20:05 Carbon Dioxide 25 mmol/L (21-32) 02/27/21 20:05 Anion Gap 7.0 (3-11) 02/27/21 20:05 BUN 22 mg/dl (7-18) H 02/27/21 20:05 Creatinine 1.06 mg/dl (0.6-1.2) 02/27/21 20:05 Est Cr Clr Drug Dosing 42.2 ml/min 02/27/21 20:05 Est GFR ( Amer) 60.8 02/27/21 20:05 Est GFR (Non-Af Amer) 52.4 02/27/21 20:05 BUN/Creatinine Ratio 21.0 (10-20) H 02/27/21 20:05 Glucose 115 mg/dl (70-99) H 02/27/21 20:05 Calcium 9.5 mg/dl (8.5-10.1) 02/27/21 20:05 Magnesium 2.1 mg/dl (1.8-2.4) 02/27/21 20:05 Total Bilirubin 0.9 mg/dl (0.2-1) 02/27/21 20:05 AST 170 U/L (15-37) H 02/27/21 20:05 ALT 102 U/L (12-78) H 02/27/21 20:05 Alkaline Phosphatase 96 U/L (45-117) 02/27/21 20:05 Total Protein 8.1 gm/dl (6.4-8.2) 02/27/21 20:05 Albumin 4.2 gm/dl (3.4-5.0) 02/27/21 20:05 Globulin 3.9 gm/dl (2.5-4.0) 02/27/21 20:05 Albumin/Globulin Ratio 1.1 (0.9-2) 02/27/21 20:05 Lipase 291 U/L (73-393) 02/27/21 20:05 Urine Color Yellow 02/27/21 22:45 Urine Appearance Clear (Clear) 02/27/21 22:45 Urine pH 5.0 (4.5-7.5) 02/27/21 22:45 Ur Specific [place] 1.022 (1.000-1.030) 02/27/21 22:45 Urine Protein Trace (Negative) H 02/27/21 22:45 Urine Glucose (UA) Negative (Negative) 02/27/21 22:45 Urine Ketones Trace (Negative) H 02/27/21 22:45 Urine Blood 1+ (Negative) H 02/27/21 22:45 Urine Nitrite Negative (Negative) 02/27/21 22:45 Urine Bilirubin Negative (Negative) 02/27/21 22:45 Urine Urobilinogen Negative (Negative) 02/27/21 22:45 Ur Leukocyte Esterase Negative (Negative) 02/27/21 22:45 Urine WBC (Auto) 1-5 /hpf (0-5) 02/27/21 22:45 Urine RBC (Auto) 0-4 /hpf (0-4) 02/27/21 22:45 U Hyaline Cast (Auto) 1-5 /lpf (0-5) 02/27/21 22:45 U Epithel Cells (Auto) 0-5 /lpf (0-5) 02/27/21 22:45 Urine Bacteria (Auto) Negative (Negative) 02/27/21 22:45 COVID-19 Eval Order CovFluRsv at [facility] 02/27/21 22:55 SARS-CoV-2 (PCR) NEGATIVE (Negative) 02/27/21 22:55 Influenza Type A (PCR) Negative (Neg) 02/27/21 22:55 Influenza Type B (PCR) Negative (Neg) 02/27/21 22:55 RSV (RT-PCR) Negative (Neg) 02/27/21 22:55 Diagnostic Findings Gallbladder ultrasound initial read: Cholelithiasis without gallbladder wall thickening or pericholecystic fluid. Enlarged CBD measuring 9 mm. Intrahepatic biliary dilatation. Correlate for laboratory evidence of biliary obstruction and consider MRCP as indicated.
[2021-02-28] MEDS ORDERED: PROMETHAZINE HCL 12.5 MG in SODIUM CHLORIDE 0.9% 50 ML IV PRN (01:23)
[2021-02-28] MEDS ORDERED: LORazepam 0.25 MG/0.5 ML VIAL IV PRN (01:23)
[2021-02-28] MEDS: METOPROLOL TARTRATE 25 MG TAB PO SCH ×3 (02:11→21:02)
[2021-02-28] MEDS: NSS + 20MEQ KCL 20 MEQ/1,000 ML BAG IV SCH ×2 (02:17→22:40)
[2021-02-28 06:10] LABS: Basophils # (auto) 0.02 K/uL (0-0.2); Basophils % (auto) 0.3 %; Eosinophils # (auto) 0.08 K/uL (0-0.5); Eosinophils % (auto) 1.1 %; Hematocrit (blood only) 30.9 % (37-47); Immature Granulocytes # (auto) 0.01 K/uL (0.00-0.02); Immature Granulocytes % (auto) 0.1 %; Lymphocytes # (auto) 1.74 K/uL (1.2-3.4); Lymphocytes % (auto) 23.9 %; Mean Corpuscular Hemoglobin 32.6 pg (25-34); Mean Corpuscular Hgb Conc 35.6 g/dL (32-36); Mean Corpuscular Volume 91.7 fL (80-100); Mean Platelet Volume 9.2 fL (7.4-10.4); Monocytes # (auto) 0.54 K/uL (0.11-0.59); Monocytes % (auto) 7.4 %; Neutrophils % (auto) 67.2 %; Platelet Count 264 K/uL (130-400); RDW Coefficient of Variation 12.7 % (11.5-14.5); Red Blood Count 3.37 M/uL (4.2-5.4); White Blood Count 7.29 K/uL (4.8-10.8)
[2021-02-28 06:52] LABS: Albumin Globulin Ratio 0.9 (0.9-2); Albumin Level 3.1 gm/dl (3.4-5.0); BUN Creatinine Ratio 17.4 (10-20); Bilirubin,Total 0.7 mg/dl (0.2-1); Calcium 8.3 mg/dl (8.5-10.1); Est GFR (African American) 82.9; Est GFR (Non-African American) 71.5; Globulin 3.5 gm/dl (2.5-4.0); Potassium 4.2 mmol/L (3.5-5.1); Total Protein 6.6 gm/dl (6.4-8.2)
--- NOTE | 2021-02-28 07:10 | Ultrasound Report ---
ABDOMINAL ULTRASOUND, RIGHT UPPER QUADRANT HISTORY: Right upper quadrant pain.. COMPARISON: Abdomen and pelvis CT 02/27/2021. FINDINGS: Pancreas: The pancreas demonstrates a normal echotexture. Liver: Mild intrahepatic bile duct dilatation. Gallbladder: There are few small gallstones. No gallbladder wall thickening. The gallbladder is mildl y distended. CBD: The common bile duct is mildly distended measuring up to 9 mm. Right kidney: No hydronephrosis. IMPRESSION: 1. Mild intra and extrahepatic bile duct dilatation. Correlate for evidence of biliary obstruction an d consider MRCP as follow-up. 2. Mildly distended gallbladder containing a few small stones. No gallbladder wall thickening. ACT 112: Negative or not required by law. Electronically signed by: Smith Smith M.D. 02/28/2021 7:09 AM
[2021-02-28] MEDS: ACETAMINOPHEN 325 MG TAB PO PRN (07:51)
[2021-02-28 07:57] LABS: Estimated Average Glucose 94 mg/dl; Hemoglobin A1C 4.9 % (4.5-5.6)
[2021-02-28] MEDS ORDERED: INDOMETHACIN 50 MG SUPP PR ONE ×2 (08:11→10:29)
--- NOTE | 2021-02-28 08:41 | Gastrointestinal Consultation ---
Date of Consultation February 28, 2021 Assessment & Plan (1) Elevated LFTs: (2) Epigastric abdominal pain: Pt is a 71 y/o female w upper abd pain associated w n/v, noted to have elevated LFTs, abd imaging findings of mildly distended gallbladder w stones and intra/extrahepatic biliary ductal dilation, CBD 9mm. - Keep NPO - Plan for EUS +/- ERCP w Dr. Dubon in OR today - Trend LFTs - Consult Surgery to eval for possible cholecystectomy Supervising Physician Co-Signing Physician Notes I performed a history and physical examination of the patient today, including specifically on physical exam - soft abdomen. I have discussed the patient's management with the advanced practitioner. Please refer to the nurse practitioner's note for the documented findings and plan of care. Dilated CBD with rising LFTs, abdominal pain and gallstones, needs to evaluate/ treat choledocholithiasis. EUS/ERCP History of Present Illness Reason for Consultation: Abd pain, elevated LFTs Requesting Physician: Dr. José Miguel Nogueira Attending Physician: Dr. Manuel Dubon History of Present Illness Pt is a 71 y/o female w PMHx of HTN, HLD, renal angiomyolipoma, s/p embolizationof L renal artery who presented yesterday w c/o epigastric abd pain after eating potato chips. She reports she has had intermittent epigastric discomfort for the past year. Pain this time radiates to back. Had associated nausea, vomiting w/o hematemesis, coffee ground emesis, bowel habit changes. On eval, she is noted to have elevated LFTs: Tbili 0.7, AST 327, ALT 319, Alk phos 97, Lipase normal. U/S evidence of gallstones w mild intra and extrahepatic bile duct dilatation, and mildly distended gallbladder. MRCP not obtained due to pt being clautrophobic Denies hx of liver dz, autoimmune disease in family. Denies tobacco, ETOH, illicit drugs Denies herbal supplements, new meds or antibx. She take 2g Tylenol a day for OA pain Allergies Allergy/AdvReac Type Severity Reaction Status Date / Time chlorhexidine AdvReac Mild Hives Verified 02/27/21 19:25 Home Medications Medication Instructions Recorded Confirmed Type amlodipine 10 mg PO DAILY 05/15/20 02/27/21 History atorvastatin 20 mg PO DAILY 05/15/20 02/27/21 History lisinopril 10 mg PO DAILY 05/15/20 02/27/21 History metoprolol tartrate 25 mg PO BID 05/15/20 02/27/21 History ondansetron 4 mg PO Q6 PRN #14 tab 05/15/20 02/27/21 Rx Patient History Medical History (Updated 02/28/21 @ 08:47 by SANDRO Valencia) Hypercholesteremia Mitral valve prolapse Surgical History S/P hernia repair Social History Smoking Status: Never smoker Hx Alcohol Use: No Hx Substance Use: No Preferred Language: Arabic Communication Ability: Effective Pest Control Service Sales Agent Required: No Beliefs That Will Affect Care: None marital status: Current Living Situation: Significant Other Current Living Situation Comment: unknown Other Information That Helps Us Care for You: No Feels Safe at Home: Yes Safety Concerns: Feels Safe At This Time Assistive Devices: None Review of Systems Review of Systems: All systems reviewed & are unremarkable except as noted in HPI & below Constitutional: no fever, no chills, no fatigue and no weight loss Eyes: no eye pain and no worsening vision Ear, Nose, Mouth, Throat: no tinnitus, no dizziness, no nasal discharge and no epistaxis Respiratory: no cough, no dyspnea, no dyspnea on exertion and no wheezing Cardiovascular: no chest pain, no orthopnea, no palpitations and no edema Gastrointestinal: as per Subjective / HPI Genitourinary: no dysuria, no urinary frequency, no urinary incontinence and no hematuria Musculoskeletal: no stiffness and no myalgia Neurologic: no localized weakness, no paralysis, no tremor(s) and no headache(s) Endocrine: no polydipsia and no polyuria Hematologic / Lymphatic: no easy bleeding and no night sweats Physical Exam Constitutional: WD/WN, vitals as above well groomed, cooperative and comfortable Eyes: PERRL, conjunctivae normal, anicteric sclerae ENMT: external ear and nose normal, oropharynx normal Respiratory: normal respiratory effort, lungs clear to auscultation Cardiovascular: RRR, no murmur, no edema Gastrointestinal (Abdomen): Inspection/Auscultation: + hypoactive bowel sounds Percussion/Palpation: + abdomen tender (epigastric ) and abdomen soft Skin: no rashes, warm and dry no jaundice Psychiatric: A+Ox3, euthymic affect Lymphatic: no lymphedema Results & Data ([facility] [place]) Vital Signs (Past 12 Hours) Vital Signs Temp Pulse Pulse Resp BP BP BP 02/28/21 07:24 37.0 C 80 16 126/74 02/28/21 01:30 36.6 C 90 16 148/84 H 02/28/21 01:06 82 16 122/71 02/27/21 23:54 88 16 148/76 H 02/27/21 23:14 88 16 123/84 02/27/21 22:30 84 20 02/27/21 22:20 83 18 02/27/21 22:10 80 15 02/27/21 22:01 85 23 02/27/21 21:59 86 17 123/95 02/27/21 21:20 84 20 02/27/21 21:10 84 26 H 02/27/21 21:00 85 19 02/27/21 20:50 85 20 02/27/21 20:40 84 26 H 02/27/21 20:38 86 18 Pulse Ox 02/28/21 07:24 95 02/28/21 01:30 98 02/28/21 01:06 95 02/27/21 23:54 95 02/27/21 23:14 97 02/27/21 22:30 96 02/27/21 22:20 95 02/27/21 22:10 97 02/27/21 22:01 98 02/27/21 21:59 99 02/27/21 21:20 02/27/21 21:10 02/27/21 21:00 02/27/21 20:50 02/27/21 20:40 02/27/21 20:38
--- NOTE | 2021-02-28 08:44 | Anesthesiology Consultation ---
Date of Service February 28, 2021 Assessment & Plan (1) Encounter for pre-operative examination: Chart Review Chart Review: Acceptable Risk for Surgery History Surgery Operation Date: 02/28/21 10:50 Proposed Procedures p Endoscopic Retrograde Cholangiopancreatogram - Manuel Dubon MD s Upper Endoscopic Ultrasonography - Manuel Dubon MD Height/Weight Height: 5 ft 2 in Weight: 65.3 kg Allergies Allergy/AdvReac Type Severity Reaction Status Date / Time chlorhexidine AdvReac Mild Hives Verified 02/27/21 19:25 Medications Home Medications Medication Instructions Recorded Confirmed Last Taken amlodipine 10 mg PO DAILY 05/15/20 02/27/21 Unknown atorvastatin 20 mg PO DAILY 05/15/20 02/27/21 Unknown lisinopril 10 mg PO DAILY 05/15/20 02/27/21 Unknown metoprolol tartrate 25 mg PO BID 05/15/20 02/27/21 Unknown ondansetron 4 mg PO Q6 PRN #14 tab 05/15/20 02/27/21 Unknown Active Medications Generic Name Dose Route Start Last Admin Trade Name Freq PRN Reason Stop Dose Admin Acetaminophen 325 mg 02/28/21 01:23 02/28/21 07:51 Acetaminophen 325 Mg Tab PO 03/30/21 01:22 325 mg Q6H PRN Administration Mild Pain Potassium Chloride/Sodium Chloride 20 meq in 1,000 mls @ 50 mls/hr 02/28/21 01 :23 02/28/21 02:17 Normal Saline W/20 Meq Kcl IV 03/30/21 01:22 50 mls/hr .Q20H CHRIS Administration Metoprolol Tartrate 25 mg 02/28/21 00:30 02/28/21 02:11 Metoprolol Tartrate 25 Mg Tab PO 03/30/21 00:29 Not Given BID CHRIS Past Medical History Medical History Hypercholesteremia Mitral valve prolapse Past Surgical History Surgical History S/P hernia repair Social History Smoking Status: Never smoker Hx Alcohol Use: No Hx Substance Use: No substance use type: unknown Last Used Substance: Unknown Physical Exam Vital Signs Last Vital Signs Temp 37.0 C 02/28/21 07:24 Pulse 80 02/28/21 07:24 Resp 16 02/28/21 07:24 BP 126/74 02/28/21 07:24 Pulse Ox 95 02/28/21 07:24 Testing Laboratory Results 02/28/21 05:56 02/28/21 05:56 Hemoglobin A1c 4.9 % (4.5-5.6) 02/27/21 18:44 Urine Color Yellow 02/27/21 22:45 Urine Appearance Clear (Clear) 02/27/21 22:45 Urine pH 5.0 (4.5-7.5) 02/27/21 22:45 Ur Specific [place] 1.022 (1.000-1.030) 02/27/21 22:45 Urine Protein Trace (Negative) H 02/27/21 22:45 Urine Glucose (UA) Negative (Negative) 02/27/21 22:45 Urine Ketones Trace (Negative) H 02/27/21 22:45 Urine Nitrite Negative (Negative) 02/27/21 22:45 Ur Leukocyte Esterase Negative (Negative) 02/27/21 22:45 Urine WBC (Auto) 1-5 /hpf (0-5) 02/27/21 22:45 Urine RBC (Auto) 0-4 /hpf (0-4) 02/27/21 22:45 U Hyaline Cast (Auto) 1-5 /lpf (0-5) 02/27/21 22:45 U Epithel Cells (Auto) 0-5 /lpf (0-5) 02/27/21 22:45 Urine Bacteria (Auto) Negative (Negative) 02/27/21 22:45 Electrocardiogram Date: 02/27/21 Findings: + NSR @ (80) Echocardiogram Date: 06/26/19 EF: 70% LV Function: normal mild pulm htn
[2021-02-28] MEDS ORDERED: ONDANSETRON INJ 2 MG/ML 2 ML VIAL ONE (08:53)
[2021-02-28] MEDS ORDERED: MIDAZOLAM HCL 1 MG/ML 2ML VIAL ONE (08:53)
[2021-02-28] MEDS ORDERED: LIDOCAINE 2% 2 ML VIAL/AMP(20MG/ML) INFIL ONE (08:53)
[2021-02-28] MEDS ORDERED: PROPOFOL IV EMULSION 10 MG/ML 20 ML VIAL IV ONE (08:53)
[2021-02-28] MEDS ORDERED: fentaNYL citrate 100 MCG/2 ML VIAL ONE (08:54)
--- NOTE | 2021-02-28 08:57 | History & Physical Bridge Note ---
Date of Service February 28, 2021 History & Physical Bridge Note I have examined the patient, reviewed the History & Physical and in the interval since the performance of the History & Physical I have noted the following changes of clinical significance: no changes noted EUS/ERCP today
[2021-02-28] MEDS ORDERED: ONDANSETRON INJ 2 MG/ML 2 ML VIAL IV PRN (09:06)
[2021-02-28] MEDS ORDERED: fentaNYL citrate 100 MCG/2 ML VIAL IV PRN (09:06)
[2021-02-28] MEDS ORDERED: ATROPINE SULFATE 0.1 MG/ML 10ML SYR IV PRN (09:06)
[2021-02-28] MEDS ORDERED: SUCCINYLCHOLINE 100MG/5ML SYR IV ONE (09:58)
--- NOTE | 2021-02-28 10:25 | Operative Report ---
Post Operative Report Pre & Post Diagnosis Operation Date: 02/28/21 10:50 Pre-Op Diagnosis: Elevated LFTs, Common Bile Duct stone mm Post-Op Diagnosis: Elevated LFTs, Common Bile Duct stone mm I identified the patient and participated in the time-out.: Yes Procedure Operation Date: 02/28/21 10:50 Actual Procedures p Endoscopic Retrograde Cholangiopancreatography(Not Applicable) - Manuel Dubon MD s Upper Endoscopic Ultrasonography(Not Applicable) - Manuel Dubon MD Surgeon Manuel Dubon MD Retail Loss Prevention Specialist None Estimated Blood Loss 0 Findings See Below (CBD stone removed, CBD stent placed) Specimens None Description of Procedure EUS/ERCP I attest to the content of the Intraoperative Record and any orders documented therein. Any exceptions are noted below.
--- NOTE | 2021-02-28 10:43 | GI REPORT ---
Patient Name: Nena Sinha Procedure Date: 02/28/2021 9:35 AM Date of : 1950 Admit Type: Inpatient Age: 71 Gender: Female Attending MD: Manuel Dubon MD Procedure: Upper GI endoscopy Providers: Manuel Dubon MD Referring MD: José Miguel Nogueira Md Indications: Epigastric abdominal pain Medicines: General Anesthesia Complications: No immediate complications. Estimated Blood Loss: Estimated blood loss: none. Procedure: Pre-Anesthesia Assessment: - Prior to the procedure, a History and Physical was performed, and patient medications, allergies and sensitivities were reviewed. The patient's tolerance of previous anesthesia was reviewed. - The risks and benefits of the procedure and the sedation options and risks were discussed with the patient. All questions were answered and informed consent was obtained. - Patient identification and proposed procedure were verified prior to the procedure by the physician and the nurse. The procedure was verified in the procedure room. - Pre-procedure physical examination revealed no contraindications to sedation. After obtaining informed consent, the endoscope was passed under direct vision. Throughout the procedure, the patient's blood pressure, pulse, and oxygen saturations were monitored continuously. The Endoscope was introduced through the mouth, and advanced to the second part of duodenum. The upper GI endoscopy was accomplished without difficulty. The patient tolerated the procedure well. Findings: The examined esophagus was normal. The entire examined stomach was normal. The duodenal bulb and second portion of the duodenum were normal. Impression: - Normal esophagus. - Normal stomach. - Normal duodenal bulb and second portion of the duodenum. - No specimens collected. Recommendation: - Perform an upper endoscopic ultrasound (UEUS). Manuel Dubon MD 02/28/2021 10:42:30 AM This report has been signed electronically. Note Initiated On: 02/28/2021 9:35 AM Number of Addenda: 0 I attest to the content of the Intraoperative Record and orders documented therein, exceptions below {[id number]}
--- NOTE | 2021-02-28 10:46 | GI REPORT ---
Patient Name: Nena Sinha Procedure Date: 02/28/2021 9:29 AM Date of : 1950 Admit Type: Inpatient Age: 71 Gender: Female Attending MD: Manuel Dubon MD Procedure: Upper EUS Providers: Manuel Dubon MD Referring MD: José Miguel Nogueira Md Indications: Elevated liver enzymes, Suspected choledocholithiasis Medicines: General Anesthesia Complications: No immediate complications. Estimated Blood Loss: Estimated blood loss: none. Procedure: Pre-Anesthesia Assessment: - Prior to the procedure, a History and Physical was performed, and patient medications, allergies and sensitivities were reviewed. The patient's tolerance of previous anesthesia was reviewed. - The risks and benefits of the procedure and the sedation options and risks were discussed with the patient. All questions were answered and informed consent was obtained. - Patient identification and proposed procedure were verified prior to the procedure by the physician and the nurse. The procedure was verified in the procedure room. - Pre-procedure physical examination revealed no contraindications to sedation. After obtaining informed consent, the endoscope was passed under direct vision. Throughout the procedure, the patient's blood pressure, pulse, and oxygen saturations were monitored continuously. The scope was introduced through the mouth, and advanced to the second part of duodenum. The upper EUS was accomplished without difficulty. The patient tolerated the procedure well. Findings: ENDOSONOGRAPHIC FINDING: : There was no sign of significant endosonographic abnormality in the ampulla. No masses were identified. There was dilation in the common bile duct which measured up to 8 mm. One stone was visualized endosonographically in the common bile duct. It was hyperechoic and characterized by shadowing. Multiple stones were visualized endosonographically in the gallbladder. They were hyperechoic and characterized by shadowing. There was no sign of significant endosonographic abnormality in the visualized portion of the liver. There was no sign of significant endosonographic abnormality in the entire pancreas. The pancreatic duct measured up to 2 mm in diameter. There was no sign of significant endosonographic abnormality in the visualized portion of the left adrenal gland. There was no sign of significant endosonographic abnormality involving the celiac trunk. Impression: - There was no sign of significant pathology in the ampulla. - There was dilation in the common bile duct which measured up to 8 mm. - One stone was visualized endosonographically in the common bile duct. - Multiple stones were visualized endosonographically in the gallbladder. - There was no evidence of significant pathology in the visualized portion of the liver. - There was no sign of significant pathology in the entire pancreas. - Endosonographic images of the left adrenal gland were unremarkable. - The celiac trunk was endosonographically normal. Recommendation: - Perform an ERCP today. Manuel Dubon MD 02/28/2021 10:45:47 AM This report has been signed electronically. Note Initiated On: 02/28/2021 9:29 AM Number of Addenda: 0 I attest to the content of the Intraoperative Record and orders documented therein, exceptions below {[id number]}
--- NOTE | 2021-02-28 10:48 | Fluoroscopy Report ---
[place] ERCP biliary ductal CLINICAL HISTORY: ERCP. Bile duct dilatation. COMPARISON STUDY: Abdominal ultrasound 02/27/2021. FLUOROSCOPY TIME: 1 minute and 31 seconds. FINDINGS: 10 fluoroscopic spot images of the right upper quadrant. The ampulla was cannulated and con trast was injected into the mildly dilated common bile duct. There are multiple small gallstones pres ent. A balloon sweep was performed. This is followed by placement of a common bile duct stent which a ppears in good position. IMPRESSION: Fluoroscopy provided for ERCP. ACT 112: Negative or not required by law. Electronically signed by: Smith Smith M.D. 02/28/2021 10:46 AM
--- NOTE | 2021-02-28 10:51 | GI REPORT ---
Patient Name: Nena Sinha Procedure Date: 02/28/2021 9:27 AM Date of : 1950 Admit Type: Inpatient Age: 71 Gender: Female Attending MD: Manuel Dubon MD Procedure: ERCP Providers: Manuel Dubon MD Referring MD: José Miguel Nogueira Md Indications: For therapy of bile duct stone(s) Medicines: General Anesthesia Complications: No immediate complications. Estimated Blood Loss: Estimated blood loss: none. Procedure: Pre-Anesthesia Assessment: - Prior to the procedure, a History and Physical was performed, and patient medications, allergies and sensitivities were reviewed. The patient's tolerance of previous anesthesia was reviewed. - The risks and benefits of the procedure and the sedation options and risks were discussed with the patient. All questions were answered and informed consent was obtained. - Patient identification and proposed procedure were verified prior to the procedure by the physician and the nurse. The procedure was verified in the procedure room. - Pre-procedure physical examination revealed no contraindications to sedation. After obtaining informed consent, the scope was passed under direct vision. Throughout the procedure, the patient's blood pressure, pulse, and oxygen saturations were monitored continuously. The scope was introduced through the mouth, and advanced to the duodenum and used to inject contrast into the bile duct. The ERCP was accomplished without difficulty. The patient tolerated the procedure well. Findings: The drug abuse social worker film was normal. The esophagus was successfully intubated under direct vision. The scope was advanced to a normal major papilla in the descending duodenum without detailed examination of the pharynx, larynx and associated structures, and upper GI tract. The upper GI tract was grossly normal. A 0.035 inch straight standard wire was passed into the biliary tree. The Fusion OMNI sphincterotome was passed over the guidewire and the bile duct was then deeply cannulated. Contrast was injected. I personally interpreted the bile duct images. Ductal flow of contrast was adequate. Image quality was adequate. Contrast extended to the main bile duct. Opacification of the entire biliary tree was successful. The main bile duct was dilated. The largest diameter was 9 mm. The biliary orifice was stenotic. This appeared benign. Biliary sphincterotomy was made with a monofilament traction (standard) sphincterotome using ERBE electrocautery. There was no post-sphincterotomy bleeding. The biliary tree was swept with a 15 mm balloon starting at the bifurcation. One stone was removed. No stones remained. One 8 mm by 8 cm covered metal biliary stent was placed into the common bile duct. Bile flowed through the stent. The stent was in good position. Indomethacin 100 mg was given via suppository to decrease the risk of post-ERCP pancreatitis (PEP). PD was not cannulated. Impression: - Biliary papillary stenosis, benign. - Choledocholithiasis was found. Complete removal was accomplished by biliary sphincterotomy and balloon extraction. - One covered metal biliary stent was placed into the common bile duct. Recommendation: - Return patient to [facility] for ongoing care. - Clear liquid diet today. - Repeat ERCP in 4 weeks to remove stent. - Surgery consult for cholecystectomy this admission. - Return to referring physician. Manuel Dubon MD 02/28/2021 10:50:59 AM This report has been signed electronically. Note Initiated On: 02/28/2021 9:27 AM Number of Addenda: 0 I attest to the content of the Intraoperative Record and orders documented therein, exceptions below {[id number]}
--- NOTE | 2021-02-28 11:07 | Anesthesiology Progress Note ---
Date of Service February 28, 2021 Anesthesia Post Procedure Vital Signs Vital Signs: Temp Pulse Pulse Pulse Resp BP BP 02/28/21 10:50 78 20 02/28/21 10:40 81 13 02/28/21 10:35 36.2 C L 82 14 02/28/21 08:54 37.0 C 94 H 20 02/28/21 07:24 37.0 C 80 16 126/74 02/28/21 01:30 36.6 C 90 16 148/84 H 02/28/21 01:06 82 16 122/71 02/27/21 23:54 88 16 02/27/21 23:14 88 16 02/27/21 22:30 84 20 02/27/21 22:20 83 18 02/27/21 22:10 80 15 02/27/21 22:01 85 23 02/27/21 21:59 86 17 123/95 02/27/21 21:20 84 20 02/27/21 21:10 84 26 H 02/27/21 21:00 85 19 02/27/21 20:50 85 20 02/27/21 20:40 84 26 H 02/27/21 20:38 86 18 02/27/21 20:19 82 19 143/70 H 02/27/21 19:25 88 18 02/27/21 18:40 36.8 C 85 20 114/54 L BP Pulse Ox 02/28/21 10:50 150/84 H 100 02/28/21 10:40 151/77 H 100 02/28/21 10:35 146/84 H 100 02/28/21 08:54 151/83 H 99 02/28/21 07:24 95 02/28/21 01:30 98 02/28/21 01:06 95 02/27/21 23:54 148/76 H 95 02/27/21 23:14 123/84 97 02/27/21 22:30 96 02/27/21 22:20 95 02/27/21 22:10 97 02/27/21 22:01 98 02/27/21 21:59 99 02/27/21 21:20 02/27/21 21:10 02/27/21 21:00 02/27/21 20:50 02/27/21 20:40 02/27/21 20:38 02/27/21 20:19 02/27/21 19:25 97 02/27/21 18:40 97 Pain Intensity Abdomen: Pain Intensity: 2 Transfer of Care Handoff Completed per policy Notes Mental Status: alert / awake / arousable Patient Amnestic to Procedure: Yes Nausea / Vomiting: adequately controlled Pain: adequately controlled Airway Patency, RR, SpO2: stable & adequate BP & HR: stable & adequate Hydration State: stable & adequate Anesthetic Complications: no major complications apparent
[2021-02-28] MEDS: traMADol HCL 50 MG TABLET PO PRN ×2 (11:37→21:01)
[2021-02-28] MEDS: lisinopril 10 MG TAB PO SCH (11:38)
[2021-02-28] MEDS: amLODIPine BESYLATE 5 MG TAB PO SCH (11:38)
--- NOTE | 2021-02-28 12:15 | Electrocardiogram Report ---
Test Reason : Blood Pressure : / mmHG Vent. Rate : 080 BPM Atrial Rate : 080 BPM P-R Int : 164 ms QRS Dur : 088 ms QT Int : 390 ms P-R-T Axes : 071 046 038 degrees QTc Int : 449 ms Normal sinus rhythm Normal ECG When compared with ECG of 15-MAY-2020 13:14, No significant change was found Confirmed by Awais Negro ([id number]) on 02/28/2021 12:15:17 PM Referred By: REFERRED SELF Confirmed By:Jignesh Negro
--- NOTE | 2021-02-28 12:36 | Surgery Consultation ---
Date of Consultation February 28, 2021 Assessment & Plan (1) Cholelithiasis: pt is a 71 year-old female who was admitted to hospital for acute abdominal pain with elevate LFTS, S/P ERCP, IMP; cholelithiasis Plan, pt can be discharged home tomorrow if pt meet discharge criteria, I recommend to do laparoscopic cholecystectomy possible open or cholangiogram on 03/03/2021, for out-patient surgery, D/W benefits, risks and alternatives of the surgery, the risks - infection, bleeding, injury CBD, bowel, NV, pt understood, she agrees with the plan, I answered all questions, Present on Admission?: Yes Supervising Physician Co-Signing Physician Notes I performed a history and physical examination of the patient today, including specifically on physical exam - soft abdomen. I have discussed the patient's management with the advanced practitioner. Please refer to the nurse practitioner's note for the documented findings and plan of care. Dilated CBD with rising LFTs, abdominal pain and gallstones, needs to evaluate/ treat choledocholithiasis. EUS/ERCP History of Present Illness Attending Physician: José Miguel Nogueira MD History of Present Illness Chief Complaint: Abdominal pain Primary Care Provider: Olinda Gil DO History obtained from patient, family, and records. 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 Last confinement June 2019 for retroperitoneal bleed secondary to bleeding left renal angiomyolipoma status post embolization. Yesterday afternoon, patient noted epigastric achy discomfort noted after eating a greasy meal. No fever, no chills. No chest pain, no S OB. Similar episode about a year ago. Patient brought to the ER by family. Given Mefoxin for possible cholecystitis. 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 Allergies Allergy/AdvReac Type Severity Reaction Status Date / Time chlorhexidine AdvReac Mild Hives Verified 02/27/21 19:25 Home Medications Medication Instructions Recorded Confirmed Type amlodipine 10 mg PO DAILY 05/15/20 02/27/21 History atorvastatin 20 mg PO DAILY 05/15/20 02/27/21 History lisinopril 10 mg PO DAILY 05/15/20 02/27/21 History metoprolol tartrate 25 mg PO BID 05/15/20 02/27/21 History ondansetron 4 mg PO Q6 PRN #14 tab 05/15/20 02/27/21 Rx Past Med/Surg History Medical History Hypercholesteremia Mitral valve prolapse Surgical History S/P hernia repair Social History Smoking Status: Never smoker Hx Alcohol Use: No Hx Substance Use: No Preferred Language: [place] Communication Ability: Effective Cloth Washer Required: No Beliefs That Will Affect Care: None marital status: Current Living Situation: Significant Other Current Living Situation Comment: unknown Other Information That Helps Us Care for You: No Feels Safe at Home: Yes Safety Concerns: Feels Safe At This Time Assistive Devices: None Review of Systems Review of Systems: As per HPI, all 10 systems reviewed, all other ROS negative Allergies Allergy/AdvReac Type Severity Reaction Status Date / Time chlorhexidine AdvReac Mild Hives Verified 02/27/21 19:25 Home Medications Medication Instructions Recorded Confirmed Type amlodipine 10 mg PO DAILY 05/15/20 02/27/21 History atorvastatin 20 mg PO DAILY 05/15/20 02/27/21 History lisinopril 10 mg PO DAILY 05/15/20 02/27/21 History metoprolol tartrate 25 mg PO BID 05/15/20 02/27/21 History ondansetron 4 mg PO Q6 PRN #14 tab 05/15/20 02/27/21 Rx Patient History Medical History (Updated 02/28/21 @ 12:44 by Marie Boone MD) Hypercholesteremia Mitral valve prolapse Surgical History S/P hernia repair Social History Smoking Status: Never smoker Hx Alcohol Use: No Hx Substance Use: No Preferred Language: [place] Communication Ability: Effective Cloth Washer Required: No Beliefs That Will Affect Care: None marital status: Current Living Situation: Significant Other Current Living Situation Comment: unknown Other Information That Helps Us Care for You: No Feels Safe at Home: Yes Safety Concerns: Feels Safe At This Time Assistive Devices: None Review of Systems Review of Systems: All systems reviewed & are unremarkable except as noted in HPI & below Constitutional: as per Subjective / HPI Eyes: as per Subjective / HPI Ear, Nose, Mouth, Throat: as per Subjective / HPI Respiratory: as per Subjective / HPI acute respiratory failure, hypoxia, bilateral pleual effusion Cardiovascular: as per Subjective / HPI Additional Comments: HTN, murmur, mitral valve prolapse Gastrointestinal: as per Subjective / HPI Genitourinary: as per Subjective / HPI left renal mass, s/p embolization of L renal artery 2018 Musculoskeletal: as per Subjective / HPI Integumentary: as per Subjective / HPI Neurologic: as per Subjective / HPI Psychiatric: as per Subjective / HPI Endocrine: as per Subjective / HPI Hematologic / Lymphatic: as per Subjective / HPI shock, anemia, acute blood loss, Physical Exam Constitutional: WD/WN, vitals as above well developed and well nourished Eyes: PERRL, conjunctivae normal, anicteric sclerae ENMT: external ear and nose normal, oropharynx normal Neck: trachea midline, no thyromegaly Respiratory: normal respiratory effort, lungs clear to auscultation normal respiratory effort Cardiovascular: RRR, no murmur, no edema Rate/Rhythm: regular rate and regular rhythm Gastrointestinal (Abdomen): normal bowel sounds, soft, nontender, no hepatosplenomegaly Percussion/Palpation: abdomen soft mild tenderness at epigastric area, no rebound pain, no distend Musculoskeletal: no cyanosis or clubbing, extremities motor strength 5/5 Skin: no rashes, warm and dry Neurologic: awake Psychiatric: Orientation: alert and oriented x 3 Results & Data ([facility]) Vital Signs (Past 12 Hours) Vital Signs Temp Pulse Pulse Pulse Resp BP BP 02/28/21 12:25 37.3 C 69 17 02/28/21 12:03 37.1 C 65 17 02/28/21 11:30 37.3 C 77 16 02/28/21 11:20 77 20 02/28/21 11:10 37.0 C 78 14 02/28/21 11:00 83 16 02/28/21 10:50 78 20 02/28/21 10:40 81 13 02/28/21 10:35 36.2 C L 82 14 02/28/21 08:54 37.0 C 94 H 20 02/28/21 07:24 37.0 C 80 16 126/74 02/28/21 01:30 36.6 C 90 16 148/84 H 02/28/21 01:06 82 16 122/71 BP Pulse Ox 02/28/21 12:25 153/79 H 96 02/28/21 12:03 155/75 H 95 02/28/21 11:30 140/75 97 02/28/21 11:20 146/89 H 97 02/28/21 11:10 149/70 H 99 02/28/21 11:00 150/88 H 98 02/28/21 10:50 150/84 H 100 02/28/21 10:40 151/77 H 100 02/28/21 10:35 146/84 H 100 02/28/21 08:54 151/83 H 99 02/28/21 07:24 95 02/28/21 01:30 98 02/28/21 01:06 95 Laboratory Results Abnormal lab results 02/27/21 02/27/21 02/27/21 Range/Units 20:05 20:05 22:45 WBC 13.60 H (4.8-10.8) K/uL RBC 3.85 L (4.2-5.4) M/uL Hgb (12.0-16.0) g/dL Hct 35.4 L (37-47) % Neut # (Auto) 11.63 H (1.4-6.5) K/uL Lymph # (Auto) 1.13 L (1.2-3.4) K/uL Hartley # (Auto) 0.70 H (0.11-0.59) K/uL Chloride (98-107) mmol/L BUN 22 H (7-18) mg/dl BUN/Creatinine Ratio 21.0 H (10-20) Glucose 115 H (70-99) mg/dl Calcium (8.5-10.1) mg/dl AST 170 H (15-37) U/L ALT 102 H (12-78) U/L Albumin (3.4-5.0) gm/dl Urine Protein Trace H (Negative) Urine Ketones Trace H (Negative) Urine Blood 1+ H (Negative) 02/28/21 02/28/21 Range/Units 05:56 05:56 WBC (4.8-10.8) K/uL RBC 3.37 L (4.2-5.4) M/uL Hgb 11.0 L (12.0-16.0) g/dL Hct 30.9 L (37-47) % Neut # (Auto) (1.4-6.5) K/uL Lymph # (Auto) (1.2-3.4) K/uL Hartley # (Auto) (0.11-0.59) K/uL Chloride 112 H (98-107) mmol/L BUN (7-18) mg/dl BUN/Creatinine Ratio (10-20) Glucose (70-99) mg/dl Calcium 8.3 L (8.5-10.1) mg/dl AST 327 H (15-37) U/L ALT 319 H (12-78) U/L Albumin 3.1 L (3.4-5.0) gm/dl Urine Protein (Negative) Urine Ketones (Negative) Urine Blood (Negative) Diagnostic Findings ABDOMINAL ULTRASOUND, RIGHT UPPER QUADRANT HISTORY: Right upper quadrant pain.. COMPARISON: Abdomen and pelvis CT 02/27/2021. FINDINGS: Pancreas: The pancreas demonstrates a normal echotexture. Liver: Mild intrahepatic bile duct dilatation. Gallbladder: There are few small gallstones. No gallbladder wall thickening. The gallbladder is mildly distended. CBD: The common bile duct is mildly distended measuring up to 9 mm. Right kidney: No hydronephrosis. IMPRESSION: 1. Mild intra and extrahepatic bile duct dilatation. Correlate for evidence of biliary obstruction and consider MRCP as follow-up. 2. Mildly distended gallbladder containing a few small stones. No gallbladder wall thickening. CT SCAN OF THE ABDOMEN AND PELVIS WITHOUT IV CONTRAST CLINICAL HISTORY: Follow-up renal angiomyolipoma. COMPARISON STUDY: Abdominal CT dated 08/22/2020. TECHNIQUE: CT scan of the abdomen and pelvis is performed from the lung bases to the proximal femora. Images are reviewed in the axial, sagittal, and coronal planes. IV contrast was not administered for this examination. A dose lowering technique was utilized adhering to the principles of ALARA. CT DOSE: 293.13 mGy.cm FINDINGS: Lung bases: The heart is normal in size and without pericardial effusion. There are bilateral fat-containing Bochdalek hernias. The lung bases are clear. A tiny hiatal hernia is noted. Liver: The unenhanced liver is normal in size, contour, and attenuation. There is no intrahepatic biliary ductal dilatation. A subcentimeter cyst in the left lobe is unchanged. Gallbladder: There are calcified gallstones with no CT evidence of acute cholecystitis. Spleen: Normal in size and attenuation. Pancreas: Unremarkable. Adrenal glands: Unremarkable. Kidneys: There is markedly asymmetric cortical atrophy of the left kidney as compared to the right. No hydronephrosis is seen. No renal calculi are chelsea ntified. A 7.5 x 5.5 cm heterogeneous fat attenuation lesion is again seen arising from the left kidney. This has minimally decreased in size from previous and typical for an angiomyolipoma. A subcentimeter angiomyolipoma in the lower pole of the right kidney as seen on image #155. Embolization coils are again noted in the left renal hilum. Abdominal vasculature: The abdominal aorta is normal in course and caliber. Bowel: There is no bowel obstruction. A small gastric diverticulum seen on image #116 is unchanged. The appendix is normal as visualized. Peritoneum: There is no intraperitoneal free air or abdominal ascites. There is a fat-containing umbilical hernia. Lymphadenopathy: None. Pelvic viscera: The bladder, uterus, and adnexa are normal as visualized. Skeletal structures: The skeletal structures are osteopenic. There is mild lumbosacral spondylosis. No lytic or blastic lesions are seen. IMPRESSION: 1. There is markedly asymmetric cortical atrophy of the left kidney as compared to the right with embolization coils noted in the left renal hilum. 2. A large angiomyolipoma of the left kidney has modestly decreased in size as compared to 08/22/2020. 3. A subcentimeter angiomyolipoma is again seen in the lower pole of the right kidney. 4. Cholelithiasis. 5. Additional findings as above. ERCP-Impression: - There was no sign of significant pathology in the ampulla. - There was dilation in the common bile duct which measured up to 8 mm. - One stone was visualized endosonographically in the common bile duct. - Multiple stones were visualized endosonographically in the gallbladder. - There was no evidence of significant pathology in the visualized portion of the liver. - There was no sign of significant pathology in the entire pancreas. - Endosonographic images of the left adrenal gland were unremarkable. - The celiac trunk was endosonographically normal.
--- NOTE | 2021-02-28 16:37 | Communication Note ---
Date of Service: February 28, 2021 Patient seen and examined today for her ERCP. Reports her abdominal pain is much improved. Waiting to try some clears now. Appreciate general surgery input. Plan is to discharge patient tomorrow and cholecystectomy as an outpatient. Currently she is hemodynamically stable. No other major complaints. Will continue with fluids for now. Advance diet as tolerated.
[2021-03-01] MEDS: NSS + 20MEQ KCL 20 MEQ/1,000 ML BAG IV SCH (03:58)
[2021-03-01 08:19] LABS: Alanine Aminotransferase 171 U/L (12-78); Albumin Level 3.3 gm/dl (3.4-5.0); Alkaline Phosphatase 94 U/L (45-117); Aspartate Aminotransferase 76 U/L (15-37); Bilirubin Direct < 0.1 mg/dl (0-0.2); Bilirubin,Total 0.5 mg/dl (0.2-1); Total Protein 6.6 gm/dl (6.4-8.2)
[2021-03-01] MEDS: amLODIPine BESYLATE 5 MG TAB PO SCH (08:29)
[2021-03-01] MEDS: lisinopril 10 MG TAB PO SCH (08:29)
[2021-03-01] MEDS: METOPROLOL TARTRATE 25 MG TAB PO SCH (08:29)
[2021-03-01] MEDS: ACETAMINOPHEN 325 MG TAB PO PRN (09:42)
--- NOTE | 2021-03-01 12:20 | Surgery Progress Note ---
Date of Service March 01, 2021 Assessment & Plan (1) Cholelithiasis: POD # 1 s/p EUS with ERCP and biliary stent placement for choledocholithiasis - avss - t. bili wnl, lfts improved - abdominal pain resolved, no n/v Plan: Will plan for outpatient cholecystectomy on Thursday with Dr. Boone. Chasidy for discharge today from surgical standpoint. Would recommend low fat diet over weekend Educated patient NPO after midnight Thursday, will check with OR about patient's time of arrival for Thursday Admission and Anticipated Discharge Date Admission Date: February 28, 2021 Subjective feeling better today not having any abdominal pain, n/v tolerated diet last night Physical Exam Constitutional: WD/WN, vitals as above Respiratory: normal respiratory effort; no respiratory distress and no labored breathing Skin: no rashes, warm and dry Psychiatric: A+Ox3, euthymic affect Results & Data ([facility]) Vital Signs (Past 12 Hours) Vital Signs Temp Pulse Resp BP BP Pulse Ox 03/01/21 10:17 37 C 78 16 122/75 96 03/01/21 08:25 78 122/75 03/01/21 07:46 37 C 68 16 109/68 96 03/01/21 03:40 36.8 C 70 16 110/65 93 Laboratory Results 03/01/21 Range/Units 07:30 Total Bilirubin 0.5 (0.2-1) mg/dl Direct Bilirubin < 0.1 (0-0.2) mg/dl AST 76 H (15-37) U/L ALT 171 H (12-78) U/L Alkaline Phosphatase 94 (45-117) U/L Total Protein 6.6 (6.4-8.2) gm/dl Albumin 3.3 L (3.4-5.0) gm/dl
--- NOTE | 2021-03-01 14:30 | Discharge Summary ---
Date of Service March 01, 2021 Admission HPI Per Admitting Provider History obtained from patient, family, and records. 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 Last confinement June 2019 for retroperitoneal bleed secondary to bleeding left renal angiomyolipoma status post embolization. Yesterday afternoon, patient noted epigastric achy discomfort noted after eating a greasy meal. No fever, no chills. No chest pain, no S OB. Similar episode about a year ago. Patient brought to the ER by family. Given Mefoxin for possible cholecystitis. 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 Admission Exam Per Admitting Provider GENERAL: Comfortable, slightly anxious, looks younger for stated age, no respiratory distress SKIN: Normal color, warm HEENT: [place] palpebral conjunctivae, no ptosis, dry buccal mucosa NECK : Supple, no tenderness CHEST : CTA, no tenderness HEART : RRR, no obvious murmurs ABDOMEN: Some distention, epigastric tenderness EXTREMITIES : No LE swelling/tenderness, no other conspicuous deformities noted NEUROLOGIC : Coherent, no facial asymmetry, no other gross focality Principal Diagnosis Choledocholithiasis status post ERCP with stone extraction and stent placement Elevated transaminases Discharge Data Allergies Allergy/AdvReac Type Severity Reaction Status Date / Time chlorhexidine AdvReac Mild Rash Verified 03/04/21 07:44 Consultations 02/27/21 23:26 ED Decision to Admit Stat 02/28/21 01:23 Consult Gastroenterology Routine 02/28/21 08:50 Consult General Surgery Routine Procedures Performed Operation Date: 02/28/21 10:50 Actual Procedures p Endoscopic Retrograde Cholangiopancreatography(Not Applicable) - Manuel Dubon MD s Upper Endoscopic Ultrasonography(Not Applicable) - Manuel Dubon MD Ordered Studies Laboratory Results WBC 7.29 K/uL (4.8-10.8) 02/28/21 05:56 RBC 3.37 M/uL (4.2-5.4) L 02/28/21 05:56 Hgb 11.0 g/dL (12.0-16.0) L 02/28/21 05:56 Hct 30.9 % (37-47) L 02/28/21 05:56 MCV 91.7 fL (80-100) 02/28/21 05:56 MCH 32.6 pg (25-34) 02/28/21 05:56 MCHC 35.6 g/dL (32-36) 02/28/21 05:56 RDW Std Deviation 43.0 fL (36.4-46.3) 02/28/21 05:56 RDW Coeff of Fifi 12.7 % (11.5-14.5) 02/28/21 05:56 Plt Count 264 K/uL (130-400) 02/28/21 05:56 MPV 9.2 fL (7.4-10.4) 02/28/21 05:56 Immature Gran % (Auto) 0.1 % 02/28/21 05:56 Neut % (Auto) 67.2 % 02/28/21 05:56 Lymph % (Auto) 23.9 % 02/28/21 05:56 Barton % (Auto) 7.4 % 02/28/21 05:56 Eos % (Auto) 1.1 % 02/28/21 05:56 Baso % (Auto) 0.3 % 02/28/21 05:56 Neut # (Auto) 4.90 K/uL (1.4-6.5) 02/28/21 05:56 Lymph # (Auto) 1.74 K/uL (1.2-3.4) 02/28/21 05:56 Barton # (Auto) 0.54 K/uL (0.11-0.59) 02/28/21 05:56 Eos # (Auto) 0.08 K/uL (0-0.5) 02/28/21 05:56 Baso # (Auto) 0.02 K/uL (0-0.2) 02/28/21 05:56 Immature Gran # (Auto) 0.01 K/uL (0.00-0.02) 02/28/21 05:56 Sodium 141 mmol/L (136-145) 02/28/21 05:56 Potassium 4.2 mmol/L (3.5-5.1) 02/28/21 05:56 Chloride 112 mmol/L (98-107) H 02/28/21 05:56 Carbon Dioxide 25 mmol/L (21-32) 02/28/21 05:56 Anion Gap 4.0 (3-11) 02/28/21 05:56 BUN 14 mg/dl (7-18) 02/28/21 05:56 Creatinine 0.82 mg/dl (0.6-1.2) 02/28/21 05:56 Est Cr Clr Drug Dosing 55.0 ml/min 02/28/21 05:56 Est GFR ( Amer) 82.9 02/28/21 05:56 Est GFR (Non-Af Amer) 71.5 02/28/21 05:56 BUN/Creatinine Ratio 17.4 (10-20) 02/28/21 05:56 Glucose 89 mg/dl (70-99) 02/28/21 05:56 Estimat Average Glucose 94 mg/dl 02/27/21 18:44 Hemoglobin A1c 4.9 % (4.5-5.6) 02/27/21 18:44 Calcium 8.3 mg/dl (8.5-10.1) L 02/28/21 05:56 Magnesium 2.1 mg/dl (1.8-2.4) 02/27/21 20:05 Total Bilirubin 0.5 mg/dl (0.2-1) 03/01/21 07:30 Direct Bilirubin < 0.1 mg/dl (0-0.2) 03/01/21 07:30 AST 76 U/L (15-37) H 03/01/21 07:30 ALT 171 U/L (12-78) H 03/01/21 07:30 Alkaline Phosphatase 94 U/L (45-117) 03/01/21 07:30 Total Protein 6.6 gm/dl (6.4-8.2) 03/01/21 07:30 Albumin 3.3 gm/dl (3.4-5.0) L 03/01/21 07:30 Globulin 3.5 gm/dl (2.5-4.0) 02/28/21 05:56 Albumin/Globulin Ratio 0.9 (0.9-2) 02/28/21 05:56 Lipase 291 U/L (73-393) 02/27/21 20:05 Urine Color Yellow 02/27/21 22:45 Urine Appearance Clear (Clear) 02/27/21 22:45 Urine pH 5.0 (4.5-7.5) 02/27/21 22:45 Ur Specific Howe 1.022 (1.000-1.030) 02/27/21 22:45 Urine Protein Trace (Negative) H 02/27/21 22:45 Urine Glucose (UA) Negative (Negative) 02/27/21 22:45 Urine Ketones Trace (Negative) H 02/27/21 22:45 Urine Blood 1+ (Negative) H 02/27/21 22:45 Urine Nitrite Negative (Negative) 02/27/21 22:45 Urine Bilirubin Negative (Negative) 02/27/21 22:45 Urine Urobilinogen Negative (Negative) 02/27/21 22:45 Ur Leukocyte Esterase Negative (Negative) 02/27/21 22:45 Urine WBC (Auto) 1-5 /hpf (0-5) 02/27/21 22:45 Urine RBC (Auto) 0-4 /hpf (0-4) 02/27/21 22:45 U Hyaline Cast (Auto) 1-5 /lpf (0-5) 02/27/21 22:45 U Epithel Cells (Auto) 0-5 /lpf (0-5) 02/27/21 22:45 Urine Bacteria (Auto) Negative (Negative) 02/27/21 22:45 COVID-19 Eval Order [facility]Rsv at [facility] 02/27/21 22:55 SARS-CoV-2 (PCR) NEGATIVE (Negative) 02/27/21 22:55 Influenza Type A (PCR) Negative (Neg) 02/27/21 22:55 Influenza Type B (PCR) Negative (Neg) 02/27/21 22:55 RSV (RT-PCR) Negative (Neg) 02/27/21 22:55 Impressions Gallbladder Ultrasound 02/27/21 19:57 ABDOMINAL ULTRASOUND, RIGHT UPPER QUADRANT HISTORY: Right upper quadrant pain.. COMPARISON: Abdomen and pelvis CT 02/27/2021. FINDINGS: Pancreas: The pancreas demonstrates a normal echotexture. Liver: Mild intrahepatic bile duct dilatation. Gallbladder: There are few small gallstones. No gallbladder wall thickening. The gallbladder is mildly distended. CBD: The common bile duct is mildly distended measuring up to 9 mm. Right kidney: No hydronephrosis. IMPRESSION: 1. Mild intra and extrahepatic bile duct dilatation. Correlate for evidence of biliary obstruction and consider MRCP as follow-up. 2. Mildly distended gallbladder containing a few small stones. No gallbladder wall thickening. ACT 112: Negative or not required by law. Electronically signed by: Smith Smith M.D. 02/28/2021 7:09 AM Hospital Course (1) Choledocholithiasis: (2) Transaminitis: 71 yo F admitted for abdominal pain with transaminitis. Abdominal imaging revealed evidence of mildly distended gallbladder with stones and intra/extra=he patic biliary ductal dilation at 9mm. GI was consulted and planned for EUS/ERCP, which she underwent on 02/28. EGD revealed a normal esophagus, normal stomach, normal duodenum. An ERCP revealed benign biliary papillary stenosis with choledocholithiasis. Complete removal of the stone was achieved with biliary sphincterotomy and balloon extraction. One metal biliary stent was placed into the common bile duct. Surgery was consulted for cholecystectomy which was planned for outpatient following the weekend. At time of discharge she had eaten some food with some post-prandial discomfort but not enough to delay discharge. She was hemodynamically stable and afebrile and oxygenating well on room air. She was mentating and ambulating at baseline. Physical exam was unremarkable. She was sent home in stable condition with close PCP follow- up recommended. Total Time Total Time Spent Total Time Spent (In Minutes): 60 Total Time Includes: Examination of the Patient, Discharge Planning, Medication Reconciliation and Communication With Other Providers Discharge Plan Discharge Items Patient Disposition: Home - Self-Care Reason For Visit: ABD PAIN Discharge Diagnosis: Choledocholithiasis status post ERCP with stone extraction and stent placement Elevated transaminases Condition on Discharge: Good Activity: Resume your previous activity Non-emergency contact: Primary Care Provider Call non-emergency contact if: you have any medication questions, your symptoms worsen, your pain is not controlled and your pain is worsening Follow-up/Referrals: Olinda Gil DO [Primary Care Provider] - (Date & Time 03/07/2021 11:20 AM Provider Olinda Gil DO Department [facility] ) Diet: Low Fat Addtl Attending Provider Instructions: Please continue all medications as instructed on discharge list below. It is recommend that you follow-up with your primary care doctor within 1 week of this hospital stay to ensure you are still doing well after going home. You will need to follow-up with [facility] gastroenterology in 4 weeks for removal of your common bile duct stent. It was a pleasure taking care of you! Please call if you have any questions or problems. You can reach a [facility] hospitalist on duty at [facility] 24 hours a day by calling [phone]. Take care of yourself. Yasmin Shen DO [facility] Hospitalist [employer] Vice President Provider Instructions: You need to arrive to hospital at 7 am on Thursday for your gallbladder surgery Nothing to eat or drink after midnight the night before your surgery Would recommend low fat diet this weekend. Small frequent meals. If you have pain or nausea with eating convert back to clear liquid diet. Pending Studies at Discharge: No Stand-Alone Forms: My [facility] Medications and DC Order Prescriptions: Continued atorvastatin 20 mg tablet 20 mg PO DAILY RF: 0 amlodipine 10 mg tablet 10 mg PO DAILY RF: 0 lisinopril 10 mg tablet 10 mg PO DAILY RF: 0 metoprolol tartrate 25 mg tablet 25 mg PO BID RF: 0 ondansetron 4 mg tablet,disintegrating 4 mg PO Q6 PRN (Reason: nausea and vomiting) Qty: 14 RF: 0 No Action oxycodone-acetaminophen [Percocet] 5-325 mg tablet 1 tab PO Q6H PRN (Reason: pain) Qty: 14 RF: 0 Discharge Orders: Discharge Order (Routine); Ordered 03/01/21 Ordered By: Yasmin Nascimento/Other Patient Handouts: What Are Gallstones, Treating Gallstones, Anatomy of the Digestive System, Discharge Instructions for Gallstones, ED Gallstones with Biliary Colic Admission Data Admit Date/Time: 02/28/21 00:17 Attending Provider: Yasmin Shen Admit Provider: Miseal Gary Primary Care Provider: Olinda Gil Other Providers: Misael Gary ; Ernst Wang ; Agueda Mojica ; Terry Uribe ; Olga Ferreira ; Andrea Couch ; Meliza Linda ; Terry Marcos ; Jacbo Reinoso ; Dave Osorio ; Divya Prieto ; Bianca Cottrell ; Vernell Dickey ; Suzie Elizalde ; Manuel Dubon ; Marie Boone Other Interventions: Discharge Summary Assessment (RN) Last Done: 03/01/21 10:17
[2021-03-01] MEDS: traMADol HCL 50 MG TABLET PO PRN (15:17)
== END 2021-03-01 18:06 | disposition home or self-care (01) ==
LOC: 3W 18:35 → ED 18:35 → SUATTDRO 02-28 00:17 → 3W 02-28 01:06